=== PATIENT | male | born 1950 | race Caucasian/White ===

== ENCOUNTER → 2018-04-14 14:40 | Outpatient (CLI) | payer MEDICARE, OTHER, SELFPAY ==
--- NOTE | 2018-04-14 14:40 | DT_ITS ---
This patient was seen during an EMR downtime April 13, 2018 - April 20, 2018. This patient may have a combination of paper and electronic documentation or all paper documentation. All documentation is viewable within the e-chart portion of [employer] for each patient visit.
[2018-04-20 17:18] LABS: Albumin, Serum 3.7 g/dL (3.2-5.0); BUN 18 mg/dL (7-18); BUN/Creat Ratio 14.2 RATIO (10-20); Calcium,Total 8.8 mg/dL (8.5-10.1); Chloride 101 mmol/L (98-107); Creatinine, Serum 1.27 mg/dL (0.70-1.30); EST Glomerular Filtration Rate 60 mL/min (>60); Est Glom Filt Rate - Afr Amer 73 mL/min (>60); Glucose 81 mg/dL (74-106); Phosphorus 3.8 mg/dL (2.5-4.9); Potassium 4.3 mmol/L (3.5-5.1); Sodium Level 135 mmol/L (136-145)
[2018-04-20 17:19] LABS: Protein:Creat Ratio 70 mg/g CRE (0-200)
== END ==
PROVIDERS: Family Provider Family Medicine Geriatric Medicine; PCP Family Medicine Geriatric Medicine; Visit Provider Internal Medicine Nephrology
DX: N18.3 Chronic kidney disease, stage 3 (moderate) (principal); D47.2 Monoclonal gammopathy
CPT/HCPCS: 36415; 80069; 82570; 84156; 84166

== ENCOUNTER → 2018-10-20 13:32 | Outpatient (CLI) | payer MEDICARE, OTHER, SELFPAY ==
[2018-10-20 14:02] LABS: Absolute Lymphocyte Count 1.33 X10^3/ul (0.83-4.51); Basophil# 0.02 X10^3/uL; Basophil% 0.3 % (0-1); Eosinophil# 0.08 X10^3/uL; Eosinophils% 1.3 % (0-5); Hematocrit 44.1 % (40-54); Hemoglobin 14.6 g/dl (13.0-16.5); Lymphocyte # 1.33 X10^3/ul (4.0); Lymphocyte % 22.1 % (19-41); Mean Corp Hgb Conc 33.1 g/gl (32-36); Mean Corpuscular Hgb 31.5 pg (27.0-32.0); Mean Corpuscular Volume 95.2 fL (80-94); Mean Platelet Vol. 10.1 fl (6.2-12.0); Neutrophil # 3.99 X10^3/uL (2.7-7.7); Neutrophil % 66.1 % (47-70); Platelet Count 211 K/mm3 (150-450); RBC Distribution Width CV 12.9 % (11.6-14.6); RBC Distribution Width SD 43.5 fl (35.1-43.9); Red Blood Count 4.63 M/mm3 (4.6-6.2)
[2018-10-20 14:03] LABS: POSITIVE COUNT NO; POSITIVE DIFFERENTIAL NO; POSITIVE MORPHOLOGY NO
[2018-10-20 14:23] LABS: Vitamin D,25 Hydroxy 33.5 ng/mL (29.95-100.01)
[2018-10-20 14:32] LABS: ALB/GLOB Ratio 1.3 RATIO (0.9-2.4); AST(SGOT) 19 U/L (15-37); Alanine Aminotransfer ALT/SGPT 31 U/L (16-61); Albumin, Serum 3.7 g/dL (3.2-5.0); Alkaline Phosphatase 97 U/L (45-117); Anion Gap 10 (5-15); BUN 20 mg/dL (7-18); BUN/Creat Ratio 16.1 RATIO (10-20); Chloride 102 mmol/L (98-107); Creatinine, Serum 1.24 mg/dL (0.70-1.30); EST Glomerular Filtration Rate 61 mL/min (>60); Est Glom Filt Rate - Afr Amer 74 mL/min (>60); Globulin 2.9 g/dL (2.2-4.2); Glucose 100 mg/dL (74-106); Potassium 4.6 mmol/L (3.5-5.1); Protein, Total 6.6 g/dL (6.4-8.2); Sodium Level 140 mmol/L (136-145); Thyroid Stim Hormone (TSH) 0.44 uIU/mL (0.358-3.74)
--- OUTSIDE RECORDS SUMMARY | 2018-12-06 18:08 | XMS RPT_ITS ---
:1950 Author Organization OHIP Care Team Providers Name Role Phone Gee Almonte Chi Attending Unavailable Gage, Gee Chi Primary Care Unavailable Zakia Arreaga Attending Unavailable Zakia Arreaga Referring Unavailable Gage, Gee Chi Primary Care Unavailable PROBLEMS PROBLEMS DATE TYPE CONDITION / CODE ATTENDING STATUS SOURCE 05/06/2018 Unknown N18.3 - Chronic Zakia Arreaga Active Gina kidney disease, [facility]ly [facility] stage 3 [facility] (moderate) / Repository N18.3(ICD-10) PROCEDURES PROCEDURES No Procedure Records FoundRESULTS RESULTS CBC W/DIFF, AUTOMATED Collected: 10/20/2018 Status: F Source: [place] 1:34 PM [facility] REPOSITORY TYPE CODE TESTS RESULT OUT OF RANGE REFERENCE UNITS LAB L100.1000 4.4-11.0 K/mm3 Normal WBC 6.0 LAB L100.1200 4.6-6.2 M/mm3 Normal RBC 4.63 LAB L100.1300 13.0-16.5 g/dl Normal HGB 14.6 LAB L100.1400 40-54 % Normal HCT 44.1 LAB L100.1500 80-94 fL High MCV 95.2 LAB L100.1600 27.0-32.0 pg Normal MCH 31.5 LAB L100.1700 32-36 g/gl Normal MCHC 33.1 LAB L100.1810 11.6-14.6 % Normal RDW CV 12.9 LAB L100.1820 35.1-43.9 fl Normal RDW SD 43.5 LAB L100.1900 150-450 K/mm3 Normal PLT 211 LAB L100.2000 6.2-12.0 fl Normal MPV 10.1 LAB L100.2100 47-70 % Normal NEUT% 66.1 LAB L100.2200 19-41 % Normal LY% 22.1 LAB L100.2300 0-10 % Normal MONO% 10.0 LAB L100.2400 0-5 % Normal EO% 1.3 LAB L100.2500 0-1 % Normal BASO% 0.3 LAB L100.2550 0.0-0.9 % Normal IM GRAN % 0.200 Result Comment: IG% - Immature Granulocytes (promyelocytes, myelocytes and metamyelocytes) > 1% indicates that a LEFT SHIFT is Present. LAB L100.2620 2.0-7.7 X10 3/uL Normal Absolute Neut 4.0 LAB L100.2720 0.83-4.51 X10 3/ul Normal Absolute Lymph 1.33 Performed By: #### L100.0100 #### [facility] [address] [place], [address] VITAMIN D,25 HYDROXY Collected: 10/20/2018 Status: F Source: [place] 1:34 PM [facility] REPOSITORY TYPE CODE TESTS RESULT OUT OF RANGE REFERENCE UNITS LAB L506.1000 29.95-100.01 ng/mL Normal Vitamin D 33.5 25-OH Result Comment: Vitamin D 25(OH) Status Range Deficiency <20 ng/mL (50nmol/L) Insuffciency 20 - 30 ng/mL (50 - 75 nmol/L) Sufficiency 30 - 100 ng/mL (75 - 250 nmol/L) Toxicity >100 ng/mL (>250 nmol/L) Performed By: #### L506.1000, L509.3000 #### [facility] [address] [place], [address] TESTOSTERONE, SERUM TOTAL Collected: 10/20/2018 Status: F Source: [place] 1:34 PM [facility] REPOSITORY TYPE CODE TESTS RESULT OUT OF REFERENCE UNITS RANGE LAB L509.3000 ng/dL Testosterone Normal 330.63 Result Comment: NORMAL REFERENCE RANGES MALE AGE <50 123.06 - 813.86 ng/dL MALE AGE >50 89.98 - 780.10 ng/dL FEMALE PREMENOPAUSE AGE 21 - 60 9.01 - 47.94 ng/dL FEMALE POSTMENOPAUSE AGE 45 - 89 <7.00 - 45.62 ng/dL REFERENCE RANGE AND METHODOLOGY CHANGED 10/29/2017 Performed By: #### L506.1000, L509.3000 #### [facility] [address] [place], [address] COMPREHENSIVE METABOLIC Collected: 10/20/2018 Status: F Source: [place] [facility] 1:34 PM [facility] REPOSITORY TYPE CODE TESTS RESULT OUT OF RANGE REFERENCE UNITS LAB L501.0100 74-106 mg/dL Normal GLU 100 Result Comment: Fasting Glucose result from 100 to 125 mg/dL suggests IMPAIRED HOMEOSTASIS per A.D.A. criteria. Please note revised GLUCOSE reference range effective 2017. LAB L501.1000 7-18 mg/dL High BUN 20 LAB L501.1100 0.70-1.30 mg/dL Normal CREAT,SERUM 1.24 Result Comment: The validity of the calculated GFR AND GFRAA in patients over 70 years has not been determined. Clinical correlation is essential. LAB L501.1110 >60 mL/min Normal EST GFR 61 Result Comment: Non- GFR Calc LAB L501.1115 >60 mL/min Normal EST GFR - AA 74 Result Comment: GFR Calc LAB L501.1300 10-20 RATIO Normal BUN/CRE 16.1 LAB L501.1500 6.4-8.2 g/dL T Normal PROT 6.6 LAB L501.1800 3.2-5.0 g/dL Normal ALB 3.7 LAB L501.1950 2.2-4.2 g/dL Normal GLOB 2.9 LAB L501.2000 0.9-2.4 RATIO Normal A/G 1.3 LAB L501.2200 8.5-10.1 mg/dL CA Normal 9.0 LAB L501.4100 15-37 U/L Normal AST 19 LAB L501.4305 45-117 U/L Normal ALK P 97 LAB L501.4405 16-61 U/L Normal ALT 31 LAB L501.4600 0.20-1.00 mg/dL T Normal BILI 0.60 LAB L501.5300 136-145 mmol/L NA Normal 140 LAB L501.5600 3.5-5.1 mmol/L K Normal 4.6 LAB L501.5900 98-107 mmol/L CL Normal 102 LAB L501.6100 21.0-32.0 mmol/L Normal CO2 28.0 LAB L501.6200 5-15 Normal GAP 10 Performed By: #### L500.4050, L501.9520 #### [facility] [address] [place], [address] THYROID STIM HORMONE Collected: 10/20/2018 Status: F Source: [place] (TSH) 1:34 PM [facility] REPOSITORY TYPE CODE TESTS RESULT OUT OF RANGE REFERENCE UNITS LAB L501.9520 0.358-3.74 uIU/mL Normal TSH 0.44 Performed By: #### L500.4050, L501.9520 #### [facility] [address] [facility] [place], [address] DOWNTIME REPORT Observed: 04/30/2018 Status: F Source: [place] 12:38 PM [facility] REPOSITORY [facility] Medical Records Department [address] [place] [address] Downtime Report MR#: [id number] Acct: [id number] Name: WANG LING Rep #: [id number] : 1950 68 From: Emil Rooney PCP: Gage SPAULDING,Gee Mcgarry Status: REG CLI This patient was seen during an EMR downtime April 13, 2018 - April 20, 2018. This patient may have a combination of paper and electronic documentation or all paper documentation. All documentation is viewable within the e-chart portion of [employer] for each patient visit. RENAL PROFILE Collected: 04/14/2018 Status: F Source: [place] 12:00 AM [facility] REPOSITORY Order Comment: RESULT(S) PREVIOUSLY REPORTED ON MANUAL REQUISITION DURING DOWNTIME. TYPE CODE TESTS RESULT OUT OF RANGE REFERENCE UNITS LAB L501.0100 74-106 mg/dL Normal GLU 81 Result Comment: Please note revised GLUCOSE reference range effective 2017. LAB L501.1000 7-18 mg/dL Normal BUN 18 LAB L501.1100 0.70-1.30 mg/dL Normal CREAT,SERUM 1.27 Result Comment: The validity of the calculated GFR AND GFRAA in patients over 70 years has not been determined. Clinical correlation is essential. LAB L501.1110 >60 mL/min Normal EST GFR 60 LAB L501.1115 >60 mL/min Normal EST GFR - AA 73 LAB L501.1300 10-20 RATIO Normal BUN/CRE 14.2 LAB L501.1800 3.2-5.0 g/dL Normal ALB 3.7 LAB L501.2200 8.5-10.1 mg/dL Normal CA 8.8 LAB L501.2300 2.5-4.9 mg/dL Normal PHOS 3.8 LAB L501.5300 136-145 mmol/L Low NA 135 LAB L501.5600 3.5-5.1 mmol/L Normal K 4.3 LAB L501.5900 98-107 mmol/L Normal CL 101 LAB L501.6100 21.0-32.0 mmol/L Normal CO2 30.0 Performed By: #### L500.3600 #### [facility] [address] [place], [place], [address] PROTEIN+CREATININE Collected: Status: F Source: [place] RATIO,URINE 04/14/2018 12:00 AM [facility] REPOSITORY Order Comment: RESULT(S) PREVIOUSLY REPORTED ON MANUAL REQUISITION DURING DOWNTIME. TYPE CODE TESTS RESULT OUT OF RANGE REFERENCE UNITS LAB L501.1200 NO RANGE EST. mg/dL Normal UR CREAT 141.00 LAB L501.1930 <11.9 mg/dL Normal 10.0 PROTEIN,UR.R AN. LAB L501.1940 0-200 mg/g CRE Normal PROT:CRE 70 RATIO Performed By: #### L501.0900 #### [facility] [address] [place], [address] PROTEIN ELECTRO.UR-RANDOM Collected: Status: F Source: [place] 04/14/2018 12:00 AM [facility] REPOSITORY TYPE CODE TESTS RESULT OUT OF RANGE REFERENCE UNITS LAB L3600.4100 Normal PROTEIN,UR Result Comment: TEST RESULT LIMITS Protein Electro, Random Urine Protein,Total,Urine 11.7 mg/dL Not Estab. Albumin, U 51.2 % Fbcgn-2-Hmdvkkul, U 4.0 % Lldgm-7-Plzzduzq, U 14.6 % Beta Globulin, U 21.7 % Gamma Globulin, U 8.5 % M-Nik, % Not Observed % Not Observed Please note: Protein electrophoresis scan will follow via computer, mail, or [employer] delivery. TESTING PERFORMED AT [facility]. ORIGINAL REPORT ON FILE IN LAB CONTAINS ADDITIONAL TEST SITE INFORMATION. Performed By: #### L3600.4000 #### [facility] (refer to report for specific site) refer to report for address and phone number ALLERGIES ALLERGIES No Allergies Records FoundENCOUNTERS ENCOUNTERS ADMIT/DISCHARGE ACCOUNT ADMITTING ENCOUNTER LOCATION SOURCE NUMBER CLASS 10/20/2018 [id number] Amb[place] [facility] ing:POLAB3 Repository 04/14/2018 [id number] Ambulatory [place] 0 [facility] ing:LAB Repository PAYERS PAYERS ENCOUNTER GUARANTOR PAYER SUBSCRIBER SOURCE 10/20/2018 Wang Yanez Primary Wang Fuentes [id number] Wilan Insurance:MEDICARE MetcalfDOB: [place], [place] PART A [facility] [id number] Hospital [address]Vzq: (330) Number: Repository [phone] ) [id number] Date:2018-10-20 10/20/2018 Secondary Wang L Gina Insurance:AARPPolicy MetcalfDOB: [facility] Number: [id number] Hospital [id number] Repository Date:1935-55-27[address], [place] [address]XM: 10/20/2018 Tertiary NOT GIVENUNK Gina Insurance:SELF PAY [facility] Number: Effective Repository Date:2018-10-20 04/14/2018 Wang L Primary Wang L Gina [id number] W[address] Insurance:MEDICARE MetcalfDOB: [address] BPolicy [id number] Hospital [address]Uot: 330) Number: Repository [phone] ) [id number] Date:2018-04-14 04/14/2018 Secondary Wang L Gina Insurance:AARPPolicy MetcalfDOB: Community Number: [id number] [id number] Repository Date:[id number], [place] [address]OR: 04/14/2018 Tertiary NOT GIVENUNK Gina Insurance:SELF PAY [facility] Number: Effective Repository Date:2018-04-14
== END ==
PROVIDERS: Family Provider Family Medicine Geriatric Medicine; PCP Family Medicine Geriatric Medicine; Visit Provider Family Medicine Geriatric Medicine
DX: E29.1 Testicular hypofunction (principal); E55.9 Vitamin D deficiency, unspecified; I10 Essential (primary) hypertension
CPT/HCPCS: 36415; 80053; 82306; 84403; 84443; 85025

== ENCOUNTER → 2019-04-26 11:06 | Outpatient (CLI) | payer MEDICARE, OTHER, SELFPAY ==
[2019-02-22 09:58] VITALS: BMI 24.6
[2019-04-26 12:22] LABS: Absolute Lymphocyte Count 1.35 X10^3/ul (0.83-4.51); Absolute Neutrophil Count 3.7 X10^3/uL (2.0-7.7); Basophil# 0.02 X10^3/uL; Basophil% 0.3 % (0-1); Eosinophil# 0.07 X10^3/uL; Eosinophils% 1.2 % (0-5); Hematocrit 46.7 % (40-54); Hemoglobin 15.5 g/dl (13.0-16.5); Lymphocyte # 1.35 X10^3/ul (4.0); Lymphocyte % 23.3 % (19-41); Mean Corp Hgb Conc 33.2 g/gl (32-36); Mean Corpuscular Hgb 31.1 pg (27.0-32.0); Mean Corpuscular Volume 93.8 fL (80-94); Mean Platelet Vol. 9.7 fl (6.2-12.0); Monocyte# 0.67 X10^3/uL; Monocyte% 11.6 % (0-10); Neutrophil # 3.69 X10^3/uL (2.7-7.7); Neutrophil % 63.6 % (47-70); Platelet Count 218 K/mm3 (150-450); RBC Distribution Width CV 13.1 % (11.6-14.6); RBC Distribution Width SD 44.9 fl (35.1-43.9); Red Blood Count 4.98 M/mm3 (4.6-6.2); White Blood Count 5.8 K/mm3 (4.4-11.0)
[2019-04-26 12:38] LABS: POSITIVE COUNT NO; POSITIVE DIFFERENTIAL NO; POSITIVE MORPHOLOGY NO
[2019-04-26 12:42] LABS: Vitamin D,25 Hydroxy 30.2 ng/mL (29.95-100.01)
[2019-04-26 12:52] LABS: ALB/GLOB Ratio 1.2 RATIO (0.9-2.4); AST(SGOT) 21 U/L (15-37); Alanine Aminotransfer ALT/SGPT 26 U/L (16-61); Albumin, Serum 3.7 g/dL (3.2-5.0); Alkaline Phosphatase 91 U/L (45-117); Anion Gap 8 (5-15); BUN 26 mg/dL (7-18); BUN/Creat Ratio 21.3 RATIO (10-20); Calcium,Total 9.2 mg/dL (8.5-10.1); Chloride 102 mmol/L (98-107); Creatinine, Serum 1.22 mg/dL (0.70-1.30); EST Glomerular Filtration Rate 62 mL/min (>60); Est Glom Filt Rate - Afr Amer 76 mL/min (>60); Globulin 3.1 g/dL (2.2-4.2); Glucose 93 mg/dL (74-106); Potassium 4.8 mmol/L (3.5-5.1); Protein, Total 6.8 g/dL (6.4-8.2); Sodium Level 137 mmol/L (136-145); Thyroid Stim Hormone (TSH) 0.49 uIU/mL (0.358-3.74)
[2019-04-27 16:07] LABS: PROEL- A/G Ratio 1.8 (0.7-1.7); PROEL- Albumin 4.2 g/dL (2.9-4.4); PROEL- Alpha-1 Globulin 0.2 g/dL (0.0-0.4); PROEL- Alpha-2 Globulin 0.5 g/dL (0.4-1.0); PROEL- Beta Globulin 0.8 g/dL (0.7-1.3); PROEL- Gamma Globulin 0.9 g/dL (0.4-1.8); PROEL- Globulin, Total 2.4 g/dL (2.2-3.9); PROEL- TOTAL PROTEIN 6.6 g/dL (6.0-8.5)
[2019-04-28 16:07] LABS: PROELU- Albumin, Urine 45.5 % (.); PROELU- Alpha-1-Globulin,Ur 3.6 % (.); PROELU- Alpha-2-Globulin,Ur 14.8 % (.); PROELU- Beta Globulin, Ur 24.3 % (.); PROELU- Gamma Globulin, Ur 11.7 % (.); Total Protein, Ur 21.3 mg/dL (Not Estab.)
== END ==
PROVIDERS: Family Provider Family Medicine Geriatric Medicine; PCP Family Medicine Geriatric Medicine; Visit Provider Family Medicine Geriatric Medicine
DX: E55.9 Vitamin D deficiency, unspecified (principal); I10 Essential (primary) hypertension; Z12.5 Encounter for screening for malignant neoplasm of prostate; D47.2 Monoclonal gammopathy
CPT/HCPCS: 36415; 80053; 82306; 84153; 84165; 84166; 84443; 85025; G0103

== ENCOUNTER → 2019-10-14 10:03 | Outpatient (CLI) | payer MEDICARE, OTHER, SELFPAY ==
[2019-02-22 09:58] VITALS: BMI 24.6
--- NOTE | 2019-10-14 14:04 | NEURO ---
NCS and/or EMG Patient Report HPI: Patient is a 69-year-old male who presented with numbness, tingling and weakness of right hand and arm for several years. Symptoms has been progressing and becoming more constant now. Patient does not have any history of diabetes or history of neck injury. Patient is hyzbj-kgec-awniuqjn. Patient had x-ray of his right elbow recently which showed old fracture which has healed. Patient did not receive any treatment at the time of injury but now complaining right elbow pain. Physical Exam: There is mild tenderness at the right wrist area. Tinel's sign slightly positive at right wrist, mild atrophy of the right thenar and hypothenar muscles, weakness of the right hand finger flexors and abductor muscles. Decreased sensation to light touch noted in right hand fingers especially fifth, fourth and third fingers. Tenderness of the right elbow noted specially around medial epicondyles. Tinel's sign slightly positive at the right elbow. Findings: 1. There is prolongation of the distal latency right median sensory nerve response. 2. There is prolongation of the distal latency of the right ulnar sensory nerve response. 3. There is slight slowing of right ulnar motor nerve conduction velocity below and above elbow. 4. Normal right median motor nerve conduction study. 5. Normal needle examination of the right upper extremity. Impression: 1. Findings are consistent with mild right median mononeuropathy at wrist due to carpal tunnel syndrome. 2. 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 Recommendation: 1.Patient recommended to wear right hand and elbow splints as much as possible. 2.Patient recommended to avoid repetitive right hand movements as well as sleeping or leaning on right elbow. 3.Patient recommended to take a cortisone injection in the right carpal tunnel syndrome if symptoms continues. 4.Patient recommended to consider surgical release of right carpal tunnel syndrome if conservative treatment fails
== END ==
PROVIDERS: Family Provider Family Medicine Geriatric Medicine; PCP Family Medicine Geriatric Medicine; Referring Provider Physician Assistant Surgical; Visit Provider Physician Assistant Surgical
DX: R20.2 Paresthesia of skin (principal)
CPT/HCPCS: 95886; 95908

== ENCOUNTER → 2019-10-25 11:30 | Outpatient (CLI) | payer MEDICARE, OTHER, SELFPAY ==
[2019-02-22 09:58] VITALS: BMI 24.6
[2019-10-25 12:07] LABS: Absolute Neutrophil Count 4.6 X10^3/uL (2.0-7.7); Basophil# 0.03 X10^3/uL; Basophil% 0.4 % (0-1); Eosinophil# 0.11 X10^3/uL; Eosinophils% 1.6 % (0-5); Hematocrit 45.8 % (40-54); Hemoglobin 15.3 g/dL (13.0-16.5); Lymphocyte % 20.6 % (19-41); Mean Corp Hgb Conc 33.4 g/dL (32-36); Mean Corpuscular Hgb 31.5 pg (27.0-32.0); Mean Corpuscular Volume 94.2 fL (80-94); Mean Platelet Vol. 9.5 fl (6.2-12.0); Monocyte% 8.8 % (0-10); NRBC Flagged by Analyzer 0 % (0-5); Neutrophil # 4.64 X10^3/uL (2.7-7.7); Neutrophil % 68.2 % (47-70); Platelet Count 240 K/mm3 (150-450); RBC Distribution Width CV 12.7 % (11.6-14.6); RBC Distribution Width SD 43.6 fl (35.1-43.9); Red Blood Count 4.86 M/mm3 (4.6-6.2); White Blood Count 6.8 K/mm3 (4.4-11.0)
[2019-10-25 12:45] LABS: Vitamin D,25 Hydroxy 27.7 ng/mL (29.95-100.01)
[2019-10-25 13:01] LABS: ALB/GLOB Ratio 1.2 RATIO (0.9-2.4); AST(SGOT) 22 U/L (15-37); Alanine Aminotransfer ALT/SGPT 33 U/L (16-61); Albumin, Serum 3.8 g/dL (3.2-5.0); Alkaline Phosphatase 90 U/L (45-117); Anion Gap 4 (5-15); BUN 16 mg/dL (7-18); BUN/Creat Ratio 12.7 RATIO (10-20); Calcium,Total 8.8 mg/dL (8.5-10.1); Chloride 103 mmol/L (98-107); Creatinine, Serum 1.26 mg/dL (0.70-1.30); EST Glomerular Filtration Rate 60 mL/min (>60); Est Glom Filt Rate - Afr Amer 73 mL/min (>60); Globulin 3.2 g/dL (2.2-4.2); Glucose 105 mg/dL (74-106); Potassium 4.3 mmol/L (3.5-5.1); Sodium Level 136 mmol/L (136-145); Thyroid Stim Hormone (TSH) 0.76 uIU/mL (0.358-3.74)
== END ==
PROVIDERS: Family Provider Family Medicine Geriatric Medicine; PCP Family Medicine Geriatric Medicine; Visit Provider Family Medicine Geriatric Medicine
DX: E55.9 Vitamin D deficiency, unspecified (principal); F52.8 Other sexual dysfunction not due to a substance or known physiological condition; I10 Essential (primary) hypertension
CPT/HCPCS: 36415; 80053; 82306; 84403; 84443; 85025

== ENCOUNTER → 2019-12-01 11:21 | Outpatient (CLI) | payer MEDICARE, OTHER, SELFPAY ==
[2019-02-22 09:58] VITALS: BMI 24.6
--- NOTE | 2019-12-01 11:41 | EKG12_ITS ---
Test Reason : PREOP Blood Pressure : / mmHG Vent. Rate : 056 BPM Atrial Rate : 035 BPM P-R Int : 154 ms QRS Dur : 136 ms QT Int : 438 ms P-R-T Axes : 042 -59 -13 degrees QTc Int : 422 ms Marked sinus bradycardia with Premature supraventricular complexes in a bigeminal pattern Right bundle branch block Left anterior fascicular block Bifascicular block Abnormal ECG Confirmed by ERIS RODRIGUEZ ([id number]), business editor NANCY BRASHER ([id number]) on 12/02/2019 8:35:13 AM Referred By: Hector Suazo Confirmed By:ERIS RODRIGUEZ
[2019-12-01 12:39] LABS: Hematocrit 48.1 % (40-54); Hemoglobin 15.9 g/dL (13.0-16.5); Mean Corp Hgb Conc 33.1 g/dL (32-36); Mean Corpuscular Hgb 31.1 pg (27.0-32.0); Mean Corpuscular Volume 93.9 fL (80-94); Mean Platelet Vol. 9.3 fl (6.2-12.0); Platelet Count 263 K/mm3 (150-450); RBC Distribution Width CV 12.1 % (11.6-14.6); RBC Distribution Width SD 42.5 fl (35.1-43.9); Red Blood Count 5.12 M/mm3 (4.6-6.2); White Blood Count 8.5 K/mm3 (4.4-11.0)
[2019-12-01 13:02] LABS: Anion Gap 3 (5-15); BUN 17 mg/dL (7-18); BUN/Creat Ratio 14.4 RATIO (10-20); Calcium,Total 9.4 mg/dL (8.5-10.1); Chloride 103 mmol/L (98-107); Creatinine, Serum 1.18 mg/dL (0.70-1.30); EST Glomerular Filtration Rate 65 mL/min (>60); Est Glom Filt Rate - Afr Amer 78 mL/min (>60); Glucose 100 mg/dL (74-106); Potassium 4.6 mmol/L (3.5-5.1); Sodium Level 136 mmol/L (136-145)
== END ==
LOC: LAB 11:23
PROVIDERS: PCP Family Medicine Geriatric Medicine; Referring Provider Physician Assistant Surgical; Visit Provider Physician Assistant Surgical
DX: Z01.818 Encounter for other preprocedural examination (principal); Z01.810 Encounter for preprocedural cardiovascular examination
CPT/HCPCS: 36415; 80048; 85027; 93005

== ENCOUNTER → 2020-04-04 14:36 | Outpatient (CLI) | payer MEDICARE, OTHER, SELFPAY ==
[2019-02-22 09:58] VITALS: BMI 24.6
[2020-04-04 16:20] LABS: Absolute Lymphocyte Count 1.41 X10^3/uL (0.83-4.51); Absolute Neutrophil Count 6.8 X10^3/uL (2.0-7.7); Basophil# 0.03 X10^3/uL; Basophil% 0.3 % (0-1); Eosinophil# 0.05 X10^3/uL; Eosinophils% 0.5 % (0-5); Hemoglobin 14.9 g/dL (13.0-16.5); Lymphocyte # 1.41 X10^3/ul (4.0); Lymphocyte % 14.7 % (19-41); Mean Corp Hgb Conc 33.1 g/dL (32-36); Mean Corpuscular Hgb 30.9 pg (27.0-32.0); Mean Corpuscular Volume 93.4 fL (80-94); Mean Platelet Vol. 9.7 fl (6.2-12.0); Monocyte# 1.29 X10^3/uL; Monocyte% 13.4 % (0-10); NRBC Flagged by Analyzer 0 % (0-5); Neutrophil # 6.81 X10^3/uL (2.7-7.7); Neutrophil % 70.8 % (47-70); Platelet Count 249 K/mm3 (150-450); RBC Distribution Width SD 41.3 fl (35.1-43.9); Red Blood Count 4.82 M/mm3 (4.6-6.2); White Blood Count 9.6 K/mm3 (4.4-11.0)
[2020-04-04 16:49] LABS: Anion Gap 5 (5-15); BUN 24 mg/dL (7-18); Calcium,Total 9.7 mg/dL (8.5-10.1); Chloride 96 mmol/L (98-107); EST Glomerular Filtration Rate 78 mL/min (>60); Est Glom Filt Rate - Afr Amer 95 mL/min (>60); Glucose 106 mg/dL (74-106); Potassium 4.2 mmol/L (3.5-5.1); Sodium Level 133 mmol/L (136-145); Thyroid Stim Hormone (TSH) 0.37 uIU/mL (0.358-3.74)
== END ==
PROVIDERS: PCP Family Medicine Geriatric Medicine; Visit Provider Family Medicine Geriatric Medicine
DX: R53.83 Other fatigue (principal)
CPT/HCPCS: 36415; 80048; 84443; 85025

== ENCOUNTER → 2020-04-27 09:26 | Outpatient (CLI) | payer MEDICARE, OTHER, SELFPAY ==
[2019-02-22 09:58] VITALS: BMI 24.6
[2020-04-27 12:57] LABS: Absolute Lymphocyte Count 1.28 X10^3/uL (0.83-4.51); Basophil# 0.03 X10^3/uL; Basophil% 0.5 % (0-1); Eosinophil# 0.11 X10^3/uL; Eosinophils% 1.8 % (0-5); Lymphocyte # 1.28 X10^3/ul (4.0); Lymphocyte % 20.8 % (19-41); Mean Corp Hgb Conc 32.6 g/dL (32-36); Mean Corpuscular Hgb 31.2 pg (27.0-32.0); Mean Corpuscular Volume 95.6 fL (80-94); Mean Platelet Vol. 9.1 fl (6.2-12.0); Monocyte# 0.71 X10^3/uL; Monocyte% 11.5 % (0-10); NRBC Flagged by Analyzer 0 % (0-5); Neutrophil # 4.01 X10^3/uL (2.7-7.7); Neutrophil % 65.2 % (47-70); Platelet Count 216 K/mm3 (150-450); RBC Distribution Width SD 45.1 fl (35.1-43.9); Red Blood Count 4.81 M/mm3 (4.6-6.2); White Blood Count 6.2 K/mm3 (4.4-11.0)
[2020-04-27 13:16] LABS: Vitamin D,25 Hydroxy 43.5 ng/mL
[2020-04-27 13:28] LABS: ALB/GLOB Ratio 1.2 RATIO (0.9-2.4); AST(SGOT) 31 U/L (15-37); Alanine Aminotransfer ALT/SGPT 54 U/L (16-61); Albumin, Serum 3.5 g/dL (3.2-5.0); Alkaline Phosphatase 75 U/L (45-117); Anion Gap 7 (5-15); BUN 14 mg/dL (7-18); BUN/Creat Ratio 11.1 RATIO (10-20); Calcium,Total 8.9 mg/dL (8.5-10.1); Chloride 102 mmol/L (98-107); Creatinine, Serum 1.26 mg/dL (0.70-1.30); EST Glomerular Filtration Rate 60 mL/min (>60); Est Glom Filt Rate - Afr Amer 73 mL/min (>60); Globulin 2.9 g/dL (2.2-4.2); Glucose 139 mg/dL (74-106); Potassium 4.2 mmol/L (3.5-5.1); Protein, Total 6.4 g/dL (6.4-8.2); Sodium Level 137 mmol/L (136-145); Thyroid Stim Hormone (TSH) 0.53 uIU/mL (0.358-3.74)
== END ==
PROVIDERS: PCP Family Medicine Geriatric Medicine; Visit Provider Family Medicine Geriatric Medicine
DX: E55.9 Vitamin D deficiency, unspecified (principal); F52.8 Other sexual dysfunction not due to a substance or known physiological condition; I10 Essential (primary) hypertension
CPT/HCPCS: 36415; 80053; 82306; 84165; 84166; 84403; 84443; 85025

== ENCOUNTER → 2020-10-26 09:27 | Outpatient (CLI) | payer MEDICARE, OTHER, SELFPAY ==
[2019-02-22 09:58] VITALS: BMI 24.6
[2020-10-26 13:13] LABS: Absolute Lymphocyte Count 1.18 X10^3/uL (0.83-4.51); Absolute Neutrophil Count 3.8 X10^3/uL (2.0-7.7); Basophil# 0.02 X10^3/uL; Basophil% 0.3 % (0-1); Eosinophil# 0.06 X10^3/uL; Hematocrit 43.9 % (40-54); Hemoglobin 14.3 g/dL (13.0-16.5); Lymphocyte # 1.18 X10^3/ul (4.0); Lymphocyte % 20.5 % (19-41); Mean Corp Hgb Conc 32.6 g/dL (32-36); Mean Platelet Vol. 9.2 fl (6.2-12.0); Monocyte# 0.66 X10^3/uL; Monocyte% 11.5 % (0-10); NRBC Flagged by Analyzer 0 % (0-5); Neutrophil # 3.82 X10^3/uL (2.7-7.7); Neutrophil % 66.5 % (47-70); Platelet Count 237 K/mm3 (150-450); RBC Distribution Width CV 12.1 % (11.6-14.6); RBC Distribution Width SD 41.9 fl (35.1-43.9); Red Blood Count 4.62 M/mm3 (4.6-6.2); White Blood Count 5.8 K/mm3 (4.4-11.0)
[2020-10-26 13:31] LABS: Vitamin D,25 Hydroxy 27.1 ng/mL
[2020-10-26 13:37] LABS: ALB/GLOB Ratio 1.2 RATIO (0.9-2.4); AST(SGOT) 18 U/L (15-37); Alanine Aminotransfer ALT/SGPT 37 U/L (16-61); Albumin, Serum 3.5 g/dL (3.2-5.0); Alkaline Phosphatase 100 U/L (45-117); Anion Gap 5 (5-15); BUN 20 mg/dL (7-18); BUN/Creat Ratio 18.7 RATIO (10-20); Calcium,Total 8.5 mg/dL (8.5-10.1); Chloride 105 mmol/L (98-107); Creatinine, Serum 1.07 mg/dL (0.70-1.30); EST Glomerular Filtration Rate 72 mL/min (>60); Est Glom Filt Rate - Afr Amer 88 mL/min (>60); Globulin 2.8 g/dL (2.2-4.2); Glucose 95 mg/dL (74-106); Potassium 4.1 mmol/L (3.5-5.1); Protein, Total 6.3 g/dL (6.4-8.2); Sodium Level 138 mmol/L (136-145); Thyroid Stim Hormone (TSH) 0.43 uIU/mL (0.358-3.74)
== END ==
PROVIDERS: PCP Family Medicine Geriatric Medicine; Visit Provider Family Medicine Geriatric Medicine
DX: I10 Essential (primary) hypertension (principal); E55.9 Vitamin D deficiency, unspecified; F52.8 Other sexual dysfunction not due to a substance or known physiological condition
CPT/HCPCS: 36415; 80053; 82306; 84403; 84443; 85025

== ENCOUNTER 2021-01-16 10:38 | Outpatient (RCR) | payer MEDICARE, OTHER, SELFPAY ==
[2019-02-22 09:58] VITALS: BMI 24.6
[2021-01-16] MEDS: COVID-19 VACC, MRNA(PFIZER)/PF 30 MCG/0.3 ML SYRINGE IM (17:48)
[2021-02-06] MEDS: COVID-19 VACC, MRNA(PFIZER)/PF 30 MCG/0.3 ML SYRINGE IM (17:28)
== END 2021-04-17 23:59 ==
LOC: IMMUN 10:38
PROVIDERS: PCP Family Medicine Geriatric Medicine; Visit Provider Family Medicine
DX: Z23 Encounter for immunization (principal)
CPT/HCPCS: 0001A; 0002A; 91300

== ENCOUNTER → 2021-04-30 09:18 | Outpatient (CLI) | payer MEDICARE, OTHER, SELFPAY ==
[2019-02-22 09:58] VITALS: BMI 24.6
[2021-04-30 12:25] LABS: Absolute Lymphocyte Count 1.11 X10^3/uL (0.83-4.51); Absolute Neutrophil Count 3.5 X10^3/uL (2.0-7.7); Basophil# 0.02 X10^3/uL; Basophil% 0.4 % (0-1); Eosinophil# 0.05 X10^3/uL; Hematocrit 43.2 % (40-54); Hemoglobin 14.5 g/dL (13.0-16.5); Lymphocyte # 1.11 X10^3/ul (0.83-4.51); Lymphocyte % 21.1 % (19-41); Mean Corp Hgb Conc 33.6 g/dL (32-36); Mean Corpuscular Hgb 31.8 pg (27.0-32.0); Mean Corpuscular Volume 94.7 fL (80-94); Mean Platelet Vol. 9.3 fl (6.2-12.0); Monocyte# 0.55 X10^3/uL; Monocyte% 10.5 % (0-10); NRBC Flagged by Analyzer 0 % (0-5); Neutrophil # 3.51 X10^3/uL (2.7-7.7); Neutrophil % 66.8 % (47-70); Platelet Count 210 K/mm3 (150-450); RBC Distribution Width CV 12.5 % (11.6-14.6); RBC Distribution Width SD 43.4 fl (35.1-43.9); Red Blood Count 4.56 M/mm3 (4.6-6.2); White Blood Count 5.3 K/mm3 (4.4-11.0)
[2021-04-30 12:43] LABS: Vitamin D,25 Hydroxy 45.2 ng/mL
[2021-04-30 12:54] LABS: ALB/GLOB Ratio 1.2 RATIO (0.9-2.4); AST(SGOT) 28 U/L (15-37); Alanine Aminotransfer ALT/SGPT 43 U/L (16-61); Albumin, Serum 3.5 g/dL (3.2-5.0); Alkaline Phosphatase 100 U/L (45-117); Anion Gap 8 (5-15); BUN 14 mg/dL (7-18); BUN/Creat Ratio 11.3 RATIO (10-20); Calcium,Total 8.6 mg/dL (8.5-10.1); Chloride 102 mmol/L (98-107); Creatinine, Serum 1.24 mg/dL (0.70-1.30); EST Glomerular Filtration Rate 61 mL/min (>60); Est Glom Filt Rate - Afr Amer 74 mL/min (>60); Globulin 2.9 g/dL (2.2-4.2); Glucose 137 mg/dL (74-106); Potassium 4.1 mmol/L (3.5-5.1); Protein, Total 6.4 g/dL (6.4-8.2); Sodium Level 136 mmol/L (136-145); Thyroid Stim Hormone (TSH) 0.48 uIU/mL (0.358-3.74)
[2021-05-01 10:28] LABS: AFP, Tumor Marker 7.2 ng/mL (0.0-8.3)
== END ==
LOC: POLAB3 09:19 → LAB 10:19
PROVIDERS: PCP Family Medicine Geriatric Medicine; Referring Provider Family Medicine Geriatric Medicine; Visit Provider Family Medicine Geriatric Medicine
DX: E55.9 Vitamin D deficiency, unspecified (principal); F52.8 Other sexual dysfunction not due to a substance or known physiological condition; I10 Essential (primary) hypertension; D47.2 Monoclonal gammopathy
CPT/HCPCS: 36415; 80053; 82105; 82306; 84403; 84443; 85025

== ENCOUNTER → 2021-05-02 | Outpatient (CLI) | payer MEDICARE, OTHER, SELFPAY ==
[2019-02-22 09:58] VITALS: BMI 24.6
[2021-05-04 16:09] LABS: Albumin, Ur 48.7 % (.); Beta Globulin, Ur 14.9 % (.); Gamma Globulin, Ur 14.8 % (.); M-Spike, Ur % Not Observed % (Not Observed); Protein, 24Ur < 110 mg/24 hr (30-150)
[2021-05-05 08:14] LABS: Total Protein, Ur < 4.0 mg/dL (Not Estab.)
== END | disposition home or self-care (01) ==
LOC: LABSPEC 09:26
PROVIDERS: PCP Family Medicine Geriatric Medicine; Visit Provider Family Medicine Geriatric Medicine
DX: D47.2 Monoclonal gammopathy (principal)
CPT/HCPCS: 81050; 84166

== ENCOUNTER → 2021-10-29 09:36 | Outpatient (CLI) | payer MEDICARE, OTHER, SELFPAY ==
[2021-10-29 12:47] LABS: Absolute Lymphocyte Count 1.27 X10^3/uL (0.83-4.51); Absolute Neutrophil Count 4.4 X10^3/uL (2.0-7.7); Basophil# 0.03 X10^3/uL; Basophil% 0.5 % (0-1); Eosinophil# 0.07 X10^3/uL; Eosinophils% 1.1 % (0-5); Hematocrit 47.5 % (40-54); Hemoglobin 15.7 g/dL (13.0-16.5); Lymphocyte # 1.27 X10^3/ul (0.83-4.51); Lymphocyte % 19.8 % (19-41); Mean Corp Hgb Conc 33.1 g/dL (32-36); Mean Corpuscular Volume 93.9 fL (80-94); Mean Platelet Vol. 9.3 fl (6.2-12.0); Monocyte# 0.63 X10^3/uL; Monocyte% 9.8 % (0-10); NRBC Flagged by Analyzer 0 % (0-5); Neutrophil % 68.5 % (47-70); Platelet Count 246 K/mm3 (150-450); RBC Distribution Width CV 12.4 % (11.6-14.6); RBC Distribution Width SD 42.8 fl (35.1-43.9); Red Blood Count 5.06 M/mm3 (4.6-6.2); White Blood Count 6.4 K/mm3 (4.4-11.0)
[2021-10-29 13:02] LABS: ALB/GLOB Ratio 1.1 RATIO (0.9-2.4); AST(SGOT) 31 U/L (15-37); Alanine Aminotransfer ALT/SGPT 46 U/L (16-61); Albumin, Serum 3.7 g/dL (3.2-5.0); Alkaline Phosphatase 93 U/L (45-117); Anion Gap 6 (5-15); BUN 16 mg/dL (7-18); Calcium,Total 9.5 mg/dL (8.5-10.1); Chloride 102 mmol/L (98-107); Creatinine, Serum 1.14 mg/dL (0.70-1.30); EST Glomerular Filtration Rate 67 mL/min (>60); Est Glom Filt Rate - Afr Amer 81 mL/min (>60); Globulin 3.4 g/dL (2.2-4.2); Glucose 118 mg/dL (74-106); Potassium 4.4 mmol/L (3.5-5.1); Protein, Total 7.1 g/dL (6.4-8.2); Sodium Level 137 mmol/L (136-145); Thyroid Stim Hormone (TSH) 0.55 uIU/mL (0.358-3.74)
== END ==
PROVIDERS: PCP Family Medicine Geriatric Medicine; Visit Provider Family Medicine Geriatric Medicine
DX: I10 Essential (primary) hypertension (principal); E55.9 Vitamin D deficiency, unspecified; F52.8 Other sexual dysfunction not due to a substance or known physiological condition
CPT/HCPCS: 36415; 80053; 82306; 84403; 84443; 85025

== ENCOUNTER 2021-11-21 13:37 | Outpatient (CLI) | payer MEDICARE, OTHER, SELFPAY | END 2021-11-21 23:59 | disposition short-term general hospital (02) | PROVIDERS: PCP Family Medicine Geriatric Medicine; Referring Provider Family Medicine Geriatric Medicine; Visit Provider Family Medicine Geriatric Medicine | DX: R68.83 Chills (without fever) (principal) | CPT/HCPCS: 87635; C9803; U0003; U0005 ==

== ENCOUNTER 2021-12-19 15:57 | Outpatient (CLI) | payer MEDICARE, OTHER, SELFPAY ==
[2021-12-19 17:49] LABS: BUN 22 mg/dL (7-18); Creatinine, Serum 1.13 mg/dL (0.70-1.30); Glucose 116 mg/dL (74-106)
[2021-12-19 17:50] LABS: ALB/GLOB Ratio 1.2 RATIO (0.9-2.4); AST(SGOT) 18 U/L (15-37); Alanine Aminotransfer ALT/SGPT 46 U/L (16-61); Albumin, Serum 3.5 g/dL (3.2-5.0); Alkaline Phosphatase 88 U/L (45-117); Anion Gap 4 (5-15); BUN/Creat Ratio 19.5 RATIO (10-20); Calcium,Total 8.7 mg/dL (8.5-10.1); Chloride 104 mmol/L (98-107); EST Glomerular Filtration Rate 68 mL/min (>60); Est Glom Filt Rate - Afr Amer 82 mL/min (>60); Protein, Total 6.5 g/dL (6.4-8.2); Sodium Level 137 mmol/L (136-145)
[2021-12-19 18:08] LABS: Absolute Neutrophil Count 6.1 X10^3/uL (2.0-7.7); Basophil# 0.04 X10^3/uL; Basophil% 0.5 % (0-1); Eosinophil# 0.06 X10^3/uL; Eosinophils% 0.7 % (0-5); Hematocrit 43.6 % (40-54); Hemoglobin 14.4 g/dL (13.0-16.5); Lymphocyte % 18.4 % (19-41); Mean Corpuscular Hgb 31.2 pg (27.0-32.0); Mean Corpuscular Volume 94.4 fL (80-94); Mean Platelet Vol. 9.4 fl (6.2-12.0); Monocyte# 0.84 X10^3/uL; Monocyte% 9.7 % (0-10); NRBC Flagged by Analyzer 0 % (0-5); Neutrophil # 6.12 X10^3/uL (2.7-7.7); Neutrophil % 70.4 % (47-70); Platelet Count 252 K/mm3 (150-450); RBC Distribution Width CV 12.8 % (11.6-14.6); RBC Distribution Width SD 44.1 fl (35.1-43.9); Red Blood Count 4.62 M/mm3 (4.6-6.2); White Blood Count 8.7 K/mm3 (4.4-11.0)
== END 2021-12-19 23:59 | disposition home or self-care (01) ==
LOC: POLAB3 15:59
PROVIDERS: PCP Family Medicine Geriatric Medicine; Visit Provider Family Medicine Geriatric Medicine
DX: I10 Essential (primary) hypertension (principal)
CPT/HCPCS: 36415; 80053; 85025

== ENCOUNTER 2021-12-20 12:12 | Outpatient (CLI) | payer MEDICARE, OTHER, SELFPAY ==
[2021-12-20 12:16] LABS: Bacteria 0 SEEN /hpf (None Seen); Mucous, Urine 0 SEEN /hpf (<or=2+); Red Blood Cells-Urine 0 SEEN /hpf (0-5); Squamous Epithelial Cells - UA 0 SEEN /hpf (0-5); White Blood Cells 0 SEEN /hpf (0-5)
[2021-12-20 12:36] LABS: Color, Urine Yellow (Yellow); Glucose, Dipstick Normal (Normal); Ketone-Dipstick Negative (Negative); Leukocyte Esterase-Dipstick Negative /ul (Negative); Nitrite-Dipstick Negative (Negative); Occult Blood-Urine Negative /ul (Negative); Protein-Dipstick Negative (Negative); Urine Bilirubin Dipstick Negative (Negative); Urine Clarity Clear (Clear); Urine Urobilinogen Normal (Normal)
== END 2021-12-20 23:59 | disposition home or self-care (01) ==
LOC: POLAB3 12:14 → LABSPEC 12:16
PROVIDERS: PCP Family Medicine Geriatric Medicine; Visit Provider Internal Medicine Cardiovascular Disease
DX: I44.1 Atrioventricular block, second degree (principal)
CPT/HCPCS: 81001

== ENCOUNTER 2021-12-21 08:34 | Observation (INO) | payer MEDICARE, OTHER, SELFPAY ==
--- NOTE | 2021-12-20 12:20 | RAD_ITS ---
STUDY: X-RAY CHEST REASON FOR EXAM: Male, 71 years old. For PPM implant on 12/21/2020 TECHNIQUE: PA and lateral views of the chest. COMPARISON: Comparison is made with prior study dated 06/05/2015. FINDINGS: There is hyperinflation of the lungs consistent with chronic obstructive lung disease (COPD). There is a 5.4 mm calcified granuloma in the medial left lung apex. There is no demonstrated pleural abnormality. Normal size heart. Normal mediastinum and juan. Normal visualized pulmonary arteries. Normal visualized aortic arch and descending thoracic aorta. There is demineralization of the osseous structures. Normal visualized ribs, clavicles, and shoulders. There is no demonstrated abnormality of the visualized soft tissue structures of the upper abdomen. RAD/Chest PA and Lateral IMPRESSION: Hyperinflation. The lungs are clear. Electronically Signed: Ramirez Fair MD at 14:59 EST ,
[2021-12-20 13:13] VITALS: BMI 26.2
[2021-12-21] VITALS (13 sets, daily range): BP systolic 113–181; BP diastolic 60–97; PULSE 58–72; RESP 16–18; TEMP 36.2–36.8; O2SAT 95–99; BMI 24.5
--- NOTE | 2021-12-21 08:35 | CL.IE_ITS ---
Patient: TONG LING Study Date: 12/21/2021 Performing: Cheo Walker MD : 1950 Age: 71 Gender: male PROCEDURES PERFORMED LP04-(32038)INITIAL PACER INSERT+DUAL LEADS INDICATIONS Other second degree AV block PROCEDURE DETAILS The patient was brought to the Catheterization Lab in the postabsorptive nonsedated state. Infor med consent was obtained prior to the procedure. Local anesthetic was given subcutaneously to the le ft upper chest area with Lidocaine 2%. Access was achieved and a guidewire was advanced into the left subclavian vein. Incision was made to the left upper chest. PPM ventricular lead was inserted / posi tioned to right ventricular apex. PPM ventricular lead testing performed. PPM ventricular lead testin g performed. PPM atrial lead was inserted / positioned to the right atrial appendage. PPM atrial lead testing performed. The Atrial lead sutured in place with 2-0 Silk. The Ventricular PM lead sutured i n place with 2-0 Silk. Device pocket was irrigated with antibiotic, Ancef. PPM generator was attached to the lead(s) and inserted into the pocket. PPM generator was then interrogated by the lead programmer. Subcutaneous closure was completed with 3-0 Vicryl. Skin closure was completed with 4-0 Vicryl. Steri-strips applied to Lt chest area. The patient tolerated the procedure well. Estimated Blood Loss: < 10 mls IMPLANTED / EX-PLANTED DEVICES IMPLANTED DEVICE(S): PPM Atrial lead - Cloth Mender: [employer], Model # Ingevity [id number] 52cm , Serial # [id number] PPM Ventricular lead - Cloth Mender: [employer], Model # Ingevity 7842 59cm , Serial # [id number] PPM Generator - Cloth Mender: [employer], Model # Essentio MRI DR Pacemaker L111 , Serial # [id number] DEVICE PARAMETERS ATRIAL LEAD PARAMETERS: P wave- 3.3 (mV) Current- 1.3 (mA) threshold- 0.7 (V) impedence- 555 (OHMS) VENTRICULAR LEAD PARAMETERS: R wave- 10.9 (mV) Current- 0.5 (mA) threshold- 0.5 (V) impedence- 1024 (OHMS) DEVICE PARAMETERS: Mode- DDD Lower rate- 60 Upper rate- 130 CONCLUSIONS / RECOMMENDATIONS Device Conclusions: Successful implantation of a dual chamber pacemaker Device Recommendations: Follow up with Primary Care Physician PROCEDURE MEDICATIONS Fentanyl 50 mcg IV Versed 1 mg IV Versed 1 mg IV Oxygen: 2 L/min via nasal cannula Antibiotic given in appropriate timeframe. Ancef 2 Gm IV @ 12/21/2021 07:12:37 Signed By Cheo Walker MD On 12/21/2021 08:35:14 Cheo Walker MD
--- NOTE | 2021-12-21 08:36 | DCINST_ITS ---
Discharge Instructions Diet Discharge Diet: No restrictions (as you feel able. No excessive stretching. No lifting your arm over your head (keep elbow below shoulder level) until seen for your pacemaker check. Do not lift your elbow away from your side until you are seen for your first visit. Keep the arm sling on if it helps remind you not to lift your arm.) Activity Discharge Activity: May Not Drive May shower in (days): 3 Dressing / Incision Call your doctor if your incision/area has: Continuous Slow Oozing, Sudden Increased Bleeding, Increased Pain/ Swelling, Increased Redness, Foul Smelling D ischarge and Swelling at the incision site Call your doctor if you observe: Fever of 101 or Higher, Shortness of breath, Dizziness, Fainting spells, Swelling in the ankles, Chest pain, Prolonged hiccupping and Increased palpitations (irregular heartbeat) Additional Dressing/Incision Instructions:: When dressing is removed, wash and dry incision. Keep covered with a light bandage if it is rubbing against your clothing. Do not cover the incision with an airtight bandage. Change the bandage daily. Do not remove steri strips. The strips will fall off on their own. Follow Up Care Please Follow Up With: Cheo Walker MD When: Call [phone] for follow up. Pacer clinic appointment December 31 at 1 PM Test Results: Test results from this visit will be discussed in further detail at your follow-up appointment, if applicable. Discharge Plan Admission Attending Provider: Cheo Walker Primary Care Provider: Gee Almonte Chi Discharge Orders/Prescriptions Prescriptions: No Action carvedilol 25 mg tablet 12.5 mg PO BID 90 Days Qty: 90 RF: 0 lisinopril 5 mg tablet 5 mg PO DAILY 90 Days Qty: 90 RF: 0 meloxicam 15 mg tablet 15 mg PO DAILY 90 Days Qty: 90 RF: 0 atorvastatin 10 mg tablet 10 mg PO QHS RF: 0
[2021-12-21] MEDS: Carvedilol 12.5 MG Tablet PO ×2 (10:30→21:16)
[2021-12-21] MEDS: Meloxicam 15 MG Tablet PO (10:30)
[2021-12-21] MEDS: Atorvastatin Calcium 10 MG Tablet PO (21:16)
[2021-12-22 03:00] VITALS: BP 114/102; PULSE 60; PULSE 64; RESP 16; TEMP 36.2; O2SAT 96
--- NOTE | 2021-12-22 05:55 | RAD_ITS ---
HISTORY: Post permanant ICD/Pacemaker -- inspiration/expiration. Arms Down. Wet read to EXAMINATION/TECHNIQUE: XR Chest 3 Views: Inspiration and expiration frontal chest with lateral view. COMPARISON: 12/20/2021 FINDINGS: LINES/DEVICES: 2 lead left chest cardiac pacer with leads projecting in the right atrium and right ventricle. LUNGS: No consolidation, edema or effusion. No pneumothorax. MEDIASTINUM AND CARDIOVASCULAR STRUCTURES: Cardiac silhouette not enlarged. Central airways and mediastinal contour are unremarkable. BONES AND SOFT TISSUES: Unremarkable. RAD/Chest 3 View IMPRESSION: Left chest cardiac pacer as above without pneumothorax. at 0644 Reported and signed by: Jose Watts MD Electronically Signed: Jose Watts MD at 6:42 EST ,
[2021-12-22 06:59] VITALS: PULSE 62
[2021-12-22 08:38] VITALS: BP 152/91; PULSE 66; RESP 16; TEMP 36.6; O2SAT 96
[2021-12-22] MEDS: Carvedilol 12.5 MG Tablet PO (08:45)
[2021-12-22] MEDS: Meloxicam 15 MG Tablet PO (08:45)
[2021-12-22] MEDS: Lisinopril 5 MG Tablet PO (08:45)
--- NOTE | 2021-12-22 10:49 | DS.PCM_ITS ---
Providers Date of Admission: 12/21/21 Primary Care Physician: Dr. Gee Almonte MD Reason For Visit: IMPLANT Medications at Discharge Home Medications atorvastatin 10 mg tablet 10 mg PO QHS tab 12/20/21 carvedilol 25 mg tablet 12.5 mg PO BID 90 Days #90 tab 12/20/21 lisinopril 5 mg tablet 5 mg PO DAILY 90 Days #90 tab 12/20/21 meloxicam 15 mg tablet 15 mg PO DAILY 90 Days #90 tab 12/20/21 Hospital Course Operations None Procedures - (pacemaker insertion) Summary of Care Provided Minutes Spent on Discharge: 35 Hospital Course: Patient is a 71-year-old male with a past medical history of hypertension. He was admitted to cardiology service after he had a syncopal episode while she was reading the newspaper about a week prior. EKG done by his PCP showed a heart rate of around 35 bpm so patient was referred to cardiology. EKG done per cardiology showed sinus bradycardia with a 2-1 block. His carvedilol was held and a pacemaker was recommended. Patient had pacemaker inserted by cardiology on 12/21/2021. Post pacemaker chest x-ray done on 12/23/2021 showed no evidence of pneumothorax. Patient had pacemaker checked by pacemaker nurse on 12/22/2021 and was cleared for discharge. Patient was discharged home on 12/22/2021. He is to follow-up with cardiology and his [facility] care doctor. He is to follow-up with the pacemaker clinic on December 31 at 1 PM. Patient was seen and examined prior to discharge. He had no complaints and felt well. He was eager to be discharged home. Review of systems otherwise negative. Labs and vitals reviewed. Home medication reviewed and reconciled. Physical Exam Const alert, oriented x3 and no apparent distress General Appearance: cooperative, comfortable and well kempt Orientation / Consciousness: oriented to person, oriented to place and oriented to time Exam Limitations: no limitations HEENT normocephalic, head/scalp atraumatic, hearing grossly normal bilaterally and moist oral mucous membranes Eyes PERRL and EOMs intact bilaterally Neck no lymphadenopathy Resp normal respiratory effort, no retractions, no use of accessory muscles and clear to auscultation bilaterally Cardio regular rate, regular rhythm, S1 normal heart sound, S2 normal heart sound and no murmurs GI normal to inspection, nondistended, normoactive bowel sounds, soft to palpation, non-tender and non-distended Extremity normal to inspection Extremity Narrative: LUE in sling. Skin Skin Narrative: pacemaker site has intact dressing in place; dressing is clean and dry Neuro oriented x3 and CN's II-XII intact bilaterally Sensorium / Orientation: awake, alert and oriented to person Psych affect normal Weight / BMI Weight Weight: 156 lb 8.451 oz Body Mass Index (BMI) 24.5 Radiography Diagnostic Testing: Radiology Impression Chest X-Ray 12/20/21 12:20 IMPRESSION: Hyperinflation. The lungs are clear. Electronically Signed: Ramirez Fair MD at 14:59 EST , Chest X-Ray 12/22/21 05:55 IMPRESSION: Left chest cardiac pacer as above without pneumothorax. at 0644 Reported and signed by: Jose Watts MD Electronically Signed: Jose Watts MD at 6:42 EST , D/C Instructions Discharge Diet: No restrictions (as you feel able. No excessive stretching. No lifting your arm over your head (keep elbow below shoulder level) until seen for your pacemaker check. Do not lift your elbow away from your side until you are seen for your first visit. Keep the arm sling on if it helps remind you not to lift your arm.) May shower in (days): 3 Call your doctor if your incision/area has: Continuous Slow Oozing, Sudden Increased Bleeding, Increased Pain/ Swelling, Increased Redness, Foul Smelling Discharge and Swelling at the incision site Call your doctor if you observe: Fever of 101 or Higher, Shortness of breath, Dizziness, Fainting spells, Swelling in the ankles, Chest pain, Prolonged hiccupping and Increased palpitations (irregular heartbeat) Additional Dressing/Incision Instructions: When dressing is removed, wash and dry incision. Keep covered with a light bandage if it is rubbing against your clothing. Do not cover the incision with an airtight bandage. Change the bandage daily. Do not remove steri strips. The strips will fall off on their own. Please Follow Up With: Cheo Walker MD When: Call [phone] for follow up. Pacer clinic appointment December 31 at 1 PM Meaningful Use Info Meaningful Use Diagnoses (Choose all that apply): None applicable Discharge Plan Admission Admit Date/Time: 12/21/21 08:34 Primary Reason for Your Visit: pacemaker insertion Attending Provider: Cheo Walker Primary Care Provider: Gee Almonte Chi Instructions Patient Instructions: Pacemakers, Discharge Instructions for ... Discharge Orders/Prescriptions Prescriptions: Continued carvedilol 25 mg tablet 12.5 mg PO BID 90 Days Qty: 90 RF: 0 lisinopril 5 mg tablet 5 mg PO DAILY 90 Days Qty: 90 RF: 0 meloxicam 15 mg tablet 15 mg PO DAILY 90 Days Qty: 90 RF: 0 atorvastatin 10 mg tablet 10 mg PO QHS RF: 0 Referrals / Follow Up: Cheo Walker MD [STAFF PHYSICIAN] - Within 2 Weeks Gee Almonte Chi, MD [Primary Care Provider] - Disposition Disposition (needs filled in before D/C Order can be placed): Home, Self Care Charges/Coding Visit Charges OBSV E&M: 92529 Observation care discharge
== END 2021-12-22 12:22 | disposition home or self-care (01) ==
LOC: PCU 08:50
PROVIDERS: Admitting Provider Internal Medicine Cardiovascular Disease; PCP Family Medicine Geriatric Medicine; Referring Provider Internal Medicine Cardiovascular Disease; Visit Provider Internal Medicine Cardiovascular Disease
DX: Z45.018 Encounter for adjustment and management of other part of cardiac pacemaker (principal); I44.1 Atrioventricular block, second degree; I10 Essential (primary) hypertension; R55 Syncope and collapse; Z79.899 Other long term (current) drug therapy; M19.90 Unspecified osteoarthritis, unspecified site; E78.5 Hyperlipidemia, unspecified; I45.2 Bifascicular block; F17.200 Nicotine dependence, unspecified, uncomplicated
CPT/HCPCS: 33208; 71046; 71047; 99152; 99153; 99218; 99406; J7040; J7050; C1894; G0378

== ENCOUNTER → 2022-05-01 | Outpatient (CLI) | payer MEDICARE, OTHER, SELFPAY ==
[2022-05-01 12:37] LABS: Absolute Lymphocyte Count 1.06 X10^3/uL (0.83-4.51); Absolute Neutrophil Count 3.3 X10^3/uL (2.0-7.7); Basophil# 0.02 X10^3/uL; Basophil% 0.4 % (0-1); Eosinophil# 0.07 X10^3/uL; Eosinophils% 1.4 % (0-5); Hematocrit 41.3 % (40-54); Hemoglobin 13.9 g/dL (13.0-16.5); Lymphocyte # 1.06 X10^3/ul (0.83-4.51); Lymphocyte % 21.2 % (19-41); Mean Corp Hgb Conc 33.7 g/dL (32-36); Mean Corpuscular Volume 95.2 fL (80-94); Mean Platelet Vol. 9.7 fl (6.2-12.0); NRBC Flagged by Analyzer 0 % (0-5); Neutrophil # 3.33 X10^3/uL (2.7-7.7); Neutrophil % 66.6 % (47-70); Platelet Count 227 K/mm3 (150-450); RBC Distribution Width SD 42.1 fl (35.1-43.9); Red Blood Count 4.34 M/mm3 (4.6-6.2)
[2022-05-01 13:07] LABS: ALB/GLOB Ratio 1.3 RATIO (0.9-2.4); AST(SGOT) 38 U/L (15-37); Alanine Aminotransfer ALT/SGPT 42 U/L (16-61); Albumin, Serum 3.6 g/dL (3.2-5.0); Alkaline Phosphatase 93 U/L (45-117); Anion Gap 7 (5-15); BUN 15 mg/dL (7-18); BUN/Creat Ratio 14.9 RATIO (10-20); Calcium,Total 8.8 mg/dL (8.5-10.1); Chloride 106 mmol/L (98-107); Creatinine, Serum 1.01 mg/dL (0.70-1.30); EST Glomerular Filtration Rate 77 mL/min (>60); Est Glom Filt Rate - Afr Amer 93 mL/min (>60); Globulin 2.8 g/dL (2.2-4.2); Glucose 116 mg/dL (74-106); Protein, Total 6.4 g/dL (6.4-8.2); Sodium Level 137 mmol/L (136-145); Thyroid Stim Hormone (TSH) 0.26 uIU/mL (0.358-3.74)
[2022-05-02 09:36] LABS: T3 Uptake 30 % (33-40); T4 Free Direct 1.09 ng/dL (0.76-1.46)
[2022-05-03 17:07] LABS: Albumin 3.8 g/dL (2.9-4.4); Alpha-1-Globulins 0.2 g/dL (0.0-0.4); Alpha-2-Globulins 0.6 g/dL (0.4-1.0); Gamma Globulin 0.8 g/dL (0.4-1.8); Immunoglobulin A 136 mg/dL (61-437); Immunoglobulin G 790 mg/dL (603-1613); Immunoglobulin M 46 mg/dL (15-143); PROEL- TOTAL PROTEIN 6.2 g/dL (6.0-8.5); PROELU- Albumin, Urine 44.2 % (.); PROELU- Alpha-2-Globulin,Ur 16.2 % (.); PROELU- Beta Globulin, Ur 22.1 % (.); PROELU- Gamma Globulin, Ur 11.5 % (.); Total Protein, Ur 11.8 mg/dL (Not Estab.)
== END | disposition home or self-care (01) ==
LOC: POLAB3 09:44
PROVIDERS: PCP Family Medicine Geriatric Medicine; Visit Provider Family Medicine Geriatric Medicine
DX: I10 Essential (primary) hypertension (principal); E55.9 Vitamin D deficiency, unspecified; D47.2 Monoclonal gammopathy; F52.8 Other sexual dysfunction not due to a substance or known physiological condition; E03.9 Hypothyroidism, unspecified
CPT/HCPCS: 36415; 80053; 82306; 82784; 84165; 84166; 84403; 84439; 84443; 84479; 85025; 86334

== ENCOUNTER → 2022-05-23 | Outpatient (CLI) | payer MEDICARE, OTHER, SELFPAY ==
--- NOTE | 2022-05-23 12:36 | MRI_ITS ---
HISTORY: STENOSIS, POST LAMINECTOMY, SPONDYLOSIS TECHNIQUE: Multiplanar and multisequence MR images of the lumbar spine were obtained without intravenous contrast. 136 images. COMPARISON: None. FINDINGS: VERTEBRAE: Vertebral body heights maintained with Schmorl''s nodes noted. Degenerative bone marrow endplate changes at L4-5. Incompletely imaged bone marrow edema in the left iliac. ALIGNMENT: No significant anterior or posterior subluxation. CONUS: Normal morphology and position of the conus medullaris at L1-2. Tortuosity and redundancy of the cauda equina nerve roots secondary to spinal canal stenosis. INTERVERTEBRAL DISCS: L1-2: Mild posterior disc bulge cause for complex with facet arthropathy. Minimal narrowing of the thecal sac. Mild bilateral foraminal narrowing. L2-3: Mild posterior disc bulge osteophyte complex with facet arthropathy superimposed on a developmentally narrow spinal canal resulting in moderate-severe central canal stenosis with mild-moderate bilateral foraminal narrowing. Trace right facet effusion with facet bone marrow edema. L3-4: Moderate posterior disc bulge osteophyte complex with facet arthropathy superimposed on a developmentally narrow spinal canal resulting in severe central canal stenosis with mild-moderate bilateral foraminal narrowing. 6 mm right posterior synovial cyst. L4-5: Posterior osteophytes, mild disc bulge, and facet arthropathy resulting in minimal narrowing of the thecal sac with moderate bilateral foraminal narrowing and probable impingement of the right L4 nerve root. Probable postoperative change of the left posterior elements. L5-S1: No significant central canal stenosis. Mild disc bulge and facet arthropathy resulting in mild right foraminal narrowing and moderate left foraminal narrowing with probable left L5 nerve root impingement. SOFT TISSUES: No paraspinal fluid collection. MRI/Spine Lumbar (Routine) IMPRESSION: Multilevel degenerative disc disease superimposed on a developmentally narrow spinal canal with moderate-severe spinal canal stenosis at L2-3 and severe spinal canal stenosis at L3-4. Electronically Signed: Marlen Torres MD at 11:31 EDT ,
[2022-05-23 13:06] VITALS: BP 143/82; PULSE 78; O2SAT 97
[2022-05-23 13:21] VITALS: BP 128/77; PULSE 80; O2SAT 94
== END | disposition home or self-care (01) ==
LOC: MRI 12:27
PROVIDERS: PCP Family Medicine Geriatric Medicine; Referring Provider Orthopaedic Surgery; Visit Provider Orthopaedic Surgery
DX: M47.816 Spondylosis without myelopathy or radiculopathy, lumbar region (principal); M48.061 Spinal stenosis, lumbar region without neurogenic claudication; M51.36 Other intervertebral disc degeneration, lumbar region; M96.1 Postlaminectomy syndrome, not elsewhere classified
CPT/HCPCS: 72148

== ENCOUNTER → 2022-10-17 | Outpatient (CLI) | payer MEDICARE, OTHER, SELFPAY | END | disposition home or self-care (01) | LOC: PSN 08:55 | PROVIDERS: PCP Family Medicine Geriatric Medicine; Referring Provider Family Medicine Geriatric Medicine; Visit Provider Family Medicine Geriatric Medicine | DX: R68.83 Chills (without fever) (principal); Z20.822 Contact with and (suspected) exposure to COVID-19 | CPT/HCPCS: 87635; 87804; 87807; U0003; U0005 ==

== ENCOUNTER → 2022-10-30 | Outpatient (CLI) | payer MEDICARE, OTHER, SELFPAY ==
[2022-10-30 13:17] LABS: Absolute Lymphocyte Count 1.22 X10^3/uL (0.83-4.51); Absolute Neutrophil Count 4.8 X10^3/uL (2.0-7.7); Basophil# 0.04 X10^3/uL; Basophil% 0.6 % (0-1); Eosinophil# 0.08 X10^3/uL; Eosinophils% 1.1 % (0-5); Hematocrit 47.9 % (40-54); Hemoglobin 15.5 g/dL (13.0-16.5); Lymphocyte # 1.22 X10^3/ul (0.83-4.51); Lymphocyte % 17.4 % (19-41); Mean Corp Hgb Conc 32.4 g/dL (32-36); Mean Corpuscular Hgb 31.9 pg (27.0-32.0); Mean Corpuscular Volume 98.6 fL (80-94); Mean Platelet Vol. 9.9 fl (6.2-12.0); Monocyte# 0.85 X10^3/uL; Monocyte% 12.1 % (0-10); NRBC Flagged by Analyzer 0 % (0-5); Neutrophil # 4.81 X10^3/uL (2.7-7.7); Neutrophil % 68.5 % (47-70); Platelet Count 213 K/mm3 (150-450); RBC Distribution Width SD 43.7 fl (35.1-43.9); Red Blood Count 4.86 M/mm3 (4.6-6.2)
[2022-10-30 13:30] LABS: Vitamin D,25 Hydroxy 44.7 ng/mL
[2022-10-30 13:53] LABS: ALB/GLOB Ratio 1.1 RATIO (0.9-2.4); AST(SGOT) 24 U/L (15-37); Alanine Aminotransfer ALT/SGPT 44 U/L (16-61); Albumin, Serum 3.5 g/dL (3.2-5.0); Alkaline Phosphatase 85 U/L (45-117); Anion Gap 9 (5-15); BUN 12 mg/dL (7-18); BUN/Creat Ratio 9.8 RATIO (10-20); Calcium,Total 8.9 mg/dL (8.5-10.1); Chloride 103 mmol/L (98-107); Creatinine, Serum 1.23 mg/dL (0.70-1.30); EST Glomerular Filtration Rate 61 mL/min (>60); Est Glom Filt Rate - Afr Amer 74 mL/min (>60); Globulin 3.2 g/dL (2.2-4.2); Glucose 141 mg/dL (74-106); Potassium 4.2 mmol/L (3.5-5.1); Protein, Total 6.7 g/dL (6.4-8.2); Sodium Level 138 mmol/L (136-145)
== END | disposition home or self-care (01) ==
LOC: POLAB3 09:18
PROVIDERS: PCP Family Medicine Geriatric Medicine; Visit Provider Family Medicine Geriatric Medicine
DX: I10 Essential (primary) hypertension (principal); E55.9 Vitamin D deficiency, unspecified
CPT/HCPCS: 36415; 80053; 82306; 84443; 85025

== ENCOUNTER → 2023-05-07 | Outpatient (CLI) | payer MEDICARE, OTHER, SELFPAY ==
[2023-05-07 11:28] LABS: Absolute Lymphocyte Count 1.58 X10^3/uL (0.83-4.51); Absolute Neutrophil Count 4.5 X10^3/uL (2.0-7.7); Basophil# 0.03 X10^3/uL; Basophil% 0.4 % (0-1); Eosinophil# 0.06 X10^3/uL; Eosinophils% 0.9 % (0-5); Hematocrit 46.4 % (40-54); Hemoglobin 15.9 g/dL (13.0-16.5); Lymphocyte # 1.58 X10^3/ul (0.83-4.51); Lymphocyte % 22.4 % (19-41); Mean Corp Hgb Conc 34.3 g/dL (32-36); Mean Corpuscular Hgb 33.7 pg (27.0-32.0); Mean Corpuscular Volume 98.3 fL (80-94); Mean Platelet Vol. 9.1 fl (6.2-12.0); Monocyte# 0.81 X10^3/uL; Monocyte% 11.5 % (0-10); NRBC Flagged by Analyzer 0 % (0-5); Neutrophil # 4.53 X10^3/uL (2.7-7.7); Neutrophil % 64.4 % (47-70); Platelet Count 240 K/mm3 (150-450); RBC Distribution Width CV 12.8 % (11.6-14.6); RBC Distribution Width SD 46.4 fl (35.1-43.9); Red Blood Count 4.72 M/mm3 (4.6-6.2)
[2023-05-07 11:58] LABS: Vitamin D,25 Hydroxy 74.9 ng/mL
[2023-05-07 12:18] LABS: ALB/GLOB Ratio 1.2 RATIO (0.9-2.4); AST(SGOT) 25 U/L (15-37); Alanine Aminotransfer ALT/SGPT 37 U/L (16-61); Albumin, Serum 3.8 g/dL (3.2-5.0); Alkaline Phosphatase 101 U/L (45-117); Anion Gap 3 (5-15); BUN 9 mg/dL (7-18); BUN/Creat Ratio 9.2 RATIO (10-20); Calcium,Total 9.9 mg/dL (8.5-10.1); Chloride 103 mmol/L (98-107); Creatinine, Serum 0.98 mg/dL (0.70-1.30); EST Glomerular Filtration Rate 80 mL/min (>60); Est Glom Filt Rate - Afr Amer 97 mL/min (>60); Globulin 3.2 g/dL (2.2-4.2); Glucose 94 mg/dL (74-106); Potassium 4.1 mmol/L (3.5-5.1); Sodium Level 136 mmol/L (136-145)
[2023-05-09 11:09] LABS: Albumin 3.8 g/dL (2.9-4.4); Albumin, Ur 31.6 % (.); Alpha-1-Globulin, Ur 6.5 % (.); Alpha-1-Globulins 0.2 g/dL (0.0-0.4); Alpha-2-Globulins 0.6 g/dL (0.4-1.0); Alpha-2-Globulins, Ur 18.1 % (.); Beta Globulin, Ur 15.6 % (.); Gamma Globulin 0.7 g/dL (0.4-1.8); Gamma Globulin, Ur 28.2 % (.); Immunoglobulin A 115 mg/dL (61-437); Immunoglobulin G 691 mg/dL (603-1613); Immunoglobulin M 44 mg/dL (15-143); M-Spike, Ur % Not Observed % (Not Observed); PROEL- TOTAL PROTEIN 6.2 g/dL (6.0-8.5); Total Protein, Ur 4.7 mg/dL (Not Estab.)
== END | disposition home or self-care (01) ==
LOC: LAB 10:24
PROVIDERS: PCP Family Medicine Geriatric Medicine; Referring Provider Family Medicine Geriatric Medicine; Visit Provider Family Medicine Geriatric Medicine
DX: Z01.89 Encounter for other specified special examinations (principal); E87.1 Hypo-osmolality and hyponatremia; I10 Essential (primary) hypertension
CPT/HCPCS: 36415; 80053; 82306; 82784; 84165; 84166; 84443; 85025; 86334; 86335

== ENCOUNTER → 2023-05-21 | Outpatient (CLI) | payer MEDICARE, OTHER, SELFPAY ==
--- NOTE | 2023-05-21 10:49 | ECHOD_ITS ---
Reason For Study: CMP Procedure This was a 2D Doppler, Color Flow transthoracic echocardiogram. Exam performed in department. Left Ventricle Normal LV size. The estimated ejection fraction is 55 %. Stage 1 diastolic dysfunction. Apical wall motion abnormality may reflect pacemaker activation. Right Ventricle Normal RV size. ICD or pacer leads identified within the right ventricle. Normal systolic function. Atria Normal left atrium. Normal right atrium. Bubble contrast study negative for right to left interatrial shunt. Mitral Valve Normal mitral valve. Mild (1+) mitral valve insufficiency. Tricuspid Valve Normal tricuspid valve. Mild (1+) tricuspid valve insufficiency. Pulmonary artery systolic pressure is 40 mmHg. Aortic Valve Mild (1+) eccentric aortic valve insufficiency. Pulmonic Valve Normal pulmonic valve. Great Vessels Normal aortic root. Pericardium/Pleural No pericardial effusion. Medication 22 gauge I.V. with prn adaptor inserted into right arm. Performed a rapid injection of agitated mix of 9 cc saline and 1cc air to assess for atrial septal defect. MMode/2D Measurements & Calculations Ao root diam: 3.2 cm LAV(MOD-bp): 44.2 ml LVAd ap4: 30.7 cm2 LAV(MOD-bp) Indexed: 24.0 ml/m2 LVLd ap4: 8.5 cm LAV(MOD-sp2): 50.4 ml EDV(MOD-sp4): 91.8 ml LAV(MOD-sp4): 28.9 ml EDV(sp4-el): 94.4 ml LVAs ap4: 18.9 cm2 LVLs ap4: 7.4 cm ESV(MOD-sp4): 38.8 ml ESV(sp4-el): 40.7 ml EF(MOD-sp4): 57.8 % EF(sp4-el): 56.9 % SV(MOD-sp4): 53.1 ml SV(sp4-el): 53.8 ml LA A4 area: 12.1 cm2 LA dimension(2D): 4.2 cm TAPSE: 2.1 cm RA A4 area: 13.0 cm2 Time Measurements MV dec time: 0.21 sec Doppler Measurements & Calculations MV E max sanchez: 31.3 cm/sec Lat Peak E' Sanchez: 3.4 cm/sec Med Peak E' Sanchez: 5.4 cm/sec MV A max sanchez: 80.5 cm/sec E/E' lat: 9.3 E/E' med: 5.8 MV E/A: 0.39 MV V2 max: 74.1 cm/sec MV dec slope: 147.3 cm/sec2 Ao V2 max: 106.2 cm/sec MV max P.2 mmHg Ao max P.5 mmHg MV V2 mean: 35.7 cm/sec Ao V2 mean: 72.5 cm/sec MV mean P.63 mmHg Ao mean P.4 mmHg MV V2 VTI: 25.3 cm Ao V2 VTI: 22.9 cm AV (velocity ratio): 0.75 LV V1 max: 86.0 cm/sec MR max sanchez: 394.8 cm/sec PA V2 max: 109.8 cm/sec LV V1 max P.0 mmHg MR max P.4 mmHg PA V2 mean: 78.1 cm/sec LV V1 mean P.6 mmHg LV V1 mean: 57.2 cm/sec LV V1 VTI: 17.1 cm TR max sanchez: 297.5 cm/sec TR max P.4 mmHg ECHO/Echo Complete Interpretation Summary Normal LV size. The estimated ejection fraction is 55 %. Stage 1 diastolic dysfunction. Bubble contrast study negative for right to left interatrial shunt. Ordering Physician: Cheo Walker Referring Physician: Cheo Walker Performed By: Sirena Quach RCS
== END | disposition home or self-care (01) ==
LOC: CVS 10:48
PROVIDERS: PCP Family Medicine Geriatric Medicine; Referring Provider Internal Medicine Cardiovascular Disease; Visit Provider Internal Medicine Cardiovascular Disease
DX: Z01.818 Encounter for other preprocedural examination (principal); I42.8 Other cardiomyopathies; I49.3 Ventricular premature depolarization; I44.1 Atrioventricular block, second degree; I45.2 Bifascicular block; I10 Essential (primary) hypertension; Z95.0 Presence of cardiac pacemaker
CPT/HCPCS: 93306

== ENCOUNTER 2023-06-10 11:43 | Outpatient (CLI) | payer MEDICARE, OTHER, SELFPAY ==
[2023-06-10 13:03] LABS: Absolute Lymphocyte Count 1.34 X10^3/uL (0.83-4.51); Absolute Neutrophil Count 3.2 X10^3/uL (2.0-7.7); Basophil# 0.03 X10^3/uL; Basophil% 0.6 % (0-1); Eosinophil# 0.05 X10^3/uL; Eosinophils% 0.9 % (0-5); Hematocrit 45.1 % (40-54); Hemoglobin 14.7 g/dL (13.0-16.5); Lymphocyte # 1.34 X10^3/ul (0.83-4.51); Lymphocyte % 25.2 % (19-41); Mean Corp Hgb Conc 32.6 g/dL (32-36); Mean Corpuscular Hgb 31.7 pg (27.0-32.0); Mean Corpuscular Volume 97.2 fL (80-94); Mean Platelet Vol. 9.3 fl (6.2-12.0); Monocyte# 0.71 X10^3/uL; Monocyte% 13.4 % (0-10); NRBC Flagged by Analyzer 0 % (0-5); Neutrophil # 3.15 X10^3/uL (2.7-7.7); Neutrophil % 59.3 % (47-70); Platelet Count 221 K/mm3 (150-450); RBC Distribution Width CV 12.5 % (11.6-14.6); RBC Distribution Width SD 44.7 fl (35.1-43.9); Red Blood Count 4.64 M/mm3 (4.6-6.2); White Blood Count 5.3 K/mm3 (4.4-11.0)
[2023-06-10 13:19] LABS: ALB/GLOB Ratio 1.3 RATIO (0.9-2.4); AST(SGOT) 33 U/L (15-37); Alanine Aminotransfer ALT/SGPT 38 U/L (16-61); Albumin, Serum 3.7 g/dL (3.2-5.0); Alkaline Phosphatase 93 U/L (45-117); Anion Gap 3 (5-15); BUN 11 mg/dL (7-18); BUN/Creat Ratio 12.1 RATIO (10-20); Chloride 106 mmol/L (98-107); Creatinine, Serum 0.91 mg/dL (0.70-1.30); EST Glomerular Filtration Rate 87 mL/min (>60); Est Glom Filt Rate - Afr Amer 105 mL/min (>60); Globulin 2.9 g/dL (2.2-4.2); Glucose 102 mg/dL (74-106); Potassium 3.9 mmol/L (3.5-5.1); Protein, Total 6.6 g/dL (6.4-8.2); Sodium Level 137 mmol/L (136-145)
[2023-06-10 13:20] LABS: Prothrombin Time (Protime)PT. 13.4 SECONDS (11.7-14.9)
[2023-06-10 13:21] LABS: Partial Thromboplast Time 33.4 Seconds (24.1-36.2)
== END 2023-06-10 23:59 | disposition home or self-care (01) ==
LOC: POLAB3 11:43
PROVIDERS: PCP Family Medicine Geriatric Medicine; Visit Provider Family Medicine Geriatric Medicine
DX: Z01.812 Encounter for preprocedural laboratory examination (principal); I10 Essential (primary) hypertension
CPT/HCPCS: 36415; 80053; 85025; 85610; 85730

== ENCOUNTER → 2023-06-28 | Outpatient (CLI) | payer MEDICARE, OTHER, SELFPAY ==
--- NOTE | 2023-06-28 08:29 | CT_ITS ---
CT RIGHT LOWER EXTREMITY WITH 3-D IMAGING CLINICAL INDICATION: Unilateral primary osteoarthritis, right knee TECHNIQUE: Axial CT images of the RIGHT lower extremity was performed without IV contrast material. Coronal and sagittal reformats were provided. Sagittal and coronal reformatted images. RADIATION DOSAGE (If Supplied By Facility): CTDIvol = ( 18.60 ) mGy, DLP = ( 1132.85 ) mGycm COMPARISON: None FINDINGS: Bones: Osseous structures are normal without evidence of fracture or dislocation. No lytic or blastic osseous masses. Circumferential narrowing of the right hip joint. There is narrowing of the medial more than lateral knee joints with marginal osteophyte formation. Chondrocalcinosis of the medial and lateral compartments. There is also moderate narrowing of the patellofemoral joint with inferior along the patella. Ankle joint is normally aligned. Soft Tissues: The deep soft tissue structures are unremarkable. The superficial soft tissues are unremarkable without evidence of edema, hematoma, or foreign body. Small volume joint effusion is noted of the knee. Atherosclerosis femoral popliteal artery. Popliteal fossa cyst with calcifications noted. CT/Extremity Lower without Contra IMPRESSION: No evidence fracture, dislocation. Small joint effusion in the. Electronically Signed: Mau Peck (Brooks), at 19:40 EDT Reading Location ID and State: [facility] / [place] , Service support ,
[2023-06-28 09:08] LABS: Absolute Lymphocyte Count 1.14 X10^3/uL (0.83-4.51); Absolute Neutrophil Count 2.9 X10^3/uL (2.0-7.7); Basophil# 0.02 X10^3/uL; Basophil% 0.4 % (0-1); Eosinophil# 0.06 X10^3/uL; Eosinophils% 1.3 % (0-5); Hematocrit 42.9 % (40-54); Hemoglobin 14.1 g/dL (13.0-16.5); Lymphocyte # 1.14 X10^3/ul (0.83-4.51); Lymphocyte % 24.2 % (19-41); Mean Corp Hgb Conc 32.9 g/dL (32-36); Mean Corpuscular Hgb 31.8 pg (27.0-32.0); Mean Corpuscular Volume 96.6 fL (80-94); Mean Platelet Vol. 8.9 fl (6.2-12.0); Monocyte# 0.57 X10^3/uL; Monocyte% 12.1 % (0-10); NRBC Flagged by Analyzer 0 % (0-5); Neutrophil # 2.91 X10^3/uL (2.7-7.7); Neutrophil % 61.8 % (47-70); Platelet Count 199 K/mm3 (150-450); RBC Distribution Width CV 12.4 % (11.6-14.6); RBC Distribution Width SD 44.3 fl (35.1-43.9); Red Blood Count 4.44 M/mm3 (4.6-6.2); White Blood Count 4.7 K/mm3 (4.4-11.0)
[2023-06-28 09:53] LABS: Anion Gap 2 (5-15); BUN 7 mg/dL (7-18); BUN/Creat Ratio 6.8 RATIO (10-20); Calcium,Total 9.3 mg/dL (8.5-10.1); Chloride 104 mmol/L (98-107); Creatinine, Serum 1.03 mg/dL (0.70-1.30); EST Glomerular Filtration Rate 75 mL/min (>60); Est Glom Filt Rate - Afr Amer 91 mL/min (>60); Glucose 117 mg/dL (74-106); Potassium 4.3 mmol/L (3.5-5.1); Sodium Level 137 mmol/L (136-145)
== END | disposition home or self-care (01) ==
PROVIDERS: PCP Family Medicine Geriatric Medicine; Referring Provider Orthopaedic Surgery; Visit Provider Orthopaedic Surgery
DX: Z01.818 Encounter for other preprocedural examination (principal); M17.11 Unilateral primary osteoarthritis, right knee
CPT/HCPCS: 36415; 73700; 80048; 85025

== ENCOUNTER → 2023-07-18 | Outpatient (CLI) | payer MEDICARE, OTHER, SELFPAY ==
--- NOTE | 2023-07-18 | KNEE_PTH ---
PATIENT: TONG LING LOC: [facility] U#:[id number] AGE/SX: 73/M ROOM: RE07/18/[address]: Dr. Mars Lee DO : 1950 BED: DIS: 07/18/2023 SPEC #: [id number] RECD: 07/18/23 15:04 STATUS: JOSE MARIA REQ #: [id number] FERMIN: 07/18/23 00:[address]: Mars Lee DEPT: SURGICAL PATHOLOGY RECD BY: Atul Antunez ENTERED: 07/21/23 10:12 SP TYPE: TOTAL KNEE OTHR DR: Dr. Gee Almonte MD [facility] Tissues: Knee, NOS Procedures: Decalcification bone/plaque Surgery Specimen Level IV Comments: @ Specimen number changed from [id number] to [id number] @ on 07/21/23 at 1017 by SUSANNA. HEADER OPERATION: Robotic assisted total right knee arthroplasty PRE-OP DIAGNOSIS: Osteoarthritis right knee TISSUE SUBMITTED: Bone and soft tissue right knee MICROSCOPIC DIAGNOSIS Bone and tissue of right knee, total knee resection: Severe degenerative joint disease. Crystalline debris of pseudogout. AM:seth 07/24/2023 MICROSCOPIC DESCRIPTION Slides are reviewed. GROSS DESCRIPTION Received is one container designated bone and soft tissue right knee. The specimen consists of multiple fragments of eason-yellow bone measuring in aggregate 12.0 x 9.0 x 3.5 cm. Also in the specimen container are multiple fragments of yellow-white soft tissue measuring in aggregate 5.0 x 4.0 x 2.0 cm. The soft tissue also shows chalky white deposit. A number of bony fragments contain articular surfaces consistent with tibial plateau and femoral condyle and displaying prominent osteophyte formation, eburnation and bone erosion. Applied [employer] Professor sections are submitted in two cassettes as follows: 1 - soft tissue, 2 - bone after decalcification. / SJ:seth 07/21/2023 TC:5 CPT: 70101, 39463
== END | disposition home or self-care (01) ==
LOC: LABSPEC 15:06
PROVIDERS: PCP Family Medicine Geriatric Medicine; Referring Provider Orthopaedic Surgery; Visit Provider Orthopaedic Surgery
DX: M17.11 Unilateral primary osteoarthritis, right knee (principal)
CPT/HCPCS: 88305; 88311

== ENCOUNTER → 2023-08-14 | Outpatient (CLI) | payer MEDICARE, OTHER, SELFPAY | END | disposition home or self-care (01) | LOC: PSN 11:37 | PROVIDERS: PCP Family Medicine Geriatric Medicine; Referring Provider Physician Assistant Medical; Visit Provider Physician Assistant Medical | DX: I45.2 Bifascicular block (principal); I42.8 Other cardiomyopathies; I44.1 Atrioventricular block, second degree; I49.3 Ventricular premature depolarization; Z95.0 Presence of cardiac pacemaker | CPT/HCPCS: 93225; 93226 ==

== ENCOUNTER 2023-09-21 07:14 | Inpatient (IN) | payer MEDICARE, OTHER, SELFPAY ==
[2023-09-21] VITALS (16 sets, daily range): BP systolic 104–172; BP diastolic 64–123; PULSE 64–123; RESP 12–28; TEMP 36.4–37.1; O2SAT 90–99; BMI 23.9
--- NOTE | 2023-09-21 07:21 | EKG12_ITS ---
Test Reason : REPEAT Blood Pressure : / mmHG Vent. Rate : 090 BPM Atrial Rate : 090 BPM P-R Int : 152 ms QRS Dur : 164 ms QT Int : 430 ms P-R-T Axes : 069 -83 095 degrees QTc Int : 526 ms Atrial-sensed ventricular-paced rhythm with frequent Premature ventricular complexes Abnormal ECG Confirmed by GUILLERMO SPAULDING, ALEX ([id number]), script editor SATHISH BOOTHE ([id number]) on 09/30/2023 2:06:13 PM Referred By: Confirmed By:ALEX LI MD
--- NOTE | 2023-09-21 07:21 | RAD_ITS ---
STUDY: X-RAY CHEST REASON FOR EXAM: Male, 73 years old. chest pain TECHNIQUE: Single AP portable view of the chest. COMPARISON: 12/22/2021 FINDINGS: Left subclavian pacemaker which is unchanged. Alveolar opacity in the lower right lung consistent with right lower lobe pneumonia. There is no demonstrated pleural abnormality. Normal size heart. Normal mediastinum and juan. Normal visualized pulmonary arteries. Normal visualized aortic arch and descending thoracic aorta. Normal visualized thoracic spine. Normal visualized ribs, clavicles, and shoulders. There is no demonstrated abnormality of the visualized soft tissue structures of the upper abdomen. RAD/Chest 1 View (Portable) IMPRESSION: Right lower lobe pneumonia. CT may be useful. Electronically Signed: Emery Fisher MD at 8:11 EST ,
[2023-09-21] MEDS: Aspirin 81 MG TAB.CHEW 324 MG PO (07:24)
[2023-09-21 07:31] LABS: Absolute Neutrophil Count 9.4 X10^3/uL (2.0-7.7); Basophil# 0.07 X10^3/uL; Basophil% 0.5 % (0-1); Eosinophils% 1.4 % (0-5); Hematocrit 49.7 % (40-54); Hemoglobin 15.7 g/dL (13.0-16.5); Lymphocyte % 23.4 % (19-41); Mean Corp Hgb Conc 31.6 g/dL (32-36); Mean Corpuscular Hgb 30.7 pg (27.0-32.0); Mean Corpuscular Volume 97.3 fL (80-94); Mean Platelet Vol. 9.8 fl (6.2-12.0); Monocyte# 1.38 X10^3/uL; Monocyte% 9.5 % (0-10); NRBC Flagged by Analyzer 0 % (0-5); Neutrophil # 9.42 X10^3/uL (2.7-7.7); Neutrophil % 64.7 % (47-70); Platelet Count 359 K/mm3 (150-450); RBC Distribution Width CV 13.6 % (11.6-14.6); RBC Distribution Width SD 48.9 fl (35.1-43.9); Red Blood Count 5.11 M/mm3 (4.6-6.2); White Blood Count 14.5 K/mm3 (4.4-11.0)
[2023-09-21 07:47] LABS: Anion Gap 5 (5-15); BUN 16 mg/dL (7-18); BUN/Creat Ratio 13.7 RATIO (10-20); Calcium,Total 9.4 mg/dL (8.5-10.1); Chloride 102 mmol/L (98-107); Creatinine, Serum 1.17 mg/dL (0.70-1.30); EST Glomerular Filtration Rate 65 mL/min (>60); Est Glom Filt Rate - Afr Amer 78 mL/min (>60); Estimated Creatinine Clearance 51.79 ml/min; Glucose 197 mg/dL (74-106); Potassium 4.2 mmol/L (3.5-5.1); Sodium Level 135 mmol/L (136-145); Troponin-I HS (w/2H Reflex) 46 pg/mL (3.0-78.0)
[2023-09-21] MEDS: Ipratropium/Albuterol Sulfate 3 ML AMPUL.NEB INHALATION ×4 (07:47→19:12)
--- NOTE | 2023-09-21 08:05 | CT_ITS ---
STUDY: CTA CHEST REASON FOR EXAM: Male, 73 years old. pulmonary embolism RADIATION DOSAGE (If Supplied By Facility): CTDIvol = ( 9.41 ) mGy, DLP = ( 343.94 ) mGycm TECHNIQUE: The examination was performed with the intravenous administration of IV 100mL Isovue-370. Post-processing of the angiographic images was performed, with multiplanar reformation and 3D reconstruction. Individualized dose optimization techniques were used for this CT. COMPARISON: Chest x-ray earlier today FINDINGS: Left subclavian pacemaker. Normal enhancement of the main pulmonary artery and right and left pulmonary arteries. Normal enhancement of the bilateral peripheral pulmonary arteries. There is no demonstrated pulmonary embolism. Normal thoracic aorta and visualized great vessels. There is no demonstrated aortic dissection. Normal heart and pericardium. Normal mediastinum. Normal hilar regions. Normal visualized trachea and bronchi. The lungs are well expanded. Mild emphysema. No noncalcified nodule or mass. Small bilateral pleural effusions with some bibasilar atelectasis. Normal chest wall structures. Normal osseous structures. Normal visualized upper abdomen. CT/CTA Chest W/WO Contrast IMPRESSION: 1. No CT evidence of pulmonary embolism. 2. Small bilateral pleural effusions with bibasilar atelectasis. Electronically Signed: Emery Fisher MD at 9:02 [facility] ,
[2023-09-21 08:37] LABS: Prothrombin Time (Protime)PT. 13.6 SECONDS (11.7-14.9)
[2023-09-21 08:38] LABS: Partial Thromboplast Time 32.8 Seconds (24.1-36.2)
[2023-09-21 08:41] LABS: AST(SGOT) 21 U/L (15-37); Alanine Aminotransfer ALT/SGPT 22 U/L (16-61); Albumin, Serum 3.9 g/dL (3.2-5.0); Alkaline Phosphatase 123 U/L (45-117); Bilirubin, Direct 0.21 mg/dL (0.00-0.30); Globulin 3.3 g/dL (2.2-4.2); Protein, Total 7.2 g/dL (6.4-8.2)
[2023-09-21] MEDS: Ceftriaxone 1 GM/50 ML BAG IV (08:45)
[2023-09-21] MEDS: Azithromycin 500 MG in Dextrose 5%-Water (250mL Bag) 250 ML 250 MG IV (08:45)
[2023-09-21 08:55] LABS: Lactic Acid 3.5 mmol/L (0.4-1.9)
[2023-09-21 09:26] LABS: Reflex Troponin-HS? (from REC) Y
[2023-09-21] MEDS: 0.9% Normal Saline (1000mL) 1,000 ML 999 ML IV ×2 (09:51→11:06)
[2023-09-21 10:13] LABS: Troponin-I HS 106 pg/mL (3.0-78.0)
--- NOTE | 2023-09-21 10:21 | EX.ED.DYSGE1 ---
HPI History of Present Illness Chief Complaint: Chest Pain Informant: patient Narrative Narrative: 73-year-old male presenting to the emergency room chief complaint of dyspnea. Symptoms began abruptly about 3 hours prior to arrival. States he does not feel that he can take a deep breath. He does not wear oxygen at home. He states he carries a diagnosis of COPD but does not take any treatment for it. He has a cardiac pacemaker due to second-degree AV block Mobitz type II. He follows locally with cardiology. He reports that about a month and a half ago he had a knee replacement surgery with [facility]. He is not on any current blood thinners. He notes a slight cough no significant sputum production. He denies chest pain. [facility] Medical History Arthritis Essential hypertension Hyperlipidemia Multiple premature ventricular complexes Non-ischemic cardiomyopathy Right bundle branch block (RBBB) with left anterior fascicular block Second degree AV block, Mobitz type II (12/20/21) Home Medications atorvastatin 10 mg tablet 10 mg PO QHS cholesterol 12/20/21 [History Last Taken 09/20/23] carvedilol 25 mg tablet 25 mg PO DAILY blood pressure 90 days #90 tabs 12/20/21 [History Last Taken 09/20/23] lisinopril 5 mg tablet 5 mg PO DAILY blood pressure 90 days #90 tabs 12/20/21 [History Last Taken 09/20/23] aspirin 81 mg tablet,delayed release (Adult Low Dose Aspirin) 81 mg PO DAILY 09/21/23 [History Last Taken 09/20/23] calcium carbonate 600 mg calcium (1,500 mg) tablet (Calcium) 600 mg PO DAILY 09/21/23 [History Last Taken 09/20/23] meloxicam 15 mg tablet 15 mg PO DAILY 09/21/23 [History Last Taken 09/20/23] multivit,Ca,min-iron 8 mg-folic acid 200 mcg-lycopene 600 mcg tablet (Centrum Men) 1 tab PO DAILY 09/21/23 [History Last Taken 09/20/23] sumatriptan succinate 100 mg tablet 100 mg PO DAILY PRN CLUSTER HEADACHES 09/21/23 [History Last Taken 09/21/23] Allergy/AdvReac Type Severity Reaction Status Date / Time No Known Allergies Allergy Verified 09/21/23 07:14 Family History Other Essential hypertension Multiple premature ventricular complexes Non-ischemic cardiomyopathy Right bundle branch block (RBBB) with left anterior fascicular block Second degree AV block, Mobitz type II Surgical History History of back surgery History of left heart catheterization (08/12/03) History of permanent cardiac pacemaker placement (12/21/21) Social History Smoking Status: Current every day smoker tobacco type: pipe Tobacco: How many years used: 50 ROS ROS ED Constitutional Constitutional ED: Denies chills, fever(s) or weight loss Eyes Eyes: Denies change in vision or diplopia ENT ENT ED: Denies ear pain, rhinorrhea or sore throat Cardiovascular Cardiovascular: Denies chest pain, orthopnea, palpitations or racing heartbeat Respiratory/Chest Respiratory/Chest: Reports cough, dyspnea and dyspnea on exertion; Denies orthopnea Gastrointestinal Gastrointestinal: Denies abdominal pain, diarrhea, nausea or vomiting Genitourinary Genitourinary ED: Denies dysuria, hematuria or urinary frequency Musculoskeletal Musculoskeletal: Denies arthralgias or myalgias Integumentary Denies abscess or rash Neurologic Neurologic: Denies headache(s) or weakness Psychiatric Psychiatric: Denies anxiety, depression, suicidal ideation or suicidal thoughts Endocrine Endocrinology: Denies polydipsia, polyphagia or polyuria Allergic/Immunologic Allergic/Immunologic ED: Denies mouth swelling, tongue swelling or urticaria EXAM Physical Exam Narrative Exam Narrative: Patient appears in moderate distress (respiratory) Const Vital Signs: 09/21/23 07:14 09/21/23 07:18 09/21/23 07:18 Temperature 97.6 F L Temperature Source Temporal Pulse Rate 123 H Respiratory Rate 28 H Respiratory Effort Short of Breath Respiratory Pattern Tachypnea Blood Pressure 172/123 H Blood Pressure Mean 139 Pulse Ox 92 Oxygen Delivery Method Room Air Oxygen Flow Rate (L/min) Fraction of Inspired Oxygen (FIO2) 09/21/23 07:27 09/21/23 07:28 09/21/23 07:48 Temperature Temperature Source Pulse Rate 104 H Respiratory Rate 18 Respiratory Effort Respiratory Pattern Normal Blood Pressure Blood Pressure Mean Pulse Ox 90 Oxygen Delivery Method Nasal Cannula Nasal Cannula Oxygen Flow Rate (L/min) 4 4 Fraction of Inspired Oxygen (FIO2) 09/21/23 07:48 09/21/23 07:52 09/21/23 08:14 Temperature Temperature Source Pulse Rate 101 H 64 Respiratory Rate 18 14 Respiratory Effort Respiratory Pattern Normal Blood Pressure 104/72 Blood Pressure Mean 82 Pulse Ox 99 98 Oxygen Delivery Method Room Air Oxygen Flow Rate (L/min) Fraction of Inspired Oxygen (FIO2) 30 30 09/21/23 09:06 09/21/23 09:53 09/21/23 09:07 Temperature 97.6 F L 97.6 F L Temperature Source Temporal Pulse Rate 92 94 Respiratory Rate 18 18 Respiratory Effort Respiratory Pattern Blood Pressure 130/64 H 108/78 Blood Pressure Mean 86 88 Pulse Ox 98 97 98 Oxygen Delivery Method Nasal Cannula Bi-pap Oxygen Flow Rate (L/min) 2 Fraction of Inspired Oxygen (FIO2) 09/21/23 10:00 09/21/23 11:00 Temperature Temperature Source Pulse Rate 90 89 Respiratory Rate 18 16 Respiratory Effort Respiratory Pattern Blood Pressure 108/79 115/78 Blood Pressure Mean 88 90 Pulse Ox 97 97 Oxygen Delivery Method Room Air Nasal Cannula Oxygen Flow Rate (L/min) 2 2 Fraction of Inspired Oxygen (FIO2) Positive well nourished and well developed General Appearance ED: well developed HEENT Reports normocephalic, head/scalp atraumatic and moist mucous membranes Eyes PERRL and EOMs intact bilaterally Neck no lymphadenopathy, supple and no JVD Resp Resp Narrative: Patient has rhonchorous breath sounds bilaterally slight wheezing. Increased work of breathing moderate distress Cardio regular rate, regular rhythm and no murmurs Rate: tachycardic GI normal to inspection, nondistended, normoactive bowel sounds and non-tender Palpation: soft Back/Spine no CVA tenderness and normal ROM Extremity normal to inspection General Extremety ED: Negative for edema General Extremity: Negative for edema Neuro oriented x3 and CN's II-XII intact bilaterally Sensorium / Orientation: alert Motor Exam: strength 5/5 throughout Psych mental status grossly normal Mood & Affect: Negative for depressed or tearful Skin no rashes or lesions noted and no wounds MDM MDM MDM Narrative Medical decision making narrative: White count is elevated at 4.5 lactic acid of 3.5 glucose of 197 troponin 46 delta 106 normal coagulation and liver panel. My independent interpretation of the chest x-ray is right lower lobe infiltrate. Because of the respiratory complaint and recent surgery a CTA of the chest was obtained. This demonstrates small pleural effusions with bibasilar atelectasis. Initially the patient was placed on supplemental oxygen and then BiPAP and given breathing treatments. Rocephin and azithromycin obtained after blood cultures. He received a dose of aspirin. Patient improved was taken off of BiPAP and is doing well on 2 L. States his air hunger is improved. He now notes that just prior to coming into the emergency room he coughed a large amount of phlegm up. I wonder if he was having mucous plugging. And give him a dose of Solu-Medrol. His delta troponin is up slightly which I suspect is type II due to the demand. He does not have currently or did then chest pain. The patient's heart rate steadily declined with the addition of the BiPAP from 130 gradually into the 190s. This makes a dysrhythmia very unlikely. History & Record Review Discussion w/independent historian: Patient and Family Additional record(s) reviewed:: Prior outpatient record, Prior ED visit and Prior labs Lab Data Attestation: I reviewed the patient's lab results. Labs: Laboratory Results - last 24 hr 09/21/23 09/21/23 09/21/23 07:20 08:16 09:46 WBC 14.5 H RBC 5.11 Hgb 15.7 Hct 49.7 MCV 97.3 H MCH 30.7 MCHC 31.6 L RDW Std Deviation 48.9 H RDW Coeff of Vahid 13.6 Plt Count 359 MPV 9.8 Immature Gran % (Auto) 0.500 Neut % (Auto) 64.7 Lymph % (Auto) 23.4 [place] % (Auto) 9.5 Eos % (Auto) 1.4 Baso % (Auto) 0.5 Absolute Neuts (auto) 9.4 H Absolute Lymphs (auto) 3.40 Nucleated RBC % 0 PT 13.6 INR 1.0 APTT 32.8 Sodium 135 L Potassium 4.2 Chloride 102 Carbon Dioxide 28.0 Anion Gap 5 BUN 16 Creatinine 1.17 Estim Creat Clear Calc 51.79 Est GFR (MDRD) Af Amer 78 Est GFR (MDRD) Non-Af 65 BUN/Creatinine Ratio 13.7 Glucose 197 H Lactic Acid 3.5 H* Calcium 9.4 Total Bilirubin 0.70 Direct Bilirubin 0.21 AST 21 ALT 22 Alkaline Phosphatase 123 H Troponin I High Sens 46 106 H Total Protein 7.2 Albumin 3.9 Globulin 3.3 Radiography Diagnostic Testing: Clinical Impression(s) from Imaging Studies Chest X-Ray 09/21/23 07:21 IMPRESSION: Right lower lobe pneumonia. CT may be useful. Electronically Signed: Emery Fisher MD at 8:11 EST Reading Location ID and State: [employer] / [employer] , Service support , Chest CTA 09/21/23 08:[address]: [address] evidence of pulmonary embolism. 2. Small bilateral pleural effusions with bibasilar atelectasis. Electronically Signed: Emery Fisher MD at 9:02 EST Reading Location ID and State: [id number] [facility] [employer] , Service support , EKG Initial EKG: Attestation: I personally reviewed and interpreted this EKG as follows: Comments: Ventricularly paced rhythm at a rate of 127 bpm. Follow-up EKG: Attestation: I personally reviewed and interpreted this EKG as follows: Comments: Atrial sensed ventricular paced rhythm at a rate of 90 bpm. PVCs noted. Management Discussion w/another healthcare provider: Hospitalist Discharge Plan Triage Chief Complaint: Chest Pain ED Provider: Orville Chan Dx/Rx/DC Orders Clinical Impression: Mucus plugging of bronchi, Elevated troponin, COPD (chronic obstructive pulmonary disease), Acute respiratory distress Prescriptions: No Action carvedilol 25 mg tablet 25 mg PO DAILY 90 Days Qty: 90 lisinopril 5 mg tablet 5 mg PO DAILY 90 Days Qty: 90 atorvastatin 10 mg tablet 10 mg PO QHS meloxicam 15 mg tablet 15 mg PO DAILY sumatriptan succinate 100 mg tablet 100 mg PO DAILY PRN (Reason: CLUSTER HEADACHES) aspirin [Adult Low Dose Aspirin] 81 mg tablet,delayed release (DR/EC) 81 mg PO DAILY calcium carbonate [Calcium 600] 600 mg calcium (1,500 mg) tablet 600 mg PO DAILY Centrum Men 8 mg iron- 200 mcg-600 mcg tablet 1 tab PO DAILY Primary Care Provider: Gee Almonte Chi Referrals: Gee Almonte Chi, MD [Primary Care Provider] -
--- NOTE | 2023-09-21 10:24 | EKG12_ITS ---
Test Reason : AM EKG Blood Pressure : / mmHG Vent. Rate : 065 BPM Atrial Rate : 065 BPM P-R Int : 168 ms QRS Dur : 168 ms QT Int : 464 ms P-R-T Axes : 010 -82 107 degrees QTc Int : 482 ms Atrial-sensed ventricular-paced rhythm with occasional Premature ventricular complexes Abnormal ECG When compared with ECG of 23-SEP-2023 05:42, MANUAL COMPARISON REQUIRED, DATA IS UNCONFIRMED Confirmed by GUILLERMO SPAULDING, ALEX ([id number]), clinical editor SATHISH BOOTHE ([id number]) on 10/01/2023 1:03:43 PM Referred By: Confirmed By:ALEX LI MD
[2023-09-21] MEDS: MethylPREDNISolone 125 MG/2 ML Vial 60 MG IV (11:06)
--- NOTE | 2023-09-21 11:57 | HP.PCM.HOS_ITS ---
HPI - General General Date of Admission: 09/21/23 Date of Service: 09/21/23 Chief Complaint: Shortness of breath HPI Narrative TONG LING, is a 73 M with a past medical history of permanent pacemaker due to Mobitz type II, tobacco use, ?COPD, recent knee replacement 1 month ago, hypertension, and cluster headaches who presented to [facility] 09/21/2023 with shortness of breath for several hours. Patient reports he has been under a lot of stress recently with his sister having a massive stroke, he just had knee replacement surgery a month ago, and had had multiple teeth pulled and a plate placed and has been having cluster headaches 3-4 times a day for which he takes sumatriptan. Last exacerbation of his cluster headaches was 4 years ago and he follows with his PCP for this. Earlier today he felt like he had something stuck in his throat he kept trying to cough to get it out but it was stuck and he became acutely distressed from a respiratory status and his brought him to the hospital, shortly before he got to the hospital he did cough up a chunk of mucus however was still distressed enough when he presented that he required BiPAP and was given nebs. Initially chest x-ray looked as though it had infiltrate however a CTA was obtained which showed no clots in showed small bilateral pleural effusions with bibasilar atelectasis and no suggestion of pneumonia. In the ED white blood cell count was 14.5, lactic acid was 3.5 and initial troponin was 46 and up trended to 106. Patient's shortness of breath resolved after BiPAP and breathing treatments however given his significant distress necessitating BiPAP and increased troponin and lactic hospitalist contacted for admission for observation. Patient evaluated at bedside and he denies any recent fevers or chills, denied coughing more than usual recently however reported that he was coughing most of the morning but was unable to get anything up. He did not feel more short of breath until he had the sticking sensation like something was in his throat and he feels much better. When he could not breathe at home and was in respiratory distress he had stabbing pain in the center of his chest that went away as soon as his breathing improved. He has been doing physical therapy for his knee and denies being on any antibiotics for his recent tooth extraction aside from a prophylactic dose taken 1 hour before they were pulled. Denies any other acute complaints. [facility] Medical History Arthritis Essential hypertension Hyperlipidemia Multiple premature ventricular complexes Non-ischemic cardiomyopathy Right bundle branch block (RBBB) with left anterior fascicular block Second degree AV block, Mobitz type II (12/20/21) Home Medications atorvastatin 10 mg tablet 10 mg PO QHS cholesterol 12/20/21 [History Last Taken 09/20/23] carvedilol 25 mg tablet 25 mg PO DAILY blood pressure 90 days #90 tabs 12/20/21 [History Last Taken 09/20/23] lisinopril 5 mg tablet 5 mg PO DAILY blood pressure 90 days #90 tabs 12/20/21 [History Last Taken 09/20/23] aspirin 81 mg tablet,delayed release (Adult Low Dose Aspirin) 81 mg PO DAILY 09/21/23 [History Last Taken 09/20/23] calcium carbonate 600 mg calcium (1,500 mg) tablet (Calcium) 600 mg PO DAILY 09/21/23 [History Last Taken 09/20/23] meloxicam 15 mg tablet 15 mg PO DAILY 09/21/23 [History Last Taken 09/20/23] multivit,Ca,min-iron 8 mg-folic acid 200 mcg-lycopene 600 mcg tablet (Centrum Men) 1 tab PO DAILY 09/21/23 [History Last Taken 09/20/23] sumatriptan succinate 100 mg tablet 100 mg PO DAILY PRN CLUSTER HEADACHES 11/01 [History Last Taken 09/21/23] Allergy/AdvReac Type Severity Reaction Status Date / Time No Known Allergies Allergy Verified 09/21/23 07:14 Family History Other Essential hypertension Multiple premature ventricular complexes Non-ischemic cardiomyopathy Right bundle branch block (RBBB) with left anterior fascicular block Second degree AV block, Mobitz type II Surgical History History of back surgery History of left heart catheterization (08/12/03) History of permanent cardiac pacemaker placement (12/21/21) Social History Smoking Status: Current every day smoker tobacco type: pipe Tobacco: How many years used: 50 ROS ROS Narrative General: Denies fever/chills HENT: Has been having cluster headaches, denies stuffy nose, denies sore throat EYES: Denies changes in vision Resp: Was coughing earlier and felt every time he was breathing through his mouth there was rattling earlier and had been feeling short of breath but this is since resolved Cardiac: Denies chest pain at present, had brief stabbing pain in center of chest when he could not breathe GI: Denies abdominal pain, denies changes in bowel, denies nausea/vomiting : Does urinate frequently but denies problems with emptying or burning Extremity: Denies swelling MSK: Denies weakness Neuro: Denies any numbness/tingling Heme: Denies any bleeding or bruising Skin: Denies rashes Psychiatric: No complaints voiced Vital Signs Vital Signs Vital Signs: 09/21/23 07:14 09/21/23 07:18 09/21/23 07:18 Temperature 97.6 F L Temperature Source Temporal Pulse Rate 123 H Respiratory Rate 28 H Respiratory Effort Short of Breath Respiratory Pattern Tachypnea Blood Pressure 172/123 H Blood Pressure Mean 139 Pulse Ox 92 Oxygen Delivery Method Room Air Oxygen Flow Rate (L/min) Fraction of Inspired Oxygen (FIO2) 09/21/23 07:27 09/21/23 07:28 09/21/23 07:48 Temperature Temperature Source Pulse Rate 104 H Respiratory Rate 18 Respiratory Effort Respiratory Pattern Normal Blood Pressure Blood Pressure Mean Pulse Ox 90 Oxygen Delivery Method Nasal Cannula Nasal Cannula Oxygen Flow Rate (L/min) 4 4 Fraction of Inspired Oxygen (FIO2) 09/21/23 07:48 09/21/23 07:52 09/21/23 08:14 Temperature Temperature Source Pulse Rate 101 H 64 Respiratory Rate 18 14 Respiratory Effort Respiratory Pattern Normal Blood Pressure 104/72 Blood Pressure Mean 82 Pulse Ox 99 98 Oxygen Delivery Method Room Air Oxygen Flow Rate (L/min) Fraction of Inspired Oxygen (FIO2) 30 30 09/21/23 09:06 09/21/23 09:53 09/21/23 09:07 Temperature 97.6 F L 97.6 F L Temperature Source Temporal Pulse Rate 92 94 Respiratory Rate 18 18 Respiratory Effort Respiratory Pattern Blood Pressure 130/64 H 108/78 Blood Pressure Mean 86 88 Pulse Ox 98 97 98 Oxygen Delivery Method Nasal Cannula Bi-pap Oxygen Flow Rate (L/min) 2 Fraction of Inspired Oxygen (FIO2) 09/21/23 10:00 09/21/23 11:00 Temperature Temperature Source Pulse Rate 90 89 Respiratory Rate 18 16 Respiratory Effort Respiratory Pattern Blood Pressure 108/79 115/78 Blood Pressure Mean 88 90 Pulse Ox 97 97 Oxygen Delivery Method Room Air Nasal Cannula Oxygen Flow Rate (L/min) 2 2 Fraction of Inspired Oxygen (FIO2) Weight Weight: 69.3 kg Body Mass Index (BMI) 23.9 Physical Exam Narrative General: Alert, oriented, no apparent distress HEENT: Atraumatic, normocephalic Eyes: Anicteric, normal conjunctiva, extraocular movements grossly intact Neck: Supple Respiratory: Slight crackles at the bases and slightly dull at the very bases, normal respiratory effort Cardiovascular: Intermittently paced GI: Soft, nontender, nondistended Extremities: No edema Musculoskeletal: Moving all extremities Neuro: No overt focal neurological deficits Skin: No rashes appreciated Psych: Cooperative Results Lab / Micro Data 09/21/23 07:20 09/21/23 07:20 Labs: Laboratory Results - last 24 hr 09/21/23 07:20: WBC 14.5 H, RBC 5.11, Hgb 15.7, Hct 49.7, MCV 97.3 H, MCH 30.7, MCHC 31.6 L, RDW Std Deviation 48.9 H, RDW Coeff of Vahid 13.6, Plt Count 359, MPV 9.8, Immature Gran % (Auto) 0.500, Neut % (Auto) 64.7, Lymph % (Auto) 23.4, Ceiba % (Auto) 9.5, Eos % (Auto) 1.4, Baso % (Auto) 0.5, Absolute Neuts (auto) 9.4 H, Absolute Lymphs (auto) 3.40, Nucleated RBC % 0, PT 13.6, INR 1.0, APTT 32.8, Sodium 135 L, Potassium 4.2, Chloride 102, Carbon Dioxide 28.0, Anion Gap 5, BUN 16, Creatinine 1.17, Estim Creat Clear Calc 51.79, Est GFR (MDRD) Af Amer 78, Est GFR (MDRD) Non-Af 65, BUN/Creatinine Ratio 13.7, Glucose 197 H, Calcium 9.4, Total Bilirubin 0.70, Direct Bilirubin 0.21, AST 21, ALT 22, Alkaline Phosphatase 123 H, Troponin I High Sens 46, Total Protein 7.2, Albumin 3.9, Globulin 3.3 09/21/23 08:16: Lactic Acid 3.5 H* 09/21/23 09:46: Troponin I High Sens 106 H Micro: Microbiology 09/21/23 11:09 Nasal Secretion SARS-CoV-2 Antigen (Rapid) - Final Radiology Impression Chest X-Ray 09/21/23 07:21 IMPRESSION: Right lower lobe pneumonia. CT may be useful. Electronically Signed: Emery Fisher MD at 8:11 EST Reading Location ID and State: [employer] / [employer] Tel , Service support , Chest CTA 09/21/23 08:[address]: 1[address] evidence of pulmonary embolism. 2. Small bilateral pleural effusions with bibasilar atelectasis. Electronically Signed: Emery Fisher MD at 9:02 EST Reading Location ID and State: [id number] / [employer] Tel , Service support , Assessment & Plan Assessment/Plan (1) Acute respiratory distress: (2) COPD (chronic obstructive pulmonary disease): (3) Second degree AV block, Mobitz type II: (4) History of permanent cardiac pacemaker placement: (5) Elevated troponin: (6) Essential hypertension: PLAN: Plan #Acute respiratory distress/?hx COPD -When patient presented he was in acute respiratory distress and was tachycardic, hypertensive, and tachypneic -He had coughed up a chunk of mucus shortly before arriving in the ER and felt that he improved primarily with BiPAP but he also received nebs and antibiotics -Reviewed the CT do not think he has pneumonia so we will hold antibiotics how ever will continue nebs -He is not wheezing and do not think he has COPD exacerbation (additionally unclear where COPD diagnosis came from as I do not see any pulm notes or PFTs in our system and he is not presently on any treatment, it is possible he does not have this formal diagnosis. Can always have outpatient PFTs) -Sounds as though he had mucous plugging that has resolved however given extent of his distress do feel observation is reasonable -We will give Mucinex -Had small effusions on CT scan, will check BNP -Most recent echo 05/21/2023 with EF of 55% and stage I diastolic dysfunction -Incentive spirometry, daily weights, I's and O's #Elevated troponin -Initial troponin 46 and repeat was 106 -Had a brief stabbing pain in center of his chest when he had his severe respiratory distress and could not breathe -Suspect this is all demand and it completely resolved when his breathing improved -Do not think he needs acute ACS work-up at this time -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 #History of Mobitz type II status post permanent pacemaker -This sounded purely pulmonary in nature given feeling of thick sputum and throat with rattling when he inhaled through his mouth and difficulty expelling sputum with improvement in all aspects once that improved so do not think that this was pacemaker related #Cluster headaches -Has been having them multiple times a day almost every day for the past month, follows with PCP for this -Takes sumatriptan as needed -If these continue he will need to follow-up with PCP to discuss alternative treatment options and possibly consider glucocorticoid taper #Elevated lactic acid -Suspect this was due to his respiratory distress and he was likely hypoxic, this morning did require 4 L of O2 to maintain sats at 90% and then was placed on BiPAP with improvement #Hypertension -Continue home meds #Tobacco use -Advise cessation -Patient declines nicotine replacement #DVT ppx: Lovenox subcu Krystyna Cortes MD Time spent in the patient's overall evaluation,decision-making process, review of diagnostic data, adjustment of management, discussion with other providers, nursing nursing and ancillary staff involved in patient's care documentation, 60 minutes Charges/Coding Visit Charges Inpatient E&M: 70461 Init Hosp L2
[2023-09-21 12:19] LABS: Reflex Lactate? Y
[2023-09-21] MEDS: Rizatriptan Benzoate 10 MG Tablet PO ×2 (13:00→20:00)
[2023-09-21 13:15] LABS: Lactic Acid 2.8 mmol/L (0.4-1.9)
[2023-09-21 13:21] LABS: BNP,B-Type NATRIURETIC PEPTIDE 1665.4 pg/mL (0-100)
--- NOTE | 2023-09-21 13:30 | ECHOLC_ITS ---
Reason For Study: Dyspnea/SOB Procedure This was a limited 2D transthoracic echocardiogram. The study was technically difficult. Contrast injection was performed. Exam performed portable in patient room. Left Ventricle Moderately dilated left ventricle. Moderately severe global left ventricular systolic dysfunction. The estimated ejection fraction is 20-25 %. Right Ventricle Normal right ventricle. Mildly decreased right ventricular systolic function. Atria Normal left atrium. Normal right atrium. Mitral Valve The mitral valve is structurally normal. No prolapse or stenosis seen. Mild-Moderate (1-2+) mitral valve insufficiency. Tricuspid Valve Normal tricuspid valve. Mild (1+) tricuspid valve insufficiency. Aortic Valve Normal aortic valve. Pulmonic Valve The pulmonic valve is not well visualized. Great Vessels Normal aortic root. Pericardium/Pleural No pericardial effusion. Medication Diluted definity 2ml given slow IV push to enhance endocardial definition. MMode/2D Measurements & Calculations LVIDd: 5.8 cm IVSd: 1.2 cm LA dimension: 4.7 cm LVIDs: 4.5 cm LVPWd: 0.82 cm FS: 21.8 % LAV(MOD-sp4): 62.7 ml LVAd ap4: 41.1 cm2 SV(MOD-sp4): 33.6 ml LVLd ap4: 9.0 cm EDV(MOD-sp4): 157.1 ml EDV(sp4-el): 159.3 ml LVAs ap4: 35.5 cm2 LVLs ap4: 8.5 cm ESV(MOD-sp4): 123.5 ml ESV(sp4-el): 125.2 ml EF(MOD-sp4): 21.4 % EF(sp4-el): 21.4 % SV(sp4-el): 34.1 ml LA A4 area: 20.1 cm2 Time Measurements MV dec time: 0.13 sec Doppler Measurements & Calculations MV E max deya: 88.2 cm/sec MV V2 max: 117.8 cm/sec MV P1/2t max deya: 118.7 cm/sec MV A max deya: 93.9 cm/sec MV max P.6 mmHg MV P1/2t: 47.7 msec MV E/A: 0.94 MV V2 mean: 64.6 cm/sec MV dec slope: 728.6 cm/sec2 MV mean P.0 mmHg MVA(P1/2t): 4.6 cm2 MV V2 VTI: 19.1 cm MR max deya: 471.6 cm/sec TR max deya: 297.0 cm/sec MR max P.0 mmHg TR max P.3 mmHg MR mean deya: 345.9 cm/sec MR mean P.6 mmHg MR VTI: 162.2 cm ECHO/Echo Limited w/Contrast Interpretation Summary The estimated ejection fraction is 20-25 %. Severely reduced LV systolic function With global LV hypokinesia Pacemaker lead noted on the right side Remarkable difference in comparison to previous echo/EF was normal in May 2023 . Recommendations; consider to evaluate with left heart cath to assess for ischem ic cardiomyopathy versus NICM Contrast echo used using Definity To delineate the endocardial borders and better assessment of the ejection frac tion Ordering Physician: Krystyna Cortes Referring Physician: Gee Almonte Chi Performed By: Viraj Swenson RCS
[2023-09-21] MEDS: Contrast Allergy Safety Check IV (13:37)
[2023-09-21] MEDS: Furosemide 20 MG/2 ML VIAL IV (15:08)
[2023-09-21] MEDS: 0.9% Saline Lock 10 ML Syringe IV (15:08)
--- NOTE | 2023-09-21 20:03 | CPS ---
Patient refused PAP therapy for the night.
[2023-09-21] MEDS: guaiFENesin 1,200 MG Tablet 1200 MG PO (20:52)
[2023-09-21] MEDS: Atorvastatin Calcium 10 MG Tablet PO (20:52)
[2023-09-21] MEDS: Carvedilol 12.5 MG Tablet PO (20:52)
[2023-09-22] VITALS (9 sets, daily range): BP systolic 124–150; BP diastolic 77–90; PULSE 75–97; RESP 12–18; TEMP 36.1–36.8; O2SAT 95–99; BMI 23.6
[2023-09-22] MEDS: Albuterol 2.5 MG/3 ML VIAL.NEB. INHALATION (03:06)
[2023-09-22 06:21] LABS: Absolute Lymphocyte Count 0.99 X10^3/uL (0.83-4.51); Absolute Neutrophil Count 8.5 X10^3/uL (2.0-7.7); Basophil# 0.02 X10^3/uL; Basophil% 0.2 % (0-1); Hematocrit 41.8 % (40-54); Hemoglobin 13.5 g/dL (13.0-16.5); Lymphocyte # 0.99 X10^3/ul (0.83-4.51); Lymphocyte % 9.3 % (19-41); Mean Corp Hgb Conc 32.3 g/dL (32-36); Mean Corpuscular Hgb 30.5 pg (27.0-32.0); Mean Corpuscular Volume 94.4 fL (80-94); Mean Platelet Vol. 9.9 fl (6.2-12.0); Monocyte# 1.06 X10^3/uL; NRBC Flagged by Analyzer 0 % (0-5); Neutrophil # 8.53 X10^3/uL (2.7-7.7); Platelet Count 285 K/mm3 (150-450); RBC Distribution Width CV 13.6 % (11.6-14.6); RBC Distribution Width SD 47.2 fl (35.1-43.9); Red Blood Count 4.43 M/mm3 (4.6-6.2); White Blood Count 10.7 K/mm3 (4.4-11.0)
[2023-09-22 06:46] LABS: Anion Gap 7 (5-15); BUN 21 mg/dL (7-18); BUN/Creat Ratio 23.8 RATIO (10-20); Calcium,Total 8.9 mg/dL (8.5-10.1); Chloride 105 mmol/L (98-107); Creatinine, Serum 0.88 mg/dL (0.70-1.30); EST Glomerular Filtration Rate 90 mL/min (>60); Est Glom Filt Rate - Afr Amer 108 mL/min (>60); Estimated Creatinine Clearance 68.85 ml/min; Glucose 137 mg/dL (74-106); Sodium Level 136 mmol/L (136-145)
[2023-09-22] MEDS: Ipratropium/Albuterol Sulfate 3 ML AMPUL.NEB INHALATION ×3 (06:55→19:04)
[2023-09-22] MEDS: Carvedilol 12.5 MG Tablet PO ×2 (09:19→22:17)
[2023-09-22] MEDS: Enoxaparin 40 MG/0.4 ML Syringe SC (09:19)
[2023-09-22] MEDS: Aspirin E.C. 81 MG Tablet PO (09:19)
[2023-09-22] MEDS: guaiFENesin 1,200 MG Tablet 1200 MG PO ×2 (09:19→22:17)
[2023-09-22] MEDS: Lisinopril 5 MG Tablet PO (09:20)
[2023-09-22] MEDS: Rizatriptan Benzoate 10 MG Tablet PO (12:04)
--- NOTE | 2023-09-22 16:27 | CASEMGMT ---
IBAN VALLES in to complete MALDONADO Form with patient. IBAN VALLES explained MALDONADO Form to patient and . Patient voiced understanding and preferred to sign form. signed MALDONADO form and filed in charge. Patient provided copy of signed MALDONADO Form. Patient will need nebulizer at discharge. IBAN VALLES reviewed DME agencies with patient and prefers [employer]. Patient had no further questions or concerns. IBAN VALLES sent referral to [employer] via [employer] and arranged for delivery to patient's room.
--- NOTE | 2023-09-22 17:01 | PN.HOSP_ITS ---
Reason for Visit Reason for Visit: Diagnoses Essential (primary) hypertension (09/21/23) Atrioventricular block, second degree (09/21/23) Chronic obstructive pulmonary disease, unspecified (09/21/23) Acute respiratory distress (09/21/23) Other specified abnormal findings of blood chemistry (09/21/23) Presence of cardiac pacemaker (09/21/23) Subjective Subjective Pt feeling better today than he was yesterday, hasn't had recurrence of severe SOB Objective Data Objective Data Vital Signs: Vital Signs Temp Pulse Resp BP Pulse Ox O2 Del Method O2 Flow Rate 97.8 F 83 16 126/81 H 97 Room Air 2 09/22/23 14:44 09/22/23 14:44 09/22/23 14:44 09/22/23 14:44 09/22/23 14:44 09/22/23 14:44 09/22/23 09:11 FiO2 30 09/21/23 07:52 Oxygen Flow Rate (L/min) 2 Oxygen Delivery Method Room Air Weight: 68.4 kg Body Mass Index (BMI) 23.6 Intake & Output: Intake and Output for Last 24 Hours 09/20/23 09/21/23 09/22/23 23:59 23:59 23:59 Intake Total 2545 / 2745 200 / 200 Balance 2545 / 2745 200 / 200 Lab / Micro Data 09/22/23 06:05 09/22/23 06:05 Labs: Laboratory Results - last 24 hr 09/22/23 06:05: WBC 10.7, RBC 4.43 L, Hgb 13.5, Hct 41.8, MCV 94.4 H, MCH 30.5, MCHC 32.3, RDW Std Deviation 47.2 H, RDW Coeff of Vahid 13.6, Plt Count 285, MPV 9.9, Immature Gran % (Auto) 0.500, Neut % (Auto) 80.0 H, Lymph % (Auto) 9.3 L, Mower % (Auto) 10.0, Eos % (Auto) 0.0, Baso % (Auto) 0.2, Absolute Neuts (auto) 8.5 H, Absolute Lymphs (auto) 0.99, Nucleated RBC % 0, Sodium 136, Potassium 4.0, Chloride 105, Carbon Dioxide 24.0, Anion Gap 7, BUN 21 H, Creatinine 0.88, Estim Creat Clear Calc 68.85, Est GFR (MDRD) Af Amer 108, Est GFR (MDRD) Non-Af 90, BUN/Creatinine Ratio 23.8 H, Glucose 137 H, Calcium 8.9 Micro: Microbiology 09/21/23 13:40 Mucosa - Nasopharyngeal Respiratory Panel (PCR) - Final 09/21/23 11:09 Nasal Secretion SARS-CoV-2 Antigen (Rapid) - Final Physical Exam Narrative General: Alert, oriented, no apparent distress HEENT: Atraumatic, normocephalic Eyes: Anicteric, normal conjunctiva, extraocular movements grossly intact Neck: Supple Respiratory: Aeration improved from yesterday, normal respiratory effort Cardiovascular: Intermittently paced GI: Soft, nontender, nondistended Extremities: No edema Musculoskeletal: Moving all extremities Neuro: No overt focal neurological deficits Skin: No rashes appreciated Psych: Cooperative Assessment & Plan Assessment/Plan (1) Acute respiratory distress: (2) COPD (chronic obstructive pulmonary disease): (3) Second degree AV block, Mobitz type II: (4) History of permanent cardiac pacemaker placement: (5) Elevated troponin: (6) Essential hypertension: PLAN: Plan #Acute respiratory distress/?hx COPD -When patient presented he was in acute respiratory distress and was tachycardic, hypertensive, and tachypneic -He had coughed up a chunk of mucus shortly before arriving in the ER and felt that he improved primarily with BiPAP but he also received nebs and antibiotics -Reviewed the CT do not think he has pneumonia so we will hold antibiotics however will continue nebs -He is not wheezing and do not think he has COPD exacerbation (additionally unclear where COPD diagnosis came from as I do not see any pulm notes or PFTs in our system and he is not presently on any treatment, it is possible he does not have this formal diagnosis. Can always have outpatient PFTs) -Sounds as though he had mucous plugging that has resolved however given extent of his distress do feel observation is reasonable -We will give Mucinex -Had small effusions on CT scan, will check BNP -Most recent echo 05/21/2023 with EF of 55% and stage I diastolic dysfunction -Incentive spirometry, daily weights, I's and O's -09/22: Discussed with pulmonology who recommended outpatient pulm follow-up and patient to be discharged home with DuoNebs as needed, presently receiving DuoNebs here #Newly diagnosed heart failure with reduced ejection fraction -Echocardiogram in May with normal EF and repeat echo with EF of 20 to 25% -Unclear ischemic versus nonischemic -We will have pacemaker interrogated and cardiology is consulted -Patient n.p.o. at midnight for possible heart cath tomorrow -Not hypoxic and does not appear floridly fluid overloaded, did receive Lasix x1 yesterday as he was given 2 L of IV fluid in the ED and he responded well to this. 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 -09/22: As above, patient likely for left heart cath tomorrow given newly reduced EF #History of Mobitz type II status post permanent pacemaker -This sounded purely pulmonary in nature given feeling of thick sputum and throat with rattling when he inhaled through his mouth and difficulty expelling sputum with improvement in all aspects once that improved so do not think that this was pacemaker related -09/22: Given echo findings will interrogate pacemaker #Cluster headaches -Has been having them multiple times a day almost every day for the past month, follows with PCP for this -Takes sumatriptan as needed -If these continue he will need to follow-up with PCP to discuss alternative treatment options and possibly consider glucocorticoid taper -09/22: Given echo finding and awaiting cath will avoid rizatriptan if at all possible and try alternative agents. Discussed with patient's RN and patient will be informed of this as well #Elevated lactic acid -Suspect this was due to his respiratory distress and he was likely hypoxic, this morning did require 4 L of O2 to maintain sats at 90% and then was placed on BiPAP with improvement -09/22: Improved with improvement of underlying etiology. #Hypertension -Continue home meds #Tobacco use -Advise cessation -Patient declines nicotine replacement #DVT ppx: Lovenox subcu Krystyna Cortes MD Time spent in the patient's overall evaluation,decision-making process, review of diagnostic data, adjustment of management, discussion with other providers, nursing nursing and ancillary staff involved in patient's care documentation, 51 minutes Charges/Coding Visit Charges Inpatient E&M: 18679 Subs Hosp L3
--- NOTE | 2023-09-22 21:07 | PCM.HOSP.N ---
Hospitalist Note Called by floor with gram-positive rods in 1 of 2 blood cultures. Suspect this is contaminant. Patient clinically appears to be improving. We will continue to follow and trend however hold with antibiotics for now.
[2023-09-22] MEDS: Atorvastatin Calcium 10 MG Tablet PO (22:17)
[2023-09-23] VITALS (9 sets, daily range): BP systolic 134–152; BP diastolic 78–99; PULSE 70–116; RESP 16–20; TEMP 36.4–36.6; O2SAT 92–100; BMI 23.1
--- NOTE | 2023-09-23 05:23 | EKG12_ITS ---
Test Reason : AM EKG Blood Pressure : / mmHG Vent. Rate : 089 BPM Atrial Rate : 086 BPM P-R Int : 152 ms QRS Dur : 166 ms QT Int : 424 ms P-R-T Axes : 066 -80 100 degrees QTc Int : 515 ms Atrial-sensed ventricular-paced rhythm with frequent Premature ventricular complexes Abnormal ECG When compared with ECG of 21-SEP-2023 10:33, MANUAL COMPARISON REQUIRED, DATA IS UNCONFIRMED Confirmed by GUILLERMO SPAULDING, ALEX ([id number]), managing editor SATHISH BOOTHE ([id number]) on 10/01/2023 1:05:43 PM Referred By: Confirmed By:ALEX LI MD
[2023-09-23] MEDS: Lisinopril 5 MG Tablet PO (05:37)
[2023-09-23] MEDS: Aspirin E.C. 81 MG Tablet PO (05:38)
[2023-09-23] MEDS: Carvedilol 12.5 MG Tablet PO ×2 (05:38→22:12)
[2023-09-23 06:28] LABS: Absolute Lymphocyte Count 1.63 X10^3/uL (0.83-4.51); Absolute Neutrophil Count 7.7 X10^3/uL (2.0-7.7); Basophil# 0.04 X10^3/uL; Basophil% 0.4 % (0-1); Eosinophil# 0.02 X10^3/uL; Eosinophils% 0.2 % (0-5); Hematocrit 43.5 % (40-54); Lymphocyte # 1.63 X10^3/ul (0.83-4.51); Lymphocyte % 15.4 % (19-41); Mean Corp Hgb Conc 32.2 g/dL (32-36); Mean Corpuscular Hgb 30.8 pg (27.0-32.0); Mean Corpuscular Volume 95.6 fL (80-94); Monocyte# 1.13 X10^3/uL; Monocyte% 10.7 % (0-10); NRBC Flagged by Analyzer 0 % (0-5); Neutrophil % 72.7 % (47-70); Platelet Count 303 K/mm3 (150-450); RBC Distribution Width CV 13.9 % (11.6-14.6); RBC Distribution Width SD 48.6 fl (35.1-43.9); Red Blood Count 4.55 M/mm3 (4.6-6.2); White Blood Count 10.6 K/mm3 (4.4-11.0)
[2023-09-23] MEDS: Ipratropium/Albuterol Sulfate 3 ML AMPUL.NEB INHALATION ×3 (06:58→19:13)
[2023-09-23 07:08] LABS: Anion Gap 7 (5-15); BUN 22 mg/dL (7-18); BUN/Creat Ratio 24.7 RATIO (10-20); Calcium,Total 8.8 mg/dL (8.5-10.1); Chloride 104 mmol/L (98-107); Creatinine, Serum 0.89 mg/dL (0.70-1.30); EST Glomerular Filtration Rate 89 mL/min (>60); Est Glom Filt Rate - Afr Amer 107 mL/min (>60); Estimated Creatinine Clearance 68.08 ml/min; Glucose 120 mg/dL (74-106); Potassium 3.9 mmol/L (3.5-5.1); Sodium Level 135 mmol/L (136-145)
[2023-09-23] MEDS: Acetaminophen 325 MG Tablet 650 MG PO (08:14)
[2023-09-23] MEDS: traMADol 50 MG Tablet PO ×3 (10:50→23:24)
--- NOTE | 2023-09-23 11:11 | CON.PCM.CA_ITS ---
<Statement entered by Lurdes Higginbotham MD - 09/23/23 17:18> Pt seen & evaluated w/MICHAEL. I personally interviewed & exam the pt. I was involved in all aspects of pt's orders, interpretation of results & treatment Assessment & Plan Assessment/Plan (1) Elevated troponin: (2) Cardiomyopathy: (3) Essential hypertension: (4) Hyperlipidemia: (5) History of permanent cardiac pacemaker placement: PLAN: Plan * With pts decrease in EF, will maximize medications by stopping lisinopril and switching to entresto. He will continue with is Coreg. In the future may consider adding an SGLT2 and spirolactone. This may possibly be added after heart cath * Will plan on a heart cath tomorrow. Will continue with ASA and atorvastatin * With his newly noted decreased EF, will consider a life vest on d/c. Will plan on repeating echo in a few months after hospital stay. If his EF does not improve may need to consider an ICD. * Will plan on f/u with pt after d/c in the office. HPI Consult Data Date of Consult: 09/23/23 HPI Narrative HPI Narrative: TONG LING, is a 73 M who presented to [facility] on 09/21/23 with being SOB. This was a sudden onset. He does note that over the last month he has been stressed and has been dealing with cluster LU. He has been taking his sumatripan 3-4 times a day for the last month. His Troponin trended 46/106. He did require Bipap in the ER. He was admitted to PCU for observation. He did undergo an echocardiogram, this demonstrated a decrease in his EF to 20-25%. Previous echo from 05/2023 demonstrated an EF of 55%. He does have a history of 2-1 heart block in December 2020 and underwent placement of a permanent pacemaker. [facility] Medical History Arthritis Essential hypertension Hyperlipidemia Multiple premature ventricular complexes Non-ischemic cardiomyopathy Right bundle branch block (RBBB) with left anterior fascicular block Second degree AV block, Mobitz type II (12/20/21) Home Medications atorvastatin 10 mg tablet 10 mg PO QHS cholesterol 12/20/21 [History Last Taken 09/20/23] carvedilol 25 mg tablet 25 mg PO DAILY blood pressure 90 days #90 tabs 12/20/21 [History Last Taken 09/20/23] lisinopril 5 mg tablet 5 mg PO DAILY blood pressure 90 days #90 tabs 12/20/21 [History Last Taken 09/20/23] aspirin 81 mg tablet,delayed release (Adult Low Dose Aspirin) 81 mg PO DAILY 09/21/23 [History Last Taken 09/20/23] calcium carbonate 600 mg calcium (1,500 mg) tablet (Calcium) 600 mg PO DAILY 09/21/23 [History Last Taken 09/20/23] meloxicam 15 mg tablet 15 mg PO DAILY 09/21/23 [History Last Taken 09/20/23] multivit,Ca,min-iron 8 mg-folic acid 200 mcg-lycopene 600 mcg tablet (Centrum Men) 1 tab PO DAILY 09/21/23 [History Last Taken 09/20/23] sumatriptan succinate 100 mg tablet 100 mg PO DAILY PRN CLUSTER HEADACHES 09/21/23 [History Last Taken 09/21/23] ipratropium 0.5 mg-albuterol 3 mg (2.5 mg base)/3 mL nebulization soln 3 ml inhalation Q4H PRN PRN shortness of breath or wheezing #180 mL 09/22/23 [Rx Last Taken Unknown] Allergy/AdvReac Type Severity Reaction Status Date / Time No Known Allergies Allergy Verified 09/21/23 07:14 Family History Other Essential hypertension Multiple premature ventricular complexes Non-ischemic cardiomyopathy Right bundle branch block (RBBB) with left anterior fascicular block Second degree AV block, Mobitz type II Surgical History History of back surgery History of left heart catheterization (08/12/03) History of permanent cardiac pacemaker placement (12/21/21) Social History Smoking Status: Current every day smoker tobacco type: pipe Tobacco: How many years used: 50 ROS ROS Narrative General: Denies fever/chills HENT: Has been having cluster headaches, denies stuffy nose, denies sore throat EYES: Denies changes in vision Resp: See HPI. Cardiac: Denies chest pain at present, had brief stabbing pain in center of chest when he could not breathe GI: Denies abdominal pain, denies changes in bowel, denies nausea/vomiting : Does urinate frequently but denies problems with emptying or burning Extremity: Denies swelling MSK: Denies weakness Neuro: Denies any numbness/tingling Heme: Denies any bleeding or bruising Skin: Denies rashes Psychiatric: No complaints voiced Physical Exam Const alert, oriented x3, no apparent distress and healthy appearing HEENT normocephalic, head/scalp atraumatic, hearing grossly normal bilaterally, external ears normal, external nose normal and moist oral mucous membranes Eyes PERRL, EOMs intact bilaterally, conjunctivae normal and no scleral icterus Neck no lymphadenopathy, supple and no JVD Resp clear to auscultation bilaterally Cardio regular rate, regular rhythm, S1 normal heart sound, S2 normal heart sound, no murmurs, no rub, no gallops, no clicks, no JVD and peripheral pulses 2+ throughout GI normal to inspection, nondistended, normoactive bowel sounds, soft to palpation, non-tender and non-distended Extremity normal to inspection, normal capillary refill, no clubbing, cyanosis or edema and no pedal edema Neuro oriented x3, CN's II-XII intact bilaterally, moves all extremities and no focal motor deficits Psych cooperative and affect normal Risk Stratification Risk Stratification Applicable: Yes Age >/= 65: Yes >/= 3 CAD Risk Factors (HTN, HLD, DM, family hx of CAD, or current smoker): Yes Aspirin Use in the Past 7 Days: Yes Severe Angina (>/= episodes in 24 hours): No EKG ST Changes >/= 0.5mm: No Positive Cardiac Marker: Yes WOODROW Risk Stratification Score: 4 WO[place]ROW % Risk: 20% Risk Charges/Coding Visit Charges Office Visits / Consults: 12041 IP Consult L4 Objective Data Vital Signs: Vital Signs Temp Pulse Resp BP Pulse Ox O2 Del Method O2 Flow Rate 97.7 F L 70 17 151/91 H 99 Room Air 2 09/23/23 08:07 09/23/23 08:07 09/23/23 08:07 09/23/23 08:07 09/23/23 08:21 09/23/23 08:21 09/22/23 09:11 FiO2 30 09/21/23 07:52 Oxygen Flow Rate (L/min) 2 Oxygen Delivery Method Room Air Weight: 147 lb 14.883 oz Body Mass Index (BMI) 23.1 Intake & Output: Intake and Output for Last 24 Hours 09/21/23 09/22/23 09/23/23 23:59 23:59 23:59 Intake Total 2545 / 2745 200 / 200 Balance 2545 / 2745 200 / 200 Lab / Micro Data 09/23/23 05:53 09/23/23 05:53 Labs: Laboratory Results - last 24 hr 09/23/23 05:53: WBC 10.6, RBC 4.55 L, Hgb 14.0, Hct 43.5, MCV 95.6 H, MCH 30.8, MCHC 32.2, RDW Std Deviation 48.6 H, RDW Coeff of Vahid 13.9, Plt Count 303, MPV 10.0, Immature Gran % (Auto) 0.600, Neut % (Auto) 72.7 H, Lymph % (Auto) 15.4 L, [place] % (Auto) 10.7 H, Eos % (Auto) 0.2, Baso % (Auto) 0.4, Absolute Neuts (auto) 7.7, Absolute Lymphs (auto) 1.63, Nucleated RBC % 0, Sodium 135 L, Potassium 3.9, Chloride 104, Carbon Dioxide 24.0, Anion Gap 7, BUN 22 H, Creatinine 0.89, Estim Creat Clear Calc 68.08, Est GFR (MDRD) Af Amer 107, Est GFR (MDRD) Non-Af 89, BUN/Creatinine Ratio 24.7 H, Glucose 120 H, Calcium 8.8 Micro: Microbiology 09/21/23 07:20 Blood Culture (Wb) - Anticubital Right Blood Culture - Preliminary Cardiology Labs/Tests 09/23/23 05:53: WBC 10.6, RBC 4.55 L, Hgb 14.0, Hct 43.5, MCV 95.6 H, MCH 30.8, MCHC 32.2, Plt Count 303, MPV 10.0, Immature Gran % (Auto) 0.600, Neut % (Auto) 72.7 H, Lymph % (Auto) 15.4 L, [place] % (Auto) 10.7 H, Eos % (Auto) 0.2, Baso % (Auto) 0.4, Absolute Neuts (auto) 7.7, Nucleated RBC % 0, Sodium 135 L, Potassium 3.9, Chloride 104, Carbon Dioxide 24.0, Anion Gap 7, BUN 22 H, Creatinine 0.89, Est GFR (MDRD) Af Amer 107, Est GFR (MDRD) Non-Af 89, BUN/Creatinine Ratio 24.7 H, Glucose 120 H, Calcium 8.8 Rhythm: A sensed Vpaced Radiography Diagnostic Testing: Radiology Impression Echocardiogram 09/21/23 13:30 Interpretation Summary The estimated ejection fraction is 20-25 %. Severely reduced LV systolic function With global LV hypokinesia Pacemaker lead noted on the right side Remarkable difference in comparison to previous echo/EF was normal in May 2023. Recommendations; consider to evaluate with left heart cath to assess for ischemic cardiomyopathy versus NICM Contrast echo used using Definity To delineate the endocardial borders and better assessment of the ejection fr action Ordering Physician: Krystyna Cortes Referring Physician: Gee Almonte Chi Performed By: Viraj Swenson RCS
[2023-09-23] MEDS: 0.9% Saline Lock 10 ML Syringe IV (14:09)
[2023-09-23] MEDS: guaiFENesin 1,200 MG Tablet 1200 MG PO ×2 (14:09→22:12)
[2023-09-23] MEDS: Enoxaparin 40 MG/0.4 ML Syringe SC (14:10)
--- NOTE | 2023-09-23 14:48 | PN.HOSP_ITS ---
Reason for Visit Reason for Visit: Diagnoses Essential (primary) hypertension (09/21/23) Atrioventricular block, second degree (09/21/23) Chronic obstructive pulmonary disease, unspecified (09/21/23) Acute respiratory distress (09/21/23) Other specified abnormal findings of blood chemistry (09/21/23) Presence of cardiac pacemaker (09/21/23) Subjective Subjective Not presently having chest pain, does have headache and is frustrated that none triptan medications are not working Objective Data Objective Data Vital Signs: Vital Signs Temp Pulse Resp BP Pulse Ox O2 Del Method O2 Flow Rate 97.8 F 75 17 140/78 H 100 Room Air 2 09/23/23 14:05 09/23/23 14:05 09/23/23 14:05 09/23/23 14:05 09/23/23 14:05 09/23/23 14:05 09/22/23 09:11 FiO2 30 09/21/23 07:52 Oxygen Flow Rate (L/min) 2 Oxygen Delivery Method Room Air Weight: 67.1 kg Body Mass Index (BMI) 23.1 Intake & Output: Intake and Output for Last 24 Hours 09/21/23 09/22/23 09/23/23 23:59 23:59 23:59 Intake Total 2545 / 2745 200 / 200 Balance 2545 / 2745 200 / 200 Lab / Micro Data 09/23/23 05:53 09/23/23 05:53 Labs: Laboratory Results - last 24 hr 09/23/23 05:53: WBC 10.6, RBC 4.55 L, Hgb 14.0, Hct 43.5, MCV 95.6 H, MCH 30.8, MCHC 32.2, RDW Std Deviation 48.6 H, RDW Coeff of Vahid 13.9, Plt Count 303, MPV 10.0, Immature Gran % (Auto) 0.600, Neut % (Auto) 72.7 H, Lymph % (Auto) 15.4 L, [place] % (Auto) 10.7 H, Eos % (Auto) 0.2, Baso % (Auto) 0.4, Absolute Neuts (auto) 7.7, Absolute Lymphs (auto) 1.63, Nucleated RBC % 0, Sodium 135 L, Potassium 3.9, Chloride 104, Carbon Dioxide 24.0, Anion Gap 7, BUN 22 H, Creatinine 0.89, Estim Creat Clear Calc 68.08, Est GFR (MDRD) Af Amer 107, Est GFR (MDRD) Non-Af 89, BUN/Creatinine Ratio 24.7 H, Glucose 120 H, Calcium 8.8 Micro: Microbiology 09/21/23 08:16 Blood Culture (Wb) - Anticubital Left Blood Culture - Preliminary No growth in 48 hours. 09/21/23 07:20 Blood Culture (Wb) - Anticubital Right Blood Culture - Preliminary 09/21/23 13:40 Mucosa - Nasopharyngeal Respiratory Panel (PCR) - Final 09/21/23 11:09 Nasal Secretion SARS-CoV-2 Antigen (Rapid) - Final Radiography Diagnostic Testing: Radiology Impression Echocardiogram 09/21/23 13:30 Interpretation Summary The estimated ejection fraction is 20-25 %. Severely reduced LV systolic function With global LV hypokinesia Pacemaker lead noted on the right side Remarkable difference in comparison to previous echo/EF was normal in May 2023. Recommendations; consider to evaluate with left heart cath to assess for ischemic cardiomyopathy versus NICM Contrast echo used using Definity To delineate the endocardial borders and better assessment of the ejection fraction Ordering Physician: Krystyna Cortes Referring Physician: Gee Almonte Chi Performed By: Viraj Swensno RCS Physical Exam Narrative General: Alert, oriented, no apparent distress HEENT: Atraumatic, normocephalic Eyes: Anicteric, normal conjunctiva, extraocular movements grossly intact Neck: Supple Respiratory: No significant rhonchi or wheezes, normal respiratory effort Cardiovascular: Intermittently paced GI: Soft, nontender, nondistended Extremities: No edema Musculoskeletal: Moving all extremities Neuro: No overt focal neurological deficits Skin: No rashes appreciated Psych: Cooperative Assessment & Plan Assessment/Plan (1) Acute respiratory distress: (2) COPD (chronic obstructive pulmonary disease): (3) Second degree AV block, Mobitz type II: (4) History of permanent cardiac pacemaker placement: (5) Elevated troponin: (6) Essential hypertension: PLAN: Plan #Acute respiratory distress/?hx COPD -When patient presented he was in acute respiratory distress and was tachycardic, hypertensive, and tachypneic -He had coughed up a chunk of mucus shortly before arriving in the ER and felt that he improved primarily with BiPAP but he also received nebs and antibiotics -Reviewed the CT do not think he has pneumonia so we will hold antibiotics however will continue nebs -He is not wheezing and do not think he has COPD exacerbation (additionally unclear where COPD diagnosis came from as I do not see any pulm notes or PFTs in our system and he is not presently on any treatment, it is possible he does not have this formal diagnosis. Can always have outpatient PFTs) -Sounds as though he had mucous plugging that has resolved however given extent of his distress do feel observation is reasonable -We will give Mucinex -Had small effusions on CT scan, will check BNP -Most recent echo 05/21/2023 with EF of 55% and stage I diastolic dysfunction -Incentive spirometry, daily weights, I's and O's -09/22: Discussed with pulmonology who recommended outpatient pulm follow-up and patient to be discharged home with DuoNebs as needed, presently receiving DuoNebs here -09/23: Continue nebs #Newly diagnosed heart failure with reduced ejection fraction -Echocardiogram in May with normal EF and repeat echo with EF of 20 to 25% -Unclear ischemic versus nonischemic -We will have pacemaker interrogated and cardiology is consulted -Patient n.p.o. at midnight for possible heart cath tomorrow -Not hypoxic and does not appear floridly fluid overloaded, did receive Lasix x1 yesterday as he was given 2 L of IV fluid in the ED and he responded well to this. -09/23: Patient for heart cath tomorrow, lisinopril stopped and patient to start Entresto. Continue Coreg. #Elevated troponin -Initial troponin 46 and repeat was 106 -Had a brief stabbing pain in center of his chest when he had his severe respiratory distress and could not breathe -Suspect this is all demand and it completely resolved when his breathing improved -Do not think he needs acute ACS work-up at this time -He can follow with his schedule hanger on discharge -09/22: As above, patient likely for left heart cath tomorrow given newly reduced EF -09/23: Left heart cath tomorrow #History of Mobitz type II status post permanent pacemaker -This sounded purely pulmonary in nature given feeling of thick sputum and throat with rattling when he inhaled through his mouth and difficulty expelling sputum with improvement in all aspects once that improved so do not think that this was pacemaker related -09/22: Given echo findings will interrogate pacemaker #Cluster headaches -Has been having them multiple times a day almost every day for the past month, follows with PCP for this -Takes sumatriptan as needed -If these continue he will need to follow-up with PCP to discuss alternative treatment options and possibly consider glucocorticoid taper -09/22: Given echo finding and awaiting cath will avoid rizatriptan if at all possible and try alternative agents. Discussed with patient's RN and patient will be informed of this as well -09/23: Tramadol and Tylenol as needed, rizatriptan on hold. If these do not control headaches may need 100 and prednisone for 3 days followed by taper #Elevated lactic acid -Suspect this was due to his respiratory distress and he was likely hypoxic, this morning did require 4 L of O2 to maintain sats at 90% and then was placed on BiPAP with improvement -09/22: Improved with improvement of underlying etiology. #Hypertension -Continue home meds #Tobacco use -Advise cessation -Patient declines nicotine replacement #DVT ppx: Lovenox subcu Krystyna Cortes MD Time spent in the patient's overall evaluation,decision-making process, review of diagnostic data, adjustment of management, discussion with other providers, nursing nursing and ancillary staff involved in patient's care documentation, 35 minutes Charges/Coding Visit Charges Inpatient E&M: 11722 Subs Hosp L2
--- NOTE | 2023-09-23 21:00 | NURSING ---
pt told the aide that he cant pee, dr dickens notified, bladder scan ordered and to st cath over 250ml, pt was bladder scanned for 1327, straight cathed for 1650. pt feels much better after being cathed, pt stated that he noticed around noon that he was having difficulty voiding and never said anything, stated he was dribbling only at times, but now he is very uncomfortable.
[2023-09-23] MEDS: Atorvastatin Calcium 10 MG Tablet PO (22:12)
[2023-09-24] VITALS (13 sets, daily range): BP systolic 92–121; BP diastolic 61–76; PULSE 60–112; RESP 16–20; TEMP 36.3–36.8; O2SAT 92–97; BMI 22.9
[2023-09-24] MEDS: Tamsulosin HCl 0.4 MG Capsule PO ×2 (03:13→17:38)
--- NOTE | 2023-09-24 05:55 | EKG12_ITS ---
Test Reason : ARRYTHMIA Blood Pressure : / mmHG Vent. Rate : 097 BPM Atrial Rate : 097 BPM P-R Int : 138 ms QRS Dur : 164 ms QT Int : 424 ms P-R-T Axes : 024 -83 087 degrees QTc Int : 538 ms Atrial-sensed ventricular-paced rhythm Abnormal ECG When compared with ECG of 24-SEP-2023 05:40, Premature ventricular complexes are no longer Present Vent. rate has increased BY 32 BPM Confirmed by GUILLERMO SPAULDING, ALEX ([id number]), newspaper managing editor DION BARBER ([id number]) on 11/21/2023 9:47:30 AM Referred By: ROSIBEL Confirmed By:ALEX LI MD
[2023-09-24] MEDS: Carvedilol 12.5 MG Tablet PO ×2 (06:10→21:18)
[2023-09-24] MEDS: Aspirin E.C. 81 MG Tablet PO (06:10)
[2023-09-24] MEDS: traMADol 50 MG Tablet PO ×3 (06:12→18:32)
[2023-09-24 06:16] LABS: Absolute Lymphocyte Count 1.24 X10^3/uL (0.83-4.51); Absolute Neutrophil Count 3.8 X10^3/uL (2.0-7.7); Basophil# 0.04 X10^3/uL; Basophil% 0.7 % (0-1); Eosinophil# 0.04 X10^3/uL; Eosinophils% 0.7 % (0-5); Hematocrit 38.8 % (40-54); Hemoglobin 12.8 g/dL (13.0-16.5); Lymphocyte # 1.24 X10^3/ul (0.83-4.51); Mean Corpuscular Hgb 30.8 pg (27.0-32.0); Mean Corpuscular Volume 93.5 fL (80-94); Mean Platelet Vol. 9.8 fl (6.2-12.0); Monocyte# 0.75 X10^3/uL; Monocyte% 12.7 % (0-10); NRBC Flagged by Analyzer 0 % (0-5); Neutrophil # 3.81 X10^3/uL (2.7-7.7); Neutrophil % 64.6 % (47-70); Platelet Count 218 K/mm3 (150-450); RBC Distribution Width CV 13.6 % (11.6-14.6); RBC Distribution Width SD 46.5 fl (35.1-43.9); Red Blood Count 4.15 M/mm3 (4.6-6.2); White Blood Count 5.9 K/mm3 (4.4-11.0)
[2023-09-24 06:41] LABS: Anion Gap 6 (5-15); BUN 19 mg/dL (7-18); Calcium,Total 8.5 mg/dL (8.5-10.1); Chloride 103 mmol/L (98-107); Creatinine, Serum 0.79 mg/dL (0.70-1.30); EST Glomerular Filtration Rate 101 mL/min (>60); Est Glom Filt Rate - Afr Amer 123 mL/min (>60); Estimated Creatinine Clearance 60.59 ml/min; Glucose 110 mg/dL (74-106); Potassium 3.7 mmol/L (3.5-5.1); Sodium Level 134 mmol/L (136-145)
[2023-09-24] MEDS: Ipratropium/Albuterol Sulfate 3 ML AMPUL.NEB INHALATION ×3 (06:52→19:11)
--- NOTE | 2023-09-24 11:06 | PN.CARD_ITS ---
<Statement entered by Lurdes Higginbotham MD - 09/24/23 17:19> Pt seen & evaluated w/MICHAEL. I personally interviewed & exam the pt. I was involved in all aspects of pt's orders, interpretation of results & treatment Subjective Subjective Pt seen and examined today. He will be undergoing heart cath today. Objective Data Vital Signs: Vital Signs Temp Pulse Resp BP Pulse Ox O2 Del Method O2 Flow Rate 97.8 F 102 H 16 92/67 94 Room Air 2 09/24/23 08:00 09/24/23 08:00 09/24/23 08:00 09/24/23 08:00 09/24/23 08:00 09/24/23 08:00 09/22/23 09:11 FiO2 30 09/21/23 07:52 Oxygen Flow Rate (L/min) 2 Oxygen Delivery Method Room Air Weight: 146 lb 9.718 oz Body Mass Index (BMI) 22.9 Intake & Output: Intake and Output for Last 24 Hours 09/22/23 09/23/23 09/24/23 23:59 23:59 23:59 Intake Total 200 / 200 Output Total 1650 / 1650 Balance 200 / 200 -1650 / -1650 Lab / Micro Data 09/24/23 05:55 09/24/23 05:55 Labs: Laboratory Results - last 24 hr 09/24/23 05:55: WBC 5.9, RBC 4.15 L, Hgb 12.8 L, Hct 38.8 L, MCV 93.5, MCH 30.8, MCHC 33.0, RDW Std Deviation 46.5 H, RDW Coeff of Vahdi 13.6, Plt Count 218, MPV 9.8, Immature Gran % (Auto) 0.300, Neut % (Auto) 64.6, Lymph % (Auto) 21.0, [place] % (Auto) 12.7 H, Eos % (Auto) 0.7, Baso % (Auto) 0.7, Absolute Neuts (auto) 3.8, Absolute Lymphs (auto) 1.24, Nucleated RBC % 0, Sodium 134 L, Potassium 3.7, Chloride 103, Carbon Dioxide 25.0, Anion Gap 6, BUN 19 H, Creatinine 0.79, Estim Creat Clear Calc 60.59, Est GFR (MDRD) Af Amer 123, Est GFR (MDRD) Non-Af 101, BUN/Creatinine Ratio 24.0 H, Glucose 110 H, Calcium 8.5 Micro: Microbiology 09/21/23 08:16 Blood Culture (Wb) - Anticubital Left Blood Culture - Preliminary No growth in 48 hours. 09/21/23 07:20 Blood Culture (Wb) - Anticubital Right Blood Culture - Preliminary Cardiology Labs/Tests 09/24/23 05:55: WBC 5.9, RBC 4.15 L, Hgb 12.8 L, Hct 38.8 L, MCV 93.5, MCH 30.8, MCHC 33.0, Plt Count 218, MPV 9.8, Immature Gran % (Auto) 0.300, Neut % (Auto) 64.6, Lymph % (Auto) 21.0, [place] % (Auto) 12.7 H, Eos % (Auto) 0.7, Baso % (Auto) 0.7, Absolute Neuts (auto) 3.8, Nucleated RBC % 0, Sodium 134 L, Potassium 3.7, Chloride 103, Carbon Dioxide 25.0, Anion Gap 6, BUN 19 H, Creatinine 0.79, Est GFR (MDRD) Af Amer 123, Est GFR (MDRD) Non-Af 101, BUN/Creatinine Ratio 24.0 H, Glucose 110 H, Calcium 8.5 Rhythm: A/V paced Physical Exam Const alert, oriented x3, no apparent distress and healthy appearing HEENT normocephalic, head/scalp atraumatic, hearing grossly normal bilaterally, external ears normal, external nose normal and moist oral mucous membranes Eyes PERRL, EOMs intact bilaterally, conjunctivae normal and no scleral icterus Neck no lymphadenopathy, supple and no JVD Resp clear to auscultation bilaterally Cardio regular rate, regular rhythm, S1 normal heart sound, S2 normal heart sound, no murmurs, no rub, no gallops, no clicks, no JVD and peripheral pulses 2+ throughout GI normal to inspection, nondistended, normoactive bowel sounds, soft to palpation, non-tender and non-distended Extremity normal to inspection, normal capillary refill, no clubbing, cyanosis or edema and no pedal edema Neuro oriented x3, CN's II-XII intact bilaterally, moves all extremities and no focal motor deficits Psych cooperative and affect normal Assessment & Plan Assessment/Plan (1) Elevated troponin: (2) Cardiomyopathy: (3) Essential hypertension: (4) Hyperlipidemia: (5) History of permanent cardiac pacemaker placement: PLAN: Plan * With pts decrease in EF, will maximize medications by stopping lisinopril and switching to entresto. He will start this tomorrow. He will continue with is Coreg. In the future may consider adding an SGLT2 and spirolactone. with his low BP may need to start this on an OP basis. * With elevated troponins and decrease in EF, he will undergo a heart cath today. Will continue with ASA and atorvastatin * With his newly noted decreased EF, will consider a life vest on d/c. Will plan on repeating echo in a few months after hospital stay. If his EF does not improve may need to consider an ICD. * Will plan on f/u with pt after d/c in the office. Charges/Coding Visit Charges Inpatient E&M: 20536 [facility] Hosp L3
--- NOTE | 2023-09-24 12:09 | PN.HOSP_ITS ---
Reason for Visit Reason for Visit: Diagnoses Hyperlipidemia, unspecified (09/23/23) Essential (primary) hypertension (09/23/23) Cardiomyopathy, unspecified (09/23/23) Atrioventricular block, second degree (09/23/23) Chronic obstructive pulmonary disease, unspecified (09/23/23) Acute respiratory distress (09/23/23) Other specified abnormal findings of blood chemistry (09/23/23) Presence of cardiac pacemaker (09/23/23) Subjective Subjective Patient is a 73-year-old gentleman admitted with progressive shortness of breath diagnosed with COPD acute exacerbation. Hospital stay complicated by elevated troponin as well as significant reduction in his EF consult placed to cardiology subsequently Objective Data Objective Data Vital Signs: Vital Signs Temp Pulse Resp BP Pulse Ox O2 Del Method O2 Flow Rate 97.8 F 102 H 16 92/67 94 Room Air 2 09/24/23 08:00 09/24/23 08:00 09/24/23 08:00 09/24/23 08:00 09/24/23 08:00 09/24/23 08:00 09/22/23 09:11 FiO2 30 09/21/23 07:52 Oxygen Flow Rate (L/min) 2 Oxygen Delivery Method Room Air Weight: 66.5 kg Body Mass Index (BMI) 22.9 Intake & Output: Intake and Output for Last 24 Hours 09/22/23 09/23/23 09/24/23 23:59 23:59 23:59 Intake Total 200 / 200 0 / 0 Output Total 1650 / 1650 Balance 200 / 200 -1650 / -1650 Lab / Micro Data 09/24/23 05:55 09/24/23 05:55 Labs: Laboratory Results - last 24 hr 09/24/23 05:55: WBC 5.9, RBC 4.15 L, Hgb 12.8 L, Hct 38.8 L, MCV 93.5, MCH 30.8, MCHC 33.0, RDW Std Deviation 46.5 H, RDW Coeff of Vahid 13.6, Plt Count 218, MPV 9.8, Immature Gran % (Auto) 0.300, Neut % (Auto) 64.6, Lymph % (Auto) 21.0, [place] % (Auto) 12.7 H, Eos % (Auto) 0.7, Baso % (Auto) 0.7, Absolute Neuts (auto) 3.8, Absolute Lymphs (auto) 1.24, Nucleated RBC % 0, Sodium 134 L, Potassium 3.7, Chloride 103, Carbon Dioxide 25.0, Anion Gap 6, BUN 19 H, Creatinine 0.79, Estim Creat Clear Calc 60.59, Est GFR (MDRD) Af Amer 123, Est GFR (MDRD) Non-Af 101, BUN/Creatinine Ratio 24.0 H, Glucose 110 H, Calcium 8.5 Micro: Microbiology 09/21/23 07:20 Blood Culture (Wb) - Anticubital Right Blood Culture - Preliminary Gram positive mustapha 09/21/23 08:16 Blood Culture (Wb) - Anticubital Left Blood Culture - Preliminary No growth in 48 hours. 09/21/23 13:40 Mucosa - Nasopharyngeal Respiratory Panel (PCR) - Final 09/21/23 11:09 Nasal Secretion SARS-CoV-2 Antigen (Rapid) - Final Physical Exam Narrative GENERAL: cooperative HEENT: Atraumatic; normocephalic EYES; Anicteric, Normal Conjunctiva NECK; supple, normal thyroid, RESPIRATORY: Diminished to auscultation CARDIOVASCULAR: Regular S1 S2, GI: soft, normoactive bowel sounds, : No Renal angle tenderness; EXTREMITIES: No edema, no clubbing, MUSCULOSKELETAL: no muscle wasting NEURO: Awake; no lateralizing signs. SKIN: No Rash PSYCH; Flat affect Assessment & Plan Assessment/Plan (1) Acute respiratory distress: (2) COPD (chronic obstructive pulmonary disease): (3) Elevated troponin: PLAN: Plan Patient is a 73-year-old gentleman admitted with progressive shortness of breath diagnosed with COPD acute exacerbation. Hospital stay complicated by elevated troponin as well as significant reduction in his EF consult placed to cardiology subsequently #Acute respiratory distress/?hx COPD -When patient presented he was in acute respiratory distress and was tachycardic, hypertensive, and tachypneic -He had coughed up a chunk of mucus shortly before arriving in the ER and felt that he improved primarily with BiPAP but he also received nebs and antibiotics -Reviewed the CT do not think he has pneumonia so we will hold antibiotics however will continue nebs -He is not wheezing and do not think he has COPD exacerbation (additionally unclear where COPD diagnosis came from as I do not see any pulm notes or PFTs in our system and he is not presently on any treatment, it is possible he does not have this formal diagnosis. Can always have outpatient PFTs) -Sounds as though he had mucous plugging that has resolved however given extent of his distress do feel observation is reasonable -We will give Mucinex -Had small effusions on CT scan, will check BNP -Most recent echo 05/21/2023 with EF of 55% and stage I diastolic dysfunction -Incentive spirometry, daily weights, I's and O's -09/22: Discussed with pulmonology who recommended outpatient pulm follow-up and patient to be discharged home with DuoNebs as needed, presently receiving DuoNebs here -09/23: Continue nebs #Newly diagnosed heart failure with reduced ejection fraction -Echocardiogram in May with normal EF and repeat echo with EF of 20 to 25% -Unclear ischemic versus nonischemic -We will have pacemaker interrogated and cardiology is consulted -Patient n.p.o. at midnight for possible heart cath tomorrow -Not hypoxic and does not appear floridly fluid overloaded, did receive Lasix x1 yesterday as he was given 2 L of IV fluid in the ED and he responded well to this. -09/23: Patient for heart cath tomorrow, lisinopril stopped and patient to start Entresto. Continue Coreg. 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 -09/22: As above, patient likely for left heart cath tomorrow given newly reduced EF -09/23: Left heart cath tomorrow #History of Mobitz type II status post permanent pacemaker -This sounded purely pulmonary in nature given feeling of thick sputum and throat with rattling when he inhaled through his mouth and difficulty expelling sputum with improvement in all aspects once that improved so do not think that this was pacemaker related -09/22: Given echo findings will interrogate pacemaker #Cluster headaches -Has been having them multiple times a day almost every day for the past month, follows with PCP for this -Takes sumatriptan as needed -If these continue he will need to follow-up with PCP to discuss alternative treatment options and possibly consider glucocorticoid taper -09/22: Given echo finding and awaiting cath will avoid rizatriptan if at all possible and try alternative agents. Discussed with patient's RN and patient will be informed of this as well -09/23: Tramadol and Tylenol as needed, rizatriptan on hold. If these do not control headaches may need 100 and prednisone for 3 days followed by taper #Elevated lactic acid -Suspect this was due to his respiratory distress and he was likely hypoxic, this morning did require 4 L of O2 to maintain sats at 90% and then was placed on BiPAP with improvement -09/22: Improved with improvement of underlying etiology. #Hypertension -Continue home meds #Tobacco use -Advise cessation -Patient declines nicotine replacement #DVT ppx: Lovenox subcu Krystyna Cortes MD Time spent in the patient's overall evaluation,decision-making process, review of diagnostic data, adjustment of management, discussion with other providers, nursing nursing and ancillary staff involved in patient's care documentation, 35 minutes
--- NOTE | 2023-09-24 12:09 | PCM.PN.HOSP ---
Reason for Visit Reason for Visit: Diagnoses Hyperlipidemia, unspecified (09/23/23) Essential (primary) hypertension (09/23/23) Cardiomyopathy, unspecified (09/23/23) Atrioventricular block, second degree (09/23/23) Chronic obstructive pulmonary disease, unspecified (09/23/23) Acute respiratory distress (09/23/23) Other specified abnormal findings of blood chemistry (09/23/23) Presence of cardiac pacemaker (09/23/23) Subjective Subjective Patient is a 73-year-old gentleman admitted with progressive shortness of breath diagnosed with COPD acute exacerbation. Hospital stay complicated by elevated troponin as well as significant reduction in his EF consult placed to cardiology subsequently Objective Data Objective Data Vital Signs: Vital Signs Temp Pulse Resp BP Pulse Ox O2 Del Method O2 Flow Rate 97.8 F 102 H 16 92/67 94 Room Air 2 09/24/23 08:00 09/24/23 08:00 09/24/23 08:00 09/24/23 08:00 09/24/23 08:00 09/24/23 08:00 09/22/23 09:11 FiO2 30 09/21/23 07:52 Oxygen Flow Rate (L/min) 2 Oxygen Delivery Method Room Air Weight: 66.5 kg Body Mass Index (BMI) 22.9 Intake & Output: Intake and Output for Last 24 Hours 09/22/23 09/23/23 09/24/23 23:59 23:59 23:59 Intake Total 200 / 200 0 / 0 Output Total 1650 / 1650 Balance 200 / 200 -1650 / -1650 Lab / Micro Data 09/24/23 05:55 09/24/23 05:55 Labs: Laboratory Results - last 24 hr 09/24/23 05:55: WBC 5.9, RBC 4.15 L, Hgb 12.8 L, Hct 38.8 L, MCV 93.5, MCH 30.8, MCHC 33.0, RDW Std Deviation 46.5 H, RDW Coeff of Vahid 13.6, Plt Count 218, MPV 9.8, Immature Gran % (Auto) 0.300, Neut % (Auto) 64.6, Lymph % (Auto) 21.0, [place] % (Auto) 12.7 H, Eos % (Auto) 0.7, Baso % (Auto) 0.7, Absolute Neuts (auto) 3.8, Absolute Lymphs (auto) 1.24, Nucleated RBC % 0, Sodium 134 L, Potassium 3.7, Chloride 103, Carbon Dioxide 25.0, Anion Gap 6, BUN 19 H, Creatinine 0.79, Estim Creat Clear Calc 60.59, Est GFR (MDRD) Af Amer 123, Est GFR (MDRD) Non-Af 101, BUN/Creatinine Ratio 24.0 H, Glucose 110 H, Calcium 8.5 Micro: Microbiology 09/21/23 07:20 Blood Culture (Wb) - Anticubital Right Blood Culture - Preliminary Gram positive mustapha 09/21/23 08:16 Blood Culture (Wb) - Anticubital Left Blood Culture - Preliminary No growth in 48 hours. 09/21/23 13:40 Mucosa - Nasopharyngeal Respiratory Panel (PCR) - Final 09/21/23 11:09 Nasal Secretion SARS-CoV-2 Antigen (Rapid) - Final Physical Exam Narrative GENERAL: cooperative HEENT: Atraumatic; normocephalic EYES; Anicteric, Normal Conjunctiva NECK; supple, normal thyroid, RESPIRATORY: Diminished to auscultation CARDIOVASCULAR: Regular S1 S2, GI: soft, normoactive bowel sounds, : No Renal angle tenderness; EXTREMITIES: No edema, no clubbing, MUSCULOSKELETAL: no muscle wasting NEURO: Awake; no lateralizing signs. SKIN: No Rash PSYCH; Flat affect Assessment & Plan Assessment/Plan (1) Acute respiratory distress: (2) COPD (chronic obstructive pulmonary disease): (3) Elevated troponin: PLAN: Plan Patient is a 73-year-old gentleman admitted with progressive shortness of breath diagnosed with COPD acute exacerbation. Hospital stay complicated by elevated troponin as well as significant reduction in his EF consult placed to cardiology subsequently Acute hypoxic respiratory distress ? Secondary to COPD exacerbation with mucous plugging. Patient was managed with systemic steroid and antibiotic therapy as well as chest vest therapy. Patient is improving clinically. Plan is for patient to follow-up with pulmonary medicine as outpatient 2. Elevated troponin ? Suspected secondary to myocardial injury 2D echo obtained during his current hospitalization demonstrated a significant reduction in his EF from 55% on 05/21/2023 to 20 to 25% this current admission. Consult placed to cardiology plans for patient to undergo left heart catheterization with intervention if warranted 3. Acute congestive heart failure with reduced ejection fraction ? EF 20 to 25% managed with diuretics. Plan is for patient to undergo left heart catheterization 4. 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 Patient to undergo pacemaker interrogation 5. Cluster headaches ? Patient was on triptans discontinued plan is for patient to be managed with prednisone 6. Hypertension ? Blood pressure controlled, home medications continued with dose adjustment as needed 7. Tobacco dependence ? Counseled on cessation, offered nicotine patch for tobacco cravings, patient declined nicotine patch 8. DVT prophylaxis ? On enoxaparin Time spent in the patient's overall evaluation,decision-making process, review of diagnostic data, adjustment of management, discussion with other providers, nursing nursing and ancillary staff involved in patient's care documentation,40 minutes Charges/Coding Visit Charges Inpatient E&M: 43603 Subs Hosp L2
--- NOTE | 2023-09-24 12:25 | CASEMGMT ---
RN?CM?ANALYTICAL LEAD?CM?to room to meet with patient for initial transition planning/care coordination?assessment.?RN?CM?introduced self and role at [facility].? Pt voices understanding and consents to?assessment?at this time.? Pt resting in bed in no distress at this time. Two daughters @ bedside and pt agreeable to them being present during assessment. ? Pt is A/O at this time and answers all questions appropriately.?? Care providers, pharmacy, and demographics verified/updated at this time. PCP: Dr Almonte Specialists: BETSY/Cardiology [facility]erred [facility]acy: [facility] Insurance: [facility], AARP Prescription Benefit:?yes Living Will/HPOA:?Pt has both LW and HCPOA, who is his , Griselda ALFRED: , Griselda Living Arrangements: Lives w/ in ranch-style home w/no steps to enter. Denies difficulty w/stairs to the basement. Independent w/ADL's and manages his own medications. Pt and share home mgnt tasks. Transportation:?Pt states drives self and states no transportation concerns at this time.? also drives. DME: ?Pt has a pulse ox and a nebulizer was just delivered to patient during this admission. ? Pt states no need for further DME at this time.? HHC/SNF: No hx of either, denies needs, and no needs identified. Pt wishes to return home and states has no concerns with going home at time of discharge.? CM?to follow for any further discharge planning/needs.? Pt voices no further concerns/needs at this time.? Advised pt to ask for?CM?if any further questions/concerns/needs arise.? Voices understanding. PLAN:??Home Al BSN?RN?CM
[2023-09-24] MEDS: 0.9% Saline Lock 10 ML Syringe IV (13:04)
--- NOTE | 2023-09-24 13:05 | NURSING ---
Called report to Garett FERRERA in catheterization laboratory technician
--- NOTE | 2023-09-24 14:15 | PCM.OP.PRO ---
Procedure Report Procedure performed 1 moderate sedation 2. Selective left coronary angiography 3. Selective right coronary angiography 4. Left ventriculogram 5. Measurement of LVEDP 6. Pullback pressure from the mid ventricle/LV to the aorta 7. Placement of TR band to close the right radial artery arteriotomy site. Consent; Risk and benefit of the procedure explained in detail informed consent obtained Preprocedure diagnosis; This is a 73-year-old patient admitted with sudden onset symptoms of shortness of breath patient had a history of cluster headache and has been under a lot of stress. And was taking sumatriptan . For the last 3 to 4 days prior to arrival Troponin level was elevated Further evaluation by echocardiogram showed evidence of reduced LV systolic function with global LV hypokinesia more prominent severe apical hypokinesia Ejection fraction calculated 20-25%. Based on clinical presentation and the patient having a history of prior pacemaker now presenting with shortness of breath and significantly abnormal echocardiogram findings in comparison to previous echo where the EF was normal before We will proceed with cardiac catheterization. Access; 6 Vietnamese sheath/Terumo was placed in the right radial artery. Diagnostic catheter used 1. 5 Vietnamese JL 3.5 2. 5 Vietnamese JR4 3. 5 Vietnamese pigtail catheter. Procedure in detail under fluoroscopic guidance we will proceed with 5 Vietnamese JL 3 5 advancing over the cannulated the left main without difficulty multiple views of the left Cholestin were obtained Following this the catheter was exchanged for 5 Vietnamese JR4 and selective angiograms were right Cholestin were obtained Following this catheter exchanged for a pigtail catheter and ventriculogram obtained 30 degree SNIDER projection and pullback pressure recorded as well as measurement of LVEDP Hemodynamics; 1. LVEDP is 14 mmHg 2. No systolic gradient across aortic valve. 3. Severe LV systolic dysfunction Ejection fraction in the range of 20-25% No mitral regurgitation noted Coronary angiography; 1. Left main is normal angiographically bifurcating into LAD and left circumflex artery 2. Left anterior descending artery proximally had eccentric lesion of around 20-30% Mid and distal LAD had no significant atherosclerosis a large diagonal branch is noted as well 3. Left circumflex is normal to graphically 4. RCA large dominant. This patient has pacemaker which is a dual chamber pacemaker RV and RA. Cardiac recommendation and conclusion; 1. Patient has severe LV dysfunction which is now ischemic cardiomyopathy findings Would recommend aggressive medical treatment. To reevaluate by echocardiogram in 3 months Patient will require LifeVest prior to discharge Also discussed GDMT/in the form of beta-lisandra carvedilol, Entresto, Aldactone, Farxiga As an outpatient also may require upgrading of his dual-chamber pacemaker to BiV ICD. No complication in the Esthetic Dermatologist. Lurdes Higginbotham MD,FACC,[facility]
[2023-09-24] MEDS: guaiFENesin 1,200 MG Tablet 1200 MG PO ×2 (14:24→21:18)
[2023-09-24] MEDS: Acetaminophen 325 MG Tablet 650 MG PO (14:35)
[2023-09-24] MEDS: Atorvastatin Calcium 10 MG Tablet PO (21:18)
[2023-09-25] MEDS: traMADol 50 MG Tablet PO ×3 (00:08→12:59)
[2023-09-25 02:15] VITALS: BMI 22.7
[2023-09-25 04:20] VITALS: BP 117/70; PULSE 73; RESP 18; TEMP 36.5; O2SAT 97
[2023-09-25 05:32] LABS: Absolute Lymphocyte Count 0.98 X10^3/uL (0.83-4.51); Absolute Neutrophil Count 4.4 X10^3/uL (2.0-7.7); Basophil# 0.02 X10^3/uL; Basophil% 0.3 % (0-1); Eosinophil# 0.07 X10^3/uL; Eosinophils% 1.1 % (0-5); Hematocrit 37.7 % (40-54); Hemoglobin 12.4 g/dL (13.0-16.5); Lymphocyte # 0.98 X10^3/ul (0.83-4.51); Lymphocyte % 15.8 % (19-41); Mean Corp Hgb Conc 32.9 g/dL (32-36); Mean Corpuscular Hgb 30.6 pg (27.0-32.0); Mean Corpuscular Volume 93.1 fL (80-94); Mean Platelet Vol. 9.9 fl (6.2-12.0); Monocyte# 0.69 X10^3/uL; Monocyte% 11.1 % (0-10); NRBC Flagged by Analyzer 0 % (0-5); Neutrophil # 4.42 X10^3/uL (2.7-7.7); Neutrophil % 71.4 % (47-70); Platelet Count 210 K/mm3 (150-450); RBC Distribution Width CV 13.2 % (11.6-14.6); RBC Distribution Width SD 45.3 fl (35.1-43.9); Red Blood Count 4.05 M/mm3 (4.6-6.2); White Blood Count 6.2 K/mm3 (4.4-11.0)
[2023-09-25 05:51] LABS: Anion Gap 8 (5-15); BUN 16 mg/dL (7-18); Calcium,Total 8.2 mg/dL (8.5-10.1); Chloride 102 mmol/L (98-107); EST Glomerular Filtration Rate 100 mL/min (>60); Est Glom Filt Rate - Afr Amer 121 mL/min (>60); Estimated Creatinine Clearance 75.51 ml/min; Glucose 90 mg/dL (74-106); Potassium 3.8 mmol/L (3.5-5.1); Sodium Level 134 mmol/L (136-145)
[2023-09-25] MEDS: Ipratropium/Albuterol Sulfate 3 ML AMPUL.NEB INHALATION ×2 (07:07→13:17)
[2023-09-25 07:08] VITALS: PULSE 75; RESP 18; O2SAT 96
[2023-09-25 07:56] VITALS: BP 105/73; PULSE 109; RESP 16; TEMP 36.5; O2SAT 95
--- NOTE | 2023-09-25 08:00 | PCM.PN.HOSP ---
Reason for Visit Reason for Visit: Diagnoses Hyperlipidemia, unspecified (09/23/23) Essential (primary) hypertension (09/23/23) Cardiomyopathy, unspecified (09/23/23) Atrioventricular block, second degree (09/23/23) Chronic obstructive pulmonary disease, unspecified (09/23/23) Acute respiratory distress (09/23/23) Other specified abnormal findings of blood chemistry (09/23/23) Presence of cardiac pacemaker (09/23/23) Subjective Subjective Patient underwent left heart catheterization the day prior which did not demonstrate any hemodynamically significant coronary artery disease. Plans for patient to be assessed for possible discharge Objective Data Objective Data Vital Signs: Vital Signs Temp Pulse Resp BP Pulse Ox O2 Del Method O2 Flow Rate 97.7 F L 109 H 16 105/73 95 Room Air 2 09/25/23 07:56 09/25/23 07:56 09/25/23 07:56 09/25/23 07:56 09/25/23 07:56 09/25/23 07:56 09/22/23 09:11 FiO2 30 09/21/23 07:52 Oxygen Flow Rate (L/min) 2 Oxygen Delivery Method Room Air Weight: 65.9 kg Body Mass Index (BMI) 22.7 Intake & Output: Intake and Output for Last 24 Hours 09/23/23 09/24/23 09/25/23 23:59 23:59 23:59 Intake Total 950 / 950 Output Total 3150 / 3150 650 / 650 Balance -2200 / -2200 -650 / -650 Lab / Micro Data 09/25/23 04:39 09/25/23 04:39 Labs: Laboratory Results - last 24 hr 09/25/23 04:39: WBC 6.2, RBC 4.05 L, Hgb 12.4 L, Hct 37.7 L, MCV 93.1, MCH 30.6, MCHC 32.9, RDW Std Deviation 45.3 H, RDW Coeff of Vahid 13.2, Plt Count 210, MPV 9.9, Immature Gran % (Auto) 0.300, Neut % (Auto) 71.4 H, Lymph % (Auto) 15.8 L, [place] % (Auto) 11.1 H, Eos % (Auto) 1.1, Baso % (Auto) 0.3, Absolute Neuts (auto) 4.4, Absolute Lymphs (auto) 0.98, Nucleated RBC % 0, Sodium 134 L, Potassium 3.8, Chloride 102, Carbon Dioxide 24.0, Anion Gap 8, BUN 16, Creatinine 0.80, Estim Creat Clear Calc 75.51, Est GFR (MDRD) Af Amer 121, Est GFR (MDRD) Non-Af 100, BUN/Creatinine Ratio 20.0, Glucose 90, Calcium 8.2 L Micro: Microbiology 09/21/23 07:20 Blood Culture (Wb) - Anticubital Right Blood Culture - Preliminary Gram positive mustapha 09/21/23 08:16 Blood Culture (Wb) - Anticubital Left Blood Culture - Preliminary No growth in 48 hours. 09/21/23 13:40 Mucosa - Nasopharyngeal Respiratory Panel (PCR) - Final 09/21/23 11:09 Nasal Secretion SARS-CoV-2 Antigen (Rapid) - Final Physical Exam Narrative GENERAL: cooperative HEENT: Atraumatic; normocephalic EYES; Anicteric, Normal Conjunctiva NECK; supple, normal thyroid, RESPIRATORY: Diminished to auscultation CARDIOVASCULAR: Regular S1 S2, GI: soft, normoactive bowel sounds, : No Renal angle tenderness; EXTREMITIES: No edema, no clubbing, MUSCULOSKELETAL: no muscle wasting NEURO: Awake; no lateralizing signs. SKIN: No Rash PSYCH; Flat affect Assessment & Plan Assessment/Plan (1) Acute respiratory distress: (2) COPD (chronic obstructive pulmonary disease): (3) Elevated troponin: PLAN: Plan Patient is a 73-year-old gentleman admitted with progressive shortness of breath diagnosed with COPD acute exacerbation. Hospital stay complicated by elevated troponin as well as significant reduction in his EF consult placed to cardiology subsequently 1. Acute hypoxic respiratory distress ? Secondary to COPD exacerbation with mucous plugging. Patient was managed with systemic steroid and antibiotic therapy as well as chest vest therapy. Patient is improving clinically. Plan is for patient to follow-up with pulmonary medicine as outpatient 2. Elevated troponin ? Suspected secondary to myocardial injury 2D echo obtained during his current hospitalization demonstrated a significant reduction in his EF from 55% on 05/21/2023 to 20 to 25% this current admission. Consult placed to cardiology plans for patient to undergo left heart catheterization with intervention if warranted ? 09/25/2023atient underwent left heart catheterization the day prior which did not demonstrate any hemodynamically significant coronary artery disease. Plans for patient to be assessed for possible discharg 3. Acute congestive heart failure with reduced ejection fraction ? EF 20 to 25% managed with diuretics. Plan is for patient to undergo left heart catheterization ? 09/25/2023 patient was discharged home on recommended medications 4. 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 Patient to undergo pacemaker interrogation 5. Cluster headaches ? Patient was on triptans discontinued plan is for patient to be managed with prednisone 6. Hypertension ? Blood pressure controlled, home medications continued with dose adjustment as needed 7. Tobacco dependence ? Counseled on cessation, offered nicotine patch for tobacco cravings, patient declined nicotine patch 8. DVT prophylaxis ? On enoxaparin Time spent in the patient's overall evaluation,decision-making process, review of diagnostic data, adjustment of management, discussion with other providers, nursing nursing and ancillary staff involved in patient's care documentation,40 minutes Charges/Coding Visit Charges Inpatient E&M: 95158 Subs Hosp L2
[2023-09-25] MEDS: guaiFENesin 1,200 MG Tablet 1200 MG PO (08:15)
[2023-09-25] MEDS: Aspirin E.C. 81 MG Tablet PO (08:15)
[2023-09-25] MEDS: Carvedilol 12.5 MG Tablet PO (08:15)
[2023-09-25] MEDS: Enoxaparin 40 MG/0.4 ML Syringe SC (08:15)
[2023-09-25] MEDS: SACUBITRIL/VALSARTAN 24/26 MG TABLET 1 EACH PO (08:15)
[2023-09-25] MEDS: 0.9% Saline Lock 10 ML Syringe IV (08:16)
--- NOTE | 2023-09-25 11:39 | DS.PCM_ITS ---
Providers Date of Admission: 09/23/23 Date of Discharge: 09/25/23 Primary Care Physician: Dr. Gee Almonte MD Consultations 09/22/23 17:02 Consult: Cardiology Routine Consulting Provider: Lurdes Higginbotham Reason for Consult: newly reduced EF, ?cardiac cath EMERGENT Consult: No MD Notified: Yes Date Notified: 09/22/23 Time Notified: 17:02 Method of Notification: Verbal Reason For Visit: RESPIRATORY DISTRESS Diagnosis Discharge Diagnosis (1) Acute respiratory distress: Status: Acute Code(s): R06.03 - Acute respiratory distress (2) COPD (chronic obstructive pulmonary disease): Status: Chronic Code(s): J44.9 - Chronic obstructive pulmonary disease, unspecified (3) Elevated troponin: Status: Acute Code(s): R79.89 - Other specified abnormal findings of blood chemistry Plan Patient is a 73-year-old gentleman admitted with progressive shortness of breath diagnosed with COPD acute exacerbation. Hospital stay complicated by elevated troponin as well as significant reduction in his EF consult placed to cardiology subsequently 1. Acute hypoxic respiratory distress ? Secondary to COPD exacerbation with mucous plugging. Patient was managed with systemic steroid and antibiotic therapy as well as chest vest therapy. Patient is improving clinically. Plan is for patient to follow-up with pulmonary medicine as outpatient 2. Elevated troponin ? Suspected secondary to myocardial injury 2D echo obtained during his current hospitalization demonstrated a significant reduction in his EF from 55% on 05/21/2023 to 20 to 25% this current admission. Consult placed to cardiology belkis ns for patient to undergo left heart catheterization with intervention if warranted ? 09/25/2023atient underwent left heart catheterization the day prior which did not demonstrate any hemodynamically significant coronary artery disease. Plans for patient to be assessed for possible discharg 3. Acute congestive heart failure with reduced ejection fraction ? EF 20 to 25% managed with diuretics. Plan is for patient to undergo left heart catheterization ? 09/25/2023 patient was discharged home on recommended medications 4. 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 Patient to undergo pacemaker interrogation 5. Cluster headaches ? Patient was on triptans discontinued plan is for patient to be managed with prednisone 6. Hypertension ? Blood pressure controlled, home medications continued with dose adjustment as needed 7. Tobacco dependence ? Counseled on cessation, offered nicotine patch for tobacco cravings, patient declined nicotine patch 8. DVT prophylaxis ? On enoxaparin Time spent in the patient's overall evaluation,decision-making process, review of diagnostic data, adjustment of management, discussion with other providers, nursing nursing and ancillary staff involved in patient's care documentation,40 minutes Medications at Discharge Home Medications atorvastatin 10 mg tablet 10 mg PO QHS cholesterol 12/20/21 aspirin 81 mg tablet,delayed release (Adult Low Dose Aspirin) 81 mg PO DAILY 09/21/23 calcium carbonate 600 mg calcium (1,500 mg) tablet (Calcium) 600 mg PO DAILY 09/21/23 multivit,Ca,min-iron 8 mg-folic acid 200 mcg-lycopene 600 mcg tablet (Centrum Men) 1 tab PO DAILY 09/21/23 ipratropium 0.5 mg-albuterol 3 mg (2.5 mg base)/3 mL nebulization soln 3 ml inhalation Q4H PRN PRN shortness of breath or wheezing #180 mL 09/22/23 acetaminophen 325 mg tablet 650 mg (2 x 325 mg) PO Q6H PRN PRN Pain 1-10 Or Fever >100.7 #0 tabs 09/25/23 carvedilol 12.5 mg tablet 12.5 mg PO BID 60 days #120 tabs 09/25/23 dapagliflozin propanediol 10 mg tablet (Farxiga) 10 mg PO DAILY #60 tabs 09/25/23 furosemide 20 mg tablet (Lasix) 20 mg PO DAILY #60 tabs 09/25/23 sacubitril 24 mg-valsartan 26 mg tablet (Entresto) 1 tab PO BID 60 days #120 tabs 09/25/23 tamsulosin 0.4 mg capsule 0.4 mg PO DAILY@1730 60 days #60 caps 09/25/23 tramadol 50 mg tablet 50 mg PO Q6H PRN PRN Pain Score 4-10 #20 tabs 09/25/23 Hospital Course Summary of Care Provided Minutes Spent on Discharge: 40 Weight / BMI Weight Weight: 65.9 kg Body Mass Index (BMI) 22.7 ABG / Lab / Microbiology Data 09/25/23 04:39 09/25/23 04:39 Laboratory: Laboratory Results - last 24 hr 09/25/23 04:39: WBC 6.2, RBC 4.05 L, Hgb 12.4 L, Hct 37.7 L, MCV 93.1, MCH 30.6, MCHC 32.9, RDW Std Deviation 45.3 H, RDW Coeff of Vahid 13.2, Plt Count 210, MPV 9.9, Immature Gran % (Auto) 0.300, Neut % (Auto) 71.4 H, Lymph % (Auto) 15.8 L, [place] % (Auto) 11.1 H, Eos % (Auto) 1.1, Baso % (Auto) 0.3, Absolute Neuts (auto) 4.4, Absolute Lymphs (auto) 0.98, Nucleated RBC % 0, Sodium 134 L, Potassium 3.8, Chloride 102, Carbon Dioxide 24.0, Anion Gap 8, BUN 16, Creatinine 0.80, Estim Creat Clear Calc 75.51, Est GFR (MDRD) Af Amer 121, Est GFR (MDRD) Non-Af 100, BUN/Creatinine Ratio 20.0, Glucose 90, Calcium 8.2 L Microbiology: Microbiology 09/21/23 07:20 Blood Culture (Wb) - Anticubital Right Blood Culture - Preliminary Gram positive mustapha 09/21/23 08:16 Blood Culture (Wb) - Anticubital Left Blood Culture - Preliminary No growth in 48 hours. 09/21/23 13:40 Mucosa - Nasopharyngeal Respiratory Panel (PCR) - Final 09/21/23 11:09 Nasal Secretion SARS-CoV-2 Antigen (Rapid) - Final Meaningful Use Info Meaningful Use Diagnoses (Choose all that apply): CHF CHF LEONIDES/ARB ordered at discharge?: Yes Documented LVEF (%): 30 Discharge Plan Admission Admit Date/Time: 09/23/23 17:12 Primary Reason for Your Visit: Respiratory distress Attending Provider: Peterson Daily Primary Care Provider: Gee Almonte Chi Consulting Providers: Lurdes Higginbotham; Krystyna Cortes Instructions Patient Instructions: Asthma and COPD, Asthma COPD Trigger Control Additional Instructions / Restrictions: DISCHARGE INSTRUCTIONS PLEASE READ *Please take this with you to your next doctors appointment* -Please follow with your primary care physician for further management of your cluster headaches -Please follow-up with pulmonology upon discharge, please call the office to schedule a follow-up as you will need further work-up with pulmonary function testing -You will be sent home with a rescue inhaler while awaiting pulmonary follow-up and work-up -Continue Mucinex for 3 days and then you can use as needed thereafter -Please call your primary care provider's office upon discharge to schedule a hospital follow up within 1 week. -For any concerning signs or symptoms please call 911 or proceed to the nearest emergency department Discharge Orders/Prescriptions Prescriptions: New ipratropium-albuterol 0.5 mg-3 mg(2.5 mg base)/3 mL Solution For Nebulization 3 ml inhalation Q4H PRN PRN (Reason: shortness of breath or wheezing) Qty: 180 0RF carvedilol 12.5 mg Tablet 12.5 mg PO BID 60 Days Qty: 120 0RF Entresto 24-26 mg Tablet 1 tab PO BID 60 Days Qty: 120 0RF acetaminophen 325 mg Tablet 650 mg PO Q6H PRN PRN (Reason: Pain 1-10 Or Fever >100.7) Qty: 0 0RF tramadol 50 mg Tablet 50 mg PO Q6H PRN PRN (Reason: Pain Score 4-10) Qty: 20 0RF tamsulosin 0.4 mg Capsule 0.4 mg PO DAILY@1730 60 Days Qty: 60 0RF Farxiga 10 mg tablet 10 mg PO DAILY Qty: 60 0RF furosemide [Lasix] 20 mg tablet 20 mg PO DAILY Qty: 60 0RF Continued atorvastatin 10 mg tablet 10 mg PO QHS aspirin [Adult Low Dose Aspirin] 81 mg tablet,delayed release (DR/EC) 81 mg PO DAILY calcium carbonate [Calcium 600] 600 mg calcium (1,500 mg) tablet 600 mg PO DAILY Centrum Men 8 mg iron- 200 mcg-600 mcg tablet 1 tab PO DAILY Discontinued carvedilol 25 mg tablet 25 mg PO DAILY 90 Days Qty: 90 lisinopril 5 mg tablet 5 mg PO DAILY 90 Days Qty: 90 meloxicam 15 mg tablet 15 mg PO DAILY sumatriptan succinate 100 mg tablet 100 mg PO DAILY PRN (Reason: CLUSTER HEADACHES) Referrals / Follow Up: [facility] [Provider Group] (Please call upon discharge to schedule an establish care appointment) Junior Hayes MD [Med Staff - Active Staff] - 10/07/23 3:30 pm Gee Almonte Chi, MD [Primary Care Provider] - Within 1 Week Jeet Benavidez NP, INSTRUCTIONAL SERVICES SPECIALIST-C [Med Staff - Adv Practice Prof] - 10/23/23 1:30 pm Disposition Disposition (needs filled in before D/C Order can be placed): Home, Self Care Charges/Coding Visit Charges Inpatient E&M: 37550 Disch Hosp >30min
--- NOTE | 2023-09-25 12:48 | PHA.DC_ITS ---
Pharmacy [facility] has performed discharge medication reconciliation and counseling for this patient. The patient was counseled on the following discharge medications and changes in medications for homegoing were reviewed. 1. ENTRESTO --> LISINOPRIL STOPPED 2. FARXIGA 3. COREG --> DOSE CHANGE 4. DUONEB 5. FLOMAX 6. TRAMADOL 7. FUROSEMIDE The Reason for Use, instructions for use, and potential side effects were reviewed for all new medications. The patient's questions regarding all of their medications were answered. The patient was able to verbally demonstrate an understanding of their discharge medications. The patient's discharge medication list was reviewed for discrepancies and discrepancies were resolved. Patient Was counselled by Victorino Lakhani PharmD Candidate Medications at Discharge Home Medications atorvastatin 10 mg tablet 10 mg PO QHS cholesterol 12/20/21 aspirin 81 mg tablet,delayed release (Adult Low Dose Aspirin) 81 mg PO DAILY 09/21/23 calcium carbonate 600 mg calcium (1,500 mg) tablet (Calcium) 600 mg PO DAILY 09/21/23 multivit,Ca,min-iron 8 mg-folic acid 200 mcg-lycopene 600 mcg tablet (Centrum Men) 1 tab PO DAILY 09/21/23 ipratropium 0.5 mg-albuterol 3 mg (2.5 mg base)/3 mL nebulization soln 3 ml inhalation Q4H PRN PRN shortness of breath or wheezing #180 mL 09/22/23 acetaminophen 325 mg tablet 650 mg (2 x 325 mg) PO Q6H PRN PRN Pain 1-10 Or Fever >100.7 #0 tabs 09/25/23 carvedilol 12.5 mg tablet 12.5 mg PO BID 60 days #120 tabs 09/25/23 dapagliflozin propanediol 10 mg tablet (Farxiga) 10 mg PO DAILY #60 tabs 09/25/23 furosemide 20 mg tablet (Lasix) 20 mg PO DAILY #60 tabs 09/25/23 sacubitril 24 mg-valsartan 26 mg tablet (Entresto) 1 tab PO BID 60 days #120 tabs 09/25/23 tamsulosin 0.4 mg capsule 0.4 mg PO DAILY@1730 60 days #60 caps 09/25/23 tramadol 50 mg tablet 50 mg PO Q6H PRN PRN Pain Score 4-10 #20 tabs 09/25/23
[2023-09-25 13:18] VITALS: PULSE 72; RESP 16
--- NOTE | 2023-09-25 13:23 | PN.CARD_ITS ---
Subjective Subjective Pt seen and examined today. He denies CP/SOB. No events last night. Objective Data Vital Signs: Vital Signs Temp Pulse Resp BP Pulse Ox O2 Del Method O2 Flow Rate 97.7 F L 72 16 105/73 95 Room Air 2 09/25/23 07:56 09/25/23 13:18 09/25/23 13:18 09/25/23 07:56 09/25/23 07:56 09/25/23 07:56 09/22/23 09:11 FiO2 30 09/21/23 07:52 Oxygen Flow Rate (L/min) 2 Oxygen Delivery Method Room Air Weight: 145 lb 4.554 oz Body Mass Index (BMI) 22.7 Intake & Output: Intake and Output for Last 24 Hours 09/23/23 09/24/23 09/25/23 23:59 23:59 23:59 Intake Total 950 / 950 Output Total 3150 / 3150 650 / 650 Balance -2200 / -2200 -650 / -650 Lab / Micro Data 09/25/23 04:39 09/25/23 04:39 Labs: Laboratory Results - last 24 hr 09/25/23 04:39: WBC 6.2, RBC 4.05 L, Hgb 12.4 L, Hct 37.7 L, MCV 93.1, MCH 30.6, MCHC 32.9, RDW Std Deviation 45.3 H, RDW Coeff of Vahid 13.2, Plt Count 210, MPV 9.9, Immature Gran % (Auto) 0.300, Neut % (Auto) 71.4 H, Lymph % (Auto) 15.8 L, [place] % (Auto) 11.1 H, Eos % (Auto) 1.1, Baso % (Auto) 0.3, Absolute Neuts (auto) 4.4, Absolute Lymphs (auto) 0.98, Nucleated RBC % 0, Sodium 134 L, Potassium 3.8, Chloride 102, Carbon Dioxide 24.0, Anion Gap 8, BUN 16, Creatinine 0.80, Estim Creat Clear Calc 75.51, Est GFR (MDRD) Af Amer 121, Est GFR (MDRD) Non-Af 100, BUN/Creatinine Ratio 20.0, Glucose 90, Calcium 8.2 L Micro: Microbiology 09/21/23 07:20 Blood Culture (Wb) - Anticubital Right Blood Culture - Preliminary Gram positive mustapha Cardiology Labs/Tests 09/25/23 04:39: WBC 6.2, RBC 4.05 L, Hgb 12.4 L, Hct 37.7 L, MCV 93.1, MCH 30.6, MCHC 32.9, Plt Count 210, MPV 9.9, Immature Gran % (Auto) 0.300, Neut % (Auto) 71.4 H, Lymph % (Auto) 15.8 L, [place] % (Auto) 11.1 H, Eos % (Auto) 1.1, Baso % (Auto) 0.3, Absolute Neuts (auto) 4.4, Nucleated RBC % 0, Sodium 134 L, Potassium 3.8, Chloride 102, Carbon Dioxide 24.0, Anion Gap 8, BUN 16, Creatinine 0.80, Est GFR (MDRD) Af Amer 121, Est GFR (MDRD) Non-Af 100, BUN/Creatinine Ratio 20.0, Glucose 90, Calcium 8.2 L Physical Exam Const alert, oriented x3, no apparent distress and healthy appearing HEENT normocephalic, head/scalp atraumatic, hearing grossly normal bilaterally, external ears normal, external nose normal and moist oral mucous membranes Eyes PERRL, EOMs intact bilaterally, conjunctivae normal and no scleral icterus Neck no lymphadenopathy, supple and no JVD Resp clear to auscultation bilaterally Cardio regular rate, regular rhythm, S1 normal heart sound, S2 normal heart sound, no murmurs, no rub, no gallops, no clicks, no JVD and peripheral pulses 2+ throughout GI normal to inspection, nondistended, normoactive bowel sounds, soft to palpation, non-tender and non-distended Extremity normal to inspection, normal capillary refill, no clubbing, cyanosis or edema and no pedal edema Neuro oriented x3, CN's II-XII intact bilaterally, moves all extremities and no focal motor deficits Psych cooperative and affect normal Assessment & Plan Assessment/Plan (1) Elevated troponin: (2) Non-ischemic cardiomyopathy: (3) Essential hypertension: (4) History of permanent cardiac pacemaker placement: PLAN: Plan * His troponins trended 46/106. He was noted to have a decrease in his EF. In May EF was 55%. Currently 30%. He did undergo a heart cath which demonstrated normal coronary arteries. Will maximize medications by stopping lisinopril and switching to entresto. He will continue with is Coreg. In the future may consider adding an SGLT2 and spirolactone. with his low BP may need to start this on an OP basis. * Will start him on a Life vest * Will plan on repeating echo in 3 months, if not improved may need PPM upgraded to ASSEMBLING [employer] ICD. Did discuss with pt. At his next OV he will let us know where he would like referred to. * His decrease in EF could be related to him pacing 99%. * Will plan on f/u with pt after d/c in the office. Charges/Coding Visit Charges Inpatient E&M: 21122 Subs Hosp L3
[2023-09-25 13:50] VITALS: BP 101/79; PULSE 70; RESP 16; TEMP 36.2; O2SAT 96
--- NOTE | 2023-09-25 15:59 | CASEMGMT ---
BIAN VALLES NOTE: Meds were e-scribed to [facility]. Per Tre, they are not in-network w/pt's insurance. Pt made aware and states to have them sent to [facility]. Call to [facility] and requested they have rx's from [facility] pharm transferred to them per pt request. Tramadol script unable to be transferred. Dr Daily notified and sent new script in to [facility] for same. Call placed back to [facility] once meds had been processed for howard check. Per Yohana, Farxiga is ~ $40 and Entresto is $548 and she states the others are minimal cost. IBAN VALLES spoke w/pt and about this. IBAN VALLES enrolled pt for an Entresto 30-day free savings card and info provided to [facility] [place] [facility]. Cost of Entresto is now $0 for 30-day supply. made aware. was also provided w/info for Ivaldi to inquire about further financial assistance/support. She voices appreciation. Pt and deny having further discharge planning needs. Al DE OLIVEIRA RN CM
[2023-09-25] MEDS: Tamsulosin HCl 0.4 MG Capsule PO (17:08)
== END 2023-09-25 18:45 | disposition home or self-care (01) | DRG 286 ==
LOC: ED 08:18 → PCU 11:41
PROVIDERS: Admitting Provider Internal Medicine; Emergency Provider Emergency Medicine; PCP Family Medicine Geriatric Medicine; Visit Provider Internal Medicine
DX: I11.0 Hypertensive heart disease with heart failure (principal); I50.21 Acute systolic (congestive) heart failure; J44.1 Chronic obstructive pulmonary disease with (acute) exacerbation; I42.8 Other cardiomyopathies; I44.1 Atrioventricular block, second degree; J98.09 Other diseases of bronchus, not elsewhere classified; E78.5 Hyperlipidemia, unspecified; F17.290 Nicotine dependence, other tobacco product, uncomplicated; G44.029 Chronic cluster headache, not intractable; I5A Non-ischemic myocardial injury (non-traumatic); R09.02 Hypoxemia; Z95.0 Presence of cardiac pacemaker; Z79.82 Long term (current) use of aspirin; Z79.899 Other long term (current) drug therapy
CPT/HCPCS: 36415; 71045; 71275; 80048; 80076; 83605; 83880; 84484; 85025; 85610; 85730; 87040; 87633; 87811; 93005; 93308; 93458; 94002; 94640; 94668; 94762; 99152; 99153; 99285; J7030; J7040; Q9957; Q9967; A4216; C1769; C1894; C8924; J1940

== ENCOUNTER 2023-10-08 12:34 | Emergency (ER) | payer MEDICARE, OTHER, SELFPAY ==
[2023-10-08 12:35] VITALS: BP 141/128; PULSE 61; RESP 18; TEMP 36.6; O2SAT 97; BMI 24.1
--- NOTE | 2023-10-08 13:04 | EDS_ITS ---
HPI <SHOBHA Gallegos - Last Filed: 10/08/23 13:30> History of Present Illness Chief Complaint: Complaint Narrative Narrative: Patient is a 73-year-old male with history of CAD, cardiomegaly, CHF, poor ejection fraction, BPH presenting to the emergency department with urinary retention. He is a patient of Dr. Jack, patient had a Sheriff catheter placed secondary to BPH. Patient was at the office yesterday, he did remove the Sheriff catheter, since the patient was home, he was unable to urinate and empty. He had worsening lower abdominal pain today, he called the office and told to go the emergency department. Patient states he is having lower pain secondary to being unable to urinate. Denies any fever chills nausea vomiting PFSH <SHOBHA Gallegos - Last Filed: 10/08/23 13:30> [facility]LY [facility] Medical History Arthritis Essential hypertension Hyperlipidemia Multiple premature ventricular complexes Non-ischemic cardiomyopathy Right bundle branch block (RBBB) with left anterior fascicular block Second degree AV block, Mobitz type II (12/20/21) Home Medications atorvastatin 10 mg tablet 10 mg PO QHS cholesterol 12/20/21 [History Last Taken 09/20/23] aspirin 81 mg tablet,delayed release (Adult Low Dose Aspirin) 81 mg PO DAILY 09/21/23 [History Last Taken 09/20/23] calcium carbonate 600 mg calcium (1,500 mg) tablet (Calcium) 600 mg PO DAILY 09/21/23 [History Last Taken 09/20/23] multivit,Ca,min-iron 8 mg-folic acid 200 mcg-lycopene 600 mcg tablet (Centrum Men) 1 tab PO DAILY 09/21/23 [History Last Taken 09/20/23] ipratropium 0.5 mg-albuterol 3 mg (2.5 mg base)/3 mL nebulization soln 3 ml inhalation Q4H PRN PRN shortness of breath or wheezing #180 mL 09/22/23 [Rx Last Taken Unknown] acetaminophen 325 mg tablet 650 mg (2 x 325 mg) PO Q6H PRN PRN Pain 1-10 Or Fever >100.7 #0 tabs 09/25/23 [Rx Last Taken Unknown] carvedilol 12.5 mg tablet 12.5 mg PO BID 60 days #120 tabs 09/25/23 [Rx Last Taken Unknown] dapagliflozin propanediol 10 mg tablet (Farxiga) 10 mg PO DAILY #60 tabs 09/25/23 [Rx Last Taken Unknown] furosemide 20 mg tablet (Lasix) 20 mg PO DAILY #60 tabs 09/25/23 [Rx Last Taken Unknown] sacubitril 24 mg-valsartan 26 mg tablet (Entresto) 1 tab PO BID #60 tabs 09/25/23 [Rx Last Taken Unknown] tamsulosin 0.4 mg capsule 0.4 mg PO DAILY@1730 60 days #60 caps 09/25/23 [Rx Last Taken Unknown] tramadol 50 mg tablet 50 mg PO Q6H PRN pain #20 tabs 09/25/23 [Rx Last Taken Unknown] Allergy/AdvReac Type Severity Reaction Status Date / Time No Known Allergies Allergy Verified 10/08/23 12:36 Family History Other Essential hypertension Multiple premature ventricular complexes Non-ischemic cardiomyopathy Right bundle branch block (RBBB) with left anterior fascicular block Second degree AV block, Mobitz type II Surgical History History of back surgery History of left heart catheterization (08/12/03) History of permanent cardiac pacemaker placement (12/21/21) Social History Smoking Status: Current every day smoker tobacco type: pipe Tobacco: How many years used: 50 ROS <SHOBHA Gallegos - Last Filed: 10/08/23 13:30> ROS ED ROS Narrative Constitutional: Negative for fever, chills, weight loss, weakness Eyes: Negative for vision loss, vision change, double vision ENT: Negative for any sore throat, ear pain, congestion Cardiovascular: Negative for any chest pain, tightness, palpitations Respiratory: Negative for any cough, sputum production, hemoptysis, dyspnea, dyspnea on exertion, orthopnea Gastrointestinal: Negative for any nausea, vomiting, diarrhea, constipation, blood in stool, blood in vomit. Positive lower abdominal pain : Negative for any urinary frequency, blood in urine. Positive for urinary retention, dysuria Muscle skeletal: Negative for any myalgias, arthralgias, neck pain, back pain Neurological: Negative for any headache, syncope, numbness or tingling, dizziness Skin: Negative for any rashes, lumps, itching, abrasions, lacerations Psychiatric: Negative for any depression, anxiety, stress, suicidal ideation, homicidal ideation Hematologic: Negative for any easy bruising, excessive bruising, easy bleeding Allergies: Negative for any eczema, hives, rash EXAM <SHOBHA Gallegos - Last Filed: 10/08/23 13:30> Physical Exam Narrative Exam Narrative: Vital signs reviewed. HEET: Head normocephalic atraumatic, TMs clear bilaterally. Posterior pharynx is clear, moist mucous membranes. Nares clear bilaterally. Neck: Supple with no lymphadenopathy or tenderness. No signs of meningismus. Cardiac: Regular rate and rhythm no murmurs gallops or rubs, equal peripheral pulses bilaterally. Respiratory: Lungs clear to auscultation bilaterally. No chest tenderness. Abdomen: Soft, nontender, nondistended. No abdominal bruit or pulsatile masses. No hepatosplenomegaly. By the time that I evaluated the patient, the patient already had a Sheriff placed by the nursing staff. Patient had 600 cc of yellow urine out. There is no blood in the urine. Patient was in a position of comfort. Patient was in no pain. Extremities: No peripheral edema, no signs of gross trauma or deformity. Active full range of motion of all extremities. Neuro: Cranial nerves II through XII intact, no focal neurological deficits. Skin: Clean dry and intact with no rash, purpura, petechiae, vesicles or pustules. Backs/flank: No CVA tenderness, no midline spinal tenderness, no deformity. Psych: Normal mood and affect. No SI, HI or acute psychosis. Const Vital Signs: 10/08/23 12:35 Temperature 98 F Temperature Source Temporal Pulse Rate 61 Respiratory Rate 18 Blood Pressure 141/128 H Blood Pressure Mean 132 Pulse Ox 97 Oxygen Delivery Method Room Air <Dr. Bhupendra Dial DO - Last Filed: 10/08/23 15:05> Physical Exam Const Vital Signs: 10/08/23 12:35 Temperature 98 F Temperature Source Temporal Pulse Rate 61 Respiratory Rate 18 Blood Pressure 141/128 H Blood Pressure Mean 132 Pulse Ox 97 Oxygen Delivery Method Room Air [facility] <SHOBHA Gallegos - Last Filed: 10/08/23 13:30> [facility] Lab Data Labs: Laboratory Results - last 24 hr 10/08/23 12:50 Urine Color Yellow Urine Clarity Clear Urine pH 6.5 Ur Specific [place] 1.010 Urine Protein Negative Urine Glucose (UA) 1000 H Urine Ketones Negative Urine Occult Blood 25 H Urine Nitrite Negative Urine Bilirubin Negative Urine Urobilinogen Normal Ur Leukocyte Esterase Negative Urine RBC 0-5 SEEN Urine WBC 0 SEEN Ur Squamous Epith Cells 0 SEEN Urine Bacteria 0 SEEN Urine Mucus 0 SEEN Treatment and Re-Evaluation :: Patient appears generally well, patient appears nontoxic, vital signs are stable. Presenting to the emergency department with complaints of dysuria, u rinary retention. Patient does have a history of this, he did see Dr. Costello yesterday and they did DC the Sheriff catheter. Differential diagnose includes BPH, obstructing uropathy, renal insufficiency, UTI. Nursing staff put a Sheriff catheter, patient immediate 600 out and felt much better. This to be sent for urine test to ensure there is no infection. I will reach out to Dr. Hayes to let him know that the patient was unable to urinate and needed to have the Sheriff catheter placed. On reevaluation the patient was doing well. At this time, patient be switched to a leg bag, he will leave the Sheriff in, he will follow-up with outpatient, his urinalysis showed no evidence of any infection. Patient did have some blood however this could be secondary to the traumatic Sheriff inse rtion. At this time, patient is happy with the plan of care, given return precautions. Patient stable for discharge. <Dr. Bhupendra Dial DO - Last Filed: 10/08/23 15:05> [facility] Lab Data Labs: Laboratory Results - last 24 hr 10/08/23 12:50 Urine Color Yellow Urine Clarity Clear Urine pH 6.5 Ur Specific [place] 1.010 Urine Protein Negative Urine Glucose (UA) 1000 H Urine Ketones Negative Urine Occult Blood 25 H Urine Nitrite Negative Urine Bilirubin Negative Urine Urobilinogen Normal Ur Leukocyte Esterase Negative Urine RBC 0-5 SEEN Urine WBC 0 SEEN Ur Squamous Epith Cells 0 SEEN Urine Bacteria 0 SEEN Urine Mucus 0 SEEN Treatment and Re-Evaluation :: Patient appears generally well, patient appears nontoxic, vital signs are stable. Presenting to the emergency department with complaints of dysuria, urinary retention. Patient does have a history of this, he did see Urology yesterday and they did DC the Sheriff catheter. Differential diagnose includes BPH, obstructing uropathy, renal insufficiency, UTI. Nursing staff put a Sheriff catheter, patient immediate 600 out and felt much better. This to be sent for urine test to ensure there is no infection. I will reach out to Dr. Hayes to let him know that the patient was unable to urinate and needed to have the Sheriff catheter placed. On reevaluation the patient was doing well. At this time, patient be switched to a leg bag, he will leave the Sheriff in, he will follow-up with outpatient, his urinalysis showed no evidence of any infection. Patient did have some blood however this could be secondary to the traumatic Sheriff insertion. At this time, patient is happy with the plan of care, given return precautions. Patient stable for discharge. Attending note: Patient seen and evaluated with information receptionist. I perform my own [id number] evaluation. I agree with the plan of work-up. History of BPH followed by urology. Sheriff catheter removed yesterday, minimal output yesterday however none today increasing suprapubic discomfort therefore came here. Sheriff catheter was placed 1 L output. He is on Flomax. Urine with no infection. Discussed with his urologist for outpatient follow-up. Discharge Plan Triage Chief Complaint: Complaint ED Midlevel Provider: Chicho Farnsworth ED Provider: Bhupendra Dial Dx/Rx/DC Orders Clinical Impression: Acute on chronic urinary retention Instructions: ED Sheriff Catheter, Care Prescriptions: No Action atorvastatin 10 mg tablet 10 mg PO QHS aspirin [Adult Low Dose Aspirin] 81 mg tablet,delayed release (DR/EC) 81 mg PO DAILY calcium carbonate [Calcium 600] 600 mg calcium (1,500 mg) tablet 600 mg PO DAILY Centrum Men 8 mg iron- 200 mcg-600 mcg tablet 1 tab PO DAILY ipratropium-albuterol 0.5 mg-3 mg(2.5 mg base)/3 mL Solution For Nebulization 3 ml inhalation Q4H PRN PRN (Reason: shortness of breath or wheezing) Qty: 180 0RF carvedilol 12.5 mg Tablet 12.5 mg PO BID 60 Days Qty: 120 0RF acetaminophen 325 mg Tablet 650 mg PO Q6H PRN PRN (Reason: Pain 1-10 Or Fever >100.7) Qty: 0 0RF tamsulosin 0.4 mg Capsule 0.4 mg PO DAILY@1730 60 Days Qty: 60 0RF Farxiga 10 mg tablet 10 mg PO DAILY Qty: 60 0RF furosemide [Lasix] 20 mg tablet 20 mg PO DAILY Qty: 60 0RF tramadol 50 mg tablet 50 mg PO Q6H PRN (Reason: pain) Qty: 20 0RF Entresto 24-26 mg tablet 1 tab PO BID Qty: 60 11RF Primary Care Provider: Gee Almonte Chi Referrals: Gee Almonte Chi, MD [Primary Care Provider] - Activity Restrictions/Additional Instructions: Continue taking your tamsulosin, follow-up with the urologist. Return for any worsening symptoms Disposition Disposition: Home, Self Care Discharge Date/Time: 10/08/23 13:43
[2023-10-08 13:16] LABS: Bacteria 0 SEEN /hpf (None Seen); Mucous, Urine 0 SEEN /hpf (<or=2+); Squamous Epithelial Cells - UA 0 SEEN /hpf (0-5); White Blood Cells 0 SEEN /hpf (0-5)
[2023-10-08 13:19] LABS: Color, Urine Yellow (Yellow); Glucose, Dipstick 1000 mg/dl (Normal); Ketone-Dipstick Negative (Negative); Leukocyte Esterase-Dipstick Negative /ul (Negative); Nitrite-Dipstick Negative (Negative); Occult Blood-Urine 25 /ul (Negative); Protein-Dipstick Negative (Negative); Urine Bilirubin Dipstick Negative (Negative); Urine Clarity Clear (Clear); Urine Urobilinogen Normal (Normal); Urine pH 6.5 (5.0 - 8.0)
[2023-10-08 13:26] LABS: Red Blood Cells-Urine 0-5 SEEN /hpf (0-5)
== END 2023-10-08 13:43 | disposition home or self-care (01) ==
PROVIDERS: Nurse Practitioner; Emergency Provider Emergency Medicine; PCP Family Medicine Geriatric Medicine; Visit Provider Emergency Medicine
DX: R33.9 Retention of urine, unspecified (principal); I11.0 Hypertensive heart disease with heart failure; I50.9 Heart failure, unspecified; E78.5 Hyperlipidemia, unspecified; I25.10 Atherosclerotic heart disease of native coronary artery without angina pectoris; F17.290 Nicotine dependence, other tobacco product, uncomplicated; Z79.899 Other long term (current) drug therapy; Z95.0 Presence of cardiac pacemaker
CPT/HCPCS: 51702; 81001; 99283

== ENCOUNTER → 2023-10-23 | Outpatient (CLI) | payer MEDICARE, OTHER, SELFPAY ==
[2023-10-23 17:45] LABS: Absolute Lymphocyte Count 1.46 X10^3/uL (0.83-4.51); Absolute Neutrophil Count 6.1 X10^3/uL (2.0-7.7); Basophil# 0.04 X10^3/uL; Basophil% 0.5 % (0-1); Eosinophil# 0.09 X10^3/uL; Hematocrit 45.1 % (40-54); Hemoglobin 14.3 g/dL (13.0-16.5); Lymphocyte # 1.46 X10^3/ul (0.83-4.51); Lymphocyte % 16.9 % (19-41); Mean Corp Hgb Conc 31.7 g/dL (32-36); Mean Corpuscular Hgb 30.4 pg (27.0-32.0); Mean Corpuscular Volume 95.8 fL (80-94); Monocyte% 10.4 % (0-10); NRBC Flagged by Analyzer 0 % (0-5); Neutrophil # 6.11 X10^3/uL (2.7-7.7); Platelet Count 316 K/mm3 (150-450); RBC Distribution Width CV 13.3 % (11.6-14.6); RBC Distribution Width SD 47.1 fl (35.1-43.9); Red Blood Count 4.71 M/mm3 (4.6-6.2); White Blood Count 8.6 K/mm3 (4.4-11.0)
[2023-10-23 17:56] LABS: Vitamin D,25 Hydroxy 58.5 ng/mL
[2023-10-23 18:07] LABS: ALB/GLOB Ratio 1.1 RATIO (0.9-2.4); AST(SGOT) 20 U/L (15-37); Alanine Aminotransfer ALT/SGPT 29 U/L (16-61); Albumin, Serum 3.7 g/dL (3.2-5.0); Alkaline Phosphatase 102 U/L (45-117); Anion Gap 6 (5-15); BUN 23 mg/dL (7-18); BUN/Creat Ratio 23.2 RATIO (10-20); Calcium,Total 9.4 mg/dL (8.5-10.1); Chloride 102 mmol/L (98-107); Creatinine, Serum 0.99 mg/dL (0.70-1.30); EST Glomerular Filtration Rate 78 mL/min (>60); Est Glom Filt Rate - Afr Amer 95 mL/min (>60); Globulin 3.3 g/dL (2.2-4.2); Glucose 94 mg/dL (74-106); Potassium 4.3 mmol/L (3.5-5.1); Sodium Level 138 mmol/L (136-145); Thyroid Stim Hormone (TSH) 0.68 uIU/mL (0.358-3.74)
== END | disposition home or self-care (01) ==
LOC: POLAB3 14:35
PROVIDERS: PCP Family Medicine Geriatric Medicine; Visit Provider Family Medicine Geriatric Medicine
DX: I10 Essential (primary) hypertension (principal); E55.9 Vitamin D deficiency, unspecified
CPT/HCPCS: 36415; 80053; 82306; 84443; 85025

== ENCOUNTER → 2023-11-06 | Outpatient (CLI) | payer MEDICARE, OTHER, SELFPAY ==
[2023-11-06 12:33] LABS: Anion Gap 7 (5-15); BUN 18 mg/dL (7-18); BUN/Creat Ratio 18.3 RATIO (10-20); Chloride 102 mmol/L (98-107); Creatinine, Serum 0.98 mg/dL (0.70-1.30); EST Glomerular Filtration Rate 79 mL/min (>60); Est Glom Filt Rate - Afr Amer 95 mL/min (>60); Glucose 125 mg/dL (74-106); Potassium 3.7 mmol/L (3.5-5.1); Sodium Level 137 mmol/L (136-145)
== END | disposition home or self-care (01) ==
LOC: LAB 10:46
PROVIDERS: PCP Family Medicine Geriatric Medicine; Referring Provider Nurse Practitioner Family; Visit Provider Nurse Practitioner Family
DX: E78.5 Hyperlipidemia, unspecified (principal); I42.8 Other cardiomyopathies; I10 Essential (primary) hypertension
CPT/HCPCS: 36415; 80048

== ENCOUNTER → 2023-11-14 | Outpatient (CLI) | payer MEDICARE, OTHER, SELFPAY ==
--- NOTE | 2023-11-17 11:06 | PFT ---
INTRODUCTION: The patient is a 73-year-old male who presents for pulmonary function studies secondary to a diagnosis of nicotine dependency. Respiratory therapy reported good patient effort. Bronchodilators were used during testing. INTERPRETATION: Forced expiration spirometry demonstrates the presence of a mild large airways obstructive ventilatory defect. There was no significant response to aerosolized bronchodilators. Spirograms are of good quality and plateau gradually indicating slow emptying of the lungs. Body plethysmography was performed and revealed lung volumes to be within normal limits. Diffusing capacity by single breath CO was mildly reduced at 73% of predicted. IMPRESSION: Irreversible mild large airways obstructive ventilatory defect with symmetric reduction in diffusion capacity.
== END | disposition home or self-care (01) ==
LOC: PSN 06:43
PROVIDERS: PCP Family Medicine Geriatric Medicine; Referring Provider Internal Medicine Critical Care Medicine; Visit Provider Internal Medicine Critical Care Medicine
DX: F17.210 Nicotine dependence, cigarettes, uncomplicated (principal)
CPT/HCPCS: 94060; 94726; 94729

== ENCOUNTER → 2023-11-17 | Outpatient (CLI) | payer MEDICARE, OTHER, SELFPAY ==
[2023-11-17 12:45] VITALS: PULSE 104; PULSE 105; PULSE 106; PULSE 107; PULSE 109; PULSE 94; PULSE 96; O2SAT 100; O2SAT 96; O2SAT 97; O2SAT 98
--- NOTE | 2023-11-18 10:10 | PCM.PSN.6M ---
PSN 6 Minute Walk Test 6 Minute Walk Test 6 Minute Walk Test: 6 Minute Walk Test PSN:6-Minute Walk Test Start: 11/17/23 12:42 Freq: Status: Active Protocol: [id number].6MINW Document 11/17/23 12:45 [place] (Rec: 11/17/23 12:47 SF[place]ON Desktop) 6 Minute Walk Test Date Performed 11/17/23 Time Performed 12:30 Height 5 ft 6 in Weight: 146 lb Weight in Pounds 146.[address]: Oj Santiago Assistive device used: None Pre-test Oxygen Delivery Method Room Air Pulse Ox 100 Pulse Rate (60-100) 96 Dyspnea James Scale (0-10) 0 Exertion James Scale (6-20) 6 1st minute Oxygen Delivery Method Room Air Pulse Ox 100 Pulse Rate (60-100) 106 H 2nd minute Oxygen Delivery Method Room Air Pulse Ox 98 Pulse Rate (60-100) 107 H 3rd minute Oxygen Delivery Method Room Air Pulse Ox 97 Pulse Rate (60-100) 109 H 4th minute Oxygen Delivery Method Room Air Pulse Ox 97 Pulse Rate (60-100) 106 H 5th minute Oxygen Delivery Method Room Air Pulse Ox 96 Pulse Rate (60-100) 104 H 6th minute Oxygen Delivery Method Room Air Pulse Ox 98 Pulse Rate (60-100) 105 H Dyspnea James Scale (0-10) 2 Exertion James Scale (6-20) 13 Post-test Oxygen Delivery Method Room Air Pulse Ox 98 Pulse Rate (60-100) 94 Full Laps Walked 16 Partial Lap, Number of Tiles Walked 11 Total Distance Walked (ft) 955 Interpretation Interpretation: The patient ambulated 955 feet over the course of 6 minutes beginning on room air without assistive devices. Pretesting oxygen saturation was noted to be 100% on room air. With ambulation, the melodie oxygen saturation was 96%. There was no significant exertional oxygen desaturation. Recommendations Recommendations: There is no indication for the use of supplemental oxygen at this time.
== END | disposition home or self-care (01) ==
LOC: PSN 12:04
PROVIDERS: PCP Family Medicine Geriatric Medicine; Referring Provider Internal Medicine Critical Care Medicine; Visit Provider Internal Medicine Critical Care Medicine
DX: F17.210 Nicotine dependence, cigarettes, uncomplicated (principal)
CPT/HCPCS: 94618

== ENCOUNTER 2023-11-19 09:00 | Outpatient (CLI) | payer MEDICARE, OTHER, SELFPAY ==
[2023-11-19 08:57] VITALS: BP 78/60; PULSE 81; RESP 18; TEMP 36.3; BMI 23.4
[2023-11-19] MEDS: Lactated Ringers 1,000 ML 15 ML IV (09:19)
--- NOTE | 2023-11-19 09:26 | NURSING ---
PER DR. GLEASON CASE IS GOING TO BE CANCELLED UNTIL THE BP IS MORE OPTIMIZED. PT BEING D/C TO HOME AND INFORMED BY DR. MCCALL AND ROSIBEL PT NEEDS TO FOLLOW UP WITH CARDIOLOGY BEFORE RESCHEDULING.
--- OUTSIDE RECORDS SUMMARY | 2024-01-07 22:00 | XMS RPT_ITS ---
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 Name Role Phone KAYLA SPAULDING, DR MELARA Primary Care Unavailable LINDY SPAULDING, LUCIANA Sevilla Attending Unavailable PROBLEMS No Problem Records Found PROCEDURES No Procedure Records Found RESULTS No Result Records Found ALLERGIES No Allergies Records Found ENCOUNTERS ADMIT/DISCHARGE ACCOUNT NUMBER ADMITTING ENCOUNTER CLASS LOC ATION SOURCE 01/07/2024 [id number] Ambulatory ABuilding:S DC C [facility] ([place]) PAYERS ENCOUNTER GUARANTOR PAYER SUBSCRIBER SOURCE 01/07/2024 TONG Yanez CALFDOB: [id number] [place] [address]Jpk: (HP) Primary Insurance:MEDICARE PART B INSCOPolicy Number: [id number] Date:[id number] Name:[facility] [place] [address], [place] [address]QS: TONG GARCIACALFDOB: [id number] [place] [address]Hub: (HP) [facility] ([place]) 01/07/2024 Secondary Insurance:[facility] INSCOPolicy Number: [id number] Date:[id number] Name:[facility] [place] [id number], [place] [address]IU: TONGJIGNA GARCIACALFDOB: [id number] [place] [address]Yno: (HP) [facility] ([place])
== END 2023-11-19 10:00 | disposition home or self-care (01) ==
LOC: AC 09:29 → PAT 01-07 12:35
PROVIDERS: PCP Family Medicine Geriatric Medicine; Referring Provider Urology; Visit Provider Urology
DX: Z01.810 Encounter for preprocedural cardiovascular examination (principal)
CPT/HCPCS: 93005; J7120

== ENCOUNTER 2023-12-17 11:35 | Day surgery (SDC) | payer MEDICARE, OTHER, SELFPAY ==
[2023-12-17] VITALS (10 sets, daily range): BP systolic 91–157; BP diastolic 53–94; PULSE 78–110; RESP 12–18; TEMP 36.1–36.8; O2SAT 94–99; BMI 24.2
[2023-12-17] MEDS: Lactated Ringers 1,000 ML 15 ML IV (12:10)
--- NOTE | 2023-12-17 14:00 | PROS_PTH ---
PATHOLOGY RESULTS PATIENT: TONG [place]ING [place] [facility] [id number] AGE/SX: 73/M ROOM: RE12/17/[address]: Dr. Junior Hayes MD : 1950 BED: DIS: 12/18/2023 SPEC #: [id number] RECD: 12/18/23 07:33 STATUS: JOSE MARIA REJaspal #: [id number] FERMIN: 12/17/23 14:[address]: Junior Hayes DEPT: SURGICAL PATHOLOGY RECD BY: Sera Pardo ENTERED: 12/18/23 07:34 SP TYPE: TURP OTHR DR: Dr. Gee Almonte MD Tissues: Prostate, NOS Procedures: Surgery Specimen Level IV HEADER OPERATION: Transurethral resection of prostate with Olympus PRE-OP DIAGNOSIS: Benign prostate hypertrophy with urinary retention TISSUE SUBMITTED: Prostate chips MICROSCOPIC DIAGNOSIS Prostate chips, transurethral resection: Benign prostatic hyperplasia, glandular and stromal type. Focal chronic inflammation. SJ:seth 12/19/2023 MICROSCOPIC DESCRIPTION Slides are reviewed. GROSS DESCRIPTION Received is one container labeled with the patient's name and designated prostate chips. The specimen consists of multiple irregular fragments of pink-eason, rubbery, soft tissue that in aggregate weigh 21.2 gm and measure in aggregate 5.0 x 5.0 x 3.0 cm. Food And Beverage Assistant portions are submitted in ten cassettes. / AM:seth 12/18/2023 TC:5 CPT: 70523
--- NOTE | 2023-12-17 14:15 | PCM.HP.STD ---
HPI - General General Date of Service: 12/17/23 Chief Complaint: BPH with retention of urine HPI Narrative TONG LING, is a 73 M who presents for a transurethral section of the prostate for retention of urine patient understands it is possible that we do the surgery and he still would not be able to urinate on his own he may need to learn self intermittent catheterization. [facility] Medical History (Updated 12/11/23 @ 10:10 by Vangie Lopez) Alcohol use Arthritis Back pain Broken heart syndrome Cardiology follow-up encounter Chest pain Cluster headache COPD (chronic obstructive pulmonary disease) Easy bruising Essential hypertension High cholesterol History of echocardiogram History of stress test Hyperlipidemia Multiple premature ventricular complexes Non-ischemic cardiomyopathy Prostate disease Right bundle branch block (RBBB) with left anterior fascicular block Second degree AV block, Mobitz type II (12/20/21) Smoker Syncope Uses LifeVest defibrillator Wears dentures Home Medications atorvastatin 10 mg tablet 10 mg PO QHS cholesterol 12/20/21 [History Last Taken 12/16/23] aspirin 81 mg tablet,delayed release (Adult Low Dose Aspirin) 81 mg PO DAILY 09/21/23 [History Last Taken 12/01/23] calcium carbonate 600 mg calcium (1,500 mg) tablet (Calcium) 600 mg PO DAILY 09/21/23 [History Last Taken 12/16/23] multivit,Ca,min-iron 8 mg-folic acid 200 mcg-lycopene 600 mcg tablet (Centrum Men) 1 tab PO DAILY 09/21/23 [History Last Taken 12/16/23] ipratropium 0.5 mg-albuterol 3 mg (2.5 mg base)/3 mL nebulization soln 3 ml inhalation Q4H PRN PRN shortness of breath or wheezing #180 mL 09/22/23 [Rx Last Taken Unknown] acetaminophen 325 mg tablet 650 mg (2 x 325 mg) PO Q6H PRN PRN Pain 1-10 Or Fever >100.7 #0 tabs 09/25/23 [Rx Last Taken Unknown] tamsulosin 0.4 mg capsule 0.4 mg PO DAILY@1730 60 days #60 caps 09/25/23 [Rx Last Taken 12/16/23] tramadol 50 mg tablet 50 mg PO Q6H PRN pain #20 tabs 09/25/23 [Rx Last Taken Unknown] dapagliflozin propanediol 10 mg tablet (Farxiga) 10 mg PO DAILY #90 tabs 10/23/23 [Rx Last Taken 12/16/23] furosemide 20 mg tablet (Lasix) 20 mg PO DAILY #90 tabs 10/23/23 [Rx Last Taken 12/16/23] sacubitril 24 mg-valsartan 26 mg tablet (Entresto) 1 tab PO BID 11/14/23 [History Last Taken 12/16/23] carvedilol 12.5 mg tablet 6.25 mg (1/2 x 12.5 mg) PO BID #60 tabs 11/20/23 [Rx Last Taken 12/16/23] Allergy/AdvReac Type Severity Reaction Status Date / Time No Known Allergies Allergy Verified 12/17/23 12:05 Family History Other Essential hypertension Multiple premature ventricular complexes Non-ischemic cardiomyopathy Right bundle branch block (RBBB) with left anterior fascicular block Second degree AV block, Mobitz type II Surgical History (Updated 12/11/23 @ 10:10 by Vangie Lopez) History of back surgery History of left heart catheterization (08/12/03) History of permanent cardiac pacemaker placement (12/21/21) Hx of colonoscopy Hx of elbow surgery Hx of left cataract extraction Hx of right cataract extraction Hx of total knee arthroplasty Social History (Updated 11/11/23 @ 06:42 by Lyndsay Ling) Smoking Status: Current some day smoker tobacco type: cigarettes and pipe Tobacco: How many years used: 50 Vital Signs Vital Signs Vital Signs: 12/17/23 12:07 12/17/23 12:07 Temperature 97.9 F Temperature Source Temporal Pulse Rate 82 Respiratory Rate 16 Respiratory Pattern Normal Blood Pressure 129/94 H Blood Pressure Mean 105 Blood Pressure Source Monitor Blood Pressure Position Semi-Fowlers Blood Pressure Location Right Arm Pulse Ox 99 Oxygen Delivery Method Room Air Weight Weight: 68 kg Body Mass Index (BMI) 24.2
[2023-12-17] MEDS: Cefazolin 2 GM in 0.9% Normal Saline (100mL Bag) 100 ML IV (14:32)
--- NOTE | 2023-12-17 14:48 | DCINST_ITS ---
Discharge Instructions Diet Discharge Diet: No restrictions Activity Discharge Activity: Return to Normal Activity and May Not Drive (while taking narcotic pain medications.) Dressing / Incision Call your doctor if you observe: Fever of 101 or Higher Follow Up Care Please Follow Up With: Junior Hayes MD When: Call [phone] for an appointment Test Results: Test results from this visit will be discussed in further detail at your follow- up appointment, if applicable. Discharge Plan Admission Primary Reason for Your Visit: turp Attending Provider: Junior Hayes Primary Care Provider: Gee Almonte Chi Discharge Orders/Prescriptions Prescriptions: New ciprofloxacin HCl [Cipro] 500 mg tablet 500 mg PO BID Qty: 10 0RF Continued atorvastatin 10 mg tablet 10 mg PO QHS Farxiga 10 mg tablet 10 mg PO DAILY Qty: 90 3RF furosemide [Lasix] 20 mg tablet 20 mg PO DAILY Qty: 90 3RF Entresto 24-26 mg tablet 1 tab PO BID Patient Comments: take 1 tablet by mouth twice a day calcium carbonate [Calcium 600] 600 mg calcium (1,500 mg) tablet 600 mg PO DAILY Centrum Men 8 mg iron- 200 mcg-600 mcg tablet 1 tab PO DAILY ipratropium-albuterol 0.5 mg-3 mg(2.5 mg base)/3 mL Solution For Nebulization 3 ml inhalation Q4H PRN PRN (Reason: shortness of breath or wheezing) Qty: 180 0RF acetaminophen 325 mg Tablet 650 mg PO Q6H PRN PRN (Reason: Pain 1-10 Or Fever >100.7) Qty: 0 0RF tamsulosin 0.4 mg Capsule 0.4 mg PO DAILY@1730 60 Days Qty: 60 0RF tramadol 50 mg tablet 50 mg PO Q6H PRN (Reason: pain) Qty: 20 0RF carvedilol 12.5 mg tablet 6.25 mg PO BID Qty: 60 0RF Held aspirin [Adult Low Dose Aspirin] 81 mg tablet,delayed release (DR/EC) 81 mg PO DAILY Hold Instructions: Resume on 12/31/23. Referrals / Follow Up: Junior Hayes MD [Med Staff - Active Staff] - Gee Almonte Chi, MD [Primary Care Provider] - Disposition Disposition (needs filled in before D/C Order can be placed): Home, Self Care
--- NOTE | 2023-12-17 16:22 | PCM.OPRPT ---
Report of Operation Date of Procedure: 12/17/23 Pre-Operative Diagnosis: BPH with obstruction and retention of urine Post-Operative Diagnosis: The same Surgery/Procedure Performed:: Transurethral section of prostate Description of Surgical Findings:: This is a 73-year-old male who has had a very large prostate is developed retention of urine and is not even able to urinate he finally received cardiac clearance and working to proceed with a TURP. Patient was taken back to the operating room at a smooth induction of anesthesia he was placed in dorsolithotomy position the penis testicles were prepped and draped in usual sterile fashion within the bladder with a 21 [place] rigid cystourethroscope found that he had a very large prostate obstructing tissue bilaterally a small median lobe I then switched over to the 26 [place] continuous-flow Olympus bipolar resectoscope I started at the apical tissue marked out the sphincter there was a lot of BPH obstructing tissue is actually pushing down beyond the sphincter I then started resection at the 12 o'clock position on the right side worked my way laterally all the way down and then worked my way to the floor the prostate then went to the left side at the 12:[address] laterally and all the way down to the base of the prostate and then worked my way back and then resected all the tissue there was a lot of obstructive tissue it took quite a long resection time this about an hour and a half to resect of the tissue at the end I pulled back to the sphincter the sphincter was intact he did have a little bit of obstructive tissue but I do wonder resect more since he had quite a long resection and did not want to compromise the sphincter I did a flow test had a wide open flow I then cauterized extensively to obtain hemostasis resected some of the flat lateral flapping tissue but at the end they had no flapping tissue no obstructive tissue wide open channel from the verumontanum to the bladder neck wide open channel sphincter looked intact obtain hemostasis all the chips were taken out of the bladder he had quite extensive amount of prostate chips and then was taken back to the PACU in good condition with continuous bladder irrigation and the urine was fairly clear. Surgeon: Junior Hayes Type of Anesthesia: General Drains: 22fr 3 way Admit VTE Documentation VTE Present on Admission: No VTE Mechan Device Prophylaxis: SCD's VTE Pharm Prophylaxis ordered?: No
[2023-12-17] MEDS: traMADol 50 MG Tablet PO (19:54)
[2023-12-17] MEDS: Ciprofloxacin 400 MG/200 ML BAG 200 MG IV (21:57)
[2023-12-17] MEDS: 0.9% Normal Saline (1000mL) 1,000 ML 75 ML IV (21:57)
[2023-12-17] MEDS: Tamsulosin HCl 0.4 MG Capsule 0.400000000000000022 MG PO (21:59)
[2023-12-17] MEDS: Docusate Sodium 100 MG Capsule 200 MG PO (21:59)
[2023-12-17] MEDS: Atorvastatin Calcium 10 MG Tablet PO (22:01)
[2023-12-17] MEDS: SACUBITRIL/VALSARTAN 24/26 MG TABLET 1 EACH PO (22:22)
[2023-12-18 01:27] VITALS: BP 104/75; PULSE 77; RESP 18; TEMP 36.6; O2SAT 97
[2023-12-18 01:48] VITALS: PULSE 77
[2023-12-18] MEDS: traMADol 50 MG Tablet PO (02:19)
[2023-12-18 05:55] VITALS: BP 117/68; PULSE 76; RESP 16; TEMP 36.6; O2SAT 96
[2023-12-18 07:31] LABS: Hematocrit 42.6 % (40-54); Hemoglobin 13.7 g/dL (13.0-16.5); Mean Corp Hgb Conc 32.2 g/dL (32-36); Mean Corpuscular Hgb 30.6 pg (27.0-32.0); Mean Corpuscular Volume 95.1 fL (80-94); Mean Platelet Vol. 9.5 fl (6.2-12.0); Platelet Count 214 K/mm3 (150-450); RBC Distribution Width CV 13.9 % (11.6-14.6); RBC Distribution Width SD 49.1 fl (35.1-43.9); Red Blood Count 4.48 M/mm3 (4.6-6.2)
--- NOTE | 2023-12-18 07:36 | PN.URO_ITS ---
Subjective Subjective s/p turp d/c [facility] Objective Data Objective Data Vital Signs: Vital Signs Temp Pulse Resp BP Pulse Ox O2 Del Method 97.8 F 76 16 117/68 96 Room Air 12/18/23 05:55 12/18/23 05:55 12/18/23 05:55 12/18/23 05:55 12/18/23 05:55 12/18/23 05:55 Oxygen Delivery Method Room Air Weight: 68 kg Body Mass Index (BMI) 24.2 Intake & Output: Intake and Output for Last 24 Hours 12/16/23 12/17/23 12/18/23 23:59 23:59 23:59 Intake Total 1271.75 / 1271.75 200 / 200 Output Total 4950 / 4950 Balance 1271.75 / 1271.75 -4750 / -4750 Lab / Micro Data 12/18/23 06:38 12/18/23 06:38 Labs: Laboratory Results - last 24 hr 12/18/23 06:38: WBC 8.0, RBC 4.48 L, Hgb 13.7, Hct 42.6, MCV 95.1 H, MCH 30.6, MCHC 32.2, RDW Std Deviation 49.1 H, RDW Coeff of Vahid 13.9, Plt Count 214, MPV 9.5
[2023-12-18 07:59] LABS: Anion Gap 4 (5-15); BUN 14 mg/dL (7-18); BUN/Creat Ratio 15.1 RATIO (10-20); Calcium,Total 8.7 mg/dL (8.5-10.1); Chloride 105 mmol/L (98-107); Creatinine, Serum 0.92 mg/dL (0.70-1.30); EST Glomerular Filtration Rate 85 mL/min (>60); Est Glom Filt Rate - Afr Amer 103 mL/min (>60); Estimated Creatinine Clearance 63.57 ml/min; Glucose 169 mg/dL (74-106); Potassium 4.2 mmol/L (3.5-5.1); Sodium Level 137 mmol/L (136-145)
[2023-12-18] MEDS: Multivitamins,Ther W-Minerals Tablet 1 TABLET PO (08:10)
[2023-12-18] MEDS: Calcium (Elemental) 500 MG Tablet PO (08:17)
[2023-12-18] MEDS: Carvedilol 6.25 MG Tablet PO (08:21)
[2023-12-18] MEDS: Furosemide 20 MG Tablet PO (08:21)
[2023-12-18] MEDS: SACUBITRIL/VALSARTAN 24/26 MG TABLET 1 EACH PO (08:22)
[2023-12-18] MEDS: Docusate Sodium 100 MG Capsule 200 MG PO (08:23)
[2023-12-18] MEDS: Ciprofloxacin 400 MG/200 ML BAG 200 MG IV (08:25)
[2023-12-18 09:40] VITALS: BP 116/67; PULSE 72; RESP 16; TEMP 36.5; O2SAT 96
--- NOTE | 2023-12-18 10:06 | CASEMGMT ---
Patient has order for discharge today. RN CM in to discuss needs at discharge. Patient denies needs or help at discharge. Patient had no further questions or concerns.
== END 2023-12-18 10:37 | disposition home or self-care (01) ==
LOC: SDC 11:36 → AC 11:37 → MS3 16:36
PROVIDERS: PCP Family Medicine Geriatric Medicine; Referring Provider Urology; Visit Provider Urology
PROC: 0VT08ZZ Resection of Prostate, Via Natural or Artificial Opening Endoscopic (ICD-10-PCS; CPT 52601; principal; 2023-12-17 13:50)
DX: N40.1 Benign prostatic hyperplasia with lower urinary tract symptoms (principal); J44.9 Chronic obstructive pulmonary disease, unspecified; I42.8 Other cardiomyopathies; I10 Essential (primary) hypertension; N13.8 Other obstructive and reflux uropathy; R33.8 Other retention of urine; I45.2 Bifascicular block; E78.00 Pure hypercholesterolemia, unspecified; F17.210 Nicotine dependence, cigarettes, uncomplicated; F17.290 Nicotine dependence, other tobacco product, uncomplicated; Z95.0 Presence of cardiac pacemaker; Z79.82 Long term (current) use of aspirin; Z79.899 Other long term (current) drug therapy
CPT/HCPCS: 52601; 36415; 80048; 85027; 88305; J7030; J7120; J0744; J2405

== ENCOUNTER → 2023-12-30 | Outpatient (CLI) | payer MEDICARE, OTHER, SELFPAY ==
--- NOTE | 2023-12-30 09:15 | ECHOL_ITS ---
Reason For Study: CHF, Assess LV function Procedure This was a limited 2D transthoracic echocardiogram. Exam performed in department. Left Ventricle Normal LV size. The estimated ejection fraction is 30 %. There is moderate global hypokinesis of the left ventricle. Right Ventricle Normal right ventricle. ICD or pacer leads identified within the right ventricle. Normal systolic function. Atria Normal left atrium. Mitral Valve Normal mitral valve. Tricuspid Valve Normal tricuspid valve. Aortic Valve Normal aortic valve. Pulmonic Valve Normal pulmonic valve. Great Vessels Normal aortic root. The pulmonary artery is normal size. Normal inferior vena cava. Pericardium/Pleural No pericardial effusion. MMode/2D Measurements & Calculations LVIDd: 4.8 cm IVSd: 1.4 cm Ao root diam: 3.3 cm LVIDs: 3.8 cm LVPWd: 1.1 cm RVDd: 3.0 cm FS: 21.3 % LAV(MOD-bp): 26.7 ml LVAd ap4: 28.9 cm2 LVAd ap2: 29.8 cm2 LAV(MOD-bp) Indexed: 15.0 ml/m2 LVLd ap4: 7.9 cm LVLd ap2: 7.6 cm LAV(MOD-sp2): 27.1 ml EDV(MOD-sp4): 86.9 ml EDV(MOD-sp2): 99.6 ml LAV(MOD-sp4): 25.2 ml EDV(sp4-el): 90.0 ml EDV(sp2-el): 99.4 ml LVAs ap4: 22.1 cm2 LVAs ap2: 24.0 cm2 LVLs ap4: 7.9 cm LVLs ap2: 7.6 cm ESV(MOD-sp4): 51.6 ml ESV(MOD-sp2): 63.6 ml ESV(sp4-el): 52.3 ml ESV(sp2-el): 64.8 ml EF(MOD-sp4): 40.6 % EF(MOD-sp2): 36.2 % EF(sp4-el): 41.8 % SV(MOD-sp4): 35.3 ml SV(MOD-sp2): 36.1 ml SV(sp4-el): 37.7 ml LA A4 area: 11.2 cm2 RA A4 area: 9.6 cm2 ECHO/Echo, Limited Study Interpretation Summary Normal LV size. The estimated ejection fraction is 30 %. There is moderate global hypokinesis of the left ventricle. Ordering Physician: Jeet Benavidez Referring Physician: Jeet Benavidez Performed By: Nimo Huffman RDCS
== END | disposition home or self-care (01) ==
LOC: CVS 09:13
PROVIDERS: PCP Family Medicine Geriatric Medicine; Referring Provider Nurse Practitioner Family; Visit Provider Nurse Practitioner Family
DX: I42.0 Dilated cardiomyopathy (principal); I10 Essential (primary) hypertension; E78.5 Hyperlipidemia, unspecified; Z95.0 Presence of cardiac pacemaker
CPT/HCPCS: 93308

== ENCOUNTER → 2024-04-29 | Outpatient (CLI) | payer MEDICARE, OTHER, SELFPAY ==
[2024-04-29 11:40] LABS: PSA,Total- Diagnostic 3.19 ng/mL (0.0-4.0)
== END | disposition home or self-care (01) ==
LOC: LAB 10:07
PROVIDERS: PCP Family Medicine Geriatric Medicine; Referring Provider Nurse Practitioner; Visit Provider Nurse Practitioner
DX: C61 Malignant neoplasm of prostate (principal)
CPT/HCPCS: 36415; 84153

== ENCOUNTER → 2024-05-17 | Outpatient (CLI) | payer MEDICARE, OTHER, SELFPAY ==
[2024-05-17 15:58] LABS: Absolute Lymphocyte Count 1.66 X10^3/uL (0.83-4.51); Absolute Neutrophil Count 3.3 X10^3/uL (2.0-7.7); Basophil# 0.02 X10^3/uL; Basophil% 0.3 % (0-1); Eosinophil# 0.06 X10^3/uL; Hematocrit 45.9 % (40-54); Hemoglobin 15.3 g/dL (13.0-16.5); Lymphocyte # 1.66 X10^3/ul (0.83-4.51); Lymphocyte % 28.4 % (19-41); Mean Corp Hgb Conc 33.3 g/dL (32-36); Mean Corpuscular Hgb 31.8 pg (27.0-32.0); Mean Corpuscular Volume 95.4 fL (80-94); Mean Platelet Vol. 9.1 fl (6.2-12.0); Monocyte# 0.75 X10^3/uL; Monocyte% 12.8 % (0-10); NRBC Flagged by Analyzer 0 % (0-5); Neutrophil # 3.34 X10^3/uL (2.7-7.7); Neutrophil % 57.3 % (47-70); Platelet Count 233 K/mm3 (150-450); RBC Distribution Width CV 13.7 % (11.6-14.6); RBC Distribution Width SD 48.5 fl (35.1-43.9); Red Blood Count 4.81 M/mm3 (4.6-6.2); White Blood Count 5.8 K/mm3 (4.4-11.0)
[2024-05-17 16:25] LABS: Vitamin D,25 Hydroxy 65.2 ng/mL
[2024-05-17 16:32] LABS: ALB/GLOB Ratio 1.2 RATIO (0.9-2.4); AST(SGOT) 26 U/L (15-37); Alanine Aminotransfer ALT/SGPT 33 U/L (16-61); Albumin, Serum 3.7 g/dL (3.2-5.0); Alkaline Phosphatase 139 U/L (45-117); Anion Gap 3 (5-15); BUN 12 mg/dL (7-18); BUN/Creat Ratio 11.7 RATIO (10-20); Calcium,Total 8.8 mg/dL (8.5-10.1); Chloride 103 mmol/L (98-107); Creatinine, Serum 1.03 mg/dL (0.70-1.30); EST Glomerular Filtration Rate 75 mL/min (>60); Est Glom Filt Rate - Afr Amer 91 mL/min (>60); Glucose 120 mg/dL (74-106); Potassium 3.9 mmol/L (3.5-5.1); Protein, Total 6.7 g/dL (6.4-8.2); Sodium Level 136 mmol/L (136-145); Thyroid Stim Hormone (TSH) 0.38 uIU/mL (0.358-3.74)
[2024-05-20 10:09] LABS: PROEL- A/G Ratio 1.8 (0.7-1.7); PROEL- Albumin 3.9 g/dL (2.9-4.4); PROEL- Alpha-1 Globulin 0.2 g/dL (0.0-0.4); PROEL- Alpha-2 Globulin 0.5 g/dL (0.4-1.0); PROEL- Beta Globulin 0.8 g/dL (0.7-1.3); PROEL- Gamma Globulin 0.8 g/dL (0.4-1.8); PROEL- Globulin, Total 2.2 g/dL (2.2-3.9); PROEL- TOTAL PROTEIN 6.1 g/dL (6.0-8.5); PROEL-M-Spike Not Observed g/dL (Not Observed); Total Protein, Ur 23.5 mg/dL (Not Estab.)
== END | disposition home or self-care (01) ==
LOC: POLAB3 14:47
PROVIDERS: PCP Family Medicine Geriatric Medicine; Visit Provider Family Medicine Geriatric Medicine
DX: Z01.89 Encounter for other specified special examinations (principal); E87.1 Hypo-osmolality and hyponatremia; I10 Essential (primary) hypertension; E55.9 Vitamin D deficiency, unspecified
CPT/HCPCS: 36415; 80053; 82306; 84165; 84166; 84443; 85025

== ENCOUNTER → 2024-05-26 | Outpatient (CLI) | payer MEDICARE, OTHER, SELFPAY ==
--- NOTE | 2024-05-26 08:49 | ECHOL_ITS ---
Reason For Study: CARDIOMYOPATHY Procedure This was a limited 2D transthoracic echocardiogram. Exam performed in department. Left Ventricle Normal LV size. Mild concentric left ventricular hypertrophy. The left ventricular ejection fraction is 45 %. Septal motion consistent with bundle branch block. Stage 1 diastolic dysfunction. No regional wall motion abnormalities noted. Right Ventricle Normal RV size. ICD or pacer leads identified within the right ventricle. Normal systolic function. Atria Normal left atrium. Normal right atrium. Mitral Valve Normal mitral valve. Tricuspid Valve Normal tricuspid valve. Mild (1+) tricuspid valve insufficiency. Pulmonary artery systolic pressure is 28 mmHg. Aortic Valve Normal aortic valve. Pulmonic Valve Normal pulmonic valve. Great Vessels Normal aortic root. The pulmonary artery is normal size. Inferior vena cava collapse with respiration. Pericardium/Pleural No pericardial effusion. MMode/2D Measurements & Calculations LVIDd: 4.4 cm IVSd: 1.4 cm LVOT diam: 2.0 cm LVIDs: 3.0 cm LVPWd: 1.2 cm LVOT area: 3.2 cm2 RVDd: 3.5 cm FS: 32.4 % Ao root diam: 3.2 cm LAV(MOD-bp): 25.8 ml LVAd ap4: 15.6 cm2 LAV(MOD-bp) Indexed: 14.1 ml/m2 LVLd ap4: 6.2 cm LAV(MOD-sp2): 31.3 ml EDV(MOD-sp4): 33.4 ml LAV(MOD-sp4): 16.2 ml EDV(sp4-el): 33.6 ml LVAs ap4: 11.1 cm2 LVLs ap4: 5.3 cm ESV(MOD-sp4): 19.6 ml ESV(sp4-el): 19.8 ml EF(MOD-sp4): 41.4 % EF(sp4-el): 41.2 % LVAd ap2: 13.4 cm2 SV(MOD-sp4): 13.8 ml SV(MOD-sp2): 11.6 ml LVLd ap2: 5.6 cm EDV(MOD-sp2): 26.6 ml EDV(sp2-el): 27.2 ml LVAs ap2: 9.2 cm2 LVLs ap2: 4.9 cm ESV(MOD-sp2): 15.0 ml ESV(sp2-el): 14.8 ml EF(MOD-sp2): 43.6 % SV(sp4-el): 13.8 ml LA dimension(2D): 3.3 cm LA A4 area: 8.8 cm2 RA A4 area: 9.0 cm2 Time Measurements MV dec time: 0.29 sec Doppler Measurements & Calculations MV E max sanchez: 39.7 cm/sec Lat Peak E' Sanchez: 7.8 cm/sec Med Peak E' Sanchez: 8.0 cm/sec MV A max sanchez: 55.9 cm/sec E/E' lat: 5.1 E/E' med: 5.0 MV E/A: 0.71 TR max sanchez: 252.5 cm/sec MV dec slope: 136.3 cm/sec2 TR max P.5 mmHg ECHO/Echo, Limited Study Interpretation Summary Normal LV size. The left ventricular ejection fraction is 45 %. Septal motion consistent with bundle branch block. Stage 1 diastolic dysfunction. Compared to previous study, the left ventricular systolic function has improved .. Ordering Physician: Jeet Benavidez Referring Physician: Gee Almonte Chi Performed By: Magalie Paz RDCS
== END | disposition home or self-care (01) ==
LOC: CVS 08:49
PROVIDERS: PCP Family Medicine Geriatric Medicine; Referring Provider Nurse Practitioner Family; Visit Provider Nurse Practitioner Family
DX: I49.3 Ventricular premature depolarization (principal); I42.8 Other cardiomyopathies; Z95.0 Presence of cardiac pacemaker
CPT/HCPCS: 93308

== ENCOUNTER → 2024-09-13 | Outpatient (CLI) | payer MEDICARE, OTHER, SELFPAY ==
--- NOTE | 2024-09-13 12:56 | CT_ITS ---
STUDY: LOW DOSE CT LUNG CANCER SCREENING REASON FOR EXAM: Male, 74 years old. Smoker. Patient smoked 1 pack per day for 55 years. RADIATION DOSAGE (If Supplied By Facility): CTDIvol = ( 1.59 ) mGy, DLP = ( 56.39 ) mGycm TECHNIQUE: No contrast was administered. Low dose technique was utilized (average mAS-38 and kVp 120). 1.25 mm axial source images with a slice interval of 1.25-mm were reconstructed in lung windows. 2.5 mm axial source images with a slice interval of 2.5-mm were reconstructed in lung windows. 5.0 mm axial source images with a slice interval of 5.0-mm were reconstructed in soft tissue windows. COMPARISON: Comparison is made with prior study dated September 21, 2023. NODULES: There is an 8.4 mm calcified granuloma in the left lung apex. Emphysema: Emphysematous changes. No suspicious nodules are seen. Endobronchial lesion: None Aorta: Atherosclerotic plaque formation. CORONARY ARTERIES: Coronary artery calcification is seen. Heart: Dual-chamber pacemaker is seen. Pulmonary artery: Unremarkable Mediastinal nodes: Unremarkable Other chest and abdominal findings: CT/Low Dose CT Lung Screening IMPRESSION: Lung-RADS category 3 - Continue screening with LDCT in 6 months. IMPORTANT NOTES FOR USE: ACR Lung-RADS Version 1.1 Assessment Categories Release Date: 2018 Category: Coded 0-4 bases on nodule(s) with highest degree of suspicion. Negative screen is defined as categories 1 and 2; a positive screen is defined as categories 3 and 4. Category 3 and 4A nodules that are unchanged on interval CT should be coded as category 2, and individuals returned to screening in 12 months. Category 4X: Category 3 or 4 nodules with additional imaging findings that increase the suspicion of lung cancer, such as spiculation, GGN that doubles in size in 1 year, enlarged lymph notes, etc. Category Modifiers: S (significant finding unrelated to lung cancer) Electronically Signed: Ramirez Fair MD at 15:31 EST ,
== END | disposition home or self-care (01) ==
LOC: CT 12:56
PROVIDERS: PCP Family Medicine Geriatric Medicine; Referring Provider Nurse Practitioner Acute Care; Visit Provider Nurse Practitioner Acute Care
DX: F17.210 Nicotine dependence, cigarettes, uncomplicated (principal)
CPT/HCPCS: 71271

== ENCOUNTER → 2024-09-30 | Outpatient (CLI) | payer MEDICARE, OTHER, SELFPAY | END | disposition home or self-care (01) | LOC: POLAB3 14:46 | PROVIDERS: PCP Family Medicine Geriatric Medicine; Visit Provider Family Medicine Geriatric Medicine | DX: R68.83 Chills (without fever) (principal) ==

== ENCOUNTER → 2024-10-25 | Outpatient (CLI) | payer MEDICARE, OTHER, SELFPAY | END | disposition home or self-care (01) | LOC: POLAB3 14:14 | PROVIDERS: PCP Family Medicine Geriatric Medicine; Visit Provider Family Medicine Geriatric Medicine | DX: R68.83 Chills (without fever) (principal) | CPT/HCPCS: 87631 ==

== ENCOUNTER → 2024-11-16 | Outpatient (CLI) | payer MEDICARE, OTHER, SELFPAY ==
[2024-11-16 10:31] LABS: Absolute Lymphocyte Count 1.62 X10^3/uL (0.83-4.51); Absolute Neutrophil Count 6.8 X10^3/uL (2.0-7.7); Basophil# 0.07 X10^3/uL; Basophil% 0.7 % (0-1); Eosinophil# 0.06 X10^3/uL; Eosinophils% 0.6 % (0-5); Hematocrit 51.3 % (40-54); Hemoglobin 17.1 g/dL (13.0-16.5); Lymphocyte # 1.62 X10^3/ul (0.83-4.51); Mean Corp Hgb Conc 33.3 g/dL (32-36); Mean Corpuscular Hgb 32.5 pg (27.0-32.0); Mean Corpuscular Volume 97.5 fL (80-94); Mean Platelet Vol. 9.5 fl (6.2-12.0); Monocyte# 0.88 X10^3/uL; Monocyte% 9.3 % (0-10); NRBC Flagged by Analyzer 0 % (0-5); Neutrophil # 6.83 X10^3/uL (2.7-7.7); Neutrophil % 71.9 % (47-70); Platelet Count 194 K/mm3 (150-450); RBC Distribution Width CV 13.4 % (11.6-14.6); RBC Distribution Width SD 48.3 fl (35.1-43.9); Red Blood Count 5.26 M/mm3 (4.6-6.2); White Blood Count 9.5 K/mm3 (4.4-11.0)
[2024-11-16 10:43] LABS: Vitamin D,25 Hydroxy 59.3 ng/mL
[2024-11-16 10:55] LABS: ALB/GLOB Ratio 1.1 RATIO (0.9-2.4); AST(SGOT) 20 U/L (15-37); Alanine Aminotransfer ALT/SGPT 62 U/L (16-61); Albumin, Serum 3.5 g/dL (3.2-5.0); Alkaline Phosphatase 94 U/L (45-117); Anion Gap 5 (5-15); BUN 18 mg/dL (7-18); BUN/Creat Ratio 15.3 RATIO (10-20); Calcium,Total 9.3 mg/dL (8.5-10.1); Chloride 101 mmol/L (98-107); Creatinine, Serum 1.18 mg/dL (0.70-1.30); EST Glomerular Filtration Rate 64 mL/min (>60); Est Glom Filt Rate - Afr Amer 77 mL/min (>60); Globulin 3.1 g/dL (2.2-4.2); Glucose 247 mg/dL (74-106); Potassium 3.7 mmol/L (3.5-5.1); Protein, Total 6.6 g/dL (6.4-8.2); Sodium Level 138 mmol/L (136-145); Thyroid Stim Hormone (TSH) 0.636 uIU/mL (0.358-3.740)
== END | disposition home or self-care (01) ==
LOC: POLAB3 09:21
PROVIDERS: PCP Family Medicine Geriatric Medicine; Visit Provider Family Medicine Geriatric Medicine
DX: I10 Essential (primary) hypertension (principal); E55.9 Vitamin D deficiency, unspecified
CPT/HCPCS: 36415; 80053; 82306; 84443; 85025

== ENCOUNTER → 2025-01-31 | Outpatient (CLI) | payer MEDICARE, OTHER, SELFPAY | END | disposition home or self-care (01) | LOC: POLAB3 16:31 | PROVIDERS: PCP Family Medicine Geriatric Medicine; Visit Provider Family Medicine Geriatric Medicine | DX: R68.83 Chills (without fever) (principal) | CPT/HCPCS: 87631 ==

== ENCOUNTER → 2025-03-30 | Outpatient (CLI) | payer MEDICARE, OTHER, SELFPAY ==
--- NOTE | 2025-03-30 13:56 | ECHOCS_ITS ---
Reason For Study Reason For Study: Dilated Cardiomyopathy Procedure This was a 2D Doppler, Color Flow transthoracic echocardiogram. The study was technically difficult. Contrast injection was performed. Exam performed in department. Left Ventricle Normal LV size. The left ventricular ejection fraction is 45 %. Stage 1 diastolic dysfunction. There is mild global hypokinesis of the left ventricle. Right Ventricle Normal RV size. Normal systolic function. Atria Normal left atrium. Normal right atrium. Tricuspid Valve Normal tricuspid valve. Mild (1+) tricuspid valve insufficiency. Pulmonary artery systolic pressure is 34 mmHg. Aortic Valve The aortic valve is not well visualized. Great Vessels Normal aortic root. Pericardium/Pleural No pericardial effusion. Medication 22 gauge I.V. with prn adaptor inserted into right arm. Diluted definity 4ml given slow IV push to enhance endocardial definition. MMode/2D Measurements & Calculations LVIDd: 4.6 cm IVSd: 1.1 cm Ao root diam: 3.4 cm LVIDs: 4.0 cm LVPWd: 0.94 cm FS: 14.5 % LAV(MOD-bp): 24.6 ml LVAd ap4: 22.9 cm2 SV(MOD-sp4): 24.4 ml LAV(MOD-bp) Indexed: 13.9 ml/m2 LVLd ap4: 6.8 cm SI(MOD-sp4): 13.8 ml/m2 LAV(MOD-sp2): 21.4 ml EDV(MOD-sp4): 63.6 ml LAV(MOD-sp4): 24.3 ml EDV(sp4-el): 65.1 ml LVAs ap4: 17.3 cm2 LVLs ap4: 6.4 cm ESV(MOD-sp4): 39.3 ml ESV(sp4-el): 40.0 ml EF(MOD-sp4): 38.3 % EF(sp4-el): 38.7 % SV(sp4-el): 25.2 ml LA dimension(2D): 3.1 cm LA A4 area: 10.7 cm2 RA A4 area: 11.4 cm2 TAPSE: 1.6 cm Time Measurements MV dec time: 0.31 sec Doppler Measurements & Calculations MV E max sanchez: 35.7 cm/sec Lat Peak E' Sanchez: 6.1 cm/sec Med Peak E' Sanchez: 4.8 cm/sec MV A max sanchez: 61.8 cm/sec E/E' lat: 5.8 E/E' med: 7.4 MV E/A: 0.58 MV V2 max: 73.0 cm/sec MV P1/2t max sanchez: 33.4 cm/sec Ao V2 max: 98.7 cm/sec MV max P.1 mmHg MV P1/2t: 90.7 msec Ao max P.9 mmHg MV V2 mean: 29.3 cm/sec Ao V2 mean: 68.2 cm/sec MV mean P.44 mmHg MV dec slope: 107.9 cm/sec2 Ao mean P.1 mmHg MV V2 VTI: 19.2 cm MVA(P1/2t): 2.4 cm2 Ao V2 VTI: 16.2 cm AV (velocity ratio): 0.86 AI max sanchez: 361.1 cm/sec LV V1 max: 78.8 cm/sec PA V2 max: 102.7 cm/sec AI max P.1 mmHg LV V1 max P.5 mmHg LV V1 mean P.3 mmHg AI dec slope: 104.4 cm/sec2 LV V1 mean: 53.7 cm/sec AI P1/2t: 1013 msec LV V1 VTI: 14.0 cm TR max sanchez: 278.3 cm/sec TR max P.0 mmHg ECHO/Echo Complete W/ Contrast Interpretation Summary Normal LV size. The left ventricular ejection fraction is 45 %. Stage 1 diastolic dysfunction. Contrast injection was performed. Ordering Physician: Aaron^Cheo^^^ Referring Physician: Cheo Walker Performed By: Viraj Swenson RCS
== END | disposition home or self-care (01) ==
LOC: CVS 13:55
PROVIDERS: PCP Family Medicine Geriatric Medicine; Referring Provider Internal Medicine Cardiovascular Disease; Visit Provider Internal Medicine Cardiovascular Disease
DX: I42.8 Other cardiomyopathies (principal)
CPT/HCPCS: 93306; Q9957; A4216; C8929

== ENCOUNTER → 2025-04-20 | Outpatient (CLI) | payer MEDICARE, OTHER, SELFPAY ==
[2025-04-20 12:06] LABS: Anion Gap 11 (5-15); BUN 18 mg/dL (4-19); BUN/Creat Ratio 17.4 RATIO (10-20); Calcium,Total 9.2 mg/dL (7.6-11.0); Chloride 95 mmol/L (98-108); Creatinine, Serum 1.06 mg/dL (0.70-1.20); EST Glomerular Filtration Rate 73 (>60); Glucose 213 mg/dL (70-99); Potassium 3.7 mmol/L (3.3-5.1); Sodium Level 134 mmol/L (133-145)
== END | disposition home or self-care (01) ==
LOC: LAB 10:49
PROVIDERS: PCP Family Medicine Geriatric Medicine; Referring Provider Student in an Organized Health Care Education/Training Program; Visit Provider Student in an Organized Health Care Education/Training Program
DX: I42.8 Other cardiomyopathies (principal)
CPT/HCPCS: 36415; 80048

== ENCOUNTER → 2025-05-05 | Outpatient (CLI) | payer MEDICARE, OTHER, SELFPAY ==
[2025-05-05 13:22] LABS: PSA,Total - Annual Screen 1.72 ng/mL (0.02-4.00)
== END | disposition home or self-care (01) ==
LOC: LAB 10:22
PROVIDERS: PCP Family Medicine Geriatric Medicine; Referring Provider Nurse Practitioner; Visit Provider Nurse Practitioner
DX: Z12.5 Encounter for screening for malignant neoplasm of prostate (principal)
CPT/HCPCS: 36415; 84153; G0103

== ENCOUNTER → 2025-05-18 | Outpatient (CLI) | payer MEDICARE, OTHER, SELFPAY ==
[2025-05-18 10:18] LABS: Hematocrit 41.3 % (40-54); Hemoglobin 14.0 g/dL (13.0-16.5); Immature Granulocytes Count 0.030 X10^3/uL (0.0-0.0); Mean Corp Hgb Conc 33.9 g/dL (32-36); Mean Corpuscular Volume 99.0 fL (80-94); Mean Platelet Vol. 8.8 fl (6.2-12.0); NRBC Flagged by Analyzer 0 % (0-5); Platelet Count 234 K/mm3 (150-450); RBC Distribution Width CV 13.8 % (11.6-14.6); RBC Distribution Width SD 50.3 fl (35.1-43.9); Red Blood Count 4.17 M/mm3 (4.6-6.2); White Blood Count 6.6 K/mm3 (4.4-11.0)
[2025-05-18 12:27] LABS: AST(SGOT) 40 U/L (<=37); Alanine Aminotransfer ALT/SGPT 44 U/L (<=46); Albumin, Serum 4.1 g/dL (3.4-4.8); Alkaline Phosphatase 96 U/L (40-129); Anion Gap 13 (5-15); BUN 11 mg/dL (4-19); BUN/Creat Ratio 10.0 RATIO (10-20); Calcium,Total 9.0 mg/dL (7.6-11.0); Carbon Dioxide 24.3 mmol/L (21.0-32.0); Chloride 96 mmol/L (98-108); Globulin 2.3 g/dL (2.2-4.2); Glucose 203 mg/dL (70-99); Potassium 3.5 mmol/L (3.3-5.1); Vitamin D,25 Hydroxy 84.7 ng/mL (30-100)
[2025-05-20 16:09] LABS: PROEL- A/G Ratio 1.5 (0.7-1.7); PROEL- Albumin 3.7 g/dL (2.9-4.4); PROEL- Alpha-1 Globulin 0.2 g/dL (0.0-0.4); PROEL- Alpha-2 Globulin 0.6 g/dL (0.4-1.0); PROEL- Beta Globulin 0.8 g/dL (0.7-1.3); PROEL- Gamma Globulin 0.7 g/dL (0.4-1.8); PROEL- Globulin, Total 2.4 g/dL (2.2-3.9); PROEL- TOTAL PROTEIN 6.1 g/dL (6.0-8.5); PROEL-M-Spike Not Observed g/dL (Not Observed); PROELU- Albumin, Urine 40.9 % (.); PROELU- Alpha-1-Globulin,Ur 3.4 % (.); PROELU- Alpha-2-Globulin,Ur 22.7 % (.); PROELU- Beta Globulin, Ur 24.4 % (.); PROELU- Gamma Globulin, Ur 8.6 % (.); Total Protein, Ur 4.5 mg/dL (Not Estab.)
== END | disposition home or self-care (01) ==
LOC: POLAB3 10:02
PROVIDERS: PCP Family Medicine Geriatric Medicine; Visit Provider Family Medicine Geriatric Medicine
DX: D47.2 Monoclonal gammopathy (principal); I10 Essential (primary) hypertension; E55.9 Vitamin D deficiency, unspecified
CPT/HCPCS: 36415; 80053; 82306; 84165; 84166; 84443; 85025

== ENCOUNTER → 2025-09-23 | Outpatient (CLI) | payer MEDICARE, OTHER, SELFPAY ==
--- NOTE | 2025-09-23 16:02 | CT_ITS ---
PROCEDURE: LOW DOSE CT LUNG SCREENING 09/23/2025 REASON FOR EXAM: SMOKER TECHNIQUE: Procedure Code: [id number] Modality: CT Procedure: LOW DOSE CT LUNG SCREENING Coronal and Sagittal reconstruction series were provided. One or more dose reduction techniques were used (e.g., Automated exposure control, adjustment of the mA and/or kV according to patient size, use of iterative reconstruction technique). REFERENCE LINK: [facility] Lung-RADS COMPARISON: CT chest 09/13/2024 FINDINGS: PULMONARY NODULES: (Only nodules >3mm are reported) Nodules described below are on series to unless otherwise specified. Pulmonary Nodules: Stable 8.5 mm calcified granuloma in the left lung apex (image 38 of [id number]). Hardware:Left-sided pacemaker again noted. Lymph Nodes:No enlarged mediastinal, hilar, or axillary lymph nodes. Heart and Vasculature:Nonenlarged. No pericardial effusion.Atherosclerotic calcifications of the thoracic aorta. Thoracic aorta and pulmonary arteries have normal contours; noncontrast technique limits evaluation. Coronary Artery Calcifications: Lungs and Airways: Mild emphysematous changes are present. Airways are patent Pleura:No pleural effusion or pneumothorax. Upper Abdomen:Unremarkable. Bones:Degenerative changes of the thoracic spine. No acute fractures. CT/Low Dose CT Lung Screening IMPRESSION: Stable 8.5 mm calcified granuloma in the left lung apex. Lung-RADS Category: 2 BENIGN (BASED ON IMAGING FEATURES OR INDOLENT BEHAVIOR). RECOMMEND 12-MONTH SCREENING LDCT. Reading [facility]
--- OUTSIDE RECORDS SUMMARY | 2025-09-23 17:51 | XMS RPT_ITS | CCD ---
Author Organization [facility] CliniSyal Care Team Providers Care Winder Helper Name Role Phone Dr. Gee Garza Chi Primary Care Provider Dr. Cheo Walker Attending Provider Dr. Cheo Walker Referring Provider Dr. Gee Garza Chi Referring Provider Bull BLACKING MACHINE OPERATOR, BLACKING MACHINE OPERATOR-C Ora Attending Provider Karol Miranda Attending Provider Unavailable Gage, Dr. Gee Mcgarry Primary Care Provider Gage, Dr. Gee Mcgarry Referring Provider Dr. Ceho Walker Attending Provider Bull BLACKING MACHINE OPERATOR, BLACKING MACHINE OPERATOR-C Ora Attending Provider Gage, Dr. Gee Mcgarry Primary Care Provider Gage, Dr. Gee Mcgarry Referring Provider Dr. Cheo Walker Attending Provider Karol Miranda Attending Provider Unavailable Dr. Gee Garza Chi Primary Care Provider Gage, Dr. Gee Mcgarry Referring Provider Dr. Cheo Walker Attending Provider Dr. Gee Garza Chi Primary Care Provider Dr. Orville Chan Emergency Provider Dr. Krystyna Cortes Admit Provider Dr. Krystyna Cortes Attending Provider Dr. Krystyna Cortes Other Provider Dr. Lurdes Higginbotham Attending Provider Dr. Lurdes Higginbotham Other Provider Dr. Peterson Daily Attending Provider Unavailable Dr. Peterson Daily Other Provider Unavailable Dr. Cheo Walker Attending Provider [phone] Cheo Walker Referring Provider [phone] Gee Garza Chi Primary Care Provider Aaron, Dr. Grider Attending Provider [phone] Gage, Dr. Gee Mcgarry Referring Provider Roof BLACKING MACHINE OPERATOR, BLACKING MACHINE OPERATOR-C Jeet Garrison Attending Provider Dr. Oj Santiago Attending Provider Dr. Oj Santiago Referring Provider Dr. Oj Santiago Other Provider Browne BLACKING MACHINE OPERATOR, BLACKING MACHINE OPERATOR-C Nicki Attending Provider [phone] GAGE SPAULDING, DR MELARA Primary Care Physician LINDY SPAULDING, LUCIANA Sevilla Attending Unavailable GAGE SPAULDING, DR MELARA Primary Care Unavailable SYBIL SPAULDING, MARIJA Coronel Consulting Unavailable LINDY SPAULDING, LUCIANA Sevilla Admitting Unavailable Gage SPAULDING, Dr. Gee Mcgarry Primary Care Provider Gage SPAULDING, Dr. Gee Mcgarry Attending Provider [phone] Cheo Walker MD Attending Provider [phone] Gage SPAULDING, Dr. Gee Mcgarry Primary Care Provider [phone] [phone] Aaron SPAULDING, Dr. Grider Attending Provider Gage SPAULDING, Dr. Gee Mcgarry Attending Provider Gage SPAULDING, Dr. Gee Mcgarry Referring Provider Dr. Cheo Walker MD Referring Provider Gage SPAULDING, Dr. Gee Mcgarry Primary Care Provider [phone] Aaron SPAULDING, Dr. Grider Attending Provider Jad Collazo Attending Provider Jad Collazo Referring Provider [phone] Gage SPAULDING, Dr. Gee Mcgarry Primary Care Provider [phone] Aaron SPAULDING, Dr. Grider Attending Provider Costa, Nikia Attending Provider Costa, Nikia Referring Provider Gage SPAULDING, Dr. Gee Mcgarry Primary Care Physician Aaron SPAULDING, Dr. Grider Attending Physician Jad Collazo Attending Physician [phone] Costa, Nikia Attending Physician [phone] Gage SPAULDING, Dr. Gee Mcgarry Attending Physician Gage SPAULDING, Dr. Gee Mcgarry Primary Care Physician Aaron SPAULDING, Dr. Grider Attending Physician Gage, Gee Chi Primary Care Unavailable Aaron, Cheo Attending Unavailable Gage, Gee Chi Primary Care Unavailable Aaron, Cheo Attending Unavailable Gage, Gee Chi Primary Care Unavailable Aaron, Cheo Attending Unavailable Gage, Gee Chi Primary Care Unavailable Aaron, [facility] Attending Unavailable Gage, Gee Chi Primary Care Unavailable Gage, Gee Chi Attending Unavailable Gage, Gee Chi Primary Care Unavailable Aaron, [facility] Attending Unavailable Gage, Gee Chi Primary Care Unavailable Aaron, [facility] Attending Unavailable Gage, Gee Chi Primary Care Unavailable Aaron, [facility] Attending Unavailable Gage, Gee Chi Primary Care Unavailable Aaron, [facility] Attending Unavailable Gage, Gee Chi Primary Care Unavailable Aaron, Cheo Attending Unavailable Gage, Gee Chi Primary Care Unavailable Aaron, Cheo Attending Unavailable Aaron, [facility] Referring Unavailable Gage, Gee Chi Attending Unavailable Gage, Gee Chi Primary Care Unavailable Gage, Gee Chi Primary Care Unavailable Gage, Gee Chi Attending Unavailable Gage, Gee Chi Primary Care Unavailable Gage, Gee Chi Attending Unavailable Gage, Gee Chi Primary Care Unavailable Aaron, Cheo Attending Unavailable Gage, Gee Chi Primary Care Unavailable Aaron, [facility] Attending Unavailable Gage, Gee Chi Attending Unavailable Gage, Gee Chi Primary Care Unavailable Costa, Nikia Referring Unavailable Costa, Nikia Attending Unavailable Gage, Gee Chi Primary Care Unavailable Browne BLACKING MACHINE OPERATOR, Nicki Referring Unavailable Pavan BLACKING MACHINE OPERATOR, Nicki Attending Unavailable Gage, Gee Chi Primary Care Unavailable Demiter, Jad Referring Unavailable Demiter, Jad Attending Unavailable Gage, Gee Chi Primary Care Unavailable Gage, Gee Chi Primary Care Unavailable Gage, Gee Chi Referring Unavailable Aaron, [facility] Attending Unavailable Gage, Gee Chi Primary Care Unavailable Aaron, [facility] Attending Unavailable Gage, Gee Chi Referring Unavailable Gage, Gee Chi Primary Care Unavailable Aaron, Cheo Attending Unavailable Gage, Gee Chi Primary Care Unavailable Aaron, [facility] Attending Unavailable Gage, Gee Chi Primary Care Unavailable Aaron, Cheo Attending Unavailable Gage, Gee Chi Primary Care Unavailable Aaron, Cheo Attending Unavailable Aaron, Cheo Attending Unavailable Gage, Gee Chi Primary Care Unavailable Allergies Allergy Classification Reported Allergen(s) Allergy Type Date of Onset Reaction(s) Facility (10 sources) oxyCODONE; Translations: [oxycodone] Drug Allergy 4 disoriented, Unknown [facility] (1 source) oxyCODONE Drug Allergy 5 [facility] Repository Medications Current Medications Medication Drug Class(es) Dates Sig (Normalized) Sig (Original) acetaminophen 325 mg oral tablet (18 sources) Start: 09-25-2023 Start: 09-25-2023 take 650 mg by mouth every six hours as needed Acetaminophen Active 650 MG PO EVERY 6 HOURS NEEDED 0 September 25, 2023 12:00am aspirin 81 mg delayed release oral tablet (19 sources) Platelet Aggregation Inhibitor, Nonsteroidal Anti-inflammatory Drug Start: 09-21-2023 atorvastatin 10 mg oral tablet (20 sources) HMG-CoA Reductase Inhibitor Start: 12-20-2021 take 1 tablet by mouth at bedtime calcium carbonate 1500 mg oral tablet (18 sources) Start: 09-21-2023 take 1 tablet by mouth once daily calcium carbonate 1500 mg / cholecalciferol 800 unt oral tablet (1 source) Vitamin D Start: 01-07-2024 take 1 tablet by mouth once daily Caltrate 600 + D oral tablet Dose = 1 tab(s), Oral, Daily, # 60 tab(s), 0 Refill(s) Start Date: 01/07/24 Status: Ordered carvedilol 25 mg oral tablet (20 sources) alpha-Adrenergic Sandra, beta-Adrenergic Sandra Start: 01-07-2024 carvedilol 25 mg oral tablet Dose : 12.5 mg = 0.5 tab(s), BID, 0 Refill(s) Start Date: 01/07/24 Status: Ordered Start: 12-18-2023 take 1 tablet by eliel th twice daily Start: 11-20-2023 End: 12-18-2023 take 6.25 mg by mouth twice daily Carvedilol 12.5 mg tablet Discontinued 6.25 mg PO TWICE A DAY 60 0 November 20, 2023 6:12pm December 18, 2023 3:50pm Start: 11-20-2023 End: 12-18-2023 take 6.25 mg by mouth twice daily Carvedilol Discontinued 6.25 MG PO TWICE A DAY 60 November 20, 2023 5:12pm December 18, 2023 2:50pm Start: 09-25-2023 End: 11-20-2023 take 1 tablet by mouth twice daily Carvedilol 12.5 mg Tablet Discontinued 12.5 mg PO TWICE A DAY 120 60 0 September 25, 2023 1:00am November 20, 2023 6:13pm Start: 02-22-2019 End: 09-25-2023 take 1 tablet by mouth once daily Carvedilol 25 mg tablet Discontinued 25 mg PO DAILY 90 90 0 December 20, 2021 11:43am September 25, 2023 12:40pm blood pressure Start: 02-22-2019 End: 12-20-2021 Carvedilol 25 mg tablet Disc ontinued PO 90 90 0 February 22, 2019 12:00am December 20, 2021 11:44am Start: 02-22-2019 End: 12-20-2021 Carvedilol Discontinued PO 9 0 90 February 21, 2019 11:00pm December 20, 2021 10:44am Centrum Silver oral tablet (1 source) Start: 01-07-2024 take 1 tablet by mouth once daily Centrum Silver oral tablet Dose = 1 tab(s), Oral, qDay, # 30 tab(s), 0 Refill(s) Start Date: 01/07/24 Status: Ordered dapagliflozin 10 mg oral tablet (20 sources) Sodium-Glucose Cotransporter 2 Inhibitor Start: 09-25-2023 End: 10-23-2023 take 1 tablet by mouth once daily furosemide 40 mg oral tablet (20 sources) Loop Diuretic Start: 07-25-2025 take 1 tablet by mouth once daily Start: 12-01-2024 End: 07-25-2025 take 1 tablet by mouth twice daily Furosemide 40 mg tablet Discontinued 40 mg PO TWICE A DAY 180 December 24, 2024 1:00pm July 25, 2025 12:44pm this is dose increase Start: 04-16-2024 End: 12-01-2024 Furosemide 40 mg tablet Disc ontinued 20 mg PO TWICE A DAY 90 November 11, 2024 12:06pm December 01, 2024 5:08pm Start: 01-07-2024 furosemide 20 mg oral tablet Dose : 20 mg = 1 tab(s), Oral, BID, 0 Refill(s) Start Date: 01/07/24 Status: Ordered Start: 01-01-2024 End: 04-16-2024 take 1 tablet by mouth once daily Furosemide 40 mg tablet Discontinued 40 mg PO DAILY 90 January 19, 2024 4:46pm April 16, 2024 1:59pm Start: 09-25-2023 End: 01-01-2024 take 1 tablet by mouth once daily Furosemide (Lasix) 20 mg tablet Discontinued 20 mg PO DAILY 90 October 23, 2023 3:16pm January 01, 2024 9:39am Mv,Ca,Esp-Xtyj-Kx-Lycopene ( Centrum Men) 8 mg iron- 200 mcg-600 mcg tablet (18 sources) Start: 09-21-2023 take 8 tablets by mouth once daily Start: 09-21-2023 take 8 tablets by [facility] once daily Mv,Ca,Jav-Jptk-Sc-Lycopene (Centrum Men) 8 mg iron- 200 mcg-600 mcg tablet Active 1 {tbl} PO DAILY September 21, 2023 1:00am Start: 09-21-2023 Mv,Ca,Min-Iron -Fa-Lycopene (Centrum Men) 8 mg iron- 200 mcg-600 mcg tablet Active 1 TABLET PO DAILY September 21, 2023 12:00am sacubitril / valsartan (20 sources) Angiotensin 2 Receptor Sandra Start: 03-03-2025 Start: 03-03-2025 Sacubitril-Bernadine sartan (Entresto) 24-26 mg tablet Active 1 {tbl} PO TWICE A DAY March 03, 2025 12:00am Start: 05-27-2024 End: 03-03-2025 Sacubitril-Valsartan (Entres to) 49-51 mg tablet Discontinued 1 {tbl} PO TWICE A DAY 60 May 27, 2024 12:00am March 03, 2025 2:37pm Start: 11-14-2023 End: 05-27-2024 Sacubitril-Valsartan (Entres to) 24-26 mg tablet Discontinued 1 {tbl} PO TWICE A DAY November 14, 2023 1:00am May 27, 2024 4:20pm Start: 10-23-2023 take 1 tablet by eliel twice daily Sacubitril-Valsartan (Entresto) 49-51 mg tablet Active 1 TABLET PO TWICE A DAY 60 October 23, 2023 12:00am Start: 09-25-2023 End: 10-23-2023 Sacubitril-Valsartan (Entres to) 24-26 mg tablet Discontinued 1 {tbl} PO TWICE A DAY 60 September 25, 2023 5:28pm October 23, 2023 3:16pm spironolactone 25 mg oral tablet (7 sources) Aldosterone Antagonist Start: 2025 take 1 tablet by mouth once daily traMADol hydrochloride 50 mg oral tablet (19 sources) Opioid Agonist Start: 09-25-2023 take 1 tablet by mouth every six hours as needed for pain Vitamin D3 50 mcg (2000 intl units) oral capsule (1 source) Start: 02-09-2024 Vitamin D3 50 mcg (2000 intl units) oral capsule Dose : 50 mcg = 1 cap(s), Oral, Daily, 0 Refill(s) Start Date: 02/09/24 Status: Ordered Completed/Discontinued Medications Medication Drug Class(es) Dates Sig (Normalized) Sig (Original) albuterol 0.833 mg/ml / ipratropium bromide 0.167 mg/ml inhalation solution (20 sources) Anticholinergic, beta2-Adrenergic Agonist Start: 12-23-2023 End: 03-21-2025 take 1 mL by inhalation every six hours as needed for wheezing Ipratropium-Albutero l 0.5 mg-3 mg(2.5 mg base)/3 mL solution for nebulization Discontinued 3 mL INHALATION EVERY 6 HOURS as needed for shortness of breath or wheezing 180 12 March 17, 2025 11:52am March 21, 2025 10:01am Chronic obstructive pulmonary disease Centrilobular emphysema Start: 12-23-2023 take 1 mL by inhalat ion every six hours Ipratropium-Albuterol Active 3 ML INHALATION EVERY 6 HOURS 180 December 23, 2023 1:49pm Start: 09-22-2023 End: 12-23-2023 take 1 mL by inhalation every four hours as needed for wheezing Ipratropium-Albuterol 0.5 mg-3 mg(2.5 mg base)/3 mL Solution For Nebulization Discontinued 3 mL INHALATION EVERY 4 HOURS NEEDED as needed for shortness of breath or wheezing 180 0 September 22, 2023 2:20pm December 23, 2023 2:49pm Start: 09-22-2023 End: 12-23-2023 take 1 mL by inhalation every four hours as needed Ipratropium-Albuterol Discontinued 3 ML INHALATION EVERY 4 HOURS NEEDED 180 September 22, 2023 1:20pm December 23, 2023 1:49pm apixaban 5 mg oral tablet (19 sources) Factor Xa Inhibitor Start: 07-15-2023 End: 09-21-2023 take 1 tablet by mouth twice daily Apixaban (Eliquis) 5 mg tablet Discontinued 5 mg PO TWICE A DAY 60 July 15, 2023 12:00am September 21, 2023 9:34am Start AFTER Surgery on Friday07/18/23 azithromycin 250 mg oral tablet (20 sources) Macrolide Antimicrobial Start: 02-22-2019 End: 12-20-2021 Azithromycin 250 mg tablet Discontinued 250 mg PO daily 6 February 22, 2019 12:00am December 20, 2021 11:43am 2 tablets today, then 1 tablet daily on days 2 through 5 ciprofloxacin 500 mg oral tablet (12 sources) Quinolone Antimicrobial Start: 12-17-2023 End: 12-23-2023 take 1 tablet by mouth twice daily Ciprofloxacin Hcl (Cipro) 500 mg tablet Discontinued 500 mg PO TWICE A DAY 10 December 17, 2023 1:00am December 23, 2023 10:09am lisinopril 5 mg oral tablet (20 sources) Angiotensin Converting Enzyme Inhibitor Start: 02-22-2019 End: 09-25-2023 take 1 tablet by mouth once daily Lisinopril 5 mg tablet Discontinued 5 mg PO DAILY September 25, 2023 1:00am September 25, 2023 5:28pm Start: 02-22-2019 End: 12-20-2021 Lisinopril 5 mg tablet Disco ntinued PO 90 90 0 February 22, 2019 12:00am December 20, 2021 11:44am meloxicam 15 mg oral tablet (20 sources) Nonsteroidal Anti-inflammatory Drug Start: 09-21-2023 End: 09-25-2023 take 1 tablet by mouth once daily Meloxicam 15 mg tablet Discontinued 15 mg PO DAILY September 21, 2023 1:00am September 25, 2023 12:40pm Start: 02-22-2019 End: 04-22-2023 take 1 tablet by mouth once daily Meloxicam 15 mg tablet Discontinued 15 mg PO DAILY 90 90 0 December 20, 2021 11:44am April 22, 2023 9:33am arthritis Start: 02-22-2019 End: 12-20-2021 Meloxicam 15 mg tablet Disco ntinued PO 90 90 0 February 22, 2019 12:00am December 20, 2021 11:44am predniSONE 20 mg oral tablet (20 sources) Start: 02-22-2019 End: 12-20-2021 take 1 tablet by mouth once daily Prednisone 20 mg tablet Discontinued 20 mg PO DAILY 5 0 February 22, 2019 12:00am December 20, 2021 11:44am SUMAtriptan 100 mg oral tablet (18 sources) Serotonin-1b and Serotonin-1d Receptor Agonist Start: 09-21-2023 End: 09-25-2023 take 1 tablet by mouth once daily as needed for headache Sumatriptan Succinate 100 mg tablet Discontinued 100 mg PO DAILY as needed for CLUSTER HEADACHES September 21, 2023 1:00am September 25, 2023 12:41pm tamsulosin hydrochloride 0.4 mg oral capsule (19 sources) alpha-Adrenergi c Sandra Start: 09-25-2023 End: 04-16-2024 take 1 capsule by mouth once daily Tamsulosin 0.4 mg Capsule Discontinued 0.4 mg PO DAILY@1730 60 60 0 September 25, 2023 1:00am April 16, 2024 1:59pm Problems Active Problems Problem Classification Problem Date Documented Date Episodic/Chronic Cardiac dysrhythmias (20 sources) Multiple premature ventricular complexes; Translations: [Ventricular premature depolarization] 05-14-2023 Chronic Cardiac dysrhythmias (18 sources) Tachycardia; Translations: [Tachycardia, unspecified] 08-08-2023 Episodic Chronic obstructive pulmonary disease and bronchiectasis (20 sources) Chronic obstructive lung disease; Translations: [Chronic obstructive pulmonary disease, unspecified] 09-21-2023 Chronic Chronic obstructive pulmonary disease and bronchiectasis (20 sources) Bronchitis; Translations: [Bronchitis, not specified as acute or chronic] 12-20-2021 Episodic Conduction disorders (20 sources) Mobitz type II atrioventricular block; Translations: [Atrioventricular block, second degree] Onset: 12-20-2021 Chronic Comment on above: IMPLANTED DEVICE(S): 12/21/2021PM Atrial lead - Shop Assistant: [employer], Model # Ingevity 7841 52cm , Serial # [id number] Ventricular lead - Shop Assistant: [employer], Model # Ingevity 7842 59cm , Serial # [id number] Generator - Shop Assistant: [employer], Model # [employer] MRI DR Pacemaker L111 , Serial # [id number] explanted 02/09/24 [facility]09[facility] Car[facility] Congestive heart failure; nonhypertensive (2 sources) Unspecified systolic (congestive) heart failure; Translations: [Unspecified systolic (congestive) heart failure] Onset: 02-09-2024 Chronic Disorders of lipid metabolism (20 sources) Hyperlipidemia; Translations: [Hyperlipidemia, unspecified] 03-25-2022 Chronic Essential hypertension (20 sources) Essential hypertension; Translations: [Essential (primary) hypertension] Onset: 12-06-2024 03-25-2022 Chronic Comment on above: CONTROLLED WITH MED Genitourinary symptoms and ill-defined conditions (17 sources) [id number] retention of urine; Translations: [Retention of urine, unspecified] 10-08-2023 Episodic Headache; including migraine (18 sources) Cluster headache; Translations: [Cluster headache syndrome, unspecified, not intractable] 09-25-2023 Chronic Neoplasms of unspecified nature or uncertain behavior (1 source) Monoclonal gammopathy; Translations: [Monoclonal gammopathy] Onset: 05-24-2025 Chronic Other injuries and conditions due to external causes (18 sources) Mucoid impaction of bronchi; Translations: [Unspecified foreign body in bronchus causing asphyxiation, initial encounter] 09-21-2023 Episodic Other injuries and conditions due to external causes (9 sources) Unspecified foreign body in bronchus causing asphyxiation, initial encounter; Translations: [Other diseases of trachea and bronchus] 09-25-2023 Episodic Other lower respiratory disease (18 sources) Acute respiratory distress; Translations: [Acute respiratory distress] 09-21-2023 Episodic Other lower respiratory disease (9 sources) Acute respiratory distress; Translations: [Other pulmonary insufficiency, not elsewhere classified] 09-25-2023 Episodic Other upper respiratory infections (20 sources) Upper respiratory infection; Translations: [Acute upper respiratory infection, unspecified] 12-20-2021 Episodic Deirdre-; endo-; and myocarditis; cardiomyopathy (except that caused by tuberculosis or sexually transmitted disease) (20 sources) Cardiomyopathy; Translations: [Other cardiomyopathies] Onset: 04-26-2025 05-14-2023 Chronic Substance-related disorders (20 sources) Nicotine dependence; Translations: [Nicotine dependence, cigarettes, uncomplicated] Onset: 09-13-2025 11-11-2023 Chronic Syncope (20 sources) Syncope; Translations: [Syncope and collapse] Episodic Past or Other Problems Problem Classification Problem Date Documented Da te Episodic/Chronic Other screening for suspected conditions (not mental disorders or infectious disease) (20 sources) Raised cardiac enzyme or marker; Translations: [Other specified abnormal findings of blood chemistry] Onset: 05-10-2025 09-21-2023 Episodic Residual codes; unclassified (1 source) Chills (without fever); Translations: [Chills (without fever)] Onset: 02-07-2025 Episodic Results Test Name Value Interpretation Reference Range Facility Protein Electro.Ur-Randomon 05-21-2025 M-SPIKE,U Normal [facility] Comment on above: Result Comment: NOT OBSERVED Performed By: #### L 3100.3450, L3600.4000, L100.0100, L501.9520, L500.4050, L506.1001 ####[facility] [address] [place], [address] Protein Electroph, Son 05-20 Albumin [Mass/Vol] 3.7 g/dL Normal 2.9-4.4 [facility] Comment on above: Performed By: #### L 3100.3450, L3600.4000, L100.0100, L501.9520, L500.4050, L506.1001 ####[facility] [address] [place], [address] Albumin/Globulin [Mass ratio] 1.5 {ratio} Normal 0.7-1.7 [facility] Comment on above: Performed By: #### L 3100.3450, L3600.4000, L100.0100, L501.9520, L500.4050, L506.1001 ####[facility] [address] [place], [address] ALPHA-1 GLOBUL 0.2 g/dL Normal 0.0-0.4 [facility] Comment on above: Performed By: #### L 3100.3450, L3600.4000, L100.0100, L501.9520, L500.4050, L506.1001 ####[facility] [address] [place], [address] ALPHA-2 GLOBUL 0.6 g/dL Normal 0.4-1.0 [facility] Comment on above: Performed By: #### L 3100.3450, L3600.4000, L100.0100, L501.9520, L500.4050, L506.1001 ####[facility] [address] [place], [address] BETA GLOBULIN 0.8 g/dL Normal 0.7-1.3 [facility] Comment on above: Performed By: #### L 3100.3450, L3600.4000, L100.0100, L501.9520, L500.4050, L506.1001 ####[facility] [address] [place], [address] GAMMA GLOBULIN 0.7 g/dL Normal 0.4-1.8 [facility] Comment on above: Performed By: #### L 3100.3450, L3600.4000, L100.0100, L501.9520, L500.4050, L506.1001 ####[facility] [address] [place], [address] Globulin (S) [Mass/Vol] 2.4 g/dL Normal 2.2-3.9 [facility] Comment on above: Performed By: #### L 3100.3450, L3600.4000, L100.0100, L501.9520, L500.4050, L506.1001 ####[facility] [address] [place], [place], [id number] INTERPRETATION Comment Normal . [facility] Comment on above: Result Comment: Prot ein electrophoresis scan will follow via computer, mail, or powder worker tnt delivery. Performed By: #### L 3100.3450, L3600.4000, L100.0100, L501.9520, L500.4050, L506.1001 ####[facility] [address] [place], [address] M-SPIKE Not Observed Normal Not Observed [facility] Comment on above: Performed By: #### L 3100.3450, L3600.4000, L100.0100, L501.9520, L500.4050, L506.1001 ####[facility] [address] [place], [place], [id number]) NOTE: Comment Normal . [facility] Comment on above: Result Comment: The SPE pattern appears unremarkable. Evidence of monoclonal protein is not apparent. Performed By: #### L 3100.3450, L3600.4000, L100.0100, L501.9520, L500.4050, L506.1001 ####[facility] [address] [place], [address] Protein [Mass/Vol] 6.1 g/dL Normal 6.0-8.5 [facility] Comment on above: Performed By: #### L 3100.3450, L3600.4000, L100.0100, L501.9520, L500.4050, L506.1001 ####[facility] [address] [place], [address] 24 hour urine alpha 2 globul in/total protein ratio by electrophoresis (mass fraction)Ordered By: Gee Garza on 05-18-2025 Alpha 2 globulin Elph (24H U) [Mass fraction] 22.7 % . [facility] 24 hour urine beta globulin/ total protein ratio by electrophoresis (mass fraction)Ordered By: Gee Garza on 05-18-2025 Beta globulin Elph (24H U) [Mass fraction] 24.4 % . [facility] 24 hour urine gamma globulin /total protein ratio by electrophoresis (mass fraction)Ordered By: Gee Garza on 05-18-2025 Gamma globulin Elph (24H U) [Mass fraction] 8.6 % . [facility] Absolute lymphocyte countOrd ered By: Gee Garza on 05-18-2025 Lymphocytes Auto (Unsp spec) [#/Vol] 1.10 10*3/uL 0.83-4.51 [facility] Absolute neutrophil countOrd ered By: Gee Garza on 05-18-2025 Neutrophils (Bld) [#/Vol] 4.7 10*3/uL 2.0-7.7 [facility] Albumin Elph [Mass/Vol]Order ed By: Gee Garza on 05-18-2025 Albumin [Mass/Vol] 3.7 g/dL 2.9-4.4 [facility] Anion gap in Serum or Plasma Ordered By: Gee Garza on 05-18-2025 Anion gap [Moles/Vol] 13 mmol/L 5-15 [facility] [facility] Autom[facility] lymphocyte count a s percentage of total leukocytesOrdered By: Gee Garza on 05-18-2025 Lymphocytes/100 WBC Auto (Unsp spec) 16.7 % Low 19-41 [facility] BUN/creatinine ratioOrdered By: Gee Garza on 05-18-2025 Urea nitrogen/Creatinine [Mass ratio] 10.0 mg/mg 10-20 [facility] Basophil percentageOrdered B y: Gee Garza on 05-18-2025 Basophils/100 WBC (Bld) 0.6 % 0-1 [facility] Bilirubin, totalOrdered By: Gee Garza on 05-18-2025 Bilirubin [Mass/Vol] 0.86 mg/dL 0.00-1.30 [facility] CBC W/Diff, Automatedon 070 Absolute Lymph 1.10 X10 3/uL Normal 0.83-4.51 [facility] Comment on above: Performed By: #### L 3100.3450, L3600.4000, L100.0100, L501.9520, L500.4050, L506.1001 #### [facility] [address] [place], [address] Absolute Neut 4.7 X10 3/uL Normal 2.0-7.7 [facility] Comment on above: Performed By: #### L 3100.3450, L3600.4000, L100.0100, L501.9520, L500.4050, L506.1001 #### [facility] [address] [place], [address] Basophils/100 WBC (Bld) 0.6 % Normal 0-1 [facility] Comment on above: Performed By: #### L 3100.3450, L3600.4000, L100.0100, L501.9520, L500.4050, L506.1001 #### [facility] [address] [place], [address] Eosinophils/100 WBC (Bld) 1.1 % Normal 0-5 [facility] Comment on above: Performed By: #### L 3100.3450, L3600.4000, L100.0100, L501.9520, L500.4050, L506.1001 #### [facility] [address] [place], [address] Erythrocyte distribution width (RBC) [Ratio] 13.8 % Normal 11.6-14.6 [facility] Comment on above: Performed By: #### L 3100.3450, L3600.4000, L100.0100, L501.9520, L500.4050, L506.1001 #### [facility] [address] [place], [address] Hematocrit (Bld) [Volume fraction] 41.3 % Normal 40-54 [facility] Comment on above: Performed By: #### L 3100.3450, L3600.4000, L100.0100, L501.9520, L500.4050, L506.1001 #### [facility] [address] [place], [address] Hemoglobin (Bld) [Mass/Vol] 14.0 g/dL Normal 13.0-16.5 [facility] Comment on above: Performed By: #### L 3100.3450, L3600.4000, L100.0100, L501.9520, L500.4050, L506.1001 #### [facility] [address] [place], [address] IG% 0.500 Normal 0.0-0.9 [facility] Comment on above: Result Comment: IG% - Immature Granulocytes (promyelocytes, myelocytes and metamyelocytes) > 1% indicates that a LEFT SHIFT is Present. Performed By: #### L 3100.3450, L3600.4000, L100.0100, L501.9520, L500.4050, L506.1001 #### [facility] [address] [place], [address] Lymphocytes/100 WBC (Bld) 16.7 % Low 19-41 [facility] Comment on above: Performed By: #### L 3100.3450, L3600.4000, L100.0100, L501.9520, L500.4050, L506.1001 #### [facility] [address] [place], [address] MCH (RBC) [Entitic mass] 33.6 pg High 27.0-32.0 [facility] Comment on above: Performed By: #### L 3100.3450, L3600.4000, L100.0100, L501.9520, L500.4050, L506.1001 #### [facility] [address] [place], [address] MCHC (RBC) [Mass/Vol] 33.9 g/dL Normal 32-36 [facility] Comment on above: Performed By: #### L 3100.3450, L3600.4000, L100.0100, L501.9520, L500.4050, L506.1001 #### [facility] [address] [place], [address] MCV (RBC) [Entitic vol] 99.0 fL High 80-94 [facility] Comment on above: Performed By: #### L 3100.3450, L3600.4000, L100.0100, L501.9520, L500.4050, L506.1001 #### [facility] [address] [place], [address] Monocytes/100 WBC (Bld) 10.5 % High 0-10 [facility] Comment on above: Performed By: #### L 3100.3450, L3600.4000, L100.0100, L501.9520, L500.4050, L506.1001 #### [facility] [address] [place], [address] Neutrophils/100 WBC (Bld) 70.6 % High 47-70 [facility] Comment on above: Performed By: #### L 3100.3450, L3600.4000, L100.0100, L501.9520, L500.4050, L506.1001 #### [facility] [address] [place], [address] Nucleated RBC (Bld) [#/Vol] 0 10*3/uL Normal 0-5 [facility] Comment on above: Performed By: #### L 3100.3450, L3600.4000, L100.0100, L501.9520, L500.4050, L506.1001 #### [facility] [address] [place], [address] Platelet mean volume (Bld) [Entitic vol] 8.8 fL Normal 6.2-12.0 [facility] Comment on above: Performed By: #### L 3100.3450, L3600.4000, L100.0100, L501.9520, L500.4050, L506.1001 #### [facility] [address] [place], [address] Platelets (Bld) [#/Vol] 234 10*3/uL Normal 150-450 [facility] Comment on above: Performed By: #### L 3100.3450, L3600.4000, L100.0100, L501.9520, L500.4050, L506.1001 #### [facility] [address] [place], [address] RBC (Bld) [#/Vol] 4.17 10*6/uL Low 4.6-6.2 [facility] Comment on above: Performed By: #### L 3100.3450, L3600.4000, L100.0100, L501.9520, L500.4050, L506.1001 #### [facility] [address] [place], [address] RDW SD 50.3 fl High 35.1-43.9 [facility] Comment on above: Performed By: #### L 3100.3450, L3600.4000, L100.0100, L501.9520, L500.4050, L506.1001 #### [facility] [address] [place], [address] WBC (Bld) [#/Vol] 6.6 10*3/uL Normal 4.4-11.0 [facility] Comment on above: Performed By: #### L 3100.3450, L3600.4000, L100.0100, L501.9520, L500.4050, L506.1001 #### [facility] [address] [place], [address] Carbon dioxide, total [Moles /volume] in Central venous bloodOrdered By: Gee Garza on 05-18-2025 CO2 [Moles/Vol] 24.3 mmol/L 21.0-32.0 [facility] Chloride assayOrdered By: Jens Garza on 05-18-2025 Chloride [Moles/Vol] 96 mmol/L Low 98-108 [facility] Comprehensive Metabolic Prof ilon 05-18-2025 Albumin [Mass/Vol] 4.1 g/dL Normal 3.4-4.8 [facility] Comment on above: Performed By: #### L 3100.3450, L3600.4000, L100.0100, L501.9520, L500.4050, L506.1001 #### [facility] [address] [place], [address] Albumin/Globulin [Mass ratio] 1.8 {ratio} Normal 0.9-2.4 [facility] Comment on above: Performed By: #### L 3100.3450, L3600.4000, L100.0100, L501.9520, L500.4050, L506.1001 #### [facility] [address] [place], [address] ALK PHOS 96 U/L Normal 40-129 [facility] Comment on above: Performed By: #### L 3100.3450, L3600.4000, L100.0100, L501.9520, L500.4050, L506.1001 #### [facility] [address] [place], [address] ALT [Catalytic activity/Vol] 44 U/L Normal <=46 [facility] Comment on above: Performed By: #### L 3100.3450, L3600.4000, L100.0100, L501.9520, L500.4050, L506.1001 #### [facility] [address] [place], [address] AST [Catalytic activity/Vol] 40 U/L High <=37 [facility] Comment on above: Performed By: #### L 3100.3450, L3600.4000, L100.0100, L501.9520, L500.4050, L506.1001 #### [facility] [address] [place], [address] Bilirubin [Mass/Vol] 0.86 mg/dL Normal 0.00-1.30 [facility] Comment on above: Performed By: #### L 3100.3450, L3600.4000, L100.0100, L501.9520, L500.4050, L506.1001 #### [facility] [address] [place], [address] BUN/CRE 10.0 RATIO Normal 10-20 [facility] Comment on above: Performed By: #### L 3100.3450, L3600.4000, L100.0100, L501.9520, L500.4050, L506.1001 #### [facility] [address] [place], [address] Calcium [Mass/Vol] 9.0 mg/dL Normal 7.6-11.0 [facility] Comment on above: Performed By: #### L 3100.3450, L3600.4000, L100.0100, L501.9520, L500.4050, L506.1001 #### [facility] [address] [place], [address] Chloride [Moles/Vol] 96 mmol/L Low 98-108 [facility] Comment on above: Performed By: #### L 3100.3450, L3600.4000, L100.0100, L501.9520, L500.4050, L506.1001 #### [facility] [address] [place], [address] CO2 [Moles/Vol] 24.3 mmol/L Normal 21.0-32.0 [facility] Comment on above: Performed By: #### L 3100.3450, L3600.4000, L100.0100, L501.9520, L500.4050, L506.1001 #### [facility] [address] [place], [address] Creatinine [Mass/Vol] 1.12 mg/dL Normal 0.70-1.20 [facility] Comment on above: Performed By: #### L 3100.3450, L3600.4000, L100.0100, L501.9520, L500.4050, L506.1001 #### [facility] [address] [place], [address] GAP 13 Normal 5-15 [facility] Comment on above: Performed By: #### L 3100.3450, L3600.4000, L100.0100, L501.9520, L500.4050, L506.1001 #### [facility] [address] [place], [address] GFR/1.73 sq M.predicted among non-blacks MDRD (S/P/Bld) [Vol rate/Area] 68 mL/min/{1.73_m2} Normal >60 [facility] Comment on above: Result Comment: mL/m in/1.73m2 CKD-EPI Creatinine Equation (2020) Performed By: #### L 3100.3450, L3600.4000, L100.0100, L501.9520, L500.4050, L506.1001 #### [facility] [address] [place], [address] Globulin (S) [Mass/Vol] 2.3 g/dL Normal 2.2-4.2 [facility] Comment on above: Performed By: #### L 3100.3450, L3600.4000, L100.0100, L501.9520, L500.4050, L506.1001 #### [facility] [address] [place], [address] Glucose [Mass/Vol] 203 mg/dL High 70-99 [facility] Comment on above: Performed By: #### L 3100.3450, L3600.4000, L100.0100, L501.9520, L500.4050, L506.1001 #### [facility] [address] [place], [address] Potassium [Moles/Vol] 3.5 mmol/L Normal 3.3-5.1 [facility] Comment on above: Performed By: #### L 3100.3450, L3600.4000, L100.0100, L501.9520, L500.4050, L506.1001 #### [facility] [address] [place], [address] Sodium [Moles/Vol] 133 mmol/L Normal 133-145 [facility] Comment on above: Performed By: #### L 3100.3450, L3600.4000, L100.0100, L501.9520, L500.4050, L506.1001 #### [facility] [address] [place], [address] T PROT 6.4 g/dL Normal 5.9-8.4 [facility] Comment on above: Performed By: #### L 3100.3450, L3600.4000, L100.0100, L501.9520, L500.4050, L506.1001 #### [facility] [address] [place], [place], [address] Urea nitrogen [Mass/Vol] 11 mg/dL Normal 4-19 [facility] Comment on above: Performed By: #### L 3100.3450, L3600.4000, L100.0100, L501.9520, L500.4050, L506.1001 #### [facility] [address] [place], [place], [address] Eosinophil percentageOrdered By: Gee Garza on 05-18-2025 Eosinophils/100 WBC (Bld) 1.1 % 0-5 [facility] Erythrocyte distribution wid th ratioOrdered By: Gee Garza on 05-18-2025 Erythrocyte distribution width (RBC) [Ratio] 13.8 % 11.6-14.6 [facility] Erythrocyte distribution wid th standard deviationOrdered By: Gee Garza on 05-18-2025 Erythrocyte distribution width (RBC) [Ratio] 50.3 fl High 35.1-43.9 [facility] Glomerular filtration rate ( GFR) estimation/1.73 sq m using serum, plasma, or whole bOrdered By: Gee Garza on 05-18-2025 GFR/1.73 sq M.predicted among non-blacks MDRD (S/P/Bld) [Vol rate/Area] 68 mL/min/{1.73_m2} >60 [facility] Comment on above: mL/min/1.73m2 CKD-EP I Creatinine Equation (2020) Hematocrit Auto (Bld) [Volum e fraction]Ordered By: Gee Garza on 05-18-2025 Hematocrit (Bld) [Volume fraction] 41.3 % 40-54 [facility] Hemoglobin measurementOrdere d By: Gee Garza on 05-18-2025 Hemoglobin (Bld) [Mass/Vol] 14.0 g/dL 13.0-16.5 [facility] Immature granulocytes/100 WB C Auto (Bld)Ordered By: Gee Garza on 05-18-2025 Immature granulocytes/100 WBC (Bld) 0.500 % 0.0-0.9 [facility] Comment on above: IG% - Immature Granu locytes (promyelocytes, myelocytes and metamyelocytes) > 1% indicates that a LEFT SHIFT is Present. Laboratory - Chemistry and C hemistry - challengeOrdered By: Gee Garza on 05-18-2025 AST [Catalytic activity/Vol] 40 U/L High <38 [facility] MCV (mean corpuscular volume ) determinationOrdered By: Gee Garza on 05-18-2025 MCV (RBC) [Entitic vol] 99.0 fL High 80-94 [facility] Mean corpuscular hemoglobin (MCH) determinationOrdered By: Gee Garza on 05-18-2025 MCH (RBC) [Entitic mass] 33.6 pg High 27.0-32.0 [facility] Mean corpuscular hemoglobin concentration (MCHC) determinationOrdered By: Gee Garza on 05-18-2025 MCHC (RBC) [Mass/Vol] 33.9 g/dL 32-36 [facility] Mean platelet volume determi nationOrdered By: Gee Garza on 05-18-2025 Platelet mean volume (Bld) [Entitic vol] 8.8 fL 6.2-12.0 [facility] Monocyte percentageOrdered B y: Gee Garza on 05-18-2025 Monocytes/100 WBC (Bld) 10.5 % High 0-10 [facility] Neutrophil percentageOrdered By: Gee Garza on 05-18-2025 Neutrophils/100 WBC (Bld) 70.6 % High 47-70 [facility] No Panel InformationOrdered By: Gee Garza on 05-18-2025 Addendum Document Comment . [facility] Comment on above: The SPE pattern appe ars unremarkable. Evidence ofmonoclonal protein is not apparent. Nucleated red blood cell per centageOrdered By: Gee Garza on 05-18-2025 Nucleated RBC/100 WBC (Bld) [Ratio] 0 % 0-5 [facility] Platelet countOrdered By: Jens Garza on 05-18-2025 Platelets (Bld) [#/Vol] 234 10*3/uL 150-450 [facility] Potassium measurement (mass/ volume)Ordered By: Gee Garza on 05-18-2025 Potassium (Unsp spec) [Mass/Vol] 3.5 mmol/L 3.3-5.1 [facility] Protein Fractions Elph [Inte rp]Ordered By: Gee Garza on 05-18-2025 Protein Fractions [Interp] Comment . [facility] Comment on above: Protein electrophore sis scan will follow via computer,mail, or powder worker tnt delivery. RBC Auto (Bld) [#/Vol]Ordere d By: Gee Garza on 05-18-2025 RBC (Bld) [#/Vol] 4.17 10*6/uL Low 4.6-6.2 [facility] Serum albumin to globulin ra delon by protein electrophoresisOrdered By: Gee Garza on 05-18-2025 Albumin/Globulin Elph [Mass ratio] 1.5 0.7-1.7 [facility] Serum creatinine measurement (mass/volume)Ordered By: Gee Garza on 05-18-2025 Creatinine [Mass/Vol] 1.12 mg/dL 0.70-1.20 [facility] Serum globulin measurementOr dered By: Gee Garza on 05-18-2025 Globulin (S) [Mass/Vol] 2.3 g/dL 2.2-4.2 [facility] Serum globulin measurement ( mass/volume)Ordered By: Gee Garza 05-18-2025 Globulin (S) [Mass/Vol] 2.4 g/dL 2.2-3.9 [facility] Serum glucose measurement (m ass/volume)Ordered By: Gee Garza on 05-18-2025 Glucose [Mass/Vol] 203 mg/dL High 70-99 [facility] Serum or plasma alanine hall otransferase (ALT) measurementOrdered By: Gee Garza on 05-18-2025 ALT [Catalytic activity/Vol] 44 U/L <47 [facility] Serum or plasma albumin pavan urement (mass/volume)Ordered By: Gee Garza on 05-18-2025 Albumin [Mass/Vol] 4.1 g/dL 3.4-4.8 [facility] Serum or plasma albumin/glob ulin mass ratioOrdered By: Gee Garza on 05-18-2025 Albumin/Globulin [Mass ratio] 1.8 {ratio} 0.9-2.4 [facility] Serum or plasma alkaline candice sphatase measurementOrdered By: Gee Garza on 05-18-2025 ALP [Catalytic activity/Vol] 96 U/L 40-129 [facility] Serum or plasma beta globuli n measurement by electrophoresis (mass/volume)Ordered By: Gee Garza on 05-18-2025 Beta globulin Elph [Mass/Vol] 0.8 g/dL 0.7-1.3 [facility] Serum or plasma calcium pavan urement (mass/volume)Ordered By: Gee Garza 05-18-2025 Calcium [Mass/Vol] 9.0 mg/dL 7.6-11.0 [facility] Serum or plasma protein pavan urement (mass/volume)Ordered By: Gee Garza on 05-18-2025 Protein [Mass/Vol] 6.1 g/dL 6.0-8.5 [facility] Serum or plasma protein mono clonal measurement by electrophoresis (mass/volume)Ordered By: Gee Garza 05-18-2025 Protein.monoclonal Elph [Mass/Vol] Not Observed g/dL Not Observed [facility] Serum or plasma urea nitroge n measurement (mass/volume)Ordered By: Gee Garza on 05-18-2025 Urea nitrogen [Mass/Vol] 11 mg/dL 4-19 [facility] Sodium levelOrdered By: Gee Garza on 05-18-2025 Sodium [Moles/Vol] 133 mmol/L 133-145 [facility] TSH DL <= 0.005 mIU/L QnOrde red By: Gee Garza on 05-18-2025 TSH Qn 0.474 uIU/mL 0.300-4.200 [facility] Thyroid Stim Hormone (TSH)on 05-18-2025 TSH 0.474 uIU/mL Normal 0.300-4.200 [facility] Comment on above: Performed By: #### L 3100.3450, L3600.4000, L100.0100, L501.9520, L500.4050, L506.1001 #### [facility] [address] [place], [address] Total proteinOrdered By: Gee Garza on 05-18-2025 Protein [Mass/Vol] 6.4 g/dL 5.9-8.4 [facility] Urine albumin/total protein mass ratio by electrophoresisOrdered By: Gee Garza on 05-18-2025 Albumin Elph (U) [Mass fraction] 40.9 % . [facility] Urine alpha 1 globulin/total protein ratio by electrophoresis (mass fraction)Ordered By: Gee Garza on 05-18-2025 Alpha 1 globulin Elph (U) [Mass fraction] 3.4 % . [facility] Urine monoclonal protein/tot al protein mass ratio by electrophoresisOrdered By: Gee Garza on 05-18-2025 Protein.monoclonal Elph (U) [Mass fraction] See comment [facility] Comment on above: NOT OBSERVED Urine protein measurement (m ass/volume)Ordered By: Gee Gage on 05-18-2025 Protein (U) [Mass/Vol] 4.5 mg/dL Not Estab. [facility] Vitamin D,25 Hydroxyon 05-18 Vitamin D 25-OH 84.7 ng/mL Normal 30-100 [facility] Comment on above: Result Comment: Miriam min D Status Deficiency: <20 ng/mL (50nmol/L) Insufficiency: 20-30 ng/mL (50-75 nmol/L) Sufficiency: 30-100 ng/mL (75-250 nmol/L) Toxicity: >100 ng/mL (>250 nmol/L) Performed By: #### L 3100.3450, L3600.4000, L100.0100, L501.9520, L500.4050, L506.1001 ####[facility] [address] [place], [address] White blood cell (WBC) count Ordered By: Gee Gage on 05-18-2025 WBC (Bld) [#/Vol] 6.6 10*3/uL 4.4-11.0 [facility] PSA,Total - Annual Screenon 05-05-2025 PSA,TOT SCREEN 1.72 ng/mL Normal 0.02-4.00 [facility] Comment on above: Result Comment: This test was performed using the [employer] tPSA method. Measured values of a patient??sample can vary depending on the testing procedure used. PSA values determined on patient samples by different testing procedures cannot be used interchangeably. If there is a change in PSA assays while monitoring therapy, sequential testing should be performed to confirm baseline values. Performed By: #### L 501.9910 #### [facility] [address] [place], [address] Anion gap in Serum or Plasma Ordered By: Jad Macias on 04-20-2025 Anion gap [Moles/Vol] 11 mmol/L 03-24 [facility] BUN/creatinine ratioOrdered By: Jad Macias on 04-20-2025 Urea nitrogen/Creatinine [Mass ratio] 17.4 mg/mg 08-29 [facility] Basic Metabolic Profile (BMP )on 04-20-2025 BUN/CRE 17.4 RATIO Normal 08-29 [facility] Comment on above: Performed By: #### L 500.2500 #### [facility] [address] [place], [address] Calcium [Mass/Vol] 9.2 mg/dL Normal 7.6-11.0 [facility] Comment on above: Performed By: #### L 500.2500 #### [facility] [address] [place], [address] Chloride [Moles/Vol] 95 mmol/L Low 98-108 [facility] Comment on above: Performed By: #### L 500.2500 #### [facility] [address] [place], [address] CO2 [Moles/Vol] 28.0 mmol/L Normal 21.0-32.0 [facility] Comment on above: Performed By: #### L 500.2500 #### [facility] [address] [place], [address] Creatinine [Mass/Vol] 1.06 mg/dL Normal 0.70-1.20 [facility] Comment on above: Performed By: #### L 500.2500 #### [facility] [address] [place], [address] GAP 11 Normal 5-15 [facility] Comment on above: Performed By: #### L 500.2500 #### [facility] [address] [place], [address] GFR/1.73 sq M.predicted among non-blacks MDRD (S/P/Bld) [Vol rate/Area] 73 mL/min/{1.73_m2} Normal >60 [facility] Comment on above: Result Comment: mL/m in/1.73m2 CKD-EPI Creatinine Equation (2020) Performed By: #### L 500.2500 #### [facility] [address] [place], [address] Glucose [Mass/Vol] 213 mg/dL High 70-99 [facility] Comment on above: Performed By: #### L 500.2500 #### [facility] [address] [place], [address] Potassium [Moles/Vol] 3.7 mmol/L Normal 3.3-5.1 [facility] Comment on above: Performed By: #### L 500.2500 #### [facility] [address] [place], [address] Sodium [Moles/Vol] 134 mmol/L Normal 133-145 [facility] Comment on above: Performed By: #### L 500.2500 #### [facility] [address] [place], [address] Urea nitrogen [Mass/Vol] 18 mg/dL Normal 4-19 [facility] Comment on above: Performed By: #### L 500.2500 #### [facility] [address] [place], [address] Carbon dioxide, total [Moles /volume] in Central venous bloodOrdered By: Jad Macias on 04-20-2025 CO2 [Moles/Vol] 28.0 mmol/L 21.0-32.0 [facility] Chloride assayOrdered By: Prabha Macias on 04-20-2025 Chloride [Moles/Vol] 95 mmol/L Low 98-108 [facility] Glomerular filtration rate ( GFR) estimation/1.73 sq m using serum, plasma, or whole bOrdered By: Jad Macias on 04-20-2025 GFR/1.73 sq M.predicted among non-blacks MDRD (S/P/Bld) [Vol rate/Area] 73 mL/min/{1.73_m2} >60 [facility] [facility] Comment on above: mL/min/1.73m2 CKD-EP I Creatinine Equation (2020) Potassium measurement (mass/ volume)Ordered By: Jad Macias on 04-20-2025 Potassium (Unsp spec) [Mass/Vol] 3.7 mmol/L 3.3-5.1 [facility] Serum creatinine measurement (mass/volume)Ordered By: Jad Macias on 04-20-2025 Creatinine [Mass/Vol] 1.06 mg/dL 0.70-1.20 [facility] Serum glucose measurement (m ass/volume)Ordered By: Jad Macias on 04-20-2025 Glucose [Mass/Vol] 213 mg/dL High 70-99 [facility] Serum or plasma calcium pavan urement (mass/volume)Ordered By: Jad Macias on 04-20-2025 Calcium [Mass/Vol] 9.2 mg/dL 7.6-11.0 [facility] Serum or plasma urea nitroge n measurement (mass/volume)Ordered By: Jad Macias on 04-20-2025 Urea nitrogen [Mass/Vol] 18 mg/dL 4-19 [facility] Sodium levelOrdered By: Matthias Macias on 04-20-2025 Sodium [Moles/Vol] 134 mmol/L 133-145 [facility] Echo Complete W/ Contraston 05-21-2025 Echo Complete W/ Contrast [facility] [address] [place] [address] Echo Complete W/ Contrast 03/30/25 1404 MR#: [id number] Acct: [id number] Name: TONG MORATAYA Rep #: [id number] : 1950 74 From: Cheo Walker MD Attending Dr: Dr. Cheo Walker MD Status: REG C Ordering Dr: Cheo Walker MD Date: 03/30/25 Location: [facility] Sex: M C Admitted: Reason For Study Reason For Study: Dilated Cardiomyopathy Procedure This was a 2D Doppler, Color Flow transthoracic echocardiogram. The study was technically difficult. Contrast injection was performed. Exam performed in department. Left Ventricle Normal LV size. The left ventricular ejection fraction is 45 %. Stage 1 diastolic dysfunction. There is mild global hypokinesis of the left ventricle. Right Ventricle Normal RV size. Normal systolic function. Atria Normal left atrium. Normal right atrium. Tricuspid Valve Normal tricuspid valve. Mild (1+) tricuspid valve insufficiency. Pulmonary artery systolic pressure is 34 mmHg. Aortic Valve The aortic valve is not well visualized. Great Vessels Normal aortic root. Pericardium/Pleura l No pericardial effusion. Medication 22 gauge I.V. with prn adaptor inserted into right arm. Diluted definity 4ml given slow IV push to enhance endocardial definition. MMode/2D Measurements Calculations LVIDd: 4.6 cm IVSd: 1.1 cm Ao root diam: 3.4 cm LVIDs: 4.0 cm LVPWd: 0.94 cm FS: 14.5 % LAV(MOD-bp): 24.6 ml LVAd ap4: 22.9 cm2 SV(MOD-sp4): 24.4 ml LAV(MOD-bp) Indexed: 13.9 ml/m2 LVLd ap4: 6.8 cm SI(MOD-sp4): 13.8 ml/m2 LAV(MOD-sp2): 21.4 ml EDV(MOD-sp4): 63.6 ml LAV(MOD-sp4): 24.3 ml EDV(sp4-el): 65.1 ml LVAs ap4: 17.3 cm2 LVLs ap4: 6.4 cm ESV(MOD-sp4): 39.3 ml ESV(sp4-el): 40.0 ml EF(MOD-sp4): 38.3 % EF(sp4-el): 38.7 % SV(sp4-el): 25.2 ml LA dimension(2D): 3.1 cm LA A4 area: 10.7 cm2 RA A4 area: 11.4 cm2 TAPSE: 1.6 cm Time Measurements MV dec time: 0.31 sec Doppler Measurements Calculations MV E max deya: 35.7 cm/sec Lat Peak E' Deya: 6.1 cm/sec Med Peak E' Deya: 4.8 cm/sec MV A max deya: 61.8 cm/sec E/E' lat: 5.8 E/E' med: 7.4 MV E/A: 0.58 MV V2 max: 73.0 cm/sec MV P1/2t max deya: 33.4 cm/sec Ao V2 max: 98.7 cm/sec MV max P.1 mmHg MV P1/2t: 90.7 msec Ao max P.9 mmHg MV V2 mean: 29.3 cm/sec Ao V2 mean: 68.2 cm/sec MV mean P.44 mmHg MV dec slope: 107.9 cm/sec2 Ao mean P.1 mmHg MV V2 VTI: 19.2 cm MVA(P1/2t): 2.4 cm2 Ao V2 VTI: 16.2 cm AV (velocity ratio): 0.86 AI max deya: 361.1 cm/sec LV V1 max: 78.8 cm/sec PA V2 max: 102.7 cm/sec AI max P.1 mmHg LV V1 max P.5 mmHg LV V1 mean P.3 mmHg AI dec slope: 104.4 cm/sec2 LV V1 mean: 53.7 cm/sec AI P1/2t: 1013 msec LV V1 VTI: 14.0 cm TR max deya: 278.3 cm/sec TR max P.0 mmHg ECHO/Echo Complete W/ Contrast Interpretation Summary Normal LV size. The left ventricular ejection fraction is 45 %. Stage 1 diastolic dysfunction. Contrast injection was performed. Ordering Physician: Aaron Grider Dr., MD Referring Physician: Cheo Walker Performed By: Viraj Swenson RCS 03/30/25 1636 Date Cheo Walker MD CC: Dr. Cheo Walker MD; Dr. Gee Garza MD Date Dictated: 03/30/251403 Date Transcribed: 03/30/251635 Professor Of Journalism: Signed Normal [facility] Echocardiogram study reportO rdered By: Cheo Walker on 03-30-2025 Study report [facility] Cardi[facility] Services [address] [place] [address] Echo Complete W/ Contrast 03/30/25 1404 MR#: [id number] Acct: [id number] Name: TONG MORATAYA Rep #:[id number] : 1950 74 From: Cheo Kingsley Attending Dr: Dr. Cheo Walker MD S tatus: REG CLI Ordering Dr: Cheo Walker MD Date: Location: [facility] Sex: M C Admitted: Reason For Study Reason For Study: Dilated Cardiomyopathy Procedure This was a 2D Doppler, Color Flow transthoracic echocardiogram. The study was technically difficult. Contrast injection was performed. Exam performed in department. Left Ventricle Normal LV size. The left ventricular ejection fraction is 45 %. Stage 1 diastolic dysfunction. There is mild global hypokinesis of the left ventricle. Right Ventricle Normal RV size. Normal systolic function. Atria Normal left atrium. Normal right atrium. Tricuspid Valve Normal tricuspid valve. Mild (1+) tricuspid valve insufficiency. Pulmonary artery systolic pressure is 34 mmHg. Aortic Valve The aortic valve is not well visualized. Great Vessels Normal aortic root. Pericardium/Pleura l No pericardial effusion. Medication 22 gauge I.V. with prn adaptor inserted into right arm. Diluted definity 4ml given slow IV push to enhance endocardial definition. MMode/2D Measurements & Calculations LVIDd: 4.6 cm IVSd: 1.1 cm Ao root diam: 3.4 cm LVIDs: 4.0 cm LVPWd: 0.94 cm FS: 14.5 % LAV(MOD-bp): 24.6 ml LVAd ap4: 22.9 cm2 SV(MOD-sp4): 24.4 ml LAV(MOD-bp) Indexed: 13.9 ml/m2 LVLd ap4: 6.8 cm SI(MOD-sp4): 13.8 ml/m2 LAV(MOD-sp2): 21.4 ml EDV(MOD-sp4): 63.6 ml LAV(MOD-sp4): 24.3 ml EDV(sp4-el): 65.1 ml LVAs ap4: 17.3 cm2 LVLs ap4: 6.4 cm ESV(MOD-sp4): 39.3 ml ESV(sp4-el): 40.0 ml EF(MOD-sp4): 38.3 % EF(sp4-el): 38.7 % SV(sp4-el): 25.2 ml LA dimension(2D): 3.1 cm LA A4 area: 10.7 cm2 RA A4 area: 11.4 cm2 TAPSE: 1.6 cm Time Measurements MV dec time: 0.31 sec Doppler Measurements & Calculations MV E max deya: 35.7 cm/sec Lat Peak E' Deya: 6.1 cm/sec Med Peak E' Deya: 4.8 cm/sec MV A max deya: 61.8 cm/sec E/E' lat: 5.8 E/E' med: 7.4 MV E/A: 0.58 MV V2 max: 73.0 cm/sec MV P1/2t max deya: 33.4 cm/sec Ao V2 max: 98.7 cm/sec MV max P.1 mmHg MV P1/2t: 90.7 msec Ao max P.9 mmHg MV V2 mean: 29.3 cm/sec Ao V2 mean: 68.2 cm/sec MV mean P.44 mmHg MV dec slope: 107.9 cm/sec2 Ao mean P.1 mmHg MV V2 VTI: 19.2 cm MVA(P1/2t): 2.4 cm2 Ao V2 VTI: 16.2 cm AV (velocity ratio): 0.86 AI max deya: 361.1 cm/sec LV V1 max: 78.8 cm/sec PA V2 max: 102.7 cm/sec AI max P.1 mmHg LV V1 max P.5 mmHg LV V1 mean P.3 mmHg AI dec slope: 104.4 cm/sec2 LV V1 mean: 53.7 cm/sec AI P1/2t: 1013 msec LV V1 VTI: 14.0 cm TR max deya: 278.3 cm/sec TR max P.0 mmHg ECHO/Echo Complete W/ Contrast Interpretation Summary Normal LV size. The left ventricular ejection fraction is 45 %. Stage 1 diastolic dysfunction. Contrast injection was performed. Ordering Physician: Aaron^Cheo^^^Keny Kingsley Referring Physician: Cheo Walker Performed By: Viraj Swenson RCS 03/30/25 1636 Date _ Cheo Walker MD CC: Dr. Cheo Walker MD; Dr. Gee Garza MD ~ Date Dictated: 03/30/25 1404 Date Transcribed: 03/30/251635 Professor Of Journalism: Signed [facility] Work Phone: Cardiology Visit Reporton Cardiology Visit Report [facility] [address] [place] [address] OFFICE VISIT Date of Service: 03/03/25 MR#: [id number] Acct: [id number] Name: TONG MORATAYA Rep #: [id number] : 1950 Provider: Dr. Cheo Walker MD Age/Sex: 74/M [place] [facility] Status: Signed HPI HPI History of Present Illness Details: This is a 74-year-old male who presents to the office today for a follow-up cardiovascular visit. He had presented with 2-1 heart block in December 2020 and underwent placement of a permanent pacemaker. He did undergo a cardiac catheterization in 2002 with no obstructive coronary disease. He underwent a cardiac pacemaker in December 2020. He presented to [facility] Emergency Department on 09/21/2023 for chest pain. Initial troponin was 46 with second troponin elevated at 106. He was admitted. He underwent echocardiogram on 09/21/2023 that showed an ejection fraction of 20-25%, moderately decreased right ventricular systolic function, and no significant valvular abnormality. He underwent a heart catheterization that showed normal coronary arteries. Medication changes were made. He was discharged on LifeVest. He was seen at [facility] in December 2023 for evaluation regarding JEWEL HOLE GAUGER???D upgrade. During such evaluation it was not felt that his PVC burden was contributing to reduced EF. He proceeded with JEWEL HOLE GAUGER device upgrade on 02/09/2024. He returns today for follow-up visit. He does have some shortness of breath with exertion. He denies chest, arm, jaw, or neck discomfort. He denies palpitations. He denies bilateral lower extremity edema. He denies claudication. He denies shortness of breath with activity, shortness of breath at rest, orthopnea, or PND. He denies chronic cough. He denies significant, sudden weight gain. He denies lightheadedness, dizziness, near-syncope, or syncope. He denies blood in urine, blood in stool, or epistaxis. He denies fever with chills. He denies myalgia. He denies fatigue. His exercise level has remained stable. Intake Vital Signs 10/23/23 13:24 08/12/24 07:41 03/03/25 14:09 Height 5 ft 7 in 5 ft 6 in 5 ft 6 in Weight: 150 lb BMI 24.2 BP 121/77 H Blood Pressure Location Lt brachial Position Sitting Respiration 16 Pulse 91 Pulse Source Monitor Intake Visit Reasons: 1 Y FU/DELILAH @ 2 [employer] Developer Required: No Accompanied by: Self Allergies oxycodone Adverse Reaction (Unknown, Verified 03/03/25 14:36) Unknown Medications ???Medication ???Instructions ???Recorded ???Confirmed ???Type atorvastatin 10 mg tablet 10 mg PO QHS cholesterol 12/20/21 03/03/25 History aspirin 81 mg tablet,delayed 81 mg PO DAILY 09/21/23 03/03/25 H istory release (Adult Low Dose Aspirin) calcium carbonate (Calcium 600) 600 mg PO DAILY 09/21/23 03/03/25 History multivit,Ca,min-ir on 8 mg-folic 1 tab PO DAILY 09/21/23 03/03/25 H istory acid 200 mcg-lycopene 600 mcg tablet (Centrum Men) acetaminophen 325 mg tablet 650 mg (2 x 325 mg) PO Q6H PRN PRN 09/25/23 03/03/25 Rx Pain 1-10 Or Fever >100.7 #0 tabs tramadol 50 mg tablet 50 mg PO Q6H PRN pain #20 tabs 03/03/25 Rx dapagliflozin propanediol 10 mg 10 mg PO DAILY #90 tabs 10/23/23 0 03/03/25 Rx tablet (Farxiga) carvedilol 12.5 mg tablet 12.5 mg PO BID #60 tabs 12/18/23 0 03/03/25 Rx ipratropium 0.5 mg-albuterol 3 mg 3 ml inhalation Q6H PRN 04/16/24 03/03/25 History (2.5 mg base)/3 mL nebulization soln furosemide 40 mg tablet 40 mg PO BID this is dose increase 12/24/24 03/03/25 Rx #180 tabs sacubitril 24 mg-valsartan 26 mg 1 tab PO BID 03/03/25 03/03/25 His tory tablet (Entresto) Have you fallen in the past year?: [facility] History Left bundle branch block (LBBB) Uses LifeVest defibrillator History of stress test Wears dentures Alcohol use Arthritis Prostate disease High cholesterol Easy bruising Back pain Cluster headache Syncope COPD (chronic obstructive pulmonary disease) Smoker History of echocardiogram Broken heart syndrome Cardiology follow-up encounter Chest pain Right bundle branch block (RBBB) with left anterior fascicular block Multiple premature ventricular complexes Hyperlipidemia Essential hypertension Non-ischemic cardiomyopathy Second degree AV block, Mobitz type II (12/20/21) Surgical History Biventricular automatic implantable cardioverter defibrillator in situ (02/09/24) History of prostate surgery Hx of colonoscopy Hx of right cataract extraction Hx of left cataract extraction Hx of elbow surgery Hx of total knee arthroplasty History of permanent cardiac pacemaker placement (12/21/21) History of (more content not included)... Normal [facility] Pacemaker Checkon 03-03-2025 Pacemaker Check [facility] [address] [place] [address] Pacemaker Check Date of Service: 03/03/25 1545 MR#: [id number] Acct: [id number] Name: TONG MORATAYA Rep #: [id number] : 1950 From: Karol Miranda Age/Sex: 74/M Location: [facility] Status: Signed Billing Codes ICD Device Billin ICD Dev Prog Eval, Multi Assessment and Plan Assessment and Plan (1) Left bundle branch block (LBBB): Status: Acute (2) Biventricular automatic implantable cardioverter defibrillator in situ: Status: Acute Comment: Implanted 02/09/24 @ [facility] by Dr. Carrizales (3) Non-ischemic cardiomyopathy: Status: Acute 03/03/25 1546 Date Karol Cutlerignnathan Signature: Date (if applicable) CC: Normal [facility] Influenza virus A and B and SARS-CoV-2 (COVID-19) and Respiratory syncytial virus RNAOrdered By: Gee Garza on 01-31-2025 SARS-CoV-2 (COVID-19) RNA MARVIN+probe Ql (Unsp spec) [facility] M100.678on 01-31-2025 M100.678 Pending SARS-CoV-2 (COVID 19) Negative INFLUENZA A Negative INFLUENZA B Negative RSV PCR Negative Normal [facility] Comment on above: Performed By: #### M 100.678 #### [facility] [address] [place], [address] 35-HL-Ooaluiy DOrdered By: Virginia Garza on 11-16-2024 Vitamin D 25-Hydroxy 59.3 ng/mL [facility] Comment on above: Vitamin D 25(OH) Sta tus Range Deficiency <20 ng/mL (50nmol/L) Insufficiency 20 - 30 ng/mL (50 - 75 nmol/L) Sufficiency 30 - 100 ng/mL (75 - 250 nmol/L) Toxicity >100 ng/mL (>250 nmol/L) Absolute neutrophil countOrd ered By: Gee Garza on 11-16-2024 Neutrophils (Bld) [#/Vol] 6.8 10*3/uL 2.0-7.7 [facility] Albumin to globulin ratioOrd ered By: Gee Garza on 11-16-2024 Albumin/Globulin [Mass ratio] 1.1 {ratio} 0.9-2.4 [facility] Basophil percentageOrdered B y: Gee Gage on 11-16-2024 Basophils/100 WBC (Bld) 0.7 % 0-1 [facility] Bilirubin, totalOrdered By: Gee Garza on 11-16-2024 Bilirubin [Mass/Vol] 0.80 mg/dL 0.20-1.00 [facility] Comment on above: For patients on eltr ombopag therapy, use of Dimension [place] TBIL is not recommended. Blood urea nitrogen (BUN)/cr eatinine ratioOrdered By: Gee Garza on 11-16-2024 Urea nitrogen/Creatinine [Mass ratio] 15.3 mg/mg 10-20 [facility] CBC W/Diff, Automatedon Absolute Lymph 1.62 X10 3/uL Normal 0.83-4.51 [facility] Comment on above: Performed By: #### L 500.4050, L501.9520, L506.1000, L100.0100 ####[facility] [address] [place], [address] Absolute Neut 6.8 X10 3/uL Normal 2.0-7.7 [facility] Comment on above: Performed By: #### L 500.4050, L501.9520, L506.1000, L100.0100 ####[facility] [address] [place], [address] Basophils/100 WBC (Bld) 0.7 % Normal 0-1 [facility] Comment on above: Performed By: #### L 500.4050, L501.9520, L506.1000, L100.0100 ####[facility] [address] [place], [address] Eosinophils/100 WBC (Bld) 0.6 % Normal 0-5 [facility] Comment on above: Performed By: #### L 500.4050, L501.9520, L506.1000, L100.0100 ####[facility] [address] [place], [address] Erythrocyte distribution width (RBC) [Ratio] 13.4 % Normal 11.6-14.6 [facility] Comment on above: Performed By: #### L 500.4050, L501.9520, L506.1000, L100.0100 ####[facility] [address] [place], [address] Hematocrit (Bld) [Volume fraction] 51.3 % Normal 40-54 [facility] Comment on above: Performed By: #### L 500.4050, L501.9520, L506.1000, L100.0100 ####[facility] [address] [place], [address] Hemoglobin (Bld) [Mass/Vol] 17.1 g/dL High 13.0-16.5 [facility] Comment on above: Performed By: #### L 500.4050, L501.9520, L506.1000, L100.0100 ####[facility] [address] [place], [address] IG% 0.500 Normal 0.0-0.9 [facility] Comment on above: Result Comment: IG% - Immature Granulocytes (promyelocytes, myelocytes and metamyelocytes) > 1% indicates that a LEFT SHIFT is Present. Performed By: #### L 500.4050, L501.9520, L506.1000, L100.0100 ####[facility] [address] [place], [address] Lymphocytes/100 WBC (Bld) 17.0 % Low 19-41 [facility] Comment on above: Performed By: #### L 500.4050, L501.9520, L506.1000, L100.0100 ####[facility] [address] [place], [address] MCH (RBC) [Entitic mass] 32.5 pg High 27.0-32.0 [facility] Comment on above: Performed By: #### L 500.4050, L501.9520, L506.1000, L100.0100 ####[facility] [address] [place], [address] MCHC (RBC) [Mass/Vol] 33.3 g/dL Normal 32-36 [facility] Comment on above: Performed By: #### L 500.4050, L501.9520, L506.1000, L100.0100 ####[facility] [address] [place], [address] MCV (RBC) [Entitic vol] 97.5 fL High 80-94 [facility] Comment on above: Performed By: #### L 500.4050, L501.9520, L506.1000, L100.0100 ####[facility] [address] [place], [address] Monocytes/100 WBC (Bld) 9.3 % Normal 0-10 [facility] Comment on above: Performed By: #### L 500.4050, L501.9520, L506.1000, L100.0100 ####[facility] [address] [place], [address] Neutrophils/100 WBC (Bld) 71.9 % High 47-70 [facility] Comment on above: Performed By: #### L 500.4050, L501.9520, L506.1000, L100.0100 ####[facility] [address] [place], [address] Nucleated RBC (Bld) [#/Vol] 0 10*3/uL Normal 0-5 [facility] Comment on above: Performed By: #### L 500.4050, L501.9520, L506.1000, L100.0100 ####[facility] [address] [place], [address] Platelet mean volume (Bld) [Entitic vol] 9.5 fL Normal 6.2-12.0 [facility] Comment on above: Performed By: #### L 500.4050, L501.9520, L506.1000, L100.0100 ####[facility] [address] [place], [address] Platelets (Bld) [#/Vol] 194 10*3/uL Normal 150-450 [facility] Comment on above: Performed By: #### L 500.4050, L501.9520, L506.1000, L100.0100 ####[facility] [address] [place], [address] RBC (Bld) [#/Vol] 5.26 10*6/uL Normal 4.6-6.2 [facility] Comment on above: Performed By: #### L 500.4050, L501.9520, L506.1000, L100.0100 ####[facility] [address] [place], [address] RDW SD 48.3 fl High 35.1-43.9 [facility] Comment on above: Performed By: #### L 500.4050, L501.9520, L506.1000, L100.0100 ####[facility] [address] [place], [address] WBC (Bld) [#/Vol] 9.5 10*3/uL Normal 4.4-11.0 [facility] Comment on above: Performed By: #### L 500.4050, L501.9520, L506.1000, L100.0100 ####[facility] [address] [place], [address] Carbon dioxide measurementOr dered By: Gee Garza on 11-16-2024 CO2 [Moles/Vol] 32.0 mmol/L 21.0-32.0 [facility] Chloride measurementOrdered By: Gee Garza on 11-16-2024 Chloride [Moles/Vol] 101 mmol/L 98-107 [facility] Comprehensive Metabolic Prof ilon 11-16-2024 Albumin [Mass/Vol] 3.5 g/dL Normal 3.2-5.0 [facility] Comment on above: Performed By: #### L 500.4050, L501.9520, L506.1000, L100.0100 ####[facility] [address] [place], [address] Albumin/Globulin [Mass ratio] 1.1 {ratio} Normal 0.9-2.4 [facility] Comment on above: Performed By: #### L 500.4050, L501.9520, L506.1000, L100.0100 ####[facility] [address] [place], [address] ALK P 94 U/L Normal 45-117 [facility] Comment on above: Performed By: #### L 500.4050, L501.9520, L506.1000, L100.0100 ####[facility] [address] [place], [address] ALT [Catalytic activity/Vol] 62 U/L High 16-61 [facility] Comment on above: Performed By: #### L 500.4050, L501.9520, L506.1000, L100.0100 ####[facility] [address] [place], [address] AST [Catalytic activity/Vol] 20 U/L Normal 15-37 [facility] Comment on above: Performed By: #### L 500.4050, L501.9520, L506.1000, L100.0100 ####[facility] [address] [place], [address] Bilirubin [Mass/Vol] 0.80 mg/dL Normal 0.20-1.00 [facility] Comment on above: Result Comment: For patients on eltrombopag therapy, use of Dimension [place] TBIL is not recommended. Performed By: #### L 500.4050, L501.9520, L506.1000, L100.0100 ####[facility] [address] [place], [address] BUN/CRE 15.3 RATIO Normal 10-20 [facility] Comment on above: Performed By: #### L 500.4050, L501.9520, L506.1000, L100.0100 ####[facility] [address] [place], [address] CA,Total 9.3 mg/dL Normal 8.5-10.1 [facility] Comment on above: Performed By: #### L 500.4050, L501.9520, L506.1000, L100.0100 ####[facility] [address] [place], [address] Chloride [Moles/Vol] 101 mmol/L Normal 98-107 [facility] Comment on above: Performed By: #### L 500.4050, L501.9520, L506.1000, L100.0100 ####[facility] [address] [place], [address] CO2 [Moles/Vol] 32.0 mmol/L Normal 21.0-32.0 [facility] Comment on above: Performed By: #### L 500.4050, L501.9520, L506.1000, L100.0100 ####[facility] [address] [place], [address] Creatinine [Mass/Vol] 1.18 mg/dL Normal 0.70-1.30 [facility] Comment on above: Result Comment: The validity of the calculated GFR GFRAA in patients over 70 years has not been determined. Clinical correlation is essential. Performed By: #### L 500.4050, L501.9520, L506.1000, L100.0100 ####[facility] [address] [place], [address] EST GFR - AA 77 mL/min Normal >60 [facility] Comment on above: Result Comment: Afri can Swiss GFR Calc Performed By: #### L 500.4050, L501.9520, L506.1000, L100.0100 ####[facility] [address] [place], [address] GAP 5 Normal 5-15 [facility] Comment on above: Performed By: #### L 500.4050, L501.9520, L506.1000, L100.0100 ####[facility] [address] [place], [address] GFR/1.73 sq M.predicted among non-blacks MDRD (S/P/Bld) [Vol rate/Area] 64 mL/min/{1.73_m2} Normal >60 [facility] Comment on above: Result Comment: Non- GFR Calc Performed By: #### L 500.4050, L501.9520, L506.1000, L100.0100 ####[facility] [facility] [id number] [place], [address] Globulin (S) [Mass/Vol] 3.1 g/dL Normal 2.2-4.2 [facility] Comment on above: Performed By: #### L 500.4050, L501.9520, L506.1000, L100.0100 ####[facility] [id number] [place], [address] Glucose [Mass/Vol] 247 mg/dL High 74-106 [facility] Comment on above: Result Comment: Gluc ose result greater than or equal to 200 mg/dL suggests DIABETES MELLITUS per A.D.A. criteria. Performed By: #### L 500.4050, L501.9520, L506.1000, L100.0100 ####[facility] [id number] [place], [address] Potassium [Moles/Vol] 3.7 mmol/L Normal 3.5-5.1 [facility] Comment on above: Performed By: #### L 500.4050, L501.9520, L506.1000, L100.0100 ####[facility] [address] [place], [address] Sodium [Moles/Vol] 138 mmol/L Normal 136-145 [facility] Comment on above: Performed By: #### L 500.4050, L501.9520, L506.1000, L100.0100 ####[facility] [id number] [place], [address] T PROT 6.6 g/dL Normal 6.4-8.2 [facility] Comment on above: Performed By: #### L 500.4050, L501.9520, L506.1000, L100.0100 ####[facility] [id number] [place], [address] Urea nitrogen [Mass/Vol] 18 mg/dL Normal 7-18 [facility] Comment on above: Performed By: #### L 500.4050, L501.9520, L506.1000, L100.0100 ####[facility] [address] [place], [address] Eosinophil percentageOrdered By: Gee Garza on 11-16-2024 Eosinophils/100 WBC (Bld) 0.6 % 0-5 [facility] Erythrocyte distribution wid th ratioOrdered By: Gee Garza on 11-16-2024 Erythrocyte distribution width (RBC) [Ratio] 13.4 % 11.6-14.6 [facility] Erythrocyte distribution wid th standard deviationOrdered By: Gee Garza on 11-16-2024 Erythrocyte distribution width (RBC) [Entitic vol] 48.3 fL High 35.1-43.9 [facility] Estimated glomerular filtrat ion rate (GFR) AmericanOrdered By: Gee Garza on 11-16-2024 Estimated GFR (MDRD) Amer 77 mL/min >60 [facility] Comment on above: GFR Calc Glomerular filtration rate ( GFR) estimationOrdered By: Gee Garza on 11-16-2024 Estimated GFR (MDRD) Non-Af Amer 64 mL/min >60 [facility] Comment on above: Non- GFR Calc Glucose measurementOrdered B y: Gee Garza on 11-16-2024 Glucose [Mass/Vol] 247 mg/dL High 74-106 [facility] Comment on above: Glucose result great er than or equal to 200 mg/dLsuggests DIABETES MELLITUS per A.D.A. criteria. Hematocrit Auto (Bld) [Volum e fraction]Ordered By: Gee Garza on 11-16-2024 Hematocrit (Bld) [Volume fraction] 51.3 % 40-54 [facility] Hemoglobin measurementOrdere d By: Gee Garza on 11-16-2024 Hemoglobin (Bld) [Mass/Vol] 17.1 g/dL High 13.0-16.5 [facility] Immature granulocytes/100 WB C Auto (Bld)Ordered By: Gee Garza on 11-16-2024 Immature granulocytes/100 WBC (Bld) 0.500 % 0.0-0.9 [facility] Comment on above: IG% - Immature Granu locytes (promyelocytes, myelocytes and metamyelocytes) > 1% indicates that a LEFT SHIFT is Present. Laboratory - Chemistry and C hemistry - challengeOrdered By: Gee Garza on 11-16-2024 AST [Catalytic activity/Vol] 20 U/L 15-37 [facility] Lymphocytes Auto (Unsp spec) [#/Vol]Ordered By: Gee Garza on 11-16-2024 Lymphocytes (Bld) [#/Vol] 1.62 10*3/uL 0.83-4.5 1 [facility] Lymphocytes/100 WBC Auto (Un sp spec)Ordered By: Gee Garza on 11-16-2024 Lymphocytes/100 WBC (Bld) 17.0 % Low 19-41 [facility] MCV (mean corpuscular volume ) determinationOrdered By: Gee Garza on 11-16-2024 MCV (RBC) [Entitic vol] 97.5 fL High 80-94 [facility] Mean corpuscular hemoglobin (MCH) determinationOrdered By: Gee Garza on 11-16-2024 MCH (RBC) [Entitic mass] 32.5 pg High 27.0-32.0 [facility] Mean corpuscular hemoglobin concentration (MCHC) determinationOrdered By: Gee Garza on 11-16-2024 MCHC (RBC) [Mass/Vol] 33.3 g/dL 32-36 [facility] Mean platelet volume determi nationOrdered By: Gee Garza on 11-16-2024 Platelet mean volume (Bld) [Entitic vol] 9.5 fL 6.2-12.0 [facility] Monocyte percentageOrdered B y: Gee Garza on 11-16-2024 Monocytes/100 WBC (Bld) 9.3 % 0-10 [facility] Neutrophil percentageOrdered By: Gee Garza on 11-16-2024 Neutrophils/100 WBC (Bld) 71.9 % High 47-70 [facility] Nucleated red blood cell per centageOrdered By: Gee Garza on 11-16-2024 Nucleated RBC/100 WBC (Bld) [Ratio] 0 % 0-5 [facility] Platelet countOrdered By: Jens Garza on 11-16-2024 Platelets (Bld) [#/Vol] 194 10*3/uL 150-450 [facility] Potassium measurementOrdered By: Gee Garza on 11-16-2024 Potassium [Moles/Vol] 3.7 mmol/L 3.5-5.1 [facility] RBC Auto (Bld) [#/Vol]Ordere d By: Gee Garza on 11-16-2024 RBC (Bld) [#/Vol] 5.26 10*6/uL 4.6-6.2 [facility] Serum anion gap measurementO rdered By: Gee Garza on 11-16-2024 Anion gap [Moles/Vol] 5 mmol/L 5-15 [facility] Serum globulin measurementOr dered By: Gee Garza on 11-16-2024 Globulin (S) [Mass/Vol] 3.1 g/dL 2.2-4.2 [facility] Serum or plasma alanine hall otransferase (ALT) measurementOrdered By: Gee Garza on 11-16-2024 ALT [Catalytic activity/Vol] 62 U/L High 16-61 [facility] Serum or plasma albumin pavan urement (mass/volume)Ordered By: Gee Garza on 11-16-2024 Albumin [Mass/Vol] 3.5 g/dL 3.2-5.0 [facility] Serum or plasma alkaline candice sphatase measurementOrdered By: Gee Garza on 11-16-2024 ALP [Catalytic activity/Vol] 94 U/L 45-117 [facility] Serum or plasma calcium pavan urement (mass/volume)Ordered By: Gee Garza 11-16-2024 Calcium [Mass/Vol] 9.3 mg/dL 8.5-10.1 [facility] Serum or plasma creatinine m easurement (mass/volume)Ordered By: Gee Garza 11-16-2024 Creatinine [Mass/Vol] 1.18 mg/dL 0.70-1.30 [facility] Comment on above: The validity of the calculated GFR & GFRAA in patients over 70 years has not been determined. Clinical correlation is essential. Serum or plasma urea nitroge n measurement (mass/volume)Ordered By: Gee Garza 11-16-2024 Urea nitrogen [Mass/Vol] 18 mg/dL 7-18 [facility] Sodium levelOrdered By: Gee Garza 11-16-2024 Sodium [Moles/Vol] 138 mmol/L 136-145 [facility] TSH QnOrdered By: Gee Garza o n 11-16-2024 Thyroid Stimulating Hormone (TSH) 0.636 uIU/mL 0.358-3.740 [facility] Thyroid Stim Hormone (TSH)on 11-16-2024 TSH 0.636 uIU/mL Normal 0.358-3.740 [facility] Comment on above: Performed By: #### L 500.4050, L501.9520, L506.1000, L100.0100 ####[facility] [id number] [place], [address] Total proteinOrdered By: Gee Garza on 11-16-2024 Protein [Mass/Vol] 6.6 g/dL 6.4-8.2 [facility] Vitamin D,25 Hydroxyon 11-16 Vitamin D 25-OH 59.3 ng/mL Normal [facility] Comment on above: Result Comment: Miriam min D 25(OH) Status Range Deficiency <20 ng/mL (50nmol/L) Insufficiency 20 - 30 ng/mL (50 - 75 nmol/L) Sufficiency 30 - 100 ng/mL (75 - 250 nmol/L) Toxicity >100 ng/mL (>250 nmol/L) Performed By: #### L 500.4050, L501.9520, L506.1000, L100.0100 ####[facility] [id number] [place], [address] White blood cell (WBC) count Ordered By: Gee Garza on 11-16-2024 WBC (Bld) [#/Vol] 9.5 10*3/uL 4.4-11.0 [facility] Influenza virus A and B and SARS-CoV-2 (COVID-19) and Respiratory syncytial virus RNAOrdered By: Gee Garza on 10-25-2024 SARS-CoV-2 (COVID-19) RNA MARVIN+probe Ql (Unsp spec) [facility] M100.678on 10-25-2024 M100.678 Pending SARS-CoV-2 (COVID 19) Negative INFLUENZA A Negative INFLUENZA B Negative RSV PCR Negative Normal [facility] Comment on above: Performed By: #### M 100.678 #### [facility] [address] [place], [place], [address] XR CHEST 2 VIEWSon 4 XR CHEST 2 VIEWS ORIGINAL EXAMINATION: TWO XRAY VIEWS OF THE CHEST 02/10/2024 3:27 am COMPARISON: Chest x-ray on 02/09/2024 HISTORY: ORDERING SYSTEM PROVIDED HISTORY: Reason for Exam: Evaluate for pneumothorax/lead position post pacer/ICD insertion FINDINGS: Left subclavian cardiac conduction device is in place with tip of 1 lead in the right atrium, 2 lead tips in the right ventricle, and also a lead in the coronary sinus. The heart size is normal. The lungs are hyperexpanded. There is no lung infiltrate or edema. No pneumothorax or pleural fluid is present. The skeletal structures are unremarkable. IMPRESSION: Left subclavian cardiac conduction device is in place. No acute abnormality. Interpreted by: Sergio Butler MD Preliminary Report By: Sergio Butler MD Electronically signed By Sergio Butler MD Dictated Date: 02/10/2024 3:30:21 AM Prelim Date: 02/10/2024 3:33:58 AM Sign Date: 02/10/2024 3:33:58 AM Ordering Provider: LUCIANA Dave [facility] ([place]) .Auto Diffon 02-09-2024 Basophil, Absolute 0.0 10 3/mcL Normal 0.0-0.3 [facility] ([place]) Comment on above: Performed By: #### P RO, GFR, ADIFF, ANEU, CBC, BMP #### [address] [address] Basophils/100 WBC (Bld) 0.5 % Normal 0.0-2.5 A [facility] ([place]) Comment on above: Performed By: #### P RO, GFR, ADIFF, ANEU, CBC, BMP #### [address] [address] Eosinophil, Absolute 0.1 10 3/mcL Normal 0.0-0.7 [facility] ([place]) Comment on above: Performed By: #### P RO, GFR, ADIFF, ANEU, CBC, BMP #### [address] [address] Eosinophils/100 WBC (Bld) 2.3 % Normal 0.0-6.0 [facility] ([place]) Comment on above: Performed By: #### P RO, GFR, ADIFF, ANEU, CBC, BMP #### [address] [address] Lymphocyte, Absolute 1.2 10 3/mcL Normal 0.9-4.3 [facility] ([place]) Comment on above: Performed By: #### P RO, GFR, ADIFF, ANEU, CBC, BMP #### [address] [address] Lymphocytes/100 WBC (Bld) 23.0 % Normal 20.0-40.0 [facility] ([place]) Comment on above: Performed By: #### P RO, GFR, ADIFF, ANEU, CBC, BMP #### [place] [id number] [place] [address] Monocyte, Absolute 0.6 10 3/mcL Normal 0.1-1.4 [facility] ([place]) Comment on above: Performed By: #### P RO, GFR, ADIFF, ANEU, CBC, BMP #### [address] [address] Monocytes/100 WBC (Bld) 12.4 % Normal 2.0-13.0 A [facility] ([place]) Comment on above: Performed By: #### P RO, GFR, ADIFF, ANEU, CBC, BMP #### [address] [address] Neutrophils/100 WBC (Bld) 61.8 % Normal 50.0-75.0 [facility] ([place]) Comment on above: Performed By: #### P RO, GFR, ADIFF, ANEU, CBC, BMP #### [address] [address] .GFRon 02-09-2024 GFR Non- >60 Normal [facility] ([place]) Comment on above: Result Comment: GFR Population mean for , Non- Americans Ages 20-29 = 116 mL/min/1.73 sq.m. Ages 30-39 = 107 mL/min/1.73 sq.m. Ages 40-49 = 99 mL/min/1.73 sq.m. Ages 50-59 = 93 mL/min/1.73 sq.m. Ages 60-69 = 85 mL/min/1.73 sq.m. Ages 70+ = 75 mL/min/1.73 sq.m. Chronic Kidney Disease: Less than 60 mL/min/1.73 square meters End Stage Renal Disease: Less than 15 mL/min/1.73 square meters Performed By: #### P RO, GFR, ADIFF, ANEU, CBC, BMP #### [address] [address] GFR >60 Normal [facility] ([place]) Comment on above: Result Comment: GFR Population mean for , Non- Americans Ages 20-29 = 116 mL/min/1.73 sq.m. Ages 30-39 = 107 mL/min/1.73 sq.m. Ages 40-49 = 99 mL/min/1.73 sq.m. Ages 50-59 = 93 mL/min/1.73 sq.m. Ages 60-69 = 85 mL/min/1.73 sq.m. Ages 70+ = 75 mL/min/1.73 sq.m. Chronic Kidney Disease: Less than 60 mL/min/1.73 square meters End Stage Renal Disease: Less than 15 mL/min/1.73 square meters Performed By: #### P RO, GFR, ADIFF, ANEU, CBC, BMP #### [address] [address] .NEUABSon 02-09-2024 Neutrophil, Absolute 3.2 10 3/mcL Normal 2.3-8.1 [facility] ([place]) Comment on above: Performed By: #### P RO, GFR, ADIFF, ANEU, CBC, BMP #### [place] [id number] BMPon 02-09-2024 BUN/Creatinine Ratio 13.3 ratio Normal 10.0-22.0 [facility] ([place]) Comment on above: Performed By: #### P RO, GFR, ADIFF, ANEU, CBC, BMP #### [address] [address] Calcium [Mass/Vol] 9.3 mg/dL Normal 8.7-10.4 [facility] ([place]) Comment on above: Performed By: #### P RO, GFR, ADIFF, ANEU, CBC, BMP #### [address] [address] Chloride [Moles/Vol] 108 mmol/L Normal 98-110 [facility] ([place]) Comment on above: Performed By: #### P RO, GFR, ADIFF, ANEU, CBC, BMP #### [address] [address] CO2 [Moles/Vol] 26 mmol/L Normal 22-32 [facility] ([place]) Comment on above: Performed By: #### P RO, GFR, ADIFF, ANEU, CBC, BMP #### [place] [address] Creatinine [Mass/Vol] 0.98 mg/dL Normal 0.60-1.40 [facility] ([place]) Comment on above: Performed By: #### P RO, GFR, ADIFF, ANEU, CBC, BMP #### [place] [address] Electrolyte Balance 3.0 mEq/L Low 4.0-15.0 [facility] ([place]) Comment on above: Performed By: #### P RO, GFR, ADIFF, ANEU, CBC, BMP #### [place] [address] Glucose [Mass/Vol] 120 mg/dL High 82-115 [facility] ([place]) Comment on above: Performed By: #### P RO, GFR, ADIFF, ANEU, CBC, BMP #### [place] [id number] Potassium [Moles/Vol] 3.8 mmol/L Normal 3.5-5.0 [facility] ([place]) Comment on above: Performed By: #### P RO, GFR, ADIFF, ANEU, CBC, BMP #### [place] [id number] Sodium [Moles/Vol] 137 mmol/L Normal 136-145 [facility] ([place]) Comment on above: Performed By: #### P RO, GFR, ADIFF, ANEU, CBC, BMP #### [place] [id number] Urea nitrogen [Mass/Vol] 13.0 mg/dL Normal 8.0-22.0 [facility] ([place]) Comment on above: Performed By: #### P RO, GFR, ADIFF, ANEU, CBC, BMP #### [place] [id number] CBCon 02-09-2024 Erythrocyte distribution width (RBC) [Ratio] 13.7 % Normal 11.5-15.5 [facility] ([place]) Comment on above: Performed By: #### P RO, GFR, ADIFF, ANEU, CBC, BMP #### [place] [address] Hematocrit (Bld) [Volume fraction] 44.1 % Normal 40.0-52.0 [facility] ([place]) Comment on above: Performed By: #### P RO, GFR, ADIFF, ANEU, CBC, BMP #### [place] [id number] Hgb 15.2 G/dL Normal 13.0-17.5 [facility] ([place]) Comment on above: Performed By: #### P RO, GFR, ADIFF, ANEU, CBC, BMP #### [place] [address] MCH (RBC) [Entitic mass] 31.8 pg Normal 27.0-33.0 [facility] ([place]) Comment on above: Performed By: #### P RO, GFR, ADIFF, ANEU, CBC, BMP #### [place] [address] MCHC 34.5 G/dL Normal 32.0-36.0 [facility] ([place]) Comment on above: Performed By: #### P RO, GFR, ADIFF, ANEU, CBC, BMP #### [place] [id number] MCV (RBC) [Entitic vol] 92.2 fL Normal 81.0-100.0 [facility] ([place]) Comment on above: Performed By: #### P RO, GFR, ADIFF, ANEU, CBC, BMP #### [place] [id number] Platelet 191 10 3/mcL Normal 150-450 [facility] ([place]) Comment on above: Performed By: #### P RO, GFR, ADIFF, ANEU, CBC, BMP #### [place] [id number] Platelet mean volume (Bld) [Entitic vol] 7.4 fL Normal 6.4-10.5 [facility] ([place]) Comment on above: Performed By: #### P RO, GFR, ADIFF, ANEU, CBC, BMP #### [place] [address] RBC 4.78 10 6/mcL Normal 4.50-6.00 [facility] ([place]) Comment on above: Performed By: #### P RO, GFR, ADIFF, ANEU, CBC, BMP #### [place] [address] WBC 5.2 10 3/mcL Normal 4.5-10.8 [facility] ([place]) Comment on above: Performed By: #### P RO, GFR, ADIFF, ANEU, CBC, BMP #### [place] [address] LABORATORYOrdered By: SYSTEM SYSTEM on 02-09-2024 Basophils (Bld) [#/Vol] 0.0 103/mcL Normal 0.0 - 0.3 10^3/mcL Workflow SS Basophils/100 WBC (Bld) 0.5 % Normal 0.0 - 2.5 % AH Workflow SS Calcium [Mass/Vol] 9.3 mg/dL Normal 8.7 - 10. 4 mg/dL ADM SS Chloride [Moles/Vol] 108 mmol/L Normal 98 - 11 0 mEq/L ADM SS CO2 [Moles/Vol] 26 mmol/L Normal 22 - 32 mEq/L ADM SS Creatinine [Mass/Vol] 0.98 mg/dL Normal 0.60 - 1.40 mg/dL ADM SS Electrolyte Balance 3.0 mEq/L Low 4.0 - 15 .0 mEq/L AH ADM SS Eosinophils (Bld) [#/Vol] 0.1 103/mcL Normal 0. 0 - 0.7 10^3/mcL AH Workflow SS Eosinophils/100 WBC (Bld) 2.3 % Normal 0.0 - 6.0 % AH Workflow SS Erythrocyte distribution width (RBC) [Ratio] 13.7 % Normal 11.5 - 15.5 % AH Workflow SS GFR/1.73 sq M.predicted among blacks MDRD (S/P/Bld) [Vol rate/Area] ml/min/1.73sqm Invalid Interpretation Code [employer] S Comment on above: Interpretive Data: GFR Population mean for , Non- Americans Ages 20-29 = 116 mL/min/1.73 sq.m. Ages 30-39 = 107 mL/min/1.73 sq.m. Ages 40-49 = 99 mL/min/1.73 sq.m. Ages 50-59 = 93 mL/min/1.73 sq.m. Ages 60-69 = 85 mL/min/1.73 sq.m. Ages 70+ = 75 mL/min/1.73 sq.m. Chronic Kidney Disease: Less than 60 mL/min/1.73 square meters End Stage Renal Disease: Less than 15 mL/min/1.73 square meters GFR/1.73 sq M.predicted among non-blacks MDRD (S/P/Bld) [Vol rate/Area] ml/min/1.73sqm Invalid Interpretation Code [employer] S Comment on above: Interpretive Data: GFR Population mean for , Non- Americans Ages 20-29 = 116 mL/min/1.73 sq.m. Ages 30-39 = 107 mL/min/1.73 sq.m. Ages 40-49 = 99 mL/min/1.73 sq.m. Ages 50-59 = 93 mL/min/1.73 sq.m. Ages 60-69 = 85 mL/min/1.73 sq.m. Ages 70+ = 75 mL/min/1.73 sq.m. Chronic Kidney Disease: Less than 60 mL/min/1.73 square meters End Stage Renal Disease: Less than 15 mL/min/1.73 square meters Glucose [Mass/Vol] 120 mg/dL High 82 - 115 mg/dL ADM SS Hematocrit (Bld) [Volume fraction] 44.1 % Normal 40.0 - 52.0 % Workflow SS Hemoglobin (Bld) [Mass/Vol] 15.2 G/dL Normal 13.0 - 17.5 G/dL Workflow SS Lymphocytes (Bld) [#/Vol] 1.2 103/mcL Normal 0. 9 - 4.3 10^3/mcL Workflow SS Lymphocytes/100 WBC (Bld) 23.0 % Normal 20 .0 - 40.0 % Workflow SS MCH (RBC) [Entitic mass] 31.8 pg Normal 27. 0 - 33.0 pg Workflow SS MCHC 34.5 G/dL Normal 32.0 - 36.0 G/dL Workflow SS MCV (RBC) [Entitic vol] 92.2 fL Normal 81.0 - 100.0 fL AH Workflow SS Monocytes (Bld) [#/Vol] 0.6 103/mcL Normal 0.1 - 1.4 10^3/mcL AH Workflow SS Monocytes/100 WBC (Bld) 12.4 % Normal 2.0 - 13.0 % AH Workflow SS Neutrophils (Bld) [#/Vol] 3.2 103/mcL Normal 2. 3 - 8.1 10^3/mcL Workflow SS Neutrophils/100 WBC (Bld) 61.8 % Normal 50 .0 - 75.0 % Workflow SS Platelet mean volume (Bld) [Entitic vol] 7.4 fL Normal 6.4 - 10.5 fL Workflow SS Platelets (Bld) [#/Vol] 191 103/mcL Normal 150 - 450 10^3/mcL Workflow SS Potassium [Moles/Vol] 3.8 mmol/L Normal 3.5 - 5.0 mEq/L ADM SS RBC (Bld) [#/Vol] 4.78 106/mcL Normal 4.50 - 6.0 0 10^6/mcL Workflow SS Sodium [Moles/Vol] 137 mmol/L Normal 136 - 145 mEq/L ADM SS Urea nitrogen [Mass/Vol] 13.0 mg/dL Normal 8.0 - 22.0 mg/dL ADM SS Urea nitrogen/Creatinine [Mass ratio] 13.3 ratio Normal 10.0 - 22.0 ratio ADM SS WBC (Bld) [#/Vol] 5.2 103/mcL Normal 4.5 - 10.8 10^3/mcL Workflow SS LABORATORYOrdered By: Titi Brand on 02-09-2024 PT Coag (PPP) [Time] 11.7 s Normal 9.0 - 1 4.2 seconds [employer] SS Comment on above: Interpretive Data: E ffective 05/24/08, Protime results may be affected by some antibiotics (i.e. Ciprofloxacin, Azithromycin, Bactrim) which may potentiate the action of oral anticoagulants, with further increases in Protime/INR. PT International Ratio 1.0 ratio Invalid Interpretation Code [employer] SS Comment on above: Interpretive Data: T he [employer] (CHEST, 1991, 102:312S-25S) recommended therapeutic range for oral anticoagulant therapy is: LOW RISK: Prophylaxis of venous thrombosis INR: 2.0-3.0 Treatment of pulmonary embolism 2.0-3.0 Prevention of systemic embolism 2.0-3.0 HIGH RISK: Mechanical prosthetic valves 2.5-3.5 PROon 02-09-2024 INR Coag (PPP) [Relative time] 1.0 {INR} Normal [facility] ([place]) Comment on above: Result Comment: The [employer] (CHEST, 1991, 102:312S-25S) recommended therapeutic range for oral anticoagulant therapy is: LOW RISK: Prophylaxis of venous thrombosis INR: 2.0-3.0 Treatment of pulmonary embolism 2.0-3.0 Prevention of systemic embolism 2.0-3.0 HIGH RISK: Mechanical prosthetic valves 2.5-3.5 Performed By: #### P RO, GFR, ADIFF, ANEU, CBC, BMP #### [address] [address] PT Coag (PPP) [Time] 11.7 s Normal 9.0-14.2 [facility] ([place]) Comment on above: Result Comment: Effe ctive 05/24/08, Protime results may be affected by some antibiotics (i.e. Ciprofloxacin, Azithromycin, Bactrim) which may potentiate the action of oral anticoagulants, with further increases in Protime/INR. Performed By: #### P RO, GFR, ADIFF, ANEU, CBC, BMP #### [address] [address] XR CHEST 1 VIEWon 02-09-2024 XR CHEST 1 VIEW ORIGINAL EXAMINATION: ONE XRAY VIEW OF THE CHEST02/09/2024 10:40 am COMPARISON: None. HISTORY: ORDERING SYSTEM PROVIDED HISTORY: Reason for Exam: Evaluate for pneumothorax/lead position post pacer/ICD insertion FINDINGS: The heart size is normal. Pacer/defibrillato r device is noted from a left chest wall approach. There is a lead near the level of the right atrial appendage. 2 right ventricular leads suspected. There is a 4th lead traversing the coronary sinus. No lateral image was obtained.. Calcified left apical nodule is presumably a granuloma. Vascular structures appear within normal limits. There is no consolidation. No pleural fluid or pneumothorax. No aggressive osseous lesions identified. IMPRESSION: Pacer/defibrillato r device from a left chest wall approach. No visible pneumothorax. No lateral image was obtained Interpreted by: Tremaine Ziegler MD Preliminary Report By: Tremaine Ziegler MD Electronically signed By Tremaine Ziegler MD Dictated Date: 02/09/2024 10:43:04 AM Prelim Date: 02/09/2024 10:46:04 AM Sign Date: 02/09/2024 10:46:04 AM [facility]ing [facility] ([place]) Basophil percentageOrdered B y: Junior Hayes on 12-18-2023 Chloride [Moles/Vol] 105 mmol/L 98-107 [facility] Glucose [Mass/Vol] 169 mg/dL 74-106 [facility] Comment on above: Fasting Glucose resu lt greater than or equal to 126 mg/dL suggests DIABETES MELLITUS per A.D.A. criteria. Hemoglobin (Bld) [Mass/Vol] 13.7 g/dL 13.0-16.5 [facility] Potassium [Moles/Vol] 4.2 mmol/L 3.5-5.1 [facility] Sodium [Moles/Vol] 137 mmol/L 136-145 [facility] WBC (Bld) [#/Vol] 8.0 10*3/uL 4.4-11.0 [facility] Determination of erythrocyte mean corpuscular volume (MCV)Ordered By: Junior Hayes on 12-18-2023 MCV (RBC) [Entitic vol] 95.1 fL 80-94 [facility] Erythrocyte distribution wid th ratioOrdered By: Junior Hayes on 12-18-2023 Erythrocyte distribution width (RBC) [Ratio] 13.9 % 11.6-14.6 [facility] Erythrocyte distribution wid th standard deviationOrdered By: Junior Hayes on 12-18-2023 Erythrocyte distribution width (RBC) [Entitic vol] 49.1 fL 35.1-43.9 [facility] Hematocrit Auto (Bld) [Volum e fraction]Ordered By: Junior Hayes on 12-18-2023 Hematocrit (Bld) [Volume fraction] 42.6 % 40-54 [facility] - Chemistry and C hemistry - challengeOrdered By: Junior Hayes on 12-18-2023 CO2 [Moles/Vol] 28.0 mmol/L 21.0-32.0 [facility] Urea nitrogen/Creatinine [Mass ratio] 15.1 mg/mg 10-20 [facility] - Hematology and Cell countsOrdered By: Junior Hayes on 12-18-2023 MCH (RBC) [Entitic mass] 30.6 pg 27.0-32.0 [facility] MCHC (RBC) [Mass/Vol] 32.2 g/dL 32-36 [facility] Platelet mean volume (Bld) [Entitic vol] 9.5 fL 6.2-12.0 [facility] Platelets (Bld) [#/Vol] 214 10*3/uL 150-450 [facility] No Panel InformationOrdered By: Junior Hayes on 12-18-2023 Estimated Creatinine Clearance Calc 63.57 ml/min [facility] Estimated GFR (MDRD) Amer 103 mL/min >60 [facility] Comment on above: GFR Calc Estimated GFR (MDRD) Non-Af Amer 85 mL/min >60 [facility] Comment on above: Non- GFR Calc RBC Auto (Bld) [#/Vol]Ordere d By: Junior Hayes on 12-18-2023 RBC (Bld) [#/Vol] 4.48 10*6/uL 4.6-6.2 [facility] Serum or plasma calcium pavan urement (mass/volume)Ordered By: Junior Hayes on 12-18-2023 Calcium [Mass/Vol] 8.7 mg/dL 8.5-10.1 [facility] Serum or plasma creatinine m easurement (mass/volume)Ordered By: Junior Hayes on 12-18-2023 Creatinine [Mass/Vol] 0.92 mg/dL 0.70-1.30 [facility] Comment on above: The validity of the calculated GFR & GFRAA in patients over 70 years has not been determined. Clinical correlation is essential. Serum or plasma urea nitroge n measurement (mass/volume)Ordered By: Junior Hayes on 12-18-2023 Urea nitrogen [Mass/Vol] 14 mg/dL 7-18 [facility] Thin prep Papanicolaou smear with manual screeningOrdered By: Junior Hayes on 12-18-2023 Thin prep Papanicolaou smear with manual screening 4 5-15 [facility] Basophil percentageOrdered B y: Jeet Benavidez on 11-06-2023 Chloride [Moles/Vol] 102 mmol/L 98-107 [facility] Glucose [Mass/Vol] 125 mg/dL 74-106 [facility] Comment on above: Fasting Glucose resu lt from 100 to 125 mg/dL suggests IMPAIRED HOMEOSTASIS per A.D.A. criteria. Potassium [Moles/Vol] 3.7 mmol/L 3.5-5.1 [facility] Sodium [Moles/Vol] 137 mmol/L 136-145 [facility] Laboratory - Chemistry and C hemistry - challengeOrdered By: Jeet Benavidez on 11-06-2023 CO2 [Moles/Vol] 28.0 mmol/L 21.0-32.0 [facility] Urea nitrogen/Creatinine [Mass ratio] 18.3 mg/mg 10-20 [facility] No Panel InformationOrdered By: Jeet Benavidez on 11-06-2023 Estimated GFR (MDRD) Amer 95 mL/min >60 [facility] Comment on above: GFR Calc Estimated GFR (MDRD) Non-Af Amer 79 mL/min >60 [facility] Comment on above: Non- GFR Calc Serum or plasma calcium pavan urement (mass/volume)Ordered By: Jeet Benavidez on 11-06-2023 Calcium [Mass/Vol] 9.0 mg/dL 8.5-10.1 [facility] Serum or plasma creatinine m easurement (mass/volume)Ordered By: Jeet Benavidez on 11-06-2023 Creatinine [Mass/Vol] 0.98 mg/dL 0.70-1.30 [facility] Comment on above: The validity of the calculated GFR & GFRAA in patients over 70 years has not been determined. Clinical correlation is essential. Serum or plasma urea nitroge n measurement (mass/volume)Ordered By: Jeet Benavidez on 11-06-2023 Urea nitrogen [Mass/Vol] 18 mg/dL 7-18 [facility] Thin prep Papanicolaou smear with manual screeningOrdered By: Jeet Bneavidez on 11-06-2023 Thin prep Papanicolaou smear with manual screening 7 5-15 [facility] Absolute lymphocyte countOrd ered By: Gee Garza on 10-23-2023 Lymphocytes Auto (Unsp spec) [#/Vol] 1.46 10*3/uL 0.83-4.51 [facility] Basophil percentageOrdered B y: Gee Garza on 10-23-2023 Basophils/100 WBC (Bld) 0.5 % 0-1 [facility] Bilirubin [Mass/Vol] 0.60 mg/dL 0.20-1.00 [facility] Comment on above: For patients on eltr ombopag therapy, use of Dimension [place] TBIL is not recommended. Chloride [Moles/Vol] 102 mmol/L 98-107 [facility] Eosinophils/100 WBC (Bld) 1.0 % 0-5 [facility] Glucose [Mass/Vol] 94 mg/dL 74-106 [facility] Neutrophils (Bld) [#/Vol] 6.1 10*3/uL 2.0-7.7 [facility] Neutrophils/100 WBC (Bld) 71.0 % 47-70 [facility] Potassium [Moles/Vol] 4.3 mmol/L 3.5-5.1 [facility] Protein [Mass/Vol] 7.0 g/dL 6.4-8.2 [facility] Sodium [Moles/Vol] 138 mmol/L 136-145 [facility] WBC (Bld) [#/Vol] 8.6 10*3/uL 4.4-11.0 [facility] Blood erythrocytes count (nu mber/volume)Ordered By: Gee Garza on 10-23-2023 RBC (Bld) [#/Vol] 4.71 10*6/uL 4.6-6.2 [facility] Blood hemoglobin measurement (mass/volume)Ordered By: Gee Garza on 10-23-2023 Hemoglobin (Bld) [Mass/Vol] 14.3 g/dL 13.0-16.5 [facility] Blood lymphocytes/100 leukoc ytesOrdered By: [facility] on 10-23-2023 Lymphocytes/100 WBC (Bld) 16.9 % 19-41 [facility] Blood monocytes/100 leukocyt esOrdered By: [facility] on 10-23-2023 Monocytes/100 WBC (Bld) 10.4 % 0-10 [facility] Blood platelet mean volumeOr dered By: [facility] on 10-23-2023 Platelet mean volume (Bld) [Entitic vol] 9.0 fL 6.2-12.0 [facility] Determination of erythrocyte mean corpuscular volume (MCV)Ordered By: [facility] on 10-23-2023 MCV (RBC) [Entitic vol] 95.8 fL 80-94 [facility] Hematocrit Auto (Bld) [Volum e fraction]Ordered By: [facility] on 10-23-2023 Hematocrit (Bld) [Volume fraction] 45.1 % 40-54 [facility] Laboratory - Chemistry and C hemistry - challengeOrdered By: [facility] 10-23-2023 ALP [Catalytic activity/Vol] 102 U/L 45-117 [facility] ALT [Catalytic activity/Vol] 29 U/L 16-61 [facility] CO2 [Moles/Vol] 30.0 mmol/L 21.0-32.0 [facility] Globulin (S) [Mass/Vol] 3.3 g/dL 2.2-4.2 [facility] Urea nitrogen/Creatinine [Mass ratio] 23.2 mg/mg 10-20 [facility] Laboratory - Hematology and Cell countsOrdered By: [facility] 10-23-2023 Erythrocyte distribution width (RBC) [Entitic vol] 47.1 fL 35.1-43.9 [facility] Erythrocyte distribution width (RBC) [Ratio] 13.3 % 11.6-14.6 [facility] Immature granulocytes/100 WBC (Bld) 0.200 % 0.0-0.9 [facility] Comment on above: IG% - Immature Granu locytes (promyelocytes, myelocytes and metamyelocytes) > 1% indicates that a LEFT SHIFT is Present. MCH (RBC) [Entitic mass] 30.4 pg 27.0-32.0 [facility] Nucleated RBC/100 WBC (Bld) [Ratio] 0 % 0-5 [facility] MCHC Auto (RBC) [Mass/Vol]Or dered By: Gee Garza on 10-23-2023 MCHC (RBC) [Mass/Vol] 31.7 g/dL 32-36 [facility] No Panel InformationOrdered By: Gee Garza on 10-23-2023 Estimated GFR (MDRD) Amer 95 mL/min >60 [facility] Comment on above: GFR Calc Estimated GFR (MDRD) Non-Af Amer 78 mL/min >60 [facility] Comment on above: Non- GFR Calc Thyroid Stimulating Hormone (TSH) 0.68 uIU/mL 0.358-3.74 [facility] Vitamin D 25-Hydroxy 58.5 ng/mL [facility] Comment on above: Vitamin D 25(OH) Sta tus Range Deficiency <20 ng/mL (50nmol/L) Insufficiency 20 - 30 ng/mL (50 - 75 nmol/L) Sufficiency 30 - 100 ng/mL (75 - 250 nmol/L) Toxicity >100 ng/mL (>250 nmol/L) Platelets bldOrdered By: Gee Garza on 10-23-2023 Platelets (Bld) [#/Vol] 316 10*3/uL 150-450 [facility] Serum or plasma albumin pavan urement (mass/volume)Ordered By: Gee Garza on 10-23-2023 Albumin [Mass/Vol] 3.7 g/dL 3.2-5.0 [facility] Serum or plasma albumin/glob ulin mass ratioOrdered By: Gee Garza on 10-23-2023 Albumin/Globulin [Mass ratio] 1.1 {ratio} 0.9-2.4 [facility] Serum or plasma calcium pavan urement (mass/volume)Ordered By: Gee Gazra on 10-23-2023 Calcium [Mass/Vol] 9.4 mg/dL 8.5-10.1 [facility] Serum or plasma creatinine m easurement (mass/volume)Ordered By: Gee Garza on 10-23-2023 Creatinine [Mass/Vol] 0.99 mg/dL 0.70-1.30 [facility] Comment on above: The validity of the calculated GFR & GFRAA in patients over 70 years has not been determined. Clinical correlation is essential. Serum or plasma urea nitroge n measurement (mass/volume)Ordered By: Gee Garza on 10-23-2023 Urea nitrogen [Mass/Vol] 23 mg/dL 7-18 [facility] Thin prep Papanicolaou smear with manual screeningOrdered By: Gee Garza on 10-23-2023 Thin prep Papanicolaou smear with manual screening 20 U/L 15-37 [facility] Thin prep Papanicolaou smear with manual screening 6 5-15 [facility] Basophil percentageOrdered B y: Chicho Farnsworth on 10-08-2023 Basophil percentage 0 SEEN /hpf 0-5 [facility] Bilirubin Test strip Ql (U)O rdered By: Chicho Farnsworth on 10-08-2023 Bilirubin Ql (U) Negative Negative [facility] Ketones Test strip Ql (U)Ord ered By: Chicho Farnsworth on 10-08-2023 Ketones Ql (U) Negative Negative [facility] Mucus LM Ql (Urine sed)Order ed By: Chicho Farnsworth on 10-08-2023 Mucus Ql (Urine sed) 0 SEEN /hpf [facility] Nitrite Test strip Ql (U)Ord ered By: Chicho Farnsworth on 10-08-2023 Nitrite Ql (U) Negative Negative [facility] Protein Test strip Ql (U)Ord ered By: Chicho Farnsworth on 10-08-2023 Protein Ql (U) Negative Negative [facility] Squamous epithelial cells de tection in urine sediment by light microscopyOrdered By: Chicho Farnsworth on 10-08-2023 Epithelial cells.squamous LM Ql (Urine sed) 0 SEEN /hpf 0-5 [facility] Urine blood detectionOrdered By: Chicho Farnsworth on 10-08-2023 RBC Ql (U) 25 /ul Negative [facility] RBC Ql (U) 0-5 SEEN /hpf 0-5 [facility] Urine clarityOrdered By: Shavon Farnsworth on 10-08-2023 Clarity (U) Clear Clear [facility] Urine color determinationOrd ered By: Chicho Farnsworth on 10-08-2023 Color (U) Yellow Yellow [facility] Urine glucose detectionOrder ed By: Chicho Farnsworth on 10-08-2023 Glucose Ql (U) 1000 mg/dl Normal [facility] Urine leukocyte esterase det ection by dipstickOrdered By: Chicho Farnsworth on 10-08-2023 Leukocyte esterase Test strip Ql (U) Negative Negative [facility] Urine pHOrdered By: Chicho sawyer on 10-08-2023 pH (U) 6.5 [pH] 5.0 - 8.0 [facility] Urine sediment bacteria coun t by microscopy (number/high power field)Ordered By: Chicho Farnsworth on 10-08-2023 Bacteria LM.HPF (Urine sed) [#/Area] 0 /[HPF] None Seen [facility] Urine specific gravity measu rementOrdered By: Chicho Farnsworth on 10-08-2023 Specific gravity (U) [Rel density] 1.010 1.002-1.030 [facility] Urobilinogen Auto test strip Ql (U)Ordered By: Chicho Farnsworth on 10-08-2023 Urobilinogen Ql (U) Normal mg/dl Normal [facility] Absolute lymphocyte countOrd ered By: Krystyna Cortes on 09-25-2023 Lymphocytes Auto (Unsp spec) [#/Vol] 0.98 10*3/uL 0.83-4.51 [facility] Basophil percentageOrdered B y: Krystyna Cortes on 09-25-2023 Basophils/100 WBC (Bld) 0.3 % 0-1 [facility] Chloride [Moles/Vol] 102 mmol/L 98-107 [facility] Eosinophils/100 WBC (Bld) 1.1 % 0-5 [facility] Glucose [Mass/Vol] 90 mg/dL 74-106 [facility] Neutrophils (Bld) [#/Vol] 4.4 10*3/uL 2.0-7.7 [facility] Neutrophils/100 WBC (Bld) 71.4 % 47-70 [facility] Potassium [Moles/Vol] 3.8 mmol/L 3.5-5.1 [facility] Sodium [Moles/Vol] 134 mmol/L 136-145 [facility] WBC (Bld) [#/Vol] 6.2 10*3/uL 4.4-11.0 [facility] Blood erythrocytes count (nu mber/volume)Ordered By: Krystyna Cortes on 09-25-2023 RBC (Bld) [#/Vol] 4.05 10*6/uL 4.6-6.2 [facility] Blood hemoglobin measurement (mass/volume)Ordered By: Krystyna Cortes on 09-25-2023 Hemoglobin (Bld) [Mass/Vol] 12.4 g/dL 13.0-16.5 [facility] Blood lymphocytes/100 leukoc ytesOrdered By: Krystyna Cortes on 09-25-2023 Lymphocytes/100 WBC (Bld) 15.8 % 19-41 [facility] Blood monocytes/100 leukocyt esOrdered By: Krystyna Cortes on 09-25-2023 Monocytes/100 WBC (Bld) 11.1 % 0-10 [facility] Blood platelet mean volumeOr dered By: Krystyna Cortes on 09-25-2023 Platelet mean volume (Bld) [Entitic vol] 9.9 fL 6.2-12.0 [facility] Determination of erythrocyte mean corpuscular volume (MCV)Ordered By: Krystyna Cortes on 09-25-2023 MCV (RBC) [Entitic vol] 93.1 fL 80-94 [facility] Hematocrit Auto (Bld) [Volum e fraction]Ordered By: Krystyna Cortes on 09-25-2023 Hematocrit (Bld) [Volume fraction] 37.7 % 40-54 [facility] Laboratory - Chemistry and C hemistry - challengeOrdered By: Krystyna Cortes on 09-25-2023 CO2 [Moles/Vol] 24.0 mmol/L 21.0-32.0 [facility] Urea nitrogen/Creatinine [Mass ratio] 20.0 mg/mg 10-20 [facility] Laboratory - Hematology and Cell countsOrdered By: Krystyna Cortes on 09-25-2023 Erythrocyte distribution width (RBC) [Entitic vol] 45.3 fL 35.1-43.9 [facility] Erythrocyte distribution width (RBC) [Ratio] 13.2 % 11.6-14.6 [facility] Immature granulocytes/100 WBC (Bld) 0.300 % 0.0-0.9 [facility] Comment on above: IG% - Immature Granu locytes (promyelocytes, myelocytes and metamyelocytes) > 1% indicates that a LEFT SHIFT is Present. MCH (RBC) [Entitic mass] 30.6 pg 27.0-32.0 [facility] Nucleated RBC/100 WBC (Bld) [Ratio] 0 % 0-5 [facility] MCHC Auto (RBC) [Mass/Vol]Or dered By: Krystyna Cortes on 09-25-2023 MCHC (RBC) [Mass/Vol] 32.9 g/dL 32-36 [facility] No Panel InformationOrdered By: Krystyna Cortes on 09-25-2023 Estimated Creatinine Clearance Calc 75.51 ml/min [facility] Estimated GFR (MDRD) Amer 121 mL/min >60 [facility] Comment on above: GFR Calc Estimated GFR (MDRD) Non-Af Amer 100 mL/min >60 [facility] Comment on above: Non- GFR Calc Platelets bldOrdered By: Bárbara Cortes on 09-25-2023 Platelets (Bld) [#/Vol] 210 10*3/uL 150-450 [facility] Serum or plasma calcium pavan urement (mass/volume)Ordered By: Krystyna Cortes on 09-25-2023 Calcium [Mass/Vol] 8.2 mg/dL 8.5-10.1 [facility] Serum or plasma creatinine m easurement (mass/volume)Ordered By: Krystyna Cortes on 09-25-2023 Creatinine [Mass/Vol] 0.80 mg/dL 0.70-1.30 [facility] Comment on above: The validity of the calculated GFR & GFRAA in patients over 70 years has not been determined. Clinical correlation is essential. Serum or plasma urea nitroge n measurement (mass/volume)Ordered By: Krystyna Cortes on 09-25-2023 Urea nitrogen [Mass/Vol] 16 mg/dL 7-18 [facility] Thin prep Papanicolaou smear with manual screeningOrdered By: Krystyna Cortes on 09-25-2023 Thin prep Papanicolaou smear with manual screening 8 5-15 [facility] Basophil percentageOrdered B y: Orville Chan on 09-21-2023 Lactate [Moles/Vol] 2.8 mmol/L 0.4-2.0 [facility] Comment on above: Critical Result(s) C alled at: 13:13:53 09/21/2023 by: Inocente Jin to Brie FERRERA (PCU). Results read back by same. Bilirubin [Mass/Vol] 0.70 mg/dL 0.20-1.00 [facility] Comment on above: For patients on eltr ombopag therapy, use of Dimension [place] TBIL is not recommended. Protein [Mass/Vol] 7.2 g/dL 6.4-8.2 [facility] Direct bilirubinOrdered By: Orville Chan on 09-21-2023 Bilirubin.direct [Mass/Vol] 0.21 mg/dL 0.00-0.30 [facility] INR in Blood by Coagulation assayOrdered By: Orville Chan on 09-21-2023 INR Coag (Bld) [Relative time] 1.0 {INR} [facility] Laboratory - Chemistry and C hemistry - challengeOrdered By: Orville Chan on 09-21-2023 ALP [Catalytic activity/Vol] 123 U/L 45-117 [facility] ALT [Catalytic activity/Vol] 22 U/L 16-61 [facility] Globulin (S) [Mass/Vol] 3.3 g/dL 2.2-4.2 [facility] Laboratory - Chemistry and C hemistry - challengeOrdered By: Krystyna Cortes on 09-21-2023 Natriuretic peptide B (Bld) [Mass/Vol] 1665.4 pg/mL 0-100 [facility] Laboratory - CoagulationOrde red By: Orville Chan on 09-21-2023 aPTT Coag (Bld) [Time] 32.8 s 24.1-36.2 [facility] PT Coag (PPP) [Time] 13.6 s 11.7-14.9 [facility] Laboratory - Microbiology an d Antimicrobial susceptibilityOrdered By: Orville Chan on 09-21-2023 Bacteria identified Cx Nom (Bld) Positive [facility] Bacteria identified Cx Nom (Bld) No growth in 5 days. [facility] No Panel InformationOrdered By: Orville Chan on 09-21-2023 Troponin I High Sensitivity 106 pg/mL 3.0-78.0 [facility] Comment on above: Please Note: New Torsten t Units and Gender Specific Reference Ranges. For more information see Policy Stat Procedure [place] High Sensitivity Troponin (TNIH) and attachments. Respiratory pathogens detect ion panel by molecular detection methodOrdered By: Krystyna Cortes on 09-21-2023 Respiratory pathogens DNA and RNA panel MARVIN+probe (Resp) [facility] Serum or plasma albumin pavan urement (mass/volume)Ordered By: Orville Chan on 09-21-2023 Albumin [Mass/Vol] 3.9 g/dL 3.2-5.0 [facility] Thin prep Papanicolaou smear with manual screeningOrdered By: Orville Chan on 09-21-2023 Thin prep Papanicolaou smear with manual screening 21 U/L 15-37 [facility] Absolute lymphocyte countOrd ered By: Marija Lee on 06-28-2023 Lymphocytes Auto (Unsp spec) [#/Vol] 1.14 10*3/uL 0.83-4.51 [facility] Basophil percentageOrdered B y: Marija Lee on 06-28-2023 Basophils/100 WBC (Bld) 0.4 % 0-1 [facility] Chloride [Moles/Vol] 104 mmol/L 98-107 [facility] Eosinophils/100 WBC (Bld) 1.3 % 0-5 [facility] Glucose [Mass/Vol] 117 mg/dL 74-106 [facility] Comment on above: Fasting Glucose resu lt from 100 to 125 mg/dL suggests IMPAIRED HOMEOSTASIS per A.D.A. criteria. Neutrophils (Bld) [#/Vol] 2.9 10*3/uL 2.0-7.7 [facility] Neutrophils/100 WBC (Bld) 61.8 % 47-70 [facility] Potassium [Moles/Vol] 4.3 mmol/L 3.5-5.1 [facility] Sodium [Moles/Vol] 137 mmol/L 136-145 [facility] WBC (Bld) [#/Vol] 4.7 10*3/uL 4.4-11.0 [facility] Blood erythrocytes count (nu mber/volume)Ordered By: Marija Lee on 06-28-2023 RBC (Bld) [#/Vol] 4.44 10*6/uL 4.6-6.2 [facility] Blood hemoglobin measurement (mass/volume)Ordered By: Marija Lee on 06-28-2023 Hemoglobin (Bld) [Mass/Vol] 14.1 g/dL 13.0-16.5 [facility] Blood lymphocytes/100 leukoc ytesOrdered By: Marija Lee on 06-28-2023 Lymphocytes/100 WBC (Bld) 24.2 % 19-41 [facility] Blood monocytes/100 leukocyt esOrdered By: Marija Lee on 06-28-2023 Monocytes/100 WBC (Bld) 12.1 % 0-10 [facility] Blood platelet mean volumeOr dered By: Marija Lee on 06-28-2023 Platelet mean volume (Bld) [Entitic vol] 8.9 fL 6.2-12.0 [facility] Determination of erythrocyte mean corpuscular volume (MCV)Ordered By: Marija Lee on 06-28-2023 MCV (RBC) [Entitic vol] 96.6 fL 80-94 [facility] Hematocrit Auto (Bld) [Volum e fraction]Ordered By: Marija Lee on 06-28-2023 Hematocrit (Bld) [Volume fraction] 42.9 % 40-54 [facility] Laboratory - Chemistry and C hemistry - challengeOrdered By: Marija Lee on 06-28-2023 CO2 [Moles/Vol] 31.0 mmol/L 21.0-32.0 [facility] Urea nitrogen/Creatinine [Mass ratio] 6.8 mg/mg 10-20 [facility] Laboratory - Hematology and Cell countsOrdered By: Marija Lee on 06-28-2023 Erythrocyte distribution width (RBC) [Entitic vol] 44.3 fL 35.1-43.9 [facility] Erythrocyte distribution width (RBC) [Ratio] 12.4 % 11.6-14.6 [facility] Immature granulocytes/100 WBC (Bld) 0.200 % 0.0-0.9 [facility] Comment on above: IG% - Immature Granu locytes (promyelocytes, myelocytes and metamyelocytes) > 1% indicates that a LEFT SHIFT is Present. MCH (RBC) [Entitic mass] 31.8 pg 27.0-32.0 [facility] Nucleated RBC/100 WBC (Bld) [Ratio] 0 % 0-5 [facility] MCHC Auto (RBC) [Mass/Vol]Or dered By: Marija Lee on 06-28-2023 MCHC (RBC) [Mass/Vol] 32.9 g/dL 32-36 [facility] No Panel InformationOrdered By: Marija Lee on 06-28-2023 Estimated GFR (MDRD) Amer 91 mL/min >60 [facility] Comment on above: GFR Calc Estimated GFR (MDRD) Non-Af Amer 75 mL/min >60 [facility] Comment on above: Non- GFR Calc Platelets bldOrdered By: Denis Lee on 06-28-2023 Platelets (Bld) [#/Vol] 199 10*3/uL 150-450 [facility] Serum or plasma calcium pavan urement (mass/volume)Ordered By: Marija Lee on 06-28-2023 Calcium [Mass/Vol] 9.3 mg/dL 8.5-10.1 [facility] Serum or plasma creatinine m easurement (mass/volume)Ordered By: Marija Lee on 06-28-2023 Creatinine [Mass/Vol] 1.03 mg/dL 0.70-1.30 [facility] Comment on above: The validity of the calculated GFR & GFRAA in patients over 70 years has not been determined. Clinical correlation is essential. Serum or plasma urea nitroge n measurement (mass/volume)Ordered By: Marija Lee on 06-28-2023 Urea nitrogen [Mass/Vol] 7 mg/dL 7-18 [facility] Thin prep Papanicolaou smear with manual screeningOrdered By: Marija Lee on 06-28-2023 Thin prep Papanicolaou smear with manual screening 2 5-15 [facility] Absolute lymphocyte countOrd ered By: Gee Garza on 06-10-2023 Lymphocytes Auto (Unsp spec) [#/Vol] 1.34 10*3/uL 0.83-4.51 [facility] Basophil percentageOrdered B y: Gee Garza on 06-10-2023 Basophils/100 WBC (Bld) 0.6 % 0-1 [facility] Bilirubin [Mass/Vol] 0.70 mg/dL 0.20-1.00 [facility] Comment on above: For patients on eltr ombopag therapy, use of Dimension [place] TBIL is not recommended. Chloride [Moles/Vol] 106 mmol/L 98-107 [facility] Eosinophils/100 WBC (Bld) 0.9 % 0-5 [facility] Glucose [Mass/Vol] 102 mg/dL 74-106 [facility] Comment on above: Fasting Glucose resu lt from 100 to 125 mg/dL suggests IMPAIRED HOMEOSTASIS per A.D.A. criteria. Neutrophils (Bld) [#/Vol] 3.2 10*3/uL 2.0-7.7 [facility] Neutrophils/100 WBC (Bld) 59.3 % 47-70 [facility] Potassium [Moles/Vol] 3.9 mmol/L 3.5-5.1 [facility] Protein [Mass/Vol] 6.6 g/dL 6.4-8.2 [facility] Sodium [Moles/Vol] 137 mmol/L 136-145 [facility] [facility] (Bld) [#/Vol] 5.3 10*3/uL 4.4-11.0 [facility] Blood erythrocytes count (nu mber/volume)Ordered By: Gee Garza on 06-10-2023 RBC (Bld) [#/Vol] 4.64 10*6/uL 4.6-6.2 [facility] Blood hemoglobin measurement (mass/volume)Ordered By: Gee Garza on 06-10-2023 Hemoglobin (Bld) [Mass/Vol] 14.7 g/dL 13.0-16.5 [facility] Blood lymphocytes/100 leukoc ytesOrdered By: Gee Garza on 06-10-2023 Lymphocytes/100 WBC (Bld) 25.2 % 19-41 [facility] Blood monocytes/100 leukocyt esOrdered By: Gee Garza on 06-10-2023 Monocytes/100 WBC (Bld) 13.4 % 0-10 [facility] Blood platelet mean volumeOr dered By: Gee Garza on 06-10-2023 Platelet mean volume (Bld) [Entitic vol] 9.3 fL 6.2-12.0 [facility] Determination of erythrocyte mean corpuscular volume (MCV)Ordered By: Gee Garza on 06-10-2023 MCV (RBC) [Entitic vol] 97.2 fL 80-94 [facility] Hematocrit Auto (Bld) [Volum e fraction]Ordered By: Gee Garza on 06-10-2023 Hematocrit (Bld) [Volume fraction] 45.1 % 40-54 [facility] INR in Blood by Coagulation assayOrdered By: Gee Garza on 06-10-2023 INR Coag (Bld) [Relative time] 1.0 {INR} [facility] Laboratory - Chemistry and C hemistry - challengeOrdered By: Gee Garza on 06-10-2023 ALP [Catalytic activity/Vol] 93 U/L 45-117 [facility] ALT [Catalytic activity/Vol] 38 U/L 16-61 [facility] CO2 [Moles/Vol] 28.0 mmol/L 21.0-32.0 [facility] Globulin (S) [Mass/Vol] 2.9 g/dL 2.2-4.2 [facility] Urea nitrogen/Creatinine [Mass ratio] 12.1 mg/mg 10-20 [facility] Laboratory - CoagulationOrde red By: Gee Garza on 06-10-2023 aPTT Coag (Bld) [Time] 33.4 s 24.1-36.2 [facility] PT Coag (PPP) [Time] 13.4 s 11.7-14.9 [facility] Laboratory - Hematology and Cell countsOrdered By: Gee Garza on 06-10-2023 Erythrocyte distribution width (RBC) [Entitic vol] 44.7 fL 35.1-43.9 [facility] Erythrocyte distribution width (RBC) [Ratio] 12.5 % 11.6-14.6 [facility] Immature granulocytes/100 WBC (Bld) 0.600 % 0.0-0.9 [facility] Comment on above: IG% - Immature Granu locytes (promyelocytes, myelocytes and metamyelocytes) > 1% indicates that a LEFT SHIFT is Present. MCH (RBC) [Entitic mass] 31.7 pg 27.0-32.0 [facility] Nucleated RBC/100 W[facility] (Bld) [Ratio] 0 % [facility] [Mass/Vol]Or dered By: Gee Garza on 06-10-2023 MCHC (RBC) [Mass/Vol] 32.6 g/dL 32-36 [facility] No Panel InformationOrdered By: Gee Garza on 06-10-2023 Estimated GFR (MDRD) Amer 105 mL/min >60 [facility] Comment on above: GFR Calc Estimated GFR (MDRD) Non-Af Amer 87 mL/min >60 [facility] Comment on above: Non- GFR Calc Platelets bldOrdered By: Gee Garza on 06-10-2023 Platelets (Bld) [#/Vol] 221 10*3/uL 150-450 [facility] Serum or plasma albumin pavan urement (mass/volume)Ordered By: Gee Garza on 06-10-2023 Albumin [Mass/Vol] 3.7 g/dL 3.2-5.0 [facility] Serum or plasma albumin/glob ulin mass ratioOrdered By: Gee Garza on 06-10-2023 Albumin/Globulin [Mass ratio] 1.3 {ratio} 0.9-2.4 [facility] Serum or plasma calcium pavan urement (mass/volume)Ordered By: Gee Garza on 06-10-2023 Calcium [Mass/Vol] 9.0 mg/dL 8.5-10.1 [facility] Serum or plasma creatinine m easurement (mass/volume)Ordered By: Gee Garza on 06-10-2023 Creatinine [Mass/Vol] 0.91 mg/dL 0.70-1.30 [facility] Comment on above: The validity of the calculated GFR & GFRAA in patients over 70 years has not been determined. Clinical correlation is essential. Serum or plasma urea nitroge n measurement (mass/volume)Ordered By: Gee Garza on 06-10-2023 Urea nitrogen [Mass/Vol] 11 mg/dL 7-18 [facility] Thin prep Papanicolaou smear with manual screeningOrdered By: Gee Garza 06-10-2023 Thin prep Papanicolaou smear with manual screening 33 U/L 15-37 [facility] Thin prep Papanicolaou smear with manual screening 3 5-15 [facility] 24 hour urine albumin/total protein ratio by electrophoresis (mass fraction)Ordered By: Gee Garza on 05-07-2023 Albumin Elph (24H U) [Mass fraction] 31.6 % . [facility] 24 hour urine alpha 1 globul in/total protein ratio by electrophoresis (mass fraction)Ordered By: Gee Garza on 05-07-2023 Alpha 1 globulin Elph (24H U) [Mass fraction] 6.5 % . [facility] 24 hour urine alpha 2 globul in/total protein ratio by electrophoresis (mass fraction)Ordered By: Gee Garza on 05-07-2023 Alpha 2 globulin Elph (24H U) [Mass fraction] 18.1 % . [facility] Absolute lymphocyte countOrd ered By: [facility] Lymphocytes Auto (Unsp spec) [#/Vol] 1.58 10*3/uL 0.83-4.51 [facility] Basophil percentageOrdered B y: Gee Garza on 05-07-2023 Basophils/100 WBC (Bld) 0.4 % 0-1 [facility] Bilirubin [Mass/Vol] 0.90 mg/dL 0.20-1.00 [facility] Comment on above: For patients on eltr ombopag therapy, use of Dimension [place] TBIL is not recommended. Chloride [Moles/Vol] 103 mmol/L 98-107 [facility] Eosinophils/100 WBC (Bld) 0.9 % 0-5 [facility] Glucose [Mass/Vol] 94 mg/dL 74-106 [facility] Neutrophils (Bld) [#/Vol] 4.5 10*3/uL 2.0-7.7 [facility] Neutrophils/100 WBC (Bld) 64.4 % 47-70 [facility] Potassium [Moles/Vol] 4.1 mmol/L 3.5-5.1 [facility] Protein [Mass/Vol] 7.0 g/dL 6.4-8.2 [facility] Sodium [Moles/Vol] 136 mmol/L 136-145 [facility] WBC (Bld) [#/Vol] 7.0 10*3/uL 4.4-11.0 [facility] Blood erythrocytes count (nu mber/volume)Ordered By: Gee Garza on 05-07-2023 RBC (Bld) [#/Vol] 4.72 10*6/uL 4.6-6.2 [facility] Blood hemoglobin measurement (mass/volume)Ordered By: Gee Garza on 05-07-2023 Hemoglobin (Bld) [Mass/Vol] 15.9 g/dL 13.0-16.5 [facility] Blood lymphocytes/100 leukoc ytesOrdered By: [facility] on 05-07-2023 Lymphocytes/100 WBC (Bld) 22.4 % 19-41 [facility] Blood monocytes/100 leukocyt esOrdered By: [facility] on 05-07-[facility]23 Monocytes/100 WBC (Bld) 11.5 % 0-10 [facility] Blood platelet mean volumeOr dered By: Gee Garza on 05-07-2023 Platelet mean volume (Bld) [Entitic vol] 9.1 fL 6.2-12.0 [facility] Determination of erythrocyte mean corpuscular volume (MCV)Ordered By: Gee Garza on 05-07-2023 MCV (RBC) [Entitic vol] 98.3 fL 80-94 [facility] Hematocrit Auto (Bld) [Volum e fraction]Ordered By: [facility] on 05-07-2023 Hematocrit (Bld) [Volume fraction] 46.4 % 40-54 [facility] Interpretation of serum or p lasma protein pattern by immunofixation (narrative resultOrdered By: Gee Garza on 05-07-2023 Protein Fractions Immunofixation Ron [Interp] See comment [facility] Comment on above: Result: Not Observed Laboratory - Chemistry and C hemistry - challengeOrdered By: Gee Garza on 05-07-2023 ALP [Catalytic activity/Vol] 101 U/L 45-117 [facility] ALT [Catalytic activity/Vol] 37 U/L 16-61 [facility] CO2 [Moles/Vol] 30.0 mmol/L 21.0-32.0 [facility] Urea nitrogen/Creatinine [Mass ratio] 9.2 mg/mg 10-20 [facility] Laboratory - Hematology and Cell countsOrdered By: Gee Garza on 05-07-2023 Erythrocyte distribution width (RBC) [Entitic vol] 46.4 fL 35.1-43.9 [facility] Erythrocyte distribution width (RBC) [Ratio] 12.8 % 11.6-14.6 [facility] Immature granulocytes/100 WBC (Bld) 0.400 % 0.0-0.9 [facility] Comment on above: IG% - Immature Granu locytes (promyelocytes, myelocytes and metamyelocytes) > 1% indicates that a LEFT SHIFT is Present. MCH (RBC) [Entitic mass] 33.7 pg 27.0-32.0 [facility] Nucleated RBC/100 WBC (Bld) [Ratio] 0 % 0-5 [facility] MCHC Auto (RBC) [Mass/Vol]Or dered By: Gee Garza on 05-07-2023 MCHC (RBC) [Mass/Vol] 34.3 g/dL 32-36 [facility] No Panel InformationOrdered By: Gee Garza on 05-07-2023 Addendum Document Comment . [facility] Comment on above: Protein electrophore sis scan will follow via computer,mail, or powder worker tnt delivery. Estimated GFR (MDRD) Amer 97 mL/min >60 [facility] Comment on above: GFR Calc Estimated GFR (MDRD) Non-Af Amer 80 mL/min >60 [facility] Comment on above: Non- GFR Calc Thyroid Stimulating Hormone (TSH) 0.50 uIU/mL 0.358-3.74 [facility] Urine Immunofixation PEP Note Comment . [facility] Comment on above: Protein electrophore sis scan will follow via computer,mail, or powder worker tnt delivery.Performed at: - [address] [id number] Director: Laureano Evans PhD, Phone: [phone] Vitamin D 25-Hydroxy 74.9 ng/mL [facility] Comment on above: Vitamin D 25(OH) Sta tus Range Deficiency <20 ng/mL (50nmol/L) Insufficiency 20 - 30 ng/mL (50 - 75 nmol/L) Sufficiency 30 - 100 ng/mL (75 - 250 nmol/L) Toxicity >100 ng/mL (>250 nmol/L) Platelets bldOrdered By: Gee Garza on 05-07-2023 Platelets (Bld) [#/Vol] 240 10*3/uL 150-450 [facility] Serum eelfe-4-mgzxdlio measu rement by electrophoresisOrdered By: eGe Garza on 05-07-2023 Alpha 1 globulin Elph [Mass/Vol] 0.2 g/dL 0.0-0.4 [facility] Alpha 1 globulin Elph [Mass/Vol] 0.6 g/dL 0.4-1.0 [facility] Serum globulin measurement ( mass/volume)Ordered By: Gee Garza 05-07-2023 Globulin (S) [Mass/Vol] 2.4 g/dL 2.2-3.9 [facility] Serum or plasma IgA measurem ent (mass/volume)Ordered By: Gee Garza 05-07-2023 IgA [Mass/Vol] 115 mg/dL 61-437 [facility] Serum or plasma IgG measurem ent (mass/volume)Ordered By: Gee Garza 05-07-2023 IgG [Mass/Vol] 691 mg/dL 603-1613 [facility] Serum or plasma IgM measurem ent (mass/volume)Ordered By: Gee Garza 05-07-2023 IgM [Mass/Vol] 44 mg/dL 15-143 [facility] Serum or plasma albumin pavan urement (mass/volume)Ordered By: Gee Garza 05-07-2023 Albumin [Mass/Vol] 3.8 g/dL 2.9-4.4 [facility] Serum or plasma albumin/glob ulin mass ratioOrdered By: Gee Garza 05-07-2023 Albumin/Globulin [Mass ratio] 1.2 {ratio} 0.9-2.4 [facility] Serum or plasma beta globuli n measurement by electrophoresis (mass/volume)Ordered By: Gee Garza 05-07-2023 Beta globulin Elph [Mass/Vol] 0.9 g/dL 0.7-1.3 [facility] Serum or plasma calcium pavan urement (mass/volume)Ordered By: Gee Garza 05-07-2023 Calcium [Mass/Vol] 9.9 mg/dL 8.5-10.1 [facility] Serum or plasma creatinine m easurement (mass/volume)Ordered By: Gee Garza on 05-07-2023 Creatinine [Mass/Vol] 0.98 mg/dL 0.70-1.30 [facility] Comment on above: The validity of the calculated GFR & GFRAA in patients over 70 years has not been determined. Clinical correlation is essential. Serum or plasma gamma globul in measurement by electrophoresis (mass/volume)Ordered By: Gee Garza on 05-07-2023 Gamma globulin Elph [Mass/Vol] 0.7 g/dL 0.4-1.8 [facility] Serum or plasma immunoelectr ophoresis interpretation (nominal result)Ordered By: Gee Garza on 05-07-2023 Interpretation IEP [Interp] Comment . [facility] Comment on above: No monoclonality det ected. Serum or plasma urea nitroge n measurement (mass/volume)Ordered By: Gee Garza on 05-07-2023 Urea nitrogen [Mass/Vol] 9 mg/dL 7-18 [facility] Thin prep Papanicolaou smear with manual screeningOrdered By: Gee Garza on 05-07-2023 Thin prep Papanicolaou smear with manual screening 25 U/L 15-37 [facility] Thin prep Papanicolaou smear with manual screening 3 5-15 [facility] Thin prep Papanicolaou smear with manual screening 1.6 0.7-1.7 [facility] Thin prep Papanicolaou smear with manual screening Comment . [facility] Comment on above: No monoclonality det ected. Total protein bloodOrdered B y: Gee Garza on 05-07-2023 Protein [Mass/Vol] 6.2 g/dL 6.0-8.5 [facility] Urine beta globulin measurem ent by electrophoresis (mass/volume)Ordered By: Gee Garza on 05-07-2023 Beta globulin Elph (U) [Mass/Vol] 15.6 % . [facility] Urine gamma globulin measure ment by electrophoresis (mass/volume)Ordered By: Gee Garza on 05-07-2023 Gamma globulin Elph (U) [Mass/Vol] 28.2 % . [facility] Urine monoclonal protein/tot al protein mass ratio by electrophoresisOrdered By: Gee Garza on 05-07-2023 Protein.monoclonal Elph (U) [Mass fraction] Not Observed % Not Observed [facility] Urine protein measurement (m ass/volume)Ordered By: Gee Garza on 05-07-2023 Protein (U) [Mass/Vol] 4.7 mg/dL Not Estab. [facility] Absolute lymphocyte counton 10-30-2022 Lymphocytes Auto (Unsp spec) [#/Vol] 1.22 10*3/uL 0.83-4.51 [facility] Work Phone: [phone] Basophil percentageon 2021 Basophils/100 WBC (Bld) 0.6 % 0-1 [facility] Work Phone: [phone] Bilirubin [Mass/Vol] 0.70 mg/dL 0.20-1.00 [facility] Work Phone: [phone] Comment on above: For patients on eltr ombopag therapy, use of Dimension [place] TBIL is not recommended. Chloride [Moles/Vol] 103 mmol/L 98-107 [facility] Work Phone: [phone] Eosinophils/100 WBC (Bld) 1.1 % 0-5 [facility] Work Phone: [phone] Glucose [Mass/Vol] 141 mg/dL 74-106 [facility] Work Phone: [phone] Comment on above: Fasting Glucose resu lt greater than or equal to 126 mg/dL suggests DIABETES MELLITUS per A.D.A. criteria. Neutrophils (Bld) [#/Vol] 4.8 10*3/uL 2.0-7.7 [facility] Work Phone: [phone] Neutrophils/100 WBC (Bld) 68.5 % 47-70 [facility] Work Phone: [phone] Potassium [Moles/Vol] 4.2 mmol/L 3.5-5.1 [facility] Work Phone: [phone] Protein [Mass/Vol] 6.7 g/dL 6.4-8.2 [facility] Work Phone: Sodium [Moles/Vol] 138 mmol/L 136-145 [facility] Work Phone: WBC (Bld) [#/Vol] 7.0 10*3/uL 4.4-11.0 [facility] Work Phone: Blood erythrocytes count (nu mber/volume)on 10-30-2022 RBC (Bld) [#/Vol] 4.86 10*6/uL 4.6-6.2 [facility] Phone: Blood hemoglobin measurement (mass/volume)on 10-30-2022 Hemoglobin (Bld) [Mass/Vol] 15.5 g/dL 13.0-16.5 [facility] Work Phone: Blood lymphocytes/100 leukoc yteson 10-30-2022 Lymphocytes/100 WBC (Bld) 17.4 % 19-41 [facility] Work Phone: Blood monocytes/100 leukocyt eson 10-30-2022 Monocytes/100 WBC (Bld) 12.1 % 0-10 [facility] Work Phone: Blood platelet mean volumeon 10-30-2022 Platelet mean volume (Bld) [Entitic vol] 9.9 fL 6.2-12.0 [facility] Work Phone: Determination of erythrocyte mean corpuscular volume (MCV)on 10-30-2022 MCV (RBC) [Entitic vol] 98.6 fL 80-94 [facility] Work Phone: Hematocrit Auto (Bld) [Volum e fraction]on 10-30-2022 Hematocrit (Bld) [Volume fraction] 47.9 % 40-54 [facility] Work Phone: Laboratory - Chemistry and C hemistry - challengeon 10-30-2022 ALP [Catalytic activity/Vol] 85 U/L 45-117 [facility] Work Phone: ALT [Catalytic activity/Vol] 44 U/L 16-61 [facility] Work Phone: CO2 [Moles/Vol] 26.0 mmol/L 21.0-32.0 [facility] Work Phone: Globulin (S) [Mass/Vol] 3.2 g/dL 2.2-4.2 [facility] Work Phone: Urea nitrogen/Creatinine [Mass ratio] 9.8 mg/mg 10-20 [facility] Work Phone: Laboratory - Hematology and Cell countson 10-30-2022 Erythrocyte distribution width (RBC) [Entitic vol] 43.7 fL 35.1-43.9 [facility] Phone: Erythrocyte distribution width (RBC) [Ratio] 12.0 % 11.6-14.6 [facility] Work Phone: Immature granulocytes/100 WBC (Bld) 0.300 % 0.0-0.9 [facility] Work Phone: Comment on above: IG% - Immature Granu locytes (promyelocytes, myelocytes and metamyelocytes) > 1% indicates that a LEFT SHIFT is Present. MCH (RBC) [Entitic mass] 31.9 pg 27.0-32.0 [facility] Work Phone: Nucleated RBC/100 WBC (Bld) [Ratio] 0 % 0-5 [facility] Work Phone: MCHC Auto (RBC) [Mass/Vol]on 10-30-2022 MCHC (RBC) [Mass/Vol] 32.4 g/dL 32-36 [facility] Work Phone: No Panel Informationon 10-30 Estimated GFR (MDRD) Amer 74 mL/min >60 [facility] Work Phone: Comment on above: GFR Calc Estimated GFR (MDRD) Non-Af Amer 61 mL/min >60 [facility] Work Phone: Comment on above: Non- GFR Calc Thyroid Stimulating Hormone (TSH) 0.70 uIU/mL 0.358-3.74 [facility] Work Phone: Vitamin D 25-Hydroxy 44.7 ng/mL [facility] Work Phone: Comment on above: Vitamin D 25(OH) Sta tus Range Deficiency <20 ng/mL (50nmol/L) Insufficiency 20 - 30 ng/mL (50 - 75 nmol/L) Sufficiency 30 - 100 ng/mL (75 - 250 nmol/L) Toxicity >100 ng/mL (>250 nmol/L) Platelets bldon 10-30-2022 Platelets (Bld) [#/Vol] 213 10*3/uL 150-450 [facility] Work Phone: Serum or plasma albumin pavan urement (mass/volume)on 10-30-2022 Albumin [Mass/Vol] 3.5 g/dL 3.2-5.0 [facility] Work Phone: Serum or plasma albumin/glob ulin mass ratioon 10-30-2022 Albumin/Globulin [Mass ratio] 1.1 {ratio} 0.9-2.4 [facility] Work Phone: Serum or plasma calcium pavan urement (mass/volume)on 10-30-2022 Calcium [Mass/Vol] 8.9 mg/dL 8.5-10.1 [facility] Work Phone: Serum or plasma creatinine m easurement (mass/volume)on 10-30-2022 Creatinine [Mass/Vol] 1.23 mg/dL 0.70-1.30 [facility] Work Phone: Comment on above: The validity of the calculated GFR & GFRAA in patients over 70 years has not been determined. Clinical correlation is essential. Serum or plasma urea nitroge n measurement (mass/volume)on 10-30-2022 Urea nitrogen [Mass/Vol] 12 mg/dL 7-18 [facility] Work Phone: Thin prep Papanicolaou smear with manual screeningon 10-30-2022 Thin prep Papanicolaou smear with manual screening 24 U/L 15-37 [facility] Work Phone: Thin prep Papanicolaou smear with manual screening 9 5-15 [facility] Work Phone: Laboratory - Microbiology an d Antimicrobial susceptibilityon 10-17-2022 SARS-CoV-2 (COVID-19) RNA MARVIN+probe Ql (Unsp spec) Not detected Not Detect [facility] Work Phone: Comment on above: Normal Reference Ran ge: Not DetectedMethod:(RT-PCR) real-time reverse transcriptase PCRLuminex [facility] Instrument*The Food and Drug Administration (FDA) has issued an Emergency Use Authorization (EAU) for the [facility] SARS-CoV-2 Assay for the rapid detection of the virus that causes COVID-19. This test has been validated, but the FDAs independent review of this validation is pending.*Negative results do not preclude infection and should not be used as the sole basis for treatment or patient management. Optimum specimen types and timing for peak viral levels during infections caused by SARS-CoV-2 have not been determined. Collection of multiple specimens from the same patient may be necessary to detect the virus. The possibility of a false negative result should be considered if the patient has clinical presentation or has had recent exposure. 24 hour urine alpha 2 globul in/total protein ratio by electrophoresis (mass fraction)on 05-01-2022 Alpha 2 globulin Elph (24H U) [Mass fraction] 16.2 % . [facility] Work Phone: 24 hour urine beta globulin/ total protein ratio by electrophoresis (mass fraction)on 05-01-2022 Beta globulin Elph (24H U) [Mass fraction] 22.1 % . [facility] Work Phone: 24 hour urine gamma globulin /total protein ratio by electrophoresis (mass fraction)on 05-01-2022 Gamma globulin Elph (24H U) [Mass fraction] 11.5 % . [facility] Work Phone: Absolute lymphocyte counton 05-01-2022 Lymphocytes Auto (Unsp spec) [#/Vol] 1.06 10*3/uL 0.83-4.51 [facility] Work Phone: Albumin Elph [Mass/Vol]on Albumin [Mass/Vol] 3.8 g/dL 2.9-4.4 [facility] Work Phone: [phone] Basophil percentageon 2021 Basophils/100 WBC (Bld) 0.4 % 0-1 [facility] Work Phone: [phone] Bilirubin [Mass/Vol] 0.60 mg/dL 0.20-1.00 [facility] Work Phone: Comment on above: For patients on eltr ombopag therapy, use of Dimension [place] TBIL is not recommended. Chloride [Moles/Vol] 106 mmol/L 98-107 [facility] Work Phone: [phone] Eosinophils/100 WBC (Bld) 1.4 % 0-5 [facility] Work Phone: Glucose [Mass/Vol] 116 mg/dL 74-106 [facility] Work Phone: Comment on above: Fasting Glucose resu lt from 100 to 125 mg/dL suggests IMPAIRED HOMEOSTASIS per A.D.A. criteria. Neutrophils (Bld) [#/Vol] 3.3 10*3/uL 2.0-7.7 [facility] Work Phone: Neutrophils/100 WBC (Bld) 66.6 % 47-70 [facility] Work Phone: [phone] Potassium [Moles/Vol] 4.0 mmol/L 3.5-5.1 [facility] Work Phone: [phone] Protein [Mass/Vol] 6.4 g/dL 6.4-8.2 [facility] Work Phone: [phone] Sodium [Moles/Vol] 137 mmol/L 136-145 [facility] Work Phone: [phone] Testosterone [Mass/Vol] 496.45 ng/dL [facility] Work Phone: [phone] Comment on above: CENTRAL 90% REFERENC E RANGES MALE AGE <50 197.44 - 669.58 ng/dL MALE AGE > or = 50 187.72 - 684.19 ng/dL FEMALE AGE <50 8.38 - 35.01 ng/dL FEMALE AGE > or = 50 <7.00 - 35.92 ng/dL Effective as of 06/05/21 WBC (Bld) [#/Vol] 5.0 10*3/uL 4.4-11.0 [facility] Work Phone: Blood erythrocytes count (nu mber/volume)on 05-01-2022 RBC (Bld) [#/Vol] 4.34 10*6/uL 4.6-6.2 [facility] Work Phone: Blood hemoglobin measurement (mass/volume)on 05-01-2022 Hemoglobin (Bld) [Mass/Vol] 13.9 g/dL 13.0-16.5 [facility] Work Phone: Blood lymphocytes/100 leukoc yteson 05-01-2022 Lymphocytes/100 WBC (Bld) 21.2 % 19-41 [facility] Work Phone: Blood monocytes/100 leukocyt eson 05-01-2022 Monocytes/100 WBC (Bld) 10.0 % 0-10 [facility] Work Phone: Blood platelet mean volumeon 05-01-2022 Platelet mean volume (Bld) [Entitic vol] 9.7 fL 6.2-12.0 [facility] Work Phone: Determination of erythrocyte mean corpuscular volume (MCV)on 05-01-2022 MCV (RBC) [Entitic vol] 95.2 fL 80-94 [facility] Work Phone: Free thyroxine indexon 05-01 Free T4 index Calc [Mass/Vol] TNP [facility] Work Phone: Comment on above: Test not performed Hematocrit Auto (Bld) [Volum e fraction]on 05-01-2022 Hematocrit (Bld) [Volume fraction] 41.3 % 40-54 [facility] Work Phone: Interpretation of serum or p lasma protein pattern by immunofixation (narrative resulton 05-01-2022 Protein Fractions Immunofixation Ron [Interp] See comment [facility] Work Phone: Comment on above: NOT OBSERVED Laboratory - Chemistry and C hemistry - challengeon 05-01-2022 ALP [Catalytic activity/Vol] 93 U/L 45-117 [facility] Work Phone: ALT [Catalytic activity/Vol] 42 U/L 16-61 [facility] Work Phone: CO2 [Moles/Vol] 24.0 mmol/L 21.0-32.0 [facility] Work Phone: Free T4 [Mass/Vol] 1.09 ng/dL 0.76-1.46 [facility] Work Phone: Urea nitrogen/Creatinine [Mass ratio] 14.9 mg/mg 10-20 [facility] Work Phone: Laboratory - Hematology and Cell countson 05-01-2022 Erythrocyte distribution width (RBC) [Entitic vol] 42.1 fL 35.1-43.9 [facility] Work Phone: Erythrocyte distribution width (RBC) [Ratio] 12.0 % 11.6-14.6 [facility] Work Phone: Immature granulocytes/100 WBC (Bld) 0.400 % 0.0-0.9 [facility] Work Phone: Comment on above: IG% - Immature Granu locytes (promyelocytes, myelocytes and metamyelocytes) > 1% indicates that a LEFT SHIFT is Present. MCH (RBC) [Entitic mass] 32.0 pg 27.0-32.0 [facility] Work Phone: Nucleated RBC/100 WBC (Bld) [Ratio] 0 % 0-5 [facility] Work Phone: MCHC Auto (RBC) [Mass/Vol]on 06-22-2022 MCHC (RBC) [Mass/Vol] 33.7 g/dL 32-36 [facility] Work Phone: No Panel Informationon 05-01 Addendum Document Comment . [facility] Work Phone: Comment on above: Protein electrophore sis scan will follow via computer,mail, or powder worker tnt delivery. Estimated GFR (MDRD) Amer 93 mL/min >60 [facility] Work Phone: Comment on above: GFR Calc Estimated GFR (MDRD) Non-Af Amer 77 mL/min >60 [facility] Work Phone: Comment on above: Non- GFR Calc Thyroid Stimulating Hormone (TSH) 0.26 uIU/mL 0.358-3.74 [facility] Work Phone: Urine Immunofixation PEP Note Comment . [facility] Work Phone: Comment on above: Protein electrophore sis scan will follow via computer,mail, or powder worker tnt delivery.Performed at: - [address] [id number] Director: Laureano Evans PhD, Phone: [phone] Vitamin D 25-Hydroxy 60.0 ng/mL [facility] Work Phone: Comment on above: Vitamin D 25(OH) Sta tus Range Deficiency <20 ng/mL (50nmol/L) Insufficiency 20 - 30 ng/mL (50 - 75 nmol/L) Sufficiency 30 - 100 ng/mL (75 - 250 nmol/L) Toxicity >100 ng/mL (>250 nmol/L) Platelets bldon 05-01-2022 Platelets (Bld) [#/Vol] 227 10*3/uL 150-450 [facility] Work Phone: Serum meteh-5-wnnqcihi measu rement by electrophoresison 05-01-2022 Alpha 1 globulin Elph [Mass/Vol] 0.2 g/dL 0.0-0.4 [facility] Work Phone: Alpha 1 globulin Elph [Mass/Vol] 0.6 g/dL 0.4-1.0 [facility] Work Phone: Serum globulin measurement ( mass/volume)on 05-01-2022 Globulin (S) [Mass/Vol] 2.4 g/dL 2.2-3.9 [facility] Work Phone: Serum or plasma IgA measurem ent (mass/volume)on 05-01-2022 IgA [Mass/Vol] 136 mg/dL 61-437 [facility] Work Phone: Serum or plasma IgG measurem ent (mass/volume)on 05-01-2022 IgG [Mass/Vol] 790 mg/dL 603-1613 [facility] Work Phone: Serum or plasma IgM measurem ent (mass/volume)on 05-01-2022 IgM [Mass/Vol] 46 mg/dL 15-143 [facility] Work Phone: Serum or plasma albumin pavan urement (mass/volume)on 05-01-2022 Albumin [Mass/Vol] 3.6 g/dL 3.2-5.0 [facility] Work Phone: Serum or plasma albumin/glob ulin mass ratioon 05-01-2022 Albumin/Globulin [Mass ratio] 1.3 {ratio} 0.9-2.4 [facility] Work Phone: Serum or plasma beta globuli n measurement by electrophoresis (mass/volume)on 05-01-2022 Beta globulin Elph [Mass/Vol] 0.8 g/dL 0.7-1.3 [facility] Work Phone: Serum or plasma calcium pavan urement (mass/volume)on 05-01-2022 Calcium [Mass/Vol] 8.8 mg/dL 8.5-10.1 [facility] Work Phone: Serum or plasma creatinine m easurement (mass/volume)on 05-01-2022 Creatinine [Mass/Vol] 1.01 mg/dL 0.70-1.30 [facility] Work Phone: Comment on above: The validity of the calculated GFR & GFRAA in patients over 70 years has not been determined. Clinical correlation is essential. Serum or plasma gamma globul in measurement by electrophoresis (mass/volume)on 05-01-2022 Gamma globulin Elph [Mass/Vol] 0.8 g/dL 0.4-1.8 [facility] Work Phone: Serum or plasma immunoelectr ophoresis interpretation (nominal result)on 05-01-2022 Interpretation IEP [Interp] Comment . [facility] Work Phone: Comment on above: No monoclonality det ected. Serum or plasma urea nitroge n measurement (mass/volume)on 05-01-2022 Urea nitrogen [Mass/Vol] 15 mg/dL 7-18 [facility] Work Phone: T3 uptakeon 05-01-2022 T3RU 30 % 33-40 [facility] Work Phone: Thin prep Papanicolaou smear with manual screeningon 05-01-2022 Thin prep Papanicolaou smear with manual screening 38 U/L 15-37 [facility] Work Phone: Thin prep Papanicolaou smear with manual screening 7 5-15 [facility] Work Phone: Thin prep Papanicolaou smear with manual screening 1.6 0.7-1.7 [facility] Work Phone: Total protein bloodon 2021 Protein [Mass/Vol] 6.2 g/dL 6.0-8.5 [facility] Work Phone: Urine albumin/total protein mass ratio by electrophoresison 05-01-2022 Albumin Elph (U) [Mass fraction] 44.2 % . [facility] Work Phone: Urine alpha 1 globulin/total protein ratio by electrophoresis (mass fraction)on 05-01-2022 Alpha 1 globulin Elph (U) [Mass fraction] 6.0 % . [facility] Work Phone: Urine monoclonal protein/tot al protein mass ratio by electrophoresison 05-01-2022 Protein.monoclonal Elph (U) [Mass fraction] See comment [facility] Work Phone: Comment on above: NOT OBSERVED Urine protein measurement (m ass/volume)on 05-01-2022 Protein (U) [Mass/Vol] 11.8 mg/dL Not Estab. [facility] Work Phone: No Panel Information Influenza Types A,B Direct FA (DENIS) [facility] Work Phone: RSV Ag EIA RSV Ag Immune stain Ql (Tiss) [facility] Work Phone: Vital Signs Date Time Vital Sign Value Performing Clinician Facility 03-03-2025 14:09-0400 Body height 167.[address] Gee Garza MD Work Phone: [facility] 03-03-2025 14:09-0400 Body mass index (BMI) [Ratio] 24.2 kg/m2 Dr. Gee Garza MD Work Phone: [facility] 03-03-2025 14:09-0400 Body weight 68.[address] Gee Garza MD Work Phone: [facility] 03-03-2025 14:09-0400 Diastolic blood pressure 77 mm[Hg] Dr. Gee Garza MD Work Phone: [facility] 03-03-2025 14:09-0400 Heart rate 91 /min Dr. Gee Garza MD Work Phone: [facility] 03-03-2025 14:09-0400 Respiratory rate 16 /min Dr. Gee Garza MD Work Phone: [facility] 03-03-2025 14:09-0400 Systolic blood pressure 121 mm[Hg] Dr. Gee Garza MD Work Phone: [facility] 02-10-2024 08:22-0400 Body temperature 98.24 [degF] LUCIANA CARRIZALES MD [facility] 02-10-2024 08:22-0400 Diastolic Blood Pressure Non-Invasive 80 mm[Hg] LUCIANA CARRIZALES MD [address] [place] [address] 02-10-2024 08:22-0400 Heart rate 68 /min LUCIANA CARRIZALES MD [address] [place] [address] 02-10-2024 08:22-0400 Respiratory rate 18 /min LUCIANA CARRIZALES MD [address] [place] [address] 02-10-2024 08:22-0400 Systolic Blood Pressure Non-Invasive 140 mm[Hg] LUCIANA CARRIZALES MD [address] [place] [address] 02-10-2024 03:30-0400 Body temperature 97.88 [degF] LUCIANA CARRIZALES MD [address] [place] [address] 02-10-2024 03:30-0400 Diastolic Blood Pressure Non-Invasive 73 mm[Hg] LUCIANA CARRIZALES MD [address] [place] [address] 02-10-2024 03:30-0400 Heart rate 62 /min LUCIANA CARRIZALES MD [address] [place] [address] 02-10-2024 03:30-0400 Respiratory rate 16 /min LUCIANA CARRIZALES MD [address] [place] [address] 02-10-2024 03:30-0400 Systolic Blood Pressure Non-Invasive 134 mm[Hg] LUCIANA CARRIZALES MD [address] [place] [address] 02-10-2024 02:42-0400 Heart rate 72 /min LUCIANA CARRIZALES MD [address] [place] [address] 02-09-2024 23:48-0400 Heart rate 72 /min LUCIANA CARRIZALES MD [address] [place] [address] 02-09-2024 22:02-0400 Heart rate 67 /min LUCIANA CARRIZALES MD [address] [place] [address] 02-09-2024 20:29-0400 Body temperature 97.52 [degF] LUCIANA CARRIZALES MD [address] [place] [address] 02-09-2024 20:29-0400 Diastolic Blood Pressure Non-Invasive 81 mm[Hg] LUCIANA CARRIZALES MD [address] [place] [address] 02-09-2024 20:29-0400 Respiratory rate 18 /min LUCIANA CARRIZALES MD [address] [place] [address] 02-09-2024 20:29-0400 Systolic Blood Pressure Non-Invasive 141 mm[Hg] LUCIANA CARRIZALES MD [address] [place] [address] 02-09-2024 09:35-0400 Body temperature 96.8 [degF] LUCIANA CARRIZALES MD [address] [place] [address] 02-09-2024 09:30-0400 Respiratory Rate - Anes 0 br/min LUCIANA CARRIZALES MD [address] [place] [address] 02-09-2024 09:25-0400 Respiratory Rate - Anes 14 br/min LUCIANA CARRIZALES MD [address] [place] [address] 02-09-2024 09:20-0400 Respiratory Rate - Anes 20 br/min LUCIANA CARRIZALES MD [address] [place] [address] 02-09-2024 06:20-0400 Blood Pressure Location LUCIANA CARRIZALES MD [address] [place] [address] 02-09-2024 06:20-0400 Blood Pressure Method LUCIANA CARRIZALES MD [address] [place] [address] 02-09-2024 06:20-0400 Body height 167.6 cm LUCIANA CARRIZALES MD [address] [place] [address] 02-09-2024 06:20-0400 Body weight 67.9 kg LUCIANA CARRIZALES MD [address] [place] [address] 02-09-2024 06:20-0400 Heart rate 86 /min LUCIANA CARRIZALES MD [address] [place] [address] 12-23-2023 07:43-0500 Body height 167.[address] Gee Garza Work Phone: [facility] 12-23-2023 07:43-0500 Body mass index (BMI) [Ratio] 23.6 kg/m2 Dr. Gee Garza Work Phone: [facility] 12-23-2023 07:43-0500 Body temperature 97.3 [degF] Dr. Gee Garza Work Phone: [facility] 12-23-2023 07:43-0500 Body weight 66.[address] Gee Garza Work Phone: [facility] 12-23-2023 07:43-0500 Diastolic blood pressure 60 mm[Hg] Dr. Gee Garza Work Phone: [facility] 12-23-2023 07:43-0500 Heart rate 109 /min Dr. Gee Garza Work Phone: 2(751)895-542543 [place] [address] 12-23-2023 07:43-0500 Respiratory rate 18 /min Dr. Gee Garza Work Phone: [facility] 12-23-2023 07:43-0500 SaO2% (BldA) [Mass fraction] 98 % Dr. Gee Garza Work Phone: [facility] 12-23-2023 07:43-0500 Systolic blood pressure 89 mm[Hg] Dr. Gee Garza Work Phone: [facility] 12-18-2023 09:40-0500 Body temperature 97.7 [degF] Dr. Gee Garza Work Phone: [facility] 12-18-2023 09:40-0500 Diastolic blood pressure 67 mm[Hg] Dr. Gee Garza Work Phone: [facility] 12-18-2023 09:40-0500 Heart rate 72 /min Dr. Gee Garza Work Phone: [facility] 12-18-2023 09:40-0500 Respiratory rate 16 /min Dr. Gee Garza Work Phone: [facility] 12-18-2023 09:40-0500 SaO2% (BldA) [Mass fraction] 96 % Dr. Gee Garza Work Phone: [facility] 12-18-2023 09:40-0500 Systolic blood pressure 116 mm[Hg] Dr. Gee Garza Work Phone: [facility] 12-18-2023 05:55-0500 Body temperature 97.8 [degF] Dr. Gee Garza Work Phone: 7(929)795-862643 [place] [address] 12-18-2023 05:55-0500 Diastolic blood pressure 68 mm[Hg] Dr. Gee Garza Work Phone: 4(375)469-013643 [place] [address] 12-18-2023 05:55-0500 Heart rate 76 /min Dr. Gee Garza Work Phone: 5(189)682-267243 [place] [address] 12-18-2023 05:55-0500 Respiratory rate 16 /min Dr. Gee Garza Work Phone: [facility] 12-18-2023 05:55-0500 SaO2% (BldA) [Mass fraction] 96 % Dr. Gee Garza Work Phone: 9(828)490-140843 [place] [address] 12-18-2023 05:55-0500 Systolic blood pressure 117 mm[Hg] Dr. Gee Garza Work Phone: [facility] 12-17-2023 12:07-0500 Body height 167.[address] Gee Garza Work Phone: [facility] 12-17-2023 12:07-0500 Body mass index (BMI) [Ratio] 24.2 kg/m2 Dr. Gee Garza Work Phone: [facility] 12-17-2023 12:07-0500 Body weight [address] Gee Garza Work Phone: [facility] 11-19-2023 08:57-0500 Body mass index (BMI) [Ratio] 23.4 kg/m2 Dr. Gee Garza Work Phone: [facility] 11-19-2023 08:57-0500 Body temperature 97.4 [degF] Dr. Gee Garza Work Phone: 5(941)451-483743 [place] [address] 11-19-2023 08:57-0500 Body weight [address] Gee Garza Work Phone: 3(201)379-196043 [place] [address] 11-19-2023 08:57-0500 Diastolic blood pressure 60 mm[Hg] Dr. Gee Garza Work Phone: 1(255)121-884674 [place] [address] 11-19-2023 08:57-0500 Heart rate 81 /min Dr. Gee Garza Work Phone: 0(069)085-879774 [place] [address] 11-19-2023 08:57-0500 Respiratory rate 18 /min Dr. Gee aGrza Work Phone: 8(835)112-314474 [place] [address] 11-19-2023 08:57-0500 Systolic blood pressure 78 mm[Hg] Dr. Gee Garza Work Phone: 9(602)205-320574 [place] [address] 11-17-2023 12:45-0500 Body weight 66.[address] Gee Garza Work Phone: 8(747)895-909774 [place] [address] 11-17-2023 12:45-0500 Heart rate 96 /min Dr. Gee Garza Work Phone: 7(857)113-931774 [place] [address] 11-17-2023 12:45-0500 SaO2% (BldA) [Mass fraction] 100 % Dr. Gee Garza Work Phone: 0(574)360-807074 [place] [address] 11-11-2023 06:22-0500 Body height 170.[address] Gee Garza Work Phone: 9(043)120-152074 [place] [address] 11-11-2023 06:22-0500 Body mass index (BMI) [Ratio] 22.8 kg/m2 Dr. Gee Garza Work Phone: 1(450)007-674474 [place] [address] 11-11-2023 06:22-0500 Body temperature 93.1 [degF] Dr. Gee Garza Work Phone: 6(767)571-155343 [place] [address] 11-11-2023 06:22-0500 Body weight 66.[address] Gee Garza Work Phone: 3(624)722-985143 [place] [address] 11-11-2023 06:22-0500 Diastolic blood pressure 78 mm[Hg] Dr. Gee Garza Work Phone: [facility] 11-11-2023 06:22-0500 Heart rate 88 /min Dr. Gee Garza Work Phone: [facility] 11-11-2023 06:22-0500 Respiratory rate 20 /min Dr. Gee Garza Work Phone: 7(459)786-594343 [place] [address] 11-11-2023 06:22-0500 SaO2% (BldA) [Mass fraction] 88 % Dr. Gee Garza Work Phone: 3(151)922-898943 [place] [address] 11-11-2023 06:22-0500 Systolic blood pressure 110 mm[Hg] Dr. Gee Garza Work Phone: 6(434)152-988243 [place] [address] 10-23-2023 13:24-0500 Body height 170.[address] Gee Garza Work Phone: 2(467)204-009171 [address] 10-23-2023 13:24-0500 Body mass index (BMI) [Ratio] 23.3 kg/m2 Dr. Gee Garza Work Phone: 0(503)936-040743 [place] [address] 10-23-2023 13:24-0500 Body weight 67.[address] Gee Garza Work Phone: 5(621)249-518943 [place] [address] 10-23-2023 13:24-0500 Diastolic blood pressure 58 mm[Hg] Dr. Gee Garza Work Phone: 9(293)444-451443 [place] [address] 10-23-2023 13:24-0500 Heart rate 62 /min Dr. Gee Garza Work Phone: 8(482)533-274643 [place] [address] 10-23-2023 13:24-0500 Respiratory rate 16 /min Dr. Gee Garza Work Phone: 4(577)248-290643 [place] [address] 10-23-2023 13:24-0500 Systolic blood pressure 112 mm[Hg] Dr. Gee Garza Work Phone: [facility] 10-08-2023 12:35-0500 Body height 170.[address] Gee Garza Work Phone: [facility] 10-08-2023 12:35-0500 Body mass index (BMI) [Ratio] 24.1 kg/m2 Dr. Gee Garza Work Phone: [facility] 10-08-2023 12:35-0500 Body temperature 98 [degF] Dr. Gee Garza Work Phone: [facility] 10-08-2023 12:35-0500 Body weight 69.[address] Gee Garza Work Phone: [facility] 10-08-2023 12:35-0500 Diastolic blood pressure 128 mm[Hg] Dr. Gee Garza Work Phone: [facility] 10-08-2023 12:35-0500 Heart rate 61 /min Dr. Gee Garza Work Phone: 3(862)728-805843 [place] [address] 10-08-2023 12:35-0500 Respiratory rate 18 /min Dr. Gee Garza Work Phone: [facility] 10-08-2023 12:35-0500 SaO2% (BldA) [Mass fraction] 97 % Dr. Gee Garza Work Phone: [facility] 10-08-2023 12:35-0500 Systolic blood pressure 141 mm[Hg] Dr. Gee Garza Work Phone: [facility] 09-25-2023 13:50-0500 Body temperature 97.2 [degF] Dr. Gee Garza Work Phone: [facility] 09-25-2023 13:50-0500 Diastolic blood pressure 79 mm[Hg] Dr. Gee Garza Work Phone: [facility] 09-25-2023 13:50-0500 Heart rate 70 /min Dr. Gee Garza Work Phone: [facility] 09-25-2023 13:50-0500 Respiratory rate 16 /min Dr. Gee Garza Work Phone: [facility] 09-25-2023 13:50-0500 SaO2% (BldA) [Mass fraction] 96 % Dr. Gee aGrza Work Phone: [facility] 09-25-2023 13:50-0500 Systolic blood pressure 101 mm[Hg] Dr. Gee Garza Work Phone: [facility] 09-25-2023 02:15-0500 Body mass index (BMI) [Ratio] 22.7 kg/m2 Dr. Gee Garza Work Phone: [facility] 09-25-2023 02:15-0500 Body weight 65.[address] Gee Garza Work Phone: 9(134)611-127743 [place] [address] 09-24-2023 13:10-0500 Body height 170.[address] Gee Garza Work Phone: 6(046)989-474843 [place] [address] 09-22-2023 09:11-0500 Inhaled oxygen flow rate 2 L/min Dr. Gee Garza Work Phone: 2(615)275-885043 [place] [address] 09-21-2023 07:52-0500 Inhaled oxygen concentration 30 % Dr. Gee Garza Work Phone: 7(593)899-814743 [place] [address] 04-22-2023 09:32-0400 Body height 167.[address] Gee Garza Work Phone: [facility] 04-22-2023 09:32-0400 Body mass index (BMI) [Ratio] 24.4 kg/m2 Dr. Gee Garza Work Phone: 6(549)734-261843 [place] [address] 04-22-2023 09:32-0400 Body weight 68.[address] Gee Garza Work Phone: [facility] 04-22-2023 09:32-0400 Diastolic blood pressure 67 mm[Hg] Dr. Gee Garza Work Phone: [facility] 04-22-2023 09:32-0400 Heart rate 68 /min Dr. Gee Garza Work Phone: [facility] 04-22-2023 09:32-0400 Respiratory rate 16 /min Dr. Gee Garza Work Phone: [facility] 04-22-2023 09:32-0400 Systolic blood pressure 124 mm[Hg] Dr. Gee Garza Work Phone: [facility] 09-26-2022 08:58-0500 Body height 167.[address] Gee Garza Work Phone: [facility] Work Phone: 09-26-2022 08:58-0500 Body mass index (BMI) [Ratio] 25.9 kg/m2 Dr. Gee Garza Work Phone: [facility] Work Phone: 09-26-2022 08:58-0500 Body weight 73.[address] Gee Garza Work Phone: [facility] Work Phone: 09-26-2022 08:58-0500 Diastolic blood pressure 80 mm[Hg] Dr. Gee Garza Work Phone: [facility] Work Phone: 09-26-2022 08:58-0500 Heart rate 79 /min Dr. Gee Garza Work Phone: [facility] Work Phone: 09-26-2022 08:58-0500 Respiratory rate 18 /min Dr. Gee Garza Work Phone: [facility] Work Phone: 09-26-2022 08:58-0500 SaO2% (BldA) [Mass fraction] 100 % Dr. Gee Garza Work Phone: [facility] Work Phone: 09-26-2022 08:58-0500 Systolic blood pressure 131 mm[Hg] Dr. Gee Garza Work Phone: [facility] Work Phone: 05-23-2022 13:21-0400 Diastolic blood pressure 77 mm[Hg] Dr. Gee Garza Work Phone: [facility] Work Phone: 05-23-2022 13:21-0400 Heart rate 80 /min Dr. Gee Garza Work Phone: [facility] Work Phone: 05-23-2022 13:21-0400 SaO2% (BldA) [Mass fraction] 94 % Dr. Gee Garza Work Phone: [facility] Work Phone: 05-23-2022 13:21-0400 Systolic blood pressure 128 mm[Hg] Dr. Gee Garza Work Phone: [facility] Work Phone: 03-25-2022 09:25-0400 Body height 167.[address] Gee Garza Work Phone: [facility] Work Phone: 03-25-2022 09:25-0400 Body mass index (BMI) [Ratio] 26.4 kg/m2 Dr. Gee Garza Work Phone: [facility] Work Phone: 03-25-2022 09:25-0400 Body weight 74.[address] Gee Garza Work Phone: [facility] Work Phone: 03-25-2022 09:25-0400 Diastolic blood pressure 70 mm[Hg] Dr. Gee Garza Work Phone: [facility] Work Phone: 03-25-2022 09:25-0400 Heart rate 61 /min Dr. Gee Garza Work Phone: [facility] Work Phone: 03-25-2022 09:25-0400 Respiratory rate 18 /min Dr. Gee Garza Work Phone: [facility] Work Phone: 03-25-2022 09:25-0400 SaO2% (BldA) [Mass fraction] 98 % Dr. Gee Garza Work Phone: [facility] Work Phone: 03-25-2022 09:25-0400 Systolic blood pressure 127 mm[Hg] Dr. 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 Gee Garza MD Work Phone: [facility] Start: 08-10-2025 End: 08-10-[address] Cheo Walker MD -[facility] Work Phone: Start: 07-27-2025 End: 07-27-[address] Gee Garza MD Work Phone: [facility] Start: 07-27-2025 End: 07-27-[address] Cheo Walker MD -[facility] Work Phone: Start: 05-18-2025 End: 05-18-[address] Gee Garza MD Work Phone: -[facility]rd Flr Start: 05-18-2025 End: 05-18-[address] Gee Garza MD -Laboratory [facility]y [facility] 3rd Flr Start: 05-18-2025 End: 05-18-[address] Gee Garza MD Work Phone: [facility] Start: 05-18-2025 End: 05-18-[address] Cheo Walker MD -[facility] Work Phone: Start: 05-18-2025 End: 05-18-2025 ambulatory Gee Garza Facility:[facility] Start: 05-11-2025 End: 05-11-[address] Gee Garza MD Work Phone: [facility] Start: 05-11-2025 End: 05-11-[address] Cheo Walker MD -[facility] Work Phone: Start: 05-05-2025 End: 05-05-[address] Gee Garza MD Work Phone: -Laboratory Start: 05-05-2025 End: 05-05-2025 Patient encounter procedure Nikia Costa -Laboratory Work Phone: Start: 05-05-2025 End: 05-05-2025 ambulatory Nikia Costa Facility:[facility] Start: 04-20-2025 End: 04-20-[address] Gee Garza MD Work Phone: [facility] Work Phone: Start: 04-20-2025 End: 04-20-2025 Patient encounter procedure Jadlenore Macias PA -Laboratory Work Phone: Start: 04-20-2025 End: 04-20-2025 ambulatory Jad Colleen Facility:[facility] Start: 03-30-2025 Non-patient / Non-visit Dr. Juan SPAULDING -[facility] Start: 03-30-2025 End: 03-30-[address] Gee Garza MD Work Phone: [facility] Work Phone: Start: 03-30-2025 End: 03-30-[address] Cheo Walker MD -Cardiovascular Services Work Phone: Start: 03-30-2025 End: 03-30-2025 ambulatory Gee Chi Gage Facility:[facility] Start: 03-03-2025 End: 03-03-2025 ambulatory Gee Chi Gage Facility:[facility] Start: 03-03-2025 End: 03-03-[address] Cheo Walker MD -[facility] Work Phone: Start: 02-09-2025 End: 02-09-2025 ambulatory Gee Chi Gage Facility:[facility] Start: 02-09-2025 End: 02-09-[address] [facility] Work Phone: Start: 01-31-2025 End: 01-31-[address] Gee Garza MD Work Phone: [facility] Work Phone: Start: 01-31-2025 End: 01-31-[address] Gee Garza MD -Laboratory, y Office 3rd [facility] Start: 01-31-2025 End: 01-31-2025 ambulatory Gee Chi Gage Facility:[facility] Start: 01-07-2025 End: 01-07-2025 ambulatory Gee Chi Gage Facility:[facility] Start: 01-07-2025 End: 01-07-[address] [facility] Work Phone: Start: 12-31-2024 End: 12-31-2024 ambulatory Gee Chi Gage Facility:[facility] Start: 12-31-2024 End: 12-31-[address] [facility] Work Phone: Start: 12-24-2024 End: 12-24-2024 ambulatory Gee Chi Gage Facility:[facility] Start: 12-24-2024 End: 12-24-[address] [facility] Work Phone: Start: 12-17-2024 End: 12-17-2024 ambulatory Gee Chi Gage Facility:[facility] Start: 12-17-2024 End: 12-17-[address] [facility] Work Phone: Start: 12-10-2024 End: 12-10-2024 ambulatory Gee Chi Gage Facility:[facility] Start: 12-10-2024 End: 12-10-[address] [facility] Work Phone: Start: 12-03-2024 End: 12-03-2024 ambulatory Gee Chi Gage Facility:[facility] Start: 12-03-2024 End: 12-03-[address] Cheo Walker MD -[place] [facility] Work Phone: Start: 11-26-2024 End: 11-26-2024 ambulatory Gee Chi Gage Facility:[facility] Start: 11-26-2024 End: 11-26-[address] Cheo Walker MD -[facility] Work Phone: Start: 11-16-2024 End: 11-16-[address] Gee Garza MD -Laboratory, Phy Office 3rd Flr Start: 11-16-2024 End: 11-16-2024 ambulatory Gee Chi Gage Facility:[facility] Start: 11-10-2024 End: 11-10-2024 ambulatory Gee Chi Gage Facility:[facility] Start: 11-10-2024 End: 11-10-[address] Cheo Walker MD -[place] [facility] Work Phone: Start: 11-04-2024 End: 11-04-2024 ambulatory Gee Chi Gage Facility:[facility] Start: 11-04-2024 End: 11-04-[address] Cheo Walker MD -[place] [facility] Work Phone: Start: 10-25-2024 End: 10-25-[address] Gee Garza MD -Laboratory, Phy Office 3rd Flr Start: 10-25-2024 End: 10-25-2024 ambulatory Gee Chi Gage Facility:[facility] Start: 09-30-2024 End: 09-30-2024 ambulatory Gee Chi Gage Facility:[facility] Start: 02-09-2024 End: 02-10-2024 ambulatory LUCIANA CARRIZALES MD Facility:[facility] Start: 02-09-2024 End: 02-10-2024 Observation LUCIANA CARRIZALES MD [facility] Start: 12-30-2023 Non-patient / Non-visit Dr. Jens Garza Work Phone: [facility] Start: 12-30-2023 End: 12-30-[address] Gee Garza Work Phone: [facility] Work Phone: Start: 12-30-2023 End: 12-30-[address] Gee Garza Work Phone: [facility]-Cardiovascular Services Work Phone: Start: 12-23-2023 End: 12-23-[address] Gee Garza Work Phone: [facility] Work Phone: Start: 12-17-2023 End: 12-18-2023 Admission to same day surgery center Dr. Gee Garza Work Phone: [facility]-Surgical Day Care Start: 12-17-2023 End: 12-18-[address] Gee Garza Work Phone: [facility] Work Phone: Start: 11-19-2023 End: 11-19-[address] Gee Garza Work Phone: [facility] Work Phone: Start: 11-19-2023 End: 11-19-[address] Gee Garza Work Phone: [facility]-Pre-Admission Testing Work Phone: Start: 11-18-2023 Non-patient / Non-visit Dr. Jens Garza Work Phone: [facility] Start: 11-17-2023 End: 11-17-[address] Gee Gazra Work Phone: [facility] Work Phone: Start: 11-17-2023 End: 11-17-[address] [facility] Work [facility] Start: 11-17-2023 Non-patient / Non-visit Dr. Jens Garza Work Phone: [facility] Start: 11-14-2023 End: 11-14-[address] Gee Garza Work Phone: [facility] Work Phone: Start: 11-14-2023 End: 11-14-[address] [facility] Work [facility] Start: 11-12-2023 End: 11-12-[address] Gee Garza Work Phone: [facility] Work Phone: Start: 11-11-2023 End: 11-11-[address] Gee Garza Work Phone: [facility] Work Phone: Start: 11-06-2023 End: 11-06-[address] Gee Garza Work Phone: [facility] Work Phone: Start: 11-06-2023 End: 11-06-[address] [facility] Start: 10-23-2023 End: 10-23-[address] Gee Garza Work Phone: [facility] Work Phone: Start: 10-23-2023 End: 10-23-[address] [facility] [address] [place] [address] Start: 10-23-2023 End: 10-23-[address] Gee Garza Work Phone: [facility] Work Phone: Start: 10-22-2023 End: 10-22-[address] Gee Garza Work Phone: [facility] Work Phone: Start: 10-08-2023 End: 10-08-2023 Emergency department patient visit Dr. Gee Garza Work Phone: [facility]-Emergency Department Work Phone: Start: 09-25-2023 Non-patient / Non-visit Dr. Jens Garza Work Phone: [facility] Start: 09-24-2023 Non-patient / Non-visit Dr. Jens Garza Work Phone: [facility] Start: 09-24-2023 Non-patient / Non-visit Dr. Jens Garza Work Phone: [facility] Work Phone: Start: 09-23-2023 End: 09-25-2023 Evaluation and management of inpatient Dr. Gee aGrza Work Phone: [facility]-Progressive Care Unit Work Phone: Start: 09-23-2023 Non-patient / Non-visit Dr. Jens Garza Work Phone: [facility] Work Phone: Start: 09-23-2023 Non-patient / Non-visit Dr. Jens Garza Work Phone: [facility] Start: 09-23-2023 End: 09-23-2023 Non-patient / Non-visit Dr. Gee Garza Work Phone: [facility] Work Phone: Start: 09-22-2023 Non-patient / Non-visit Dr. Jens Garza Work Phone: [facility] Work Phone: Start: 09-22-2023 Non-patient / Non-visit Dr. Jens Garza Work Phone: [facility] Start: 09-21-2023 Non-patient / Non-visit Dr. Jens Garza Work Phone: [facility] Work Phone: Start: 08-14-2023 End: 08-14-[address] Gee Garza Work Phone: [facility]-Pulmonary Services/Neurology Work Phone: Start: 08-13-2023 End: 08-13-[address] Gee Garza Work Phone: [facility] Work Phone: Start: 07-18-2023 End: 07-18-[address] Gee Garza Work Phone: [facility] Work Phone: Start: 07-18-2023 End: 07-18-[address] Gee Garza Work Phone: [facility]-Laboratory, Specimen Work Phone: Start: 06-28-2023 End: 06-28-[address] Gee Garza Work Phone: [facility]-Cat Scan, [facility] Work Phone: Start: 06-10-2023 End: 06-10-[address] Gee Garza Work Phone: [facility] Work Phone: Start: 06-10-2023 End: 06-10-[address] [facility] Start: 05-21-2023 Non-patient / Non-visit Dr. Jens Garza Work Phone: [facility] Start: 05-21-2023 End: 05-21-[address] Gee Garza Work Phone: [facility] Work Phone: Start: 05-21-2023 End: 05-21-[address] [facility] Start: 05-07-2023 End: 05-07-[address] Gee Garza Work Phone: [facility] Work Phone: Start: 05-07-2023 End: 05-07-[address] Gee Garza Work Phone: [facility] Work Phone: Start: 05-05-2023 End: 05-05-[address] Gee Garza Work Phone: [facility] Work Phone: Start: 04-22-2023 End: 04-22-[address] Gee Garza Work Phone: [facility] Work Phone: Start: 02-19-2023 End: 02-19-[address] Gee Garza Work Phone: [facility] Work Phone: Start: 10-30-2022 End: 10-30-[address] Gee Garza Work Phone: [facility] Work Phone: Start: 10-30-2022 End: 10-30-[address] [facility] Start: 10-17-2022 End: 10-17-[address] Gee Garza Work Phone: [facility] Work Phone: Start: 10-17-2022 End: 10-17-[address] Gee Garza Work Phone: [facility]-Pulmonary Services/Neurology Start: 09-26-2022 End: 09-26-[address] Gee Garza Work Phone: [facility] Start: 08-07-2022 End: 08-07-[address] Gee Garza Work Phone: [facility] Start: 08-07-2022 End: 08-07-[address] Gee Garza Work Phone: [facility] Start: 05-23-2022 End: 05-23-[address] Gee Garza Work Phone: [facility] Start: 05-03-2022 End: 05-03-[address] Gee Garza Work Phone: [facility] Start: 05-01-2022 End: 05-01-[address] [facility] Start: 03-25-2022 End: 03-25-[address] Gee Garza Work Phone: [facility] Start: 01-28-2022 End: 01-28-[address] Gee Garza Work Phone: [facility] Procedures Date Procedure Procedure Detail Performing Clinician Start: 05-18-2025 Electrophoresis: [id number] Dr. Gee Garza MD Work Phone: Start: 05-18-2025 Electrophoresis: [id number] Dr. Gee Garza MD Work Phone: Start: 05-18-2025 Electrophoresis: aaron ma globulin Dr. Gee Garza MD Work Phone: Start: 05-18-2025 Vitamin D, 25-hydrox y measurement Dr. Gee Garza MD Work Phone: Comment on above: Vitamin D StatusDefi ciency: <20 ng/mL (50nmol/L)Insufficiency: 20-30 ng/mL (50-75 nmol/L)Sufficiency: 30-100 ng/mL (75-250 nmol/L)Toxicity: >100 ng/mL (>250 nmol/L) Start: 05-05-2025 Prostate specific an tigen measurement Dr. Gee Garza MD Work Phone: Comment on above: This test was perfor med using the [employer] tPSA method. Measured values of a patient sample can vary depending on the testing procedure used. PSA values determined on patient samples by different testing procedures cannot be used interchangeably. If there is a change in PSA assays while monitoring therapy, sequential testing should be performed to confirm baseline values. Start: 01-31-2025 SARS-CoV-2, Influenz a & RSV (PCR) Dr. Gee Garza MD Work Phone: Start: 10-25-2024 SARS-CoV-2, Influenz a & RSV (PCR) Dr. Gee Garza MD Work Phone: Start: 12-17-2023 Cysto,Transurethral Resection Prostate (Not Applicable) Dr. Gee Garza Work Phone: Start: 09-21-2023 Bacteria identified in Blood by Culture Dr. Gee Garza Work Phone: Start: 09-21-[address] Gee Garza Work Phone: Start: 09-21-2023 CT angiography of ch est with contrast Dr. Gee Garza Work Phone: Start: 09-21-2023 Plain chest X-ray Dr. Virginia Garza Work Phone: Start: 06-28-2023 MRI of lower extremity Dr. Gee Garza Work Phone: Start: 05-23-2022 MRI of lumbar spine Dr. Gee Garza Work Phone: Start: 12-21-2021 Implantation of card iac pacemaker LUCIANA CARRIZALES MD Comment on above: Dual Chamber Pacemak er Implanted [facility] 12/21/2021 Generator Sysomos L111 ESSENTIO MRI Serial [id number] 12/21/2021 RA Lead [employer] 7842 Ingevity + MRI Serial [id number] 12/21/2021 RV Lead [employer] 7841 Ingevity + MRI Serial [id number] 12/21/2021 02/09/2024- Dr. Carrizales - Upgrade to JEWEL HOLE GAUGER-D. RV lead capped. New device BS Vigilant, G247, SN: [id number]. NEW RV 0676, SN: [id number]. New LV lead- 4671, SN: [id number] Elbow region structu re (body structure) LUCIANA CARRIZALES MD Influenza Types A,B Direct FA (DENIS) Dr. Gee Garza Work Phone: Laminectomy approach to lumbar spine (qualifier value) LUCIANA CARRIZALES MD Respiratory syncytia l virus antigen assay Dr. Gee Garza Work Phone: Total knee replacement LUCIANA CARRIZALES MD Comment on above: right Plan of Treatment Date Care Activity Detail Author Start: 12-18-2023 Patient discharge [facility] Start: 12-18-2023 Removal of urinary catheter [facility] Start: 12-17-2023 Application of intermittent pneumatic compression device [facility] Start: 12-17-2023 Following clinical pathway protocol [facility] Start: 12-17-2023 Deep breathing and coughing exercises [facility] Start: 12-17-2023 Oxygen therapy [facility] Start: 12-17-2023 Provision of activity privileges [facility] Start: 12-17-2023 Irrigation of urinary bladder [facility] Start: 12-17-2023 Measuring intake and output [facility] Start: 12-17-2023 Patient education [facility] Start: 12-17-2023 Taking patient vital signs [facility] Start: 12-17-2023 Vital signs measurements [facility] Start: 12-17-2023 [facility] Start: 12-17-2023 Admission procedure [facility] Start: 12-17-2023 Anesthesia transurethral resection of prostate ANESTH REMOVAL OF PROSTATE [facility] Start: 12-17-2023 Trurl electrosurg rescj prostate bleed complete PROSTATECTOMY (TURP) [facility] Start: 12-17-2023 Inhalation therapy procedure [facility] Start: 12-17-2023 [facility] Start: 10-08-2023 [facility] Start: 09-29-2023 Blood chemistry [facility] Start: 09-28-2023 Blood chemistry [facility] Start: 09-27-2023 Blood chemistry [facility] Start: 09-26-2023 Blood chemistry [facility] Start: 09-25-2023 Patient discharge [facility] Start: 09-24-2023 Physiotherapy of chest [facility] Start: 09-23-2023 Introduction of urinary catheter [facility] Start: 09-23-2023 Admission procedure [facility] Start: 09-23-2023 Following clinical pathway protocol [facility] Start: 09-22-2023 [facility] Start: 09-22-2023 Referral to hand model [facility] Start: 09-21-2023 Bacteria identified in Blood by Culture Blood Culture [facility] Start: 09-21-2023 Following clinical pathway protocol [facility] Start: 09-21-2023 Assessment of risk of venous thromboembolism [facility] Start: 09-21-2023 Insertion of catheter into peripheral vein [facility] Start: 09-21-2023 Measuring intake and output [facility] Start: 09-21-2023 Providing care according to standard [facility] Start: 09-21-2023 Provision of activity privileges [facility] Start: 09-21-2023 [facility] Start: 09-21-2023 Admission procedure [facility] Start: 09-21-2023 Hospital admission, emergency, from emergency room, medical nature [facility] Start: 09-21-2023 [facility] Start: 09-21-2023 Dual pressure spontaneous ventilation support [facility] Start: 09-21-2023 End: 09-21-2023 Blood culture [facility] Start: 09-21-2023 Inhalation therapy procedure [facility] Blood chemistry [facility] Exercise tolerance test [facility] Measurement of respi ratory function [facility] Patient Education [facility] Work Phone: Patient referral [facility] Work Phone: [place] Heart limited [facility] Immunizations Immunization Date Immunization Notes Care Provider Fa cility 12-27-2023 SARS-CoV-2 (COVID-19 ) [id number] LUCIANA CARRIZALES MD [facility] 10-07-2023 RSV vaccine preF3, recombinant LUCIANA CARRIZALES MD [facility] 05-07-2023 SARS-CoV-2 (CV19)[id number] bivalent vac LUCIANA CARRIZALES MD [facility] 07-29-2022 influenza virus vaccine, unspecified formulation LUCIANA CARRIZALES MD [facility] 09-06-2021 SARS-CoV-2 mRNA (tozinameran) vaccine LUCIANA CARRIZALES MD [facility] Comment on above: Result Comment: 2023: TPV70 08-22-2021 influenza virus vaccine, unspecified formulation LUCIANA CARRIZALES MD [facility] 02-06-2021 Covid (Pfizer) Dr. Gee Garza Work Phone: [facility] 01-16-2021 Covid (Pfizer) Dr. Gee Garza Work Phone: [facility] Comment on above: Result Comment: 2023: TPV70 06-28-2020 influenza virus vaccine, unspecified formulation LUCIANA CARRIZALES MD [facility] 09-17-2019 influenza virus vaccine, unspecified formulation LUCIANA CARRIZALES MD [facility] 03-29-2019 zoster vaccine recombinant LUCIANA CARRIZALES MD [facility] 12-16-2018 zoster vaccine recombinant LUCIANA CARRIZALES MD [facility] 09-15-2018 influenza virus vaccine, unspecified formulation LUCIANA CARRIZALES MD [facility] 09-03-2017 influenza virus vaccine, unspecified formulation LUCIANA CARRIZALES MD [facility] 07-21-2015 influenza virus vaccine, unspecified formulation LUCIANA CARRIZALES MD [facility] Payers Date Payer Category Payer Self-pay [id number] 2024 Private Health Insurance [id number] 2016 Unknown [id number] 2014 Medicare [id number] 1950 Unknown [id number] 2.16.8 40.1.906965.3.579.2.627 Unknown [id number] 2.16.8 40.1.085721.3.579.2.462 Unknown [id number] 2.16.8 40.1.770503.3.579.2.462 Unknown [id number] 2.16.8 40.1.123686.3.579.2.462 Unknown [id number] 2.16.8 40.1.366832.3.579.2.462 Unknown [id number] 2.16.8 40.1.682224.3.579.2.462 Unknown [id number] 2.16.8 40.1.618098.3.579.2.462 Unknown [id number] 2.16.8 40.1.049007.3.579.2.462 Unknown [id number] 2.16.8 40.1.505029.3.579.2.462 Unknown [id number] 2.16.8 40.1.601816.3.579.2.462 Unknown [id number] 2.16.8 40.1.100681.3.579.2.462 Unknown [id number] 2.16.8 40.1.939201.3.579.2.462 Unknown [id number] 2.16.8 40.1.230571.3.579.2.462 Unknown [id number] 2.16.8 40.1.578594.3.579.2.462 Unknown [id number] 2.16.8 40.1.693997.3.579.2.462 Unknown [id number] 2.16.8 40.1.033351.3.579.2.462 Unknown [id number] 2.16.8 40.1.723506.3.579.2.462 Unknown [id number] 2.16.8 40.1.220557.3.579.2.462 Unknown [id number] 2.16.8 40.1.699587.3.579.2.462 Unknown [id number] 2.16.8 40.1.540298.3.579.2.462 Unknown [id number] 2.16.8 40.1.014976.3.579.2.462 Unknown [id number] 2.16.8 40.1.830985.3.579.2.462 Unknown [id number] 2.16.8 40.1.586608.3.579.2.462 Unknown [id number] 2.16.8 40.1.899041.3.579.2.462 Unknown [id number] 2.16.8 40.1.364091.3.579.2.462 Unknown [id number] 2.16.8 40.1.070767.3.579.2.462 Unknown [id number] 2.16.8 40.1.162880.3.579.2.462 Unknown [id number] 2.16.8 40.1.843083.3.579.2.462 Unknown [id number] 2.16.8 40.1.713739.3.579.2.462 Social History Date Type Detail Facility Start: 03-25-2022 End: 12-23-2023 Tobacco smoking status NHIS Unknown if ever smoked [facility] Start: 1950 Sex Assigned At Male [facility] Start: 01-07-2024 Tobacco smoking status Smokes tobacco daily (finding) [facility] [place] Sex Assigned At Sex [facility] Start: 04-16-2024 Tobacco smoking stat NHIS Current some day smoker [facility] Start: 02-07-2025 Sex Male (finding) [facility] Sex Male [facility] Medical Equipment Procedure Code Equipment Code Equipment Origin al Text Equipment Identifier Dates ([id number]) Dual-chamber implantable pacemaker, rate-responsive ()[id number] [id number] FDA Start: 12-21-2021 ([id number]) Endocardial paci ng lead ()[id number] FDA Start: 12-21-2021 ([id number]) Endocardial paci ng lead ()[id number] FDA Start: 12-21-2021 Goals Date Patient Goal Desired Activity /State Functional Status Date Assessment Result Facility 02-10-2024 Functional Status Up ad alden [facility] 02-10-2024 Functional Status Room located n ear nursing station, Room check performed [facility] 02-09-2024 Functional Status [facility] 02-09-2024 Functional Status Independent [facility] 02-09-2024 Functional Status [facility] 02-09-2024 Functional Status [facility] 02-09-2024 Functional Status Identification band, Verbal [facility] [facility] 02-09-2024 Functional Status Maintained [facility] 12-18-2023 Functional status Ambulates [facility] Work Phone: 09-25-2023 Functional status Ambulates [facility] Work Phone: Mental Status Date Assessment Result Facility 02-10-2024 Mental Status Oriented x 4 [facility] 02-10-[address] [facility] 02-09-2024 Mental Status Oriented x 4 [facility] 02-09-[address] [facility] 12-18-2023 Cognitive function Level Of Cons ciousness Awake;Alert;Appropriate;Follow s Commands [facility] Work Phone: 12-18-2023 Cognitive function Level Of Cons ciousness Awake;Alert;Appropriate;Follow s Commands [facility] Work Phone: 12-17-2023 Cognitive function Voice/Name [facility] Work Phone: 11-19-2023 Cognitive function Voice/Name [facility] Work Phone: 09-25-2023 Cognitive function Voice/Name [facility] Work Phone: Clinical Notes 12-21-2021 to 02-10-2024 Note Date & Type Note Facility 02-10-2024 Hospital Discharge instructions Patient Education 02/10/2024 07:51:01 3- Pacemaker/ICD New Device 12/2019 (CUSTOM) PACEMAKER / ICD INSERTION Discharge Instructions WOUND CARE DO NOT place any ointments, creams, powders or lotions on the incision. Call your pacemaker/ICD doctor s office immediately if you have: oIncreased redness oDrainage from the incision oOpening of the incision oIncreased pain, warmth or swelling on or around the site oTemperature elevation above 100.5 Call if you experience dizziness or palpitations or a fast or slow heart rate If an Aquacel Ag surgical dressing has been applied: oYou may take a shower as long as the dressing is sealed well to your skin. oYou may remove the bandage in 6 days: To do this, press down on your skin with one hand and carefully lift an edge of the bandage with your other hand. Stretch the dressing to break the adhesive seal and gently pull it off. oIf the bandage becomes loose or falls off in less than 5 days, you will not be able to take any showers or baths. You must keep the incision dry for the first 5 days after your procedure. DO NOT clean the incision with any soap, water, peroxide or alcohol. Leave it dry and uncovered for 5 days, then you may shower using soap and water. oWear loose fitting clothes over the incisional site to avoid irritation until it is healed. If you do not have a dressing: oDO NOT shower or get the incision wet for 5 days. oDO NOT clean the incision with any soap, water, peroxide or alcohol. oLeave it dry and uncovered for 5 days, then you may shower using soap and water. oWear loose fitting clothes over the incisional site to avoid irritation until it is healed. MEDICATIONS Take antibiotics before dental work as prescribed by your physician (if prescribed) Take medications as directed until prescription is finished Avoid alcohol while taking medications You may take Tylenol (acetaminophen) for incisional pain or discomfort. ACTIVITY RESTRICTIONS DO NOT lift anything heavier than 5 lbs with the arm on the side of the Pacemaker/ICD for one month. DO NOT raise the arm on the side of the Pacemaker/ICD above shoulder level for one month. You may resume normal driving unless otherwise restricted. Driving may cause soreness at the incision site. FOLLOW UP Follow up with the Pacemaker/ICD center for routine evaluation of your device. Your appointment to have your device checked and to see the doctor in 12-14 weeks has been scheduled and is listed above in the Follow Up section of these discharge instruction. Device Monitor Now that you have a permanent pacemaker, ICD, and/or loop recorder (all called a device ) it should be checked regularly. This is done with a monitor that sends information from the device to your hand model (heart doctor) office. How will I get my monitor? The monitor will be shipped to your home within 6 weeks after you are discharged. But, if you are given the monitor before discharge, please take it home. You may get other equipment (such as a blood pressure cuff and weight scale) shipped as well. There is no charge for this equipment. How does the monitor work? The monitor needs to be set up close to where you sleep. The monitor will automatically pick up and delivery driver heart signals and send the information to your doctor. Or you may be asked to push a button to send the information. What are the next steps? You will have an appointment with the nurse at the Device Clinic in about 2 weeks and the nurse will check your device (you will not see your doctor). The nurses will talk to you about the monitor at that time. When you get the monitor, there will be clear instructions with how to set it up. Please call the Device Clinic if you have questions. [facility]: [phone] Ask for the Device Clinic or luke-in extension [phone] when prompted. Device Clinic Location: [facility] (not the physician office building). Enter the [facility] and take the elevators to the 2nd floor. Take the ventura to the slight left labeled [facility] . If you are interested, you may find information about your device on the web, including videos that will help you understand and set up your monitor. The monitor you will get is based on the company that manufactured your device. Your device card will tell you the tail board worker. Using the search box: WiMi5 Scientific: [employer] Communicator quick start Patient Help: Medtronic: MyCareLink quick start Patient Help: [employer] ([place]): [email or web address] quick start Patient Help: Other important information about your device: Always carry your device card with you. Your device may set off a metal detector. Be sure you have your device card with you if you plan to go through any area, such as an airport that may have a metal detector. Before having any test or procedure, make sure you tell the healthcare professional that you have an implanted device. IMPLANTABLE CARDIOVERTER-DEFIBRILATOR (ICD) Instructions and Precautions ELECTRICAL CONCERNS Normal household appliances like TV, refrigerator, microwave oven/stove, and small electrically powered motor appliances WILL NOT interfere with your ICD. When talking on your cell phone, hold the phone with the arm that does not have your ICD. Do not carry your cell phone in your shirt pocket! ICD DISCHARGE If you receive one shock , sit down and wait a minute. Take some slow deep breaths. If you receive further immediate shocks, remain sitting or lying down. After receiving shocks, if you have a Home Monitoring system for your ICD, please do an automated transmission and call your ICD doctor to advise them of therapies. A family member, friend, etc., should call an ambulance if you become unresponsive at any time. You should call 911 if multiple shocks occur, or if you do not feel well after 1-2 minutes from your shock. MAGNETIC CONCERNS Avoid strong magnetic jimenez, i.e.: large speakers, TV towers, magnets in race car shops. Staying 6-12 feet away is okay. Do not touch the radio antenna or [facility] radio antenna that are in operation. Do not touch spark plugs or distributor wires of a running car or planishing hammer operator. Avoid the fenced enclosure areas of a radio or TV transmitting tower. Avoid machinery with magnets; industrial shops, arc welders, and race car repair areas. Avoid placing stereo speakers close to your device as they have magnets in them. MEDICAL IDENTIFICATION Carry your ICD card with you at all times. It is suggested that you provide a copy of your card to family members/significant others. PERSONAL CONTACT Should your ICD discharge while another person is touching you, that person may feel a slight muscular contraction that is not harmful. NOTIFICATION OF HEALTH PROFESSIONALS Notify your personal physician about your ICD. You must tell your surgeon or Priming Machine Operator before you undergo any procedure or surgery. This includes, but is not limited to: any surgery, colonoscopy and/or EGD s. Follow Up Care 01/07/2024 15:05:49 With:LUCIANA CARRIZALES MD Address: [address] [place] [address]- [phone] When:02/24/2024 11:00:00 Comments:This is your incision check in the Device Clinic. With:LUCIANA CARRIZALES MD Address: [address] [place] [address]- [phone] When:05/14/2024 10:30:00 Comments:This is your hospital follow up in the Device Clinic. [facility] 02-10-2024 Discharge summary Date of Service 02/10/2024 Discharge Diagnosis Congestive heart failure Hospital Course 01/2024 73-year-old male with past medical his significant for heart failure with dual-chamber pacemaker implantation and chronic right ventricular pacing on medical therapy with a persistently reduced ejection fraction. He underwent successful pacemaker upgrade to a JEWEL HOLE GAUGER-D ICD system tolerating the procedure well. He will be discharged home to follow as an outpatient. Allergies OxyCONTIN (disoriented) Procedures Pacemaker upgrade to a cardiac resynchronization ICD system. Consults No qualifying data available. Imaging Results and Diagnostics Chest x-ray shows adequate ICD and lead placement. Physical Exam Vitals and Measurements T: 36.6 C (Oral) TMIN: 36 C (Skin) TMAX: 36.6 C (Oral) HR: 62 RR: 16 BP: 134/73 SpO2: 96% Weight Dosing Weight: 67.9 kg (02/09/24) Physical Exam: General: well appearing, no acute distress Respiratory: normal chest wall expansion, CTA B, no r/r/w, no rubs Cardiovascular: RRR, no m/r/g, Normal S1 and S2 Abdomen: Soft, non-tender, non-distended, normal bowel sounds in all quadrants, no hepatosplenomegaly, no tympany Integumentary: warm, dry, and pink, with no rash, purpura, or petechia Neurological: 2+ patellar reflexes, Cranial Nerves II-XII grossly intact, no tics, normal sensation to pressure and light touch Code Status No qualifying data available. Admission Date 02/09/2024 Discharge Date 02/10/2024 Medications Unchanged aspirin (aspirin 81 mg oral delayed release tablet)1 tab(s) by mouth every day. atorvastatin (atorvastatin 10 mg oral tablet)1 tab(s) by mouth every day. calcium-vitamin D (Caltrate 600 + D oral tablet)1 tab(s) by mouth every day. carvedilol (carvedilol 25 mg oral tablet)0.5 tab(s) two (2) times a day. cholecalciferol (Vitamin D3 50 mcg (2000 intl units) oral capsule)1 cap by mouth every day. dapagliflozin (Farxiga 10 mg oral tablet)10 Milligram by mouth once a day (in the morning). furosemide (furosemide 20 mg oral tablet)1 tab(s) by mouth two (2) times a day. multivitamin with minerals (Centrum Silver oral tablet)1 tab(s) by mouth once a day. tamsulosin (tamsulosin 0.4 mg oral capsule)1 cap by mouth once a day after a meal. traMADol (traMADol 50 mg oral tablet)take 1 tablet by mouth every 6 hours NEEDED FOR PAIN. Follow Up Follow Up with LUCIANA CARRIZALES MD When 05/14/2024 10:30 AM EDT Why: This is your hospital follow up in the Device Clinic. Where: [address] [place] [address]- [phone] Follow Up with LUCIANA CARRIZALES MD When 02/24/2024 11:00 AM EDT Why: This is your incision check in the Device Clinic. Where: [address] [place] [address]- [phone] Follow Up Appointments No qualifying data available. Follow Up Labs/Studies Discharge Labs No Follow-up Labs Discharge Studies No Follow-up Studies Discharge Diet Discharge Diet - Ordered -- 02/09/24 9:55:00 EDT Discharge Activity Discharge Activity - Ordered -- Resume your pre-hospitalization activity, 02/10/24 9:54:00 EDT Condition on Discharge Good Discharge Disposition Home Digitally Signed by LUCIANA CARRIZALES MD on 02/10/2024 07:56 AM [facility] 02-10-2024 Summary of episode note Discharge Instructions Thank you for allowing [facility] to assist you with your healthcare needs. The following is important discharge information regarding your hospital visit. Your Care Team KELTON GARZA MD What to do next Scheduled Follow-Up Appointments Appointment Type When Where Contact InformationCV Incision Check 02/24/2024 11:00 AM EDT [facility] CV Office Procedure PPM 05/14/2024 10:30 AM EDT [facility] Follow Up Appointments Follow Up with LUCIANA CARRIZALES MD When 05/14/2024 10:30 AM EDT Why: This is your hospital follow up in the Device Clinic. Where: [address] [facility] [address] [place] [address]- [phone] Follow Up with LUCIANA CARRIZALES MD When 02/24/2024 11:00 AM EDT Why: This is your incision check in the Device Clinic. Where: [address] [facility] [address] [facility] [address] [place] [address]- [phone] The Following Activity and Diet Have Been Ordered for You Discharge Activity - Ordered -- Resume your pre-hospitalization activity, 02/10/24 9:54:00 EDT Discharge Diet - Ordered -- 02/09/24 9:55:00 EDT Allergies OxyCONTIN (disoriented) Medications Please ask your primary doctor or pharmacist before taking any other medication not listed, including over the counter drugs, herbal medications, vitamins and or supplements as they may interact with your home medications. What How Much When Instructions Last Dose Unchanged aspirin (aspirin 81 mg oral delayed release tablet) 1 tab(s) by mouth Every day Unchanged atorvastatin (atorvastatin 10 mg oral tablet) 1 tab(s) by mouth Every day Unchanged calcium-vitamin D (Caltrate 600 + D oral tablet) 1 tab(s) by mouth Every day Unchanged carvedilol (carvedilol 25 mg oral tablet) 0.5 tab(s) Two (2) times a day Unchanged cholecalciferol (Vitamin D3 50 mcg (2000 intl units) oral capsule) 1 cap by mouth Every day Unchanged dapagliflozin (Farxiga 10 mg oral tablet) 10 Milligram by mouth Once a day (in the morning) Unchanged furosemide (furosemide 20 mg oral tablet) 1 tab(s) by mouth Two (2) times a day Unchanged multivitamin with minerals (Centrum Silver oral tablet) 1 tab(s) by mouth Once a day Unchanged tamsulosin (tamsulosin 0.4 mg oral capsule) 1 cap by mouth Once a day after a meal Unchanged traMADol (traMADol 50 mg oral tablet) take 1 tablet by mouth every 6 hours NEEDED FOR PAIN Please take this list to your next doctor s visit. Bring all medications you take, including over the counter medications, herbals and other supplements with you to your doctor s visit. Patients and families are reminded to discard old lists and to update any records with all medication providers or retail pharmacies. Education Materials PACEMAKER / ICD INSERTION Discharge Instructions WOUND CARE DO NOT place any ointments, creams, powders or lotions on the incision. Call your pacemaker/ICD doctor s office immediately if you have: o Increased redness o Drainage from the incision o Opening of the incision o Increased pain, warmth or swelling on or around the site o Temperature elevation above 100.5 Call if you experience dizziness or palpitations or a fast or slow heart rate If an Aquacel Ag surgical dressing has been applied: o You may take a shower as long as the dressing is sealed well to your skin. o You may remove the bandage in 6 days: To do this, press down on your skin with one hand and carefully lift an edge of the bandage with your other hand. Stretch the dressing to break the adhesive seal and gently pull it off. o If the bandage becomes loose or falls off in less than 5 days, you will not be able to take any showers or baths. You must keep the incision dry for the first 5 days after your procedure. DO NOT clean the incision with any soap, water, peroxide or alcohol. Leave it dry and uncovered for 5 days, then you may shower using soap and water. o Wear loose fitting clothes over the incisional site to avoid irritation until it is healed. If you do not have a dressing: o DO NOT shower or get the incision wet for 5 days. o DO NOT clean the incision with any soap, water, peroxide or alcohol. o Leave it dry and uncovered for 5 days, then you may shower using soap and water. o Wear loose fitting clothes over the incisional site to avoid irritation until it is healed. MEDICATIONS Take antibiotics before dental work as prescribed by your physician (if prescribed) Take medications as directed until prescription is finished Avoid alcohol while taking medications You may take Tylenol (acetaminophen) for incisional pain or discomfort. ACTIVITY RESTRICTIONS DO NOT lift anything heavier than 5 lbs with the arm on the side of the Pacemaker/ICD for one month. DO NOT raise the arm on the side of the Pacemaker/ICD above shoulder level for one month. You may resume normal driving unless otherwise restricted. Driving may cause soreness at the incision site. FOLLOW UP Follow up with the Pacemaker/ICD center for routine evaluation of your device. Your appointment to have your device checked and to see the doctor in 12-14 weeks has been scheduled and is listed above in the Follow Up section of these discharge instruction. Device Monitor Now that you have a permanent pacemaker, ICD, and/or loop recorder (all called a device ) it should be checked regularly. This is done with a monitor that sends information from the device to your hand model (heart doctor) office. How will I get my monitor? The monitor will be shipped to your home within 6 weeks after you are discharged. But, if you are given the monitor before discharge, please take it home. You may get other equipment (such as a blood pressure cuff and weight scale) shipped as well. There is no charge for this equipment. How does the monitor work? The monitor needs to be set up close to where you sleep. The monitor will automatically pick up and delivery driver heart signals and send the information to your doctor. Or you may be asked to push a button to send the information. What are the next steps? You will have an appointment with the nurse at the Device Clinic in about 2 weeks and the nurse will check your device (you will not see your doctor). The nurses will talk to you about the monitor at that time. When you get the monitor, there will be clear instructions with how to set it up. Please call the Device Clinic if you have questions. [facility]: [phone] Ask for the Device Clinic or luke-in extension [phone] when prompted. Device Clinic Location: [facility] (not the physician office building). Enter the [facility] and take the elevators to the 2nd floor. Take the ventura to the slight left labeled [facility] . If you are interested, you may find information about your device on the web, including videos that will help you understand and set up your monitor. The monitor you will get is based on the company that manufactured your device. Your device card will tell you the tail board worker. Using the search box: WiMi5 Scientific: Lisa Christiansonator quick start Patient Help: Medtronic: MyCareLink quick start Patient Help: [employer] ([place]): [email or web address] quick start Patient Help: Other important information about your device: Always carry your device card with you. Your device may set off a metal detector. Be sure you have your device card with you if you plan to go through any area, such as an airport that may have a metal detector. Before having any test or procedure, make sure you tell the healthcare professional that you have an implanted device. IMPLANTABLE CARDIOVERTER-DEFIBRILATOR (ICD) Instructions and Precautions ELECTRICAL CONCERNS Normal household appliances like TV, refrigerator, microwave oven/stove, and small electrically powered motor appliances WILL NOT interfere with your ICD. When talking on your cell phone, hold the phone with the arm that does not have your ICD. Do not carry your cell phone in your shirt pocket! ICD DISCHARGE If you receive one shock , sit down and wait a minute. Take some slow deep breaths. If you receive further immediate shocks, remain sitting or lying down. After receiving shocks, if you have a Home Monitoring system for your ICD, please do an automated transmission and call your ICD doctor to advise them of therapies. A family member, friend, etc., should call an ambulance if you become unresponsive at any time. You should call 911 if multiple shocks occur, or if you do not feel well after 1-2 minutes from your shock. MAGNETIC CONCERNS Avoid strong magnetic jimenez, i.e.: large speakers, TV towers, magnets in race car shops. Staying 6-12 feet away is okay. Do not touch the CB radio antenna or [facility] radio antenna that are in operation. Do not touch spark plugs or distributor wires of a running car or planishing hammer operator. Avoid the fenced enclosure areas of a radio or TV transmitting tower. Avoid machinery with magnets; industrial shops, arc welders, and race car repair areas. Avoid placing stereo speakers close to your device as they have magnets in them. MEDICAL IDENTIFICATION Carry your ICD card with you at all times. It is suggested that you provide a copy of your card to family members/significant others. PERSONAL CONTACT Should your ICD discharge while another person is touching you, that person may feel a slight muscular contraction that is not harmful. NOTIFICATION OF HEALTH PROFESSIONALS Notify your personal physician about your ICD. You must tell your surgeon or Priming Machine Operator before you undergo any procedure or surgery. This includes, but is not limited to: any surgery, colonoscopy and/or EGD s. Additional Information VACCINATE! IT SAVES LIVES! Members of the community who have not yet received the COVID-19 vaccine and would like to receive it can visit one of [facility] vaccine clinics. There are many vaccine clinic locations within the [facility]. For locations and available times, please visit [email or web address].coronavirus.[place].gov/. It is important to note that some COVID mobile vaccine clinics are held outdoors and may be canceled in rainy or stormy conditions. To learn more about pediatric vaccinations (ages 5-11), we invite you to visit the [employer] [facility] webpage. https://[email or web address].org/pag [email or web address]-Jgifx-Ksqmtxbrqkm-[email or web address]-[email or web address]-Lgkogfyiq.html To learn more about the COVID-19 vaccine, we invite you to visit the CDC website for a list of frequently asked questions.https://www.cdc.gov/vick navirus/2019-ncov/vaccines/faq.htm l [facility] Access Instructions: Stay connected with your healthcare team and access your personal medical information anytime with the [facility] Patient Portal. Please follow the directions below to create your [facility] account: 1.Access the email account you provided upon registration to the hospital/physician office.2.Look for an invitation email from [facility].3.Open the email and access the invitation link: Accept Invitation to [facility].4.Fill in the required jimenez to create your account. To access your account, visit [facility] [facility]. Click the blue button labeled "Access Patient Portal" and then log in with the username and password that you created in the steps above. You will be able to view your test results, lab results, a summary of your visits, upcoming appointments and more. There is also a convenient messaging option where you can send secure messages to your provider. In addition, you will have the ability to download any documents or summaries to your computer and/or send the information securely to a physician. Remember that your healthcare information is confidential, so carefully consider who you will allow to register on the [facility] Patient Portal for access to your information. You can also access the [facility] Patient Portal on the [facility] michael. Simply click on "Patient Portal" and then log into your account. If you would like to receive a full copy of your medical records, please contact the [facility] Medical Records Department by calling [phone], Friday through Friday between 8 a.m. and 4:30 p.m. HOW TO SAFELY DISPOSE OF PRESCRIPTION MEDICATIONS Please use one of the following methods to safely dispose of your unused medications. 1.Use a drug disposal kit: the drug disposal pouch allows you to safely discard your old and unused drugs. Ask your nurse to give you one when you are discharged.2.Visit a local take-back location: Many local pharmacies and police departments have programs that collect old and unwanted prescription drugs. Call your local pharmacy or go to http://[employer].Kionix/9J7Bk2k to find one close to you.3.Make use of household items: Use cat litter or old coffee grounds to dispose medications if other options are not available. Mix your drugs with these household products, seal them in an airtight container and throw it into the garbage. Call [facility]: [phone] to be sure your drugs can be disposed of in this way. Some medicines may require a different approach.4.Never flush your medications down the toilet. IF YOU HAVE BEEN PRESCRIBED AN OPIOID FOR PAIN If you have been prescribed an opioid (such as hydrocodone, oxycodone or morphine), it is critical to understand the possible side effects and risks of opioid pain medications. Even when taken as directed, opioids can have several side effects including: Tolerance, meaning you might need to take more of a medication for the same pain relief. Nausea, vomiting and/or constipation. Sleepiness, dizziness, dry mouth, confusion, depression or itching. Physical dependence, meaning you have withdrawal symptoms when a medication is stopped, can develop within a few days. KNOW YOUR RESPONSIBILITIES It is important to know exactly how much and how often to take the opioid pain medications you are prescribed. Never take opioids in higher amounts or more often than prescribed. Do not combine opioids with alcohol or other drugs that cause drowsiness, such as benzodiazepines, also known as benzos, including diazepam and alprazolam, muscle relaxants or sleep aids. Never sell or share prescription opioids. This is illegal. Store opioids in a secure place and out of reach of others (including children, family, friends and visitors). The last page of this document has been signed and retained as a CHART COPY. Signatures Patient Education Materials 3- Pacemaker/ICD New Device 12/2019 (CUSTOM) Medication Leaflets My discharge plan and instructions have been reviewed and explained to me and I,TONG MORATAYA understand my current condition and have read and understand these discharge instructions. I have received a written copy of the plan/instructions. If I have questions, I am aware that I should contact my doctor. Patient/Certified Family Mediator Signature: Date/Time: Relationship to Patient: ___ Witness Name/Signature: Date/Time: [facility] 02-10-2024 Note ORIGINAL EXAMINATION: TWO XRAY VIEWS OF THE CHEST 02/10/2024 3:27 am COMPARISON: Chest x-ray on 02/09/2024 HISTORY: ORDERING SYSTEM PROVIDED HISTORY: Reason for Exam: Evaluate for pneumothorax/lead position post pacer/ICD insertion FINDINGS: Left subclavian cardiac conduction device is in place with tip of 1 lead in the right atrium, 2 lead tips in the right ventricle, and also a lead in the coronary sinus. The heart size is normal. The lungs are hyperexpanded. There is no lung infiltrate or edema. No pneumothorax or pleural fluid is present. The skeletal structures are unremarkable. IMPRESSION: Left subclavian cardiac conduction device is in place. No acute abnormality. 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 in situ February 09, 2024 acute March 03, 2025 1:50pm Left bundle branch block (LBBB) acute March 03, 2025 1:50pm Non-ischemic cardiomyopathy acute March 03, 2025 1:50pm Hyperlipidemia acute February 1:51pm Non-ischemic cardiomyopathy acute March 03, 2025 1:51pm Essential hypertension chronic March 03, 2025 1:51pm History of permanent cardiac pacemaker placement December 21, 2021 inactive March 03, 2025 1:51pm [facility] Work Phone: 1(285) 494-571504-01-2024 NoteA-V DUAL-PACED RHYTHM WITH SOME INHIBITION Electronic Signature: CARINE BLACKBURN MD [facility] Note ORIGINAL EXAMINATION: ONE XRAY VIEW OF THE CHEST02/09/2024 10:40 am COMPARISON: None. HISTORY: ORDERING SYSTEM PROVIDED HISTORY: Reason for Exam: Evaluate for pneumothorax/lead position post pacer/ICD insertion FINDINGS: The heart size is normal. Pacer/defibrillator device is noted from a left chest wall approach. There is a lead near the level of the right atrial appendage. 2 right ventricular leads suspected. There is a 4th lead traversing the coronary sinus. No lateral image was obtained.. Calcified left apical nodule is presumably a granuloma. Vascular structures appear within normal limits. There is no consolidation. No pleural fluid or pneumothorax. No aggressive osseous lesions identified. IMPRESSION: Pacer/defibrillator device from a left chest wall approach. No visible pneumothorax. No lateral image was obtained Interpreted by: Tremaine Ziegler MD Preliminary Report By: Tremaine Ziegler MD Electronically signed By Tremaine Ziegler MD Dictated Date: 02/09/2024 10:43:04 AM Prelim Date: 02/09/2024 10:46:04 AM Sign Date: 02/09/2024 10:46:04 AM Ordering Provider: [facility]04-01-2024 Note* Exam Date Time Procedure Performing Provider Status 02/09/24 7:44 AM Pacemaker Removal to JEWEL HOLE GAUGER-D - CV Auth (Verified) [facility] 04-01-2024 NoteATRIAL-SENSED VENTRICULAR-PACED RHYTHM Electronic Signature: CARINE BLACKBURN MD 02/10/2024 19:55:06[facility] 04-01-2024 Anesthesiology Consult note Patient: TONG MORATAYA Age: 73 years Sex: Male : 1950 Associated Diagnoses: None Author: MARIJA DEVINE MD Preoperative Information Procedure/ Case: upgrade to JEWEL HOLE GAUGER-D Time of last food or liquid consumption: 02/09/2024 00:00:00 Anesthesia history Patient's history: negative. Family's history: negative. Review of Systems Ear/Nose/Mouth/Throat: Negative except as documented in history of present illness. Respiratory: Cough. Cardiovascular: Negative except as documented in history of present illness. Gastrointestinal: Negative except as documented in history of present illness. Genitourinary: Negative except as documented in history of present illness. Endocrine: Negative except as documented in history of present illness. Musculoskeletal: Negative except as documented in history of present illness. Integumentary: Negative except as documented in history of present illness. Neurologic: Negative except as documented in history of present illness. Health Status Allergies: Allergic Reactions (Selected) Severity Not Documented OxyCONTIN- Disoriented., Allergies (1) ActiveReaction OxyCONTINdisoriented Current medications: (Selected) Inpatient Medications Ordered Kefzol: 2 gram(s), 20 mL, 240 mL/hr, IV Push (INT), PREOP pharm NS 1,000 mL: 20 mL/hr, Intravenous lidocaine 1% preservative-free injectable solution: 2.5 mg, 0.25 mL, Intradermal, prep pharm Documented Medications Documented Caltrate 600 + D oral tablet: 1 tab(s), Oral, BID, 60 tab(s), 0 Refill(s) Centrum Silver oral tablet: 1 tab(s), Oral, qDay, 30 tab(s), 0 Refill(s) Entresto 24 mg-26 mg oral tablet: take 1 tablet by mouth twice a day Farxiga 10 mg oral tablet: 10 mg, Oral, qAM, 0 Refill(s) aspirin 81 mg oral delayed release tablet: 81 mg, 1 tab(s), Oral, Daily, 0 Refill(s) atorvastatin 10 mg oral tablet: 10 mg, 1 tab(s), Oral, Daily, 0 Refill(s) carvedilol 25 mg oral tablet: 12.5 mg, 0.5 tab(s), BID, 0 Refill(s) furosemide 20 mg oral tablet: 20 mg, 1 tab(s), Oral, Daily, 0 Refill(s) tamsulosin 0.4 mg oral capsule: 0.4 mg, 1 cap(s), Oral, qDayPC, 0 Refill(s) traMADol 50 mg oral tablet: take 1 tablet by mouth every 6 hours NEEDED FOR PAIN, Medications (3) Active Scheduled: (2) ceFAZolin syringe 2 gram(s) 20 mL, IV Push (INT), PREOP pharm lidocaine 1% (MPF) 2 mL vial pf 2.5 mg 0.25 mL, Intradermal, prep pharm Continuous: (1) NS (0.9% nacl) 1,000 mL 1,000 mL, Intravenous, 20 mL/hr PRN: (0) Problem list: Medical Cardiac pacemaker in situ / SNOMED CT 1799603937 / Confirmed Nonischemic cardiomyopathy / SNOMED CT 054895934 / Confirmed Hyperlipidemia / SNOMED CT 06325269 / Confirmed Right bundle branch block / SNOMED CT 80380269 / Confirmed Sinus node dysfunction / SNOMED CT 712991808 / Confirmed Ventricular premature depolarization / SNOMED CT 564943435 / Confirmed, Active Problems (7) Cardiac pacemaker in situ Hyperlipidemia Nonischemic cardiomyopathy Right bundle branch block Sinus node dysfunction Tobacco use Ventricular premature depolarization Histories Past Medical History: No active or resolved past medical history items have been selected or recorded. Family History: Heart disease Mother Father Sister Brother Comments: 01/07/2024 13:49 Amita Arriaza LPN sep 2023 Procedure history: Implantation of cardiac pacemaker ([id number]) on 12/21/2021 at 71 Years. Comments: 01/06/2024 9:47 Kajal Avila RN Dual Chamber Pacemaker Implanted [facility] 12/21/2021 Generator [employer] L111 ESSENTIO MRI Serial [id number] 12/21/2021 RA Lead [employer] 7842 Ingevity + MRI Serial [id number] 12/21/2021 RV Lead [employer] 7841 Ingevity + MRI Serial [id number] 12/21/2021 Social History Social & Psychosocial Habits Alcohol 01/07/2024 Use: Current Frequency: 1-2 times per year Employment/School 01/07/2024 Status: Retired Substance Abuse 01/07/2024 Use: Never Tobacco 01/07/2024 Tobacco Use: Cigars or pipes daily wit Nutrition/Health 01/07/2024 Caffeine intake amount: 1 cups coffee, 1 gal sweet tea daily . Physical Examination No qualifying data available General: Alert and oriented. Airway: Normal temporomandibular joint mobility. Mallampati classification: II (soft palate, fauces, uvula visible). Head: Normocephalic. Dentition Evaluation: Dentures, lower, Dentures, upper. Neck: Supple. Respiratory: Lungs are clear to auscultation. Cardiovascular: Normal rate, Patient denies current chest pain, shortness of breath, light-headedness, palpitations and other symptoms suggestive for ischemia.. Heart Sounds: Normal. Gastrointestinal: Soft, Non-tender. Musculoskeletal Normal range of motion. Integumentary: Intact, Warm, Dry. Neurologic: Alert, Oriented. Review / Management Results review: No qualifying data available , Lab results: 02/09/2024 5:00 EDT Electrocardiogram - EKG - CV Ordered (In Progress). Assessment and Plan [employer] Anesthesiologists (ASA) physical status classification: Class III, Non-ischemiccardiomyopathy; afib; LBBB; HF. Anesthetic Preoperative Plan Anesthetic technique: MAC. Induction: intravenously. Maintenance airway: Mask, ETCO2 monitoring. Postoperative pain management: Per surgeon. Risks discussed: nausea, vomiting, headache, sore throat, dental injury, hypotension, allergic reaction, serious complications. Informed consent: signed by patient. Notes: Pr. Morataya was seen and examined by Marija saleem MD. The medical record was reviewed.Consultations, lab results , radiographic results and cardiovascular studies examined and noted. Anesthesia was explained in detail and questions were invited and answered. We will proceed as outlined in the plan above.. Digitally Signed by MARIJA DEVINE MD on 02/09/2024 06:08 AM Digitally Signed by SUREKHA EATON on 02/09/2024 07:37 AM Digitally Signed by MARIJA DEVINE MD on 02/09/2024 07:43 AM [id number] Progress note Author Junior Hayes [facility] December 18, 2023 7:36am Note Date/Time December 18, 2023 7 :36am [facility] Medical Records Department [address] [place] [address] Progress Note - Urology 12/18/23 0736 MR#: [id number] Acct: [id number] Name: TONG MORATAYA Rep #:[id number] : 1950 73 From: Junior Hayes MD PCP: Dr. Gee Garza MD Status:REG S DC Location: [facility] OY039-6 Subjective Subjective s/p turp d/c boles home today Objective Data Objective Data Vital Signs: Vital Signs Temp Pulse Resp BP Pulse Ox O2 Del Method 97.8 F 76 16 117/68 96 Room Air 12/18/23 05:55 12/18/23 05:55 12/18/23 05:55 12/18/23 05:55 12/18/23 05:55 12/18/23 05:55 Oxygen Delivery Method Room Air Weight: 68 kg Body Mass Index (BMI) 24.2 Intake & Output: Intake and Output for Last 24 Hours 12/16/23 12/17/23 12/18/23 23:59 23:59 23:59 Intake Total 1271.75 / 1271.75 200 / 200 Output Total 4950 / 4950 Balance 1271.75 / 1271.75 -4750 / -4750 Lab / Micro Data 12/18/23 06:38 12/18/23 06:38 Labs: Laboratory Results - last 24 hr 12/18/23 06:38: WBC 8.0, RBC 4.48 L, Hgb 13.7, Hct 42.6, MCV 95.1 H, MCH 30.6, MCHC 32.2, RDW Std Deviation 49.1 H, RDW Coeff of Vahid 13.9, Plt Count 214, MPV 9.5 12/18/23 0736 <Electronically signed by Junior Hayes MD> Cosigner Signature (if applicable): CC: ~ Signed [facility] Work Phone: 1(742) 854-664402-07-2024 Discharge summary Author Junior Hayes [facility] December 17, 2023 2:48pm Note Date/Time December 17, 2023 2 :48pm [facility] Medical Records Department [address] [place] [address] Instructions for Home/Discharge Instructions 12/17/23 1448 MR#: [id number] Acct: [id number] Name: TONG MORATAYA Rep #:[id number] : 1950 73 From: Junior Hayes MD PCP: Dr. Gee Garza MD Status:REG S DC Discharge Instructions Diet Discharge Diet: No restrictions Activity Discharge Activity: Return to Normal Activity and May Not Drive (while taking narcotic pain medications.) Dressing / Incision Call your doctor if you observe: Fever of 101 or Higher Follow Up Care Please Follow Up With: Junior Hayes MD When: Call [phone] for an appointment Test Results: Test results from this visit will be discussed in further detail at your follow- up appointment, if applicable. Discharge Plan Admission Primary Reason for Your Visit: turp Attending Provider: Junior Hayes Primary Care Provider: Gee Garza Chi Discharge Orders/Prescriptions Prescriptions: New ciprofloxacin HCl [Cipro] 500 mg tablet 500 mg PO BID Qty: 10 0RF Continued atorvastatin 10 mg tablet 10 mg PO QHS Farxiga 10 mg tablet 10 mg PO DAILY Qty: 90 3RF furosemide [Lasix] 20 mg tablet 20 mg PO DAILY Qty: 90 3RF Entresto 24-26 mg tablet 1 tab PO BID Patient Comments: take 1 tablet by mouth twice a day calcium carbonate [Calcium 600] 600 mg calcium (1,500 mg) tablet 600 mg PO DAILY Centrum Men 8 mg iron- 200 mcg-600 mcg tablet 1 tab PO DAILY ipratropium-albuterol 0.5 mg-3 mg(2.5 mg base)/3 mL Solution For Nebulization 3 ml inhalation Q4H PRN PRN (Reason: shortness of breath or wheezing) Qty: 180 0RF acetaminophen 325 mg Tablet 650 mg PO Q6H PRN PRN (Reason: Pain 1-10 Or Fever >100.7) Qty: 0 0RF tamsulosin 0.4 mg Capsule 0.4 mg PO DAILY@1730 60 Days Qty: 60 0RF tramadol 50 mg tablet 50 mg PO Q6H PRN (Reason: pain) Qty: 20 0RF carvedilol 12.5 mg tablet 6.25 mg PO BID Qty: 60 0RF Held aspirin [Adult Low Dose Aspirin] 81 mg tablet,delayed release (DR/EC) 81 mg PO DAILY Hold Instructions: Resume on 12/31/23. Referrals / Follow Up: Junior Hayes MD [Med Staff - Active Staff] - Gee Garza Chi, MD [Primary Care Provider] - Disposition Disposition (needs filled in before D/C Order can be placed): Home, Self Care 12/17/23 1448<Electronically signed by Junior Hayes MD>Junior Hayes MD CC: Dr. Gee Garza MD ~ Signed [facility] Work Phone: 1(628) 141-871502-07-2024 Procedure [facility] 12-17-2023 History and physical note Author Junior Hayes [facility] December 17, 2023 2:15pm Note Date/Time December 17, 2023 2 :15pm [facility] Medical Records Department [address] [place] [id number] History & Physical Exam 12/17/23 1415 MR#: [id number] Acct: [id number] Name: TONG MORATAYA Rep #:[id number] : 1950 73 From: Junior Hayes MD PCP: Dr. Gee Garza MD Status:REG S DC Location: [place] [address]-1 HPI - General General Date of Service: 12/17/23 Chief Complaint: BPH with retention of urine HPI Narrative TONG MORATAYA, is a 73 M who presents for a transurethral section of the prostate for retention of urine patient understands it is possible that we do the surgery and he still would not be able to urinate on his own he may need to learn self intermittent catheterization. [facility] Medical History (Updated 12/11/23 @ 10:10 by Vangie Lopez) Alcohol use Arthritis Back pain Broken heart syndrome Cardiology follow-up encounter Chest pain Cluster headache COPD (chronic obstructive pulmonary disease) Easy bruising Essential hypertension High cholesterol History of echocardiogram History of stress test Hyperlipidemia Multiple premature ventricular complexes Non-ischemic cardiomyopathy Prostate disease Right bundle branch block (RBBB) with left anterior fascicular block Second degree AV block, Mobitz type II (12/20/21) Smoker Syncope Uses LifeVest defibrillator Wears dentures Home Medications atorvastatin 10 mg tablet 10 mg PO QHS cholesterol 12/20/21 [History Last Taken 12/16/23] aspirin 81 mg tablet,delayed release (Adult Low Dose Aspirin) 81 mg PO DAILY 09/21/23 [History Last Taken 12/01/23] calcium carbonate 600 mg calcium (1,500 mg) tablet (Calcium) 600 mg PO DAILY 09/21/23 [History Last Taken 12/16/23] multivit,Ca,min-iron 8 mg-folic acid 200 mcg-lycopene 600 mcg tablet (Centrum Men) 1 tab PO DAILY 09/21/23 [History Last Taken 12/16/23] ipratropium 0.5 mg-albuterol 3 mg (2.5 mg base)/3 mL nebulization soln 3 ml inhalation Q4H PRN PRN shortness of breath or wheezing #180 mL 09/22/23 [Rx Last Taken Unknown] acetaminophen 325 mg tablet 650 mg (2 x 325 mg) PO Q6H PRN PRN Pain 1-10 Or Fever >100.7 #0 tabs 09/25/23 [Rx Last Taken Unknown] tamsulosin 0.4 mg capsule 0.4 mg PO DAILY@1730 60 days #60 caps 09/25/23 [Rx Last Taken 12/16/23] tramadol 50 mg tablet 50 mg PO Q6H PRN pain #20 tabs 09/25/23 [Rx Last Taken Unknown] dapagliflozin propanediol 10 mg tablet (Farxiga) 10 mg PO DAILY #90 tabs 10/23/23 [Rx Last Taken 12/16/23] furosemide 20 mg tablet (Lasix) 20 mg PO DAILY #90 tabs 10/23/23 [Rx Last Taken 12/16/23] sacubitril 24 mg-valsartan 26 mg tablet (Entresto) 1 tab PO BID 11/14/23 [History Last Taken 12/16/23] carvedilol 12.5 mg tablet 6.25 mg (1/2 x 12.5 mg) PO BID #60 tabs 11/20/23 [Rx Last Taken 12/16/23] Allergy/AdvReac Type Severity Reaction Status Date / Time No Known Allergies Allergy Verified 12/17/23 12:05 Family History Other Essential hypertension Multiple premature ventricular complexes Non-ischemic cardiomyopathy Right bundle branch block (RBBB) with left anterior fascicular block Second degree AV block, Mobitz type II Surgical History (Updated 12/11/23 @ 10:10 by Vangie Lopez) History of back surgery History of left heart catheterization (08/12/03) History of permanent cardiac pacemaker placement (12/21/21) Hx of colonoscopy Hx of elbow surgery Hx of left cataract extraction Hx of right cataract extraction Hx of total knee arthroplasty Social History (Updated 11/11/23 @ 06:42 by Lyndsay Ling) Smoking Status: Current some day smoker tobacco type: cigarettes and pipe Tobacco: How many years used: 50 Vital Signs Vital Signs Vital Signs: 12/17/23 12:07 12/17/23 12:07 Temperature 97.9 F Temperature Source Temporal Pulse Rate 82 Respiratory Rate 16 Respiratory Pattern Normal Blood Pressure 129/94 H Blood Pressure Mean 105 Blood Pressure Source Monitor Blood Pressure Position Semi-Fowlers Blood Pressure Location Right Arm Pulse Ox 99 Oxygen Delivery Method Room Air Weight Weight: 68 kg Body Mass Index (BMI) 24.2 12/17/23 1415 <Electronically signed by Junior Hayes MD> Cosigner Signature (if applicable): CC: Dr. Junior Hayes MD; Dr. Gee Garza MD~ Signed [facility] Work Phone: 1(559) 222-840201-09-2024 Procedure [facility] 11-17-2023 Procedure [facility]11-16-2023 Progress note Author Lurdes Higginbotham [facility] September 25, 2023 4:18pm Note Date/Time September 25, 2023 1:28pm [facility] Medical Records Department [address] [place] [address] Progress Note - Cardiology 09/25/23 1323 MR#: [id number] Acct: [id number] Name: TONG MORATAYA Rep #:[id number] : 1950 73 From: Lurdes Higginbotham MD PCP: Dr. Gee Garza MD Status:ADM I N Location: [place] [address] <Statement entered by Lurdes Higginbotham MD - 09/25/23 16:03> Pt seen & evaluated w/MICHAEL. I personally interviewed & exam the pt. I was involved in all aspects of pt's orders, interpretation of results & treatment Subjective Subjective Pt seen and examined today. He denies CP/SOB. No events last night. Objective Data Vital Signs: Vital Signs Temp Pulse Resp BP Pulse Ox O2 Del Method O2 Flow Rate 97.7 F L 72 16 105/73 95 Room Air 2 09/25/23 07:56 09/25/23 13:18 09/25/23 13:18 09/25/23 07:56 09/25/23 07:56 09/25/23 07:56 09/22/23 09:11 FiO2 30 09/21/23 07:52 Oxygen Flow Rate (L/min) 2 Oxygen Delivery Method Room Air Weight: 145 lb 4.554 oz Body Mass Index (BMI) 22.7 Intake & Output: Intake and Output for Last 24 Hours 09/23/23 09/24/23 09/25/23 23:59 23:59 23:59 Intake Total 950 / 950 Output Total 3150 / 3150 650 / 650 Balance -2200 / -2200 -650 / -650 Lab / Micro Data 09/25/23 04:39 09/25/23 04:39 Labs: Laboratory Results - last 24 hr 09/25/23 04:39: WBC 6.2, RBC 4.05 L, Hgb 12.4 L, Hct 37.7 L, MCV 93.1, MCH 30.6,MCHC 32.9, RDW Std Deviation 45.3 H, RDW Coeff of Vahid 13.2, Plt Count 210, MPV 9.9, Immature Gran % (Auto) 0.300, Neut % (Auto) 71.4 H, Lymph % (Auto) 15.8 L, Slope % (Auto) 11.1 H, Eos % (Auto) 1.1, Baso % (Auto) 0.3, Absolute Neuts (auto)4.4, Absolute Lymphs (auto) 0.98, Nucleated RBC % 0, Sodium 134 L, Potassium 3.8, Chloride 102, Carbon Dioxide 24.0, Anion Gap 8, BUN 16, Creatinine 0.80, Estim Creat Clear Calc 75.51, Est GFR (MDRD) Af Amer 121, Est GFR (MDRD) Non-Af 100, BUN/Creatinine Ratio 20.0, Glucose 90, Calcium 8.2 L Micro: Microbiology 09/21/23 07:20 Blood Culture (Wb) - Anticubital Right Blood Culture - Preliminary Gram positive mustapha Cardiology Labs/Tests 09/25/23 04:39: WBC 6.2, RBC 4.05 L, Hgb 12.4 L, Hct 37.7 L, MCV 93.1, MCH 30.6,MCHC 32.9, Plt Count 210, MPV 9.9, Immature Gran % (Auto) 0.300, Neut % (Auto) 71.4 H, Lymph % (Auto) 15.8 L, Slope % (Auto) 11.1 H, Eos % (Auto) 1.1, Baso % (Auto) 0.3, Absolute Neuts (auto) 4.4, Nucleated RBC % 0, Sodium 134 L, Potassium 3.8, Chloride 102, Carbon Dioxide 24.0, Anion Gap 8, BUN 16, Creatinine 0.80, Est GFR (MDRD) Af Amer 121, Est GFR (MDRD) Non-Af 100, BUN/Creatinine Ratio 20.0, Glucose 90, Calcium 8.2 L Physical Exam Const alert, oriented x3, no apparent distress and healthy appearing HEENT normocephalic, head/scalp atraumatic, hearing grossly normal bilaterally, external ears normal, external nose normal and moist oral mucous membranes Eyes PERRL, EOMs intact bilaterally, conjunctivae normal and no scleral icterus Neck no lymphadenopathy, supple and no JVD Resp clear to auscultation bilaterally Cardio regular rate, regular rhythm, S1 normal heart sound, S2 normal heart sound, no murmurs, no rub, no gallops, no clicks, no JVD and peripheral pulses 2+ throughout GI normal to inspection, nondistended, normoactive bowel sounds, soft to palpation,non-tender and non-distended Extremity normal to inspection, normal capillary refill, no clubbing, cyanosis or edema and no pedal edema Neuro oriented x3, CN's II-XII intact bilaterally, moves all extremities and no focal motor deficits Psych cooperative and affect normal Assessment & Plan Assessment/Plan (1) Elevated troponin: (2) Non-ischemic cardiomyopathy: (3) Essential hypertension: (4) History of permanent cardiac pacemaker placement: PLAN: Plan * His troponins trended 46/106. He was noted to have a decrease in his EF. In May EF was 55%. Currently 30%. He did undergo a heart cath which demonstrated normal coronary arteries. Will maximize medications by stopping lisinopril and switching to entresto. He will continue with is Coreg. In the future may consider adding an SGLT2 and spirolactone. with his low BP may need to start this on an OP basis. * Will start him on a Life vest * Will plan on repeating echo in 3 months, if not improved may need PPM upgraded to J[employer] ICD. Did discuss with pt. At his next OV he will let us know where he would like referred to. * His decrease in EF could be related to him pacing 99%. * Will plan on f/u with pt after d/c in the office. Charges/Coding Visit Charges Inpatient E&M: 53019 Subs Hosp L3 09/25/23 1618 <Electronically signed by Lurdes Higginbotham MD> Cosigner Signature (if applicable): 09/25/23 1334 <Electronically signed by Kerry CARDOSO> CC: ~ Signed [facility] Work Phone: 1(641) 265-867311-16-2023 Consult note Author Opal Pop [facility] September 25, 2023 12:50pm Note Date/Time September 25, 2023 12:50pm [facility] Medical Records Department [address] [place] [address] Counseling Note - Pharmacy 09/25/23 1248 MR#: [id number] Acct: [id number] Name: TONG MORATAYA Rep #:[id number] : 1950 73 From: Opal Pop PCP: Dr. Gee Garza MD Status:ADM I N Y Location: [place] [address] Pharmacy [facility] has performed discharge medication reconciliation and counseling for this patient. The patient was counseled on the following discharge medications and changes in medications for homegoing were reviewed. 1. ENTRESTO --> LISINOPRIL STOPPED 2. FARXIGA 3. COREG --> DOSE CHANGE 4. DUONEB 5. FLOMAX 6. TRAMADOL 7. FUROSEMIDE The Reason for Use, instructions for use, and potential side effects were reviewed for all new medications. The patient's questions regarding all of their medications were answered. The patient was able to verbally demonstrate an understanding of their dischargemedications. The patient's discharge medication list was reviewed for discrepancies and discrepancies were resolved. Patient Was counselled by Victorino Lakhani PharmD Candidate Medications at Discharge Home Medications atorvastatin 10 mg tablet 10 mg PO QHS cholesterol 12/20/21 aspirin 81 mg tablet,delayed release (Adult Low Dose Aspirin) 81 mg PO DAILY 09/21/23 calcium carbonate 600 mg calcium (1,500 mg) tablet (Calcium) 600 mg PO DAILY 09/21/23 multivit,Ca,min-iron 8 mg-folic acid 200 mcg-lycopene 600 mcg tablet (Centrum Men) 1 tab PO DAILY 09/21/23 ipratropium 0.5 mg-albuterol 3 mg (2.5 mg base)/3 mL nebulization soln 3 ml inhalation Q4H PRN PRN shortness of breath or wheezing #180 mL 09/22/23 acetaminophen 325 mg tablet 650 mg (2 x 325 mg) PO Q6H PRN PRN Pain 1-10 Or Fever >100.7 #0 tabs 09/25/23 carvedilol 12.5 mg tablet 12.5 mg PO BID 60 days #120 tabs 09/25/23 dapagliflozin propanediol 10 mg tablet (Farxiga) 10 mg PO DAILY #60 tabs 09/25/23 furosemide 20 mg tablet (Lasix) 20 mg PO DAILY #60 tabs 09/25/23 sacubitril 24 mg-valsartan 26 mg tablet (Entresto) 1 tab PO BID 60 days #120 tabs 09/25/23 tamsulosin 0.4 mg capsule 0.4 mg PO DAILY@1730 60 days #60 caps 09/25/23 tramadol 50 mg tablet 50 mg PO Q6H PRN PRN Pain Score 4-10 #20 tabs 09/25/23 09/25/23 1250 <Electronically signed by Opal Pop > Date _ Opal Pop Cosigner Signature (if applicable): Date CC: ~ Signed [facility] Work Phone: 1(113) 362-923711-16-2023 Discharge summary Author Peterson Daily [facility] September 25, 2023 11:47am Note Date/Time September 25, 2023 11:40am [facility] Medical Records Department [address] [place], [place] [address]tuyet [place] [address] Discharge Summary 09/25/23 1139 MR#: [id number] Acct: [id number] Name: TONG MORATAYA Rep #:[id number] : 1950 73 From: Peterson Daily MD PCP: Dr. Gee Garza MD Status:ADM I N Location: [place] [address] Providers Date of Admission: 09/23/23 Date of Discharge: 09/25/23 Primary Care Physician: Dr. Gee Garza MD Consultations 09/22/23 17:02 Consult: Cardiology Routine Consulting Provider: Lurdes Higginbotham Reason for Consult: newly reduced EF, ?cardiac cath EMERGENT Consult: No MD Notified: Yes Date Notified: 09/22/23 Time Notified: 17:02 Method of Notification: Verbal Reason For Visit: RESPIRATORY DISTRESS Diagnosis Discharge Diagnosis (1) Acute respiratory distress: Status: Acute Code(s): R06.03 - Acute respiratory distress (2) COPD (chronic obstructive pulmonary disease): Status: Chronic Code(s): J44.9 - Chronic obstructive pulmonary disease, unspecified (3) Elevated troponin: Status: Acute Code(s): R79.89 - Other specified abnormal findings of blood chemistry Plan Patient is a 73-year-old gentleman admitted with progressive shortness of breathdiagnosed with COPD acute exacerbation. Hospital stay complicated by elevated troponin as well as significant reduction in his EF consult placed to cardiologysubsequently 1. Acute hypoxic respiratory distress ? Secondary to COPD exacerbation with mucous plugging. Patient was managed withsystemic steroid and antibiotic therapy as well as chest vest therapy. Patient is improving clinically. Plan is for patient to follow-up with pulmonary medicine as outpatient 2. Elevated troponin ? Suspected secondary to myocardial injury 2D echo obtained during his current hospitalization demonstrated a significant reduction in his EF from 55% on 05/21/2023 to 20 to 25% this current admission. Consult placed to cardiology plans for patient to undergo left heart catheterization with intervention if warranted ? 09/25/2023atient underwent left heart catheterization the day prior which didnot demonstrate any hemodynamically significant coronary artery disease. Plans for patient to be assessed for possible discharg 3. Acute congestive heart failure with reduced ejection fraction ? EF 20 to 25% managed with diuretics. Plan is for patient to undergo left heart catheterization ? 09/25/2023 patient was discharged home on recommended medications 4. 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 Patient to undergo pacemaker interrogation 5. Cluster headaches ? Patient was on triptans discontinued plan is for patient to be managed with prednisone 6. Hypertension ? Blood pressure controlled, home medications continued with dose adjustment as needed 7. Tobacco dependence ? Counseled on cessation, offered nicotine patch for tobacco cravings, patient declined nicotine patch 8. DVT prophylaxis ? On enoxaparin Time spent in the patient's overall evaluation,decision-making process, review of diagnostic data, adjustment of management, discussion with other providers, nursing nursing and ancillary staff involved in patient's care documentation,40 minutes Medications at Discharge Home Medications atorvastatin 10 mg tablet 10 mg PO QHS cholesterol 12/20/21 aspirin 81 mg tablet,delayed release (Adult Low Dose Aspirin) 81 mg PO DAILY 09/21/23 calcium carbonate 600 mg calcium (1,500 mg) tablet (Calcium) 600 mg PO DAILY 09/21/23 multivit,Ca,min-iron 8 mg-folic acid 200 mcg-lycopene 600 mcg tablet (Centrum Men) 1 tab PO DAILY 09/21/23 ipratropium 0.5 mg-albuterol 3 mg (2.5 mg base)/3 mL nebulization soln 3 ml inhalation Q4H PRN PRN shortness of breath or wheezing #180 mL 09/22/23 acetaminophen 325 mg tablet 650 mg (2 x 325 mg) PO Q6H PRN PRN Pain 1-10 Or Fever >100.7 #0 tabs 09/25/23 carvedilol 12.5 mg tablet 12.5 mg PO BID 60 days #120 tabs 09/25/23 dapagliflozin propanediol 10 mg tablet (Farxiga) 10 mg PO DAILY #60 tabs 09/25/23 furosemide 20 mg tablet (Lasix) 20 mg PO DAILY #60 tabs 09/25/23 sacubitril 24 mg-valsartan 26 mg tablet (Entresto) 1 tab PO BID 60 days #120 tabs 09/25/23 tamsulosin 0.4 mg capsule 0.4 mg PO DAILY@1730 60 days #60 caps 09/25/23 tramadol 50 mg tablet 50 mg PO Q6H PRN PRN Pain Score 4-10 #20 tabs 09/25/23 Hospital Course Summary of Care Provided Minutes Spent on Discharge: 40 Weight / BMI Weight Weight: 65.9 kg Body Mass Index (BMI) 22.7 ABG / Lab / Microbiology Data 09/25/23 04:39 09/25/23 04:39 Laboratory: Laboratory Results - last 24 hr 09/25/23 04:39: WBC 6.2, RBC 4.05 L, Hgb 12.4 L, Hct 37.7 L, MCV 93.1, MCH 30.6,MCHC 32.9, RDW Std Deviation 45.3 H, RDW Coeff of Vahid 13.2, Plt Count 210, MPV 9.9, Immature Gran % (Auto) 0.300, Neut % (Auto) 71.4 H, Lymph % (Auto) 15.8 L, Slope % (Auto) 11.1 H, Eos % (Auto) 1.1, Baso % (Auto) 0.3, Absolute Neuts (auto)4.4, Absolute Lymphs (auto) 0.98, Nucleated RBC % 0, Sodium 134 L, Potassium 3.8, Chloride 102, Carbon Dioxide 24.0, Anion Gap 8, BUN 16, Creatinine 0.80, Estim Creat Clear Calc 75.51, Est GFR (MDRD) Af Amer 121, Est GFR (MDRD) Non-Af 100, BUN/Creatinine Ratio 20.0, Glucose 90, Calcium 8.2 L Microbiology: Microbiology 09/21/23 07:20 Blood Culture (Wb) - Anticubital Right Blood Culture - Preliminary Gram positive mustapha 09/21/23 08:16 Blood Culture (Wb) - Anticubital Left Blood Culture - Preliminary No growth in 48 hours. 09/21/23 13:40 Mucosa - Nasopharyngeal Respiratory Panel (PCR) - Final 09/21/23 11:09 Nasal Secretion SARS-CoV-2 Antigen (Rapid) - Final Meaningful Use Info Meaningful Use Diagnoses (Choose all that apply): CHF CHF LEONIDES/ARB ordered at discharge?: Yes Documented LVEF (%): 30 Discharge Plan Admission Admit Date/Time: 09/23/23 17:12 Primary Reason for Your Visit: Respiratory distress Attending Provider: Peterson Daily Primary Care Provider: Gee Garza Chi Consulting Providers: Lurdes Higginbotham; Krystyna Cortes Instructions Patient Instructions: Asthma and COPD, Asthma COPD Trigger Control Additional Instructions / Restrictions: DISCHARGE INSTRUCTIONS PLEASE READ *Please take this with you to your next doctors appointment* -Please follow with your primary care physician for further management of your cluster headaches -Please follow-up with pulmonology upon discharge, please call the office to schedule a follow-up as you will need further work-up with pulmonary function testing -You will be sent home with a rescue inhaler while awaiting pulmonary follow-up and work-up -Continue Mucinex for 3 days and then you can use as needed thereafter -Please call your primary care provider's office upon discharge to schedule a hospital follow up within 1 week. -For any concerning signs or symptoms please call 911 or proceed to the nearest emergency department Discharge Orders/Prescriptions Prescriptions: New ipratropium-albuterol 0.5 mg-3 mg(2.5 mg base)/3 mL Solution For Nebulization 3 ml inhalation Q4H PRN PRN (Reason: shortness of breath or wheezing) Qty: 180 0RF carvedilol 12.5 mg Tablet 12.5 mg PO BID 60 Days Qty: 120 0RF Entresto 24-26 mg Tablet 1 tab PO BID 60 Days Qty: 120 0RF acetaminophen 325 mg Tablet 650 mg PO Q6H PRN PRN (Reason: Pain 1-10 Or Fever >100.7) Qty: 0 0RF tramadol 50 mg Tablet 50 mg PO Q6H PRN PRN (Reason: Pain Score 4-10) Qty: 20 0RF tamsulosin 0.4 mg Capsule 0.4 mg PO DAILY@1730 60 Days Qty: 60 0RF Farxiga 10 mg tablet 10 mg PO DAILY Qty: 60 0RF furosemide [Lasix] 20 mg tablet 20 mg PO DAILY Qty: 60 0RF Continued atorvastatin 10 mg tablet 10 mg PO QHS aspirin [Adult Low Dose Aspirin] 81 mg tablet,delayed release (DR/EC) 81 mg PO DAILY calcium carbonate [Calcium 600] 600 mg calcium (1,500 mg) tablet 600 mg PO DAILY Centrum Men 8 mg iron- 200 mcg-600 mcg tablet 1 tab PO DAILY Discontinued carvedilol 25 mg tablet 25 mg PO DAILY 90 Days Qty: 90 lisinopril 5 mg tablet 5 mg PO DAILY 90 Days Qty: 90 meloxicam 15 mg tablet 15 mg PO DAILY sumatriptan succinate 100 mg tablet 100 mg PO DAILY PRN (Reason: CLUSTER HEADACHES) Referrals / Follow Up: [facility] [Provider Group] (Please call upon discharge to schedule an establish care appointment) Junior Hayes MD [Med Staff - Active Staff] - 10/07/23 3:30 pm Gee Garza Chi, MD [Primary Care Provider] - Within 1 Week Jeet Benavidez NP, BLACKING MACHINE OPERATOR-C [Med Staff - Adv Practice Prof] - 10/23/23 1:30 pm Disposition Disposition (needs filled in before D/C Order can be placed): Home, Self Care Charges/Coding Visit Charges Inpatient E&M: 46997 Disch Hosp >30min 09/25/23 1147 <Electronically signed by Peterson Daily MD> Cosigner Signature (if applicable): CC: Dr. Peterson Daily MD; Dr. Gee Garza MD~ Signed [facility] Work Phone: 1([phone]) 991-718611-16-2023 Progress note Author Peterson Daily [facility] September 25, 2023 11:39am Note Date/Time September 25, 2023 8:00am [facility] Medical Records Department [address] [place] [address] Progress Note - Hospitalist 09/25/23 0800 MR#: [id number] Acct: [id number] Name: SUSHILTONG LEE Rep #:[id number] : 1950 73 From: Peterson Daily MD PCP: Dr. Gee Garza MD Status:ADM I N Location: [place] [address] Reason for Visit Reason for Visit: Diagnoses Hyperlipidemia, unspecified (09/23/23) Essential (primary) hypertension (09/23/23) Cardiomyopathy, unspecified (09/23/23) Atrioventricular block, second degree (09/23/23) Chronic obstructive pulmonary disease, unspecified (09/23/23) Acute respiratory distress (09/23/23) Other specified abnormal findings of blood chemistry (09/23/23) Presence of cardiac pacemaker (09/23/23) Subjective Subjective Patient underwent left heart catheterization the day prior which did not demonstrate any hemodynamically significant coronary artery disease. Plans for patient to be assessed for possible discharge Objective Data Objective Data Vital Signs: Vital Signs Temp Pulse Resp BP Pulse Ox O2 Del Method O2 Flow Rate 97.7 F L 109 H 16 105/73 95 Room Air 2 09/25/23 07:56 09/25/23 07:56 09/25/23 07:56 09/25/23 07:56 09/25/23 07:56 09/25/23 07:56 09/22/23 09:11 FiO2 30 09/21/23 07:52 Oxygen Flow Rate (L/min) 2 Oxygen Delivery Method Room Air Weight: 65.9 kg Body Mass Index (BMI) 22.7 Intake & Output: Intake and Output for Last 24 Hours 09/23/23 09/24/23 09/25/23 23:59 23:59 23:59 Intake Total 950 / 950 Output Total 3150 / 3150 650 / 650 Balance -2200 / -2200 -650 / -650 Lab / Micro Data 09/25/23 04:39 09/25/23 04:39 Labs: Laboratory Results - last 24 hr 09/25/23 04:39: WBC 6.2, RBC 4.05 L, Hgb 12.4 L, Hct 37.7 L, MCV 93.1, MCH 30.6,MCHC 32.9, RDW Std Deviation 45.3 H, RDW Coeff of Vahid 13.2, Plt Count 210, MPV 9.9, Immature Gran % (Auto) 0.300, Neut % (Auto) 71.4 H, Lymph % (Auto) 15.8 L, Slope % (Auto) 11.1 H, Eos % (Auto) 1.1, Baso % (Auto) 0.3, Absolute Neuts (auto)4.4, Absolute Lymphs (auto) 0.98, Nucleated RBC % 0, Sodium 134 L, Potassium 3.8, Chloride 102, Carbon Dioxide 24.0, Anion Gap 8, BUN 16, Creatinine 0.80, Estim Creat Clear Calc 75.51, Est GFR (MDRD) Af Amer 121, Est GFR (MDRD) Non-Af 100, BUN/Creatinine Ratio 20.0, Glucose 90, Calcium 8.2 L Micro: Microbiology 09/21/23 07:20 Blood Culture (Wb) - Anticubital Right Blood Culture - Preliminary Gram positive mustapha 09/21/23 08:16 Blood Culture (Wb) - Anticubital Left Blood Culture - Preliminary No growth in 48 hours. 09/21/23 13:40 Mucosa - Nasopharyngeal Respiratory Panel (PCR) - Final 09/21/23 11:09 Nasal Secretion SARS-CoV-2 Antigen (Rapid) - Final Physical Exam Narrative GENERAL: cooperative HEENT: Atraumatic; normocephalic EYES; Anicteric, Normal Conjunctiva NECK; supple, normal thyroid, RESPIRATORY: Diminished to auscultation CARDIOVASCULAR: Regular S1 S2, GI: soft, normoactive bowel sounds, : No Renal angle tenderness; EXTREMITIES: No edema, no clubbing, MUSCULOSKELETAL: no muscle wasting NEURO: Awake; no lateralizing signs. SKIN: No Rash PSYCH; Flat affect Assessment & Plan Assessment/Plan (1) Acute respiratory distress: (2) COPD (chronic obstructive pulmonary disease): (3) Elevated troponin: PLAN: Plan Patient is a 73-year-old gentleman admitted with progressive shortness of breathdiagnosed with COPD acute exacerbation. Hospital stay complicated by elevated troponin as well as significant reduction in his EF consult placed to cardiologysubsequently 1. Acute hypoxic respiratory distress ? Secondary to COPD exacerbation with mucous plugging. Patient was managed withsystemic steroid and antibiotic therapy as well as chest vest therapy. Patient is improving clinically. Plan is for patient to follow-up with pulmonary medicine as outpatient 2. Elevated troponin ? Suspected secondary to myocardial injury 2D echo obtained during his current hospitalization demonstrated a significant reduction in his EF from 55% on 05/21/2023 to 20 to 25% this current admission. Consult placed to cardiology plans for patient to undergo left heart catheterization with intervention if warranted ? 3Patient underwent left heart catheterization the day prior which didnot demonstrate any hemodynamically significant coronary artery disease. Plans for patient to be assessed for possible discharg 3. Acute congestive heart failure with reduced ejection fraction ? EF 20 to 25% managed with diuretics. Plan is for patient to undergo left heart catheterization ? 09/25/2023 patient was discharged home on recommended medications 4. 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 Patient to undergo pacemaker interrogation 5. Cluster headaches ? Patient was on triptans discontinued plan is for patient to be managed with prednisone 6. Hypertension ? Blood pressure controlled, home medications continued with dose adjustment as needed 7. Tobacco dependence ? Counseled on cessation, offered nicotine patch for tobacco cravings, patient declined nicotine patch 8. DVT prophylaxis ? On enoxaparin Time spent in the patient's overall evaluation,decision-making process, review of diagnostic data, adjustment of management, discussion with other providers, nursing nursing and ancillary staff involved in patient's care documentation,40 minutes Charges/Coding Visit Charges Inpatient E&M: 88818 Subs Hosp L2 09/25/23 1139 <Electronically signed by Peterson Daily MD> Cosigner Signature (if applicable): CC: ~ Signed [facility] Work Phone: 1(578) 169-289411-15-2023 Progress note Author [facility] Higginbotham [facility] September 24, 2023 5:20pm Note Date/Time September 24, 2023 11:07am [facility] Medical Records Department [address] [place] [address] Progress Note - Cardiology 09/24/23 1106 MR#: [id number] Acct: [id number] Name: TONG MORATAYA Rep #:[id number] : 1950 73 From: Lurdes Higginbotham MD PCP: Dr. Gee Garza MD Status:ADM I N Location: [place] [address] <Statement entered by Lurdes Higginbotham MD - 09/24/23 17:19> Pt seen & evaluated w/MICHAEL. I personally interviewed & exam the pt. I was involved in all aspects of pt's orders, interpretation of results & treatment Subjective Subjective Pt seen and examined today. He will be undergoing heart cath today. Objective Data Vital Signs: Vital Signs Temp Pulse Resp BP Pulse Ox O2 Del Method O2 Flow Rate 97.8 F 102 H 16 92/67 94 Room Air 2 09/24/23 08:00 09/24/23 08:00 09/24/23 08:00 09/24/23 08:00 09/24/23 08:00 09/24/23 08:00 09/22/23 09:11 FiO2 30 09/21/23 07:52 Oxygen Flow Rate (L/min) 2 Oxygen Delivery Method Room Air Weight: 146 lb 9.718 oz Body Mass Index (BMI) 22.9 Intake & Output: Intake and Output for Last 24 Hours 09/22/23 09/23/23 09/24/23 23:59 23:59 23:59 Intake Total 200 / 200 Output Total 1650 / 1650 Balance 200 / 200 -1650 / -1650 Lab / Micro Data 09/24/23 05:55 09/24/23 05:55 Labs: Laboratory Results - last 24 hr 09/24/23 05:55: WBC 5.9, RBC 4.15 L, Hgb 12.8 L, Hct 38.8 L, MCV 93.5, MCH 30.8,MCHC 33.0, RDW Std Deviation 46.5 H, RDW Coeff of Vahid 13.6, Plt Count 218, MPV 9.8, Immature Gran % (Auto) 0.300, Neut % (Auto) 64.6, Lymph % (Auto) 21.0, Slope% (Auto) 12.7 H, Eos % (Auto) 0.7, Baso % (Auto) 0.7, Absolute Neuts (auto) 3.8,Absolute Lymphs (auto) 1.24, Nucleated RBC % 0, Sodium 134 L, Potassium 3.7, Chloride 103, Carbon Dioxide 25.0, Anion Gap 6, BUN 19 H, Creatinine 0.79, EstimCreat Clear Calc 60.59, Est GFR (MDRD) Af Amer 123, Est GFR (MDRD) Non-Af 101, BUN/Creatinine Ratio 24.0 H, Glucose 110 H, Calcium 8.5 Micro: Microbiology 09/21/23 08:16 Blood Culture (Wb) - Anticubital Left Blood Culture - Preliminary No growth in 48 hours. 09/21/23 07:20 Blood Culture (Wb) - Anticubital Right Blood Culture - Preliminary Cardiology Labs/Tests 09/24/23 05:55: WBC 5.9, RBC 4.15 L, Hgb 12.8 L, Hct 38.8 L, MCV 93.5, MCH 30.8,MCHC 33.0, Plt Count 218, MPV 9.8, Immature Gran % (Auto) 0.300, Neut % (Auto) 64.6, Lymph % (Auto) 21.0, Slope % (Auto) 12.7 H, Eos % (Auto) 0.7, Baso % (Auto)0.7, Absolute Neuts (auto) 3.8, Nucleated RBC % 0, Sodium 134 L, Potassium 3.7, Chloride 103, Carbon Dioxide 25.0, Anion Gap 6, BUN 19 H, Creatinine 0.79, Est GFR (MDRD) Af Amer 123, Est GFR (MDRD) Non-Af 101, BUN/Creatinine Ratio 24.0 H, Glucose 110 H, Calcium 8.5 Rhythm: A/V paced Physical Exam Const alert, oriented x3, no apparent distress and healthy appearing HEENT normocephalic, head/scalp atraumatic, hearing grossly normal bilaterally, external ears normal, external nose normal and moist oral mucous membranes Eyes PERRL, EOMs intact bilaterally, conjunctivae normal and no scleral icterus Neck no lymphadenopathy, supple and no JVD Resp clear to auscultation bilaterally Cardio regular rate, regular rhythm, S1 normal heart sound, S2 normal heart sound, no murmurs, no rub, no gallops, no clicks, no JVD and peripheral pulses 2+ throughout GI normal to inspection, nondistended, normoactive bowel sounds, soft to palpation,non-tender and non-distended Extremity normal to inspection, normal capillary refill, no clubbing, cyanosis or edema and no pedal edema Neuro oriented x3, CN's II-XII intact bilaterally, moves all extremities and no focal motor deficits Psych cooperative and affect normal Assessment & Plan Assessment/Plan (1) Elevated troponin: (2) Cardiomyopathy: (3) Essential hypertension: (4) Hyperlipidemia: (5) History of permanent cardiac pacemaker placement: PLAN: Plan * With pts decrease in EF, will maximize medications by stopping lisinopril and switching to entresto. He will start this tomorrow. He will continue with is Coreg. In the future may consider adding an SGLT2 and spirolactone. with his low BP may need to start this on an OP basis. * With elevated troponins and decrease in EF, he will undergo a heart cath today. Will continue with ASA and atorvastatin * With his newly noted decreased EF, will consider a life vest on d/c. Will plan on repeating echo in a few months after hospital stay. If his EF does not improve may need to consider an ICD. * Will plan on f/u with pt after d/c in the office. Charges/Coding Visit Charges Inpatient E&M: 31467 Subs Hosp L3 09/24/23 1720 <Electronically signed by Lurdes Higginbotham MD> Cosigner Signature (if applicable): 09/24/23 1112 <Electronically signed by Kerry CARDOSO> CC: ~ Signed [facility] Work Phone: 1(982) 935-532011-15-2023 Progress note Author Peterson Daily [facility] September 24, 2023 12:24pm Note Date/Time September 24, 2023 12:11pm [facility] Medical Records Department [address] [place] [id number] Progress Note - Hospitalist 09/24/23 1209 MR#: [id number] Acct: [id number] Name: TONG MORATAYA Rep #:[id number] : 1950 73 From: Peterson Daily MD PCP: Dr. Gee Garza MD Status:ADM I N Location: [place] [address] Reason for Visit Reason for Visit: Diagnoses Hyperlipidemia, unspecified (09/23/23) Essential (primary) hypertension (09/23/23) Cardiomyopathy, unspecified (09/23/23) Atrioventricular block, second degree (09/23/23) Chronic obstructive pulmonary disease, unspecified (09/23/23) Acute respiratory distress (09/23/23) Other specified abnormal findings of blood chemistry (09/23/23) Presence of cardiac pacemaker (09/23/23) Subjective Subjective Patient is a 73-year-old gentleman admitted with progressive shortness of breathdiagnosed with COPD acute exacerbation. Hospital stay complicated by elevated troponin as well as significant reduction in his EF consult placed to cardiologysubsequently Objective Data Objective Data Vital Signs: Vital Signs Temp Pulse Resp BP Pulse Ox O2 Del Method O2 Flow Rate 97.8 F 102 H 16 92/67 94 Room Air 2 09/24/23 08:00 09/24/23 08:00 09/24/23 08:00 09/24/23 08:00 09/24/23 08:00 09/24/23 08:00 09/22/23 09:11 FiO2 30 09/21/23 07:52 Oxygen Flow Rate (L/min) 2 Oxygen Delivery Method Room Air Weight: 66.5 kg Body Mass Index (BMI) 22.9 Intake & Output: Intake and Output for Last 24 Hours 09/22/23 09/23/23 09/24/23 23:59 23:59 23:59 Intake Total 200 / 200 0 / 0 Output Total 1650 / 1650 Balance 200 / 200 -1650 / -1650 Lab / Micro Data 09/24/23 05:55 09/24/23 05:55 Labs: Laboratory Results - last 24 hr 09/24/23 05:55: WBC 5.9, RBC 4.15 L, Hgb 12.8 L, Hct 38.8 L, MCV 93.5, MCH 30.8,MCHC 33.0, RDW Std Deviation 46.5 H, RDW Coeff of Vahid 13.6, Plt Count 218, MPV 9.8, Immature Gran % (Auto) 0.300, Neut % (Auto) 64.6, Lymph % (Auto) 21.0, Slope% (Auto) 12.7 H, Eos % (Auto) 0.7, Baso % (Auto) 0.7, Absolute Neuts (auto) 3.8,Absolute Lymphs (auto) 1.24, Nucleated RBC % 0, Sodium 134 L, Potassium 3.7, Chloride 103, Carbon Dioxide 25.0, Anion Gap 6, BUN 19 H, Creatinine 0.79, EstimCreat Clear Calc 60.59, Est GFR (MDRD) Af Amer 123, Est GFR (MDRD) Non-Af 101, BUN/Creatinine Ratio 24.0 H, Glucose 110 H, Calcium 8.5 Micro: Microbiology 09/21/23 07:20 Blood Culture (Wb) - Anticubital Right Blood Culture - Preliminary Gram positive mustapha 09/21/23 08:16 Blood Culture (Wb) - Anticubital Left Blood Culture - Preliminary No growth in 48 hours. 09/21/23 13:40 Mucosa - Nasopharyngeal Respiratory Panel (PCR) - Final 09/21/23 11:09 Nasal Secretion SARS-CoV-2 Antigen (Rapid) - Final Physical Exam Narrative GENERAL: cooperative HEENT: Atraumatic; normocephalic EYES; Anicteric, Normal Conjunctiva NECK; supple, normal thyroid, RESPIRATORY: Diminished to auscultation CARDIOVASCULAR: Regular S1 S2, GI: soft, normoactive bowel sounds, : No Renal angle tenderness; EXTREMITIES: No edema, no clubbing, MUSCULOSKELETAL: no muscle wasting NEURO: Awake; no lateralizing signs. SKIN: No Rash PSYCH; Flat affect Assessment & Plan Assessment/Plan (1) Acute respiratory distress: (2) COPD (chronic obstructive pulmonary disease): (3) Elevated troponin: PLAN: Plan Patient is a 73-year-old gentleman admitted with progressive shortness of breathdiagnosed with COPD acute exacerbation. Hospital stay complicated by elevated troponin as well as significant reduction in his EF consult placed to cardiologysubsequently Acute hypoxic respiratory distress ? Secondary to COPD exacerbation with mucous plugging. Patient was managed withsystemic steroid and antibiotic therapy as well as chest vest therapy. Patient is improving clinically. Plan is for patient to follow-up with pulmonary medicine as outpatient 2. Elevated troponin ? Suspected secondary to myocardial injury 2D echo obtained during his current hospitalization demonstrated a significant reduction in his EF from 55% on 05/21/2023 to 20 to 25% this current admission. Consult placed to cardiology plans for patient to undergo left heart catheterization with intervention if warranted 3. Acute congestive heart failure with reduced ejection fraction ? EF 20 to 25% managed with diuretics. Plan is for patient to undergo left heart catheterization 4. 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 Patient to undergo pacemaker interrogation 5. Cluster headaches ? Patient was on triptans discontinued plan is for patient to be managed with prednisone 6. Hypertension ? Blood pressure controlled, home medications continued with dose adjustment as needed 7. Tobacco dependence ? Counseled on cessation, offered nicotine patch for tobacco cravings, patient declined nicotine patch 8. DVT prophylaxis ? On enoxaparin Time spent in the patient's overall evaluation,decision-making process, review of diagnostic data, adjustment of management, discussion with other providers, nursing nursing and ancillary staff involved in patient's care documentation,40 minutes Charges/Coding Visit Charges Inpatient E&M: 23873 Subs Hosp L2 09/24/23 1224 <Electronically signed by Peterson Daily MD> Cosigner Signature (if applicable): CC: ~ Signed [facility] Work Phone: 1(769) 847-402811-15-2023 Procedure [facility] 09-23-2023 Consult note Author Lurdes Higginbotham [facility] September 23, 2023 5:19pm Note Date/Time September 23, 2023 12:58pm [facility] Medical Records Department [address] [place] [address] Consultation - Cardiology 09/23/23 1111 MR#: [id number] Acct: [id number] Name: TONG MORATAYA Rep #:[id number] : 1950 73 From: Lurdes Higginbotham MD PCP: Dr. Gee Garza MD Status:ADM I NO Location: [place] [id number] <Statement entered by Lurdes Higginbotham MD - 09/23/23 17:18> Pt seen & evaluated w/MICHAEL. I personally interviewed & exam the pt. I was involved in all aspects of pt's orders, interpretation of results & treatment Assessment & Plan Assessment/Plan (1) Elevated troponin: (2) Cardiomyopathy: (3) Essential hypertension: (4) Hyperlipidemia: (5) History of permanent cardiac pacemaker placement: PLAN: Plan * With pts decrease in EF, will maximize medications by stopping lisinopril and switching to entresto. He will continue with is Coreg. In the future may consider adding an SGLT2 and spirolactone. This may possibly be added after heart cath * Will plan on a heart cath tomorrow. Will continue with ASA and atorvastatin * With his newly noted decreased EF, will consider a life vest on d/c. Will plan on repeating echo in a few months after hospital stay. If his EF does not improve may need to consider an ICD. * Will plan on f/u with pt after d/c in the office. HPI Consult Data Date of Consult: 09/23/23 HPI Narrative HPI Narrative: TONG MORATAYA, is a 73 M who presented to [facility] on 09/21/23 with being SOB. Thiswas a sudden onset. He does note that over the last month he has been stressed and has been dealing with cluster LU. He has been taking his sumatripan 3-4 times a day for the last month. His Troponin trended 46/106. He did require Bipap in the ER. He was admitted to PCU for observation. He did undergo an echocardiogram, this demonstrated a decrease in his EF to 20-25%. Previous echofrom 05/2023 demonstrated an EF of 55%. He does have a history of 2-1 heart block in December 2020 and underwent placement of a permanent pacemaker. [facility] Medical History Arthritis Essential hypertension Hyperlipidemia Multiple premature ventricular complexes Non-ischemic cardiomyopathy Right bundle branch block (RBBB) with left anterior fascicular block Second degree AV block, Mobitz type II (12/20/21) Home Medications atorvastatin 10 mg tablet 10 mg PO QHS cholesterol 12/20/21 [History Last Taken 09/20/23] carvedilol 25 mg tablet 25 mg PO DAILY blood pressure 90 days #90 tabs 12/20/21 [History Last Taken 09/20/23] lisinopril 5 mg tablet 5 mg PO DAILY blood pressure 90 days #90 tabs 12/20/21 [History Last Taken 09/20/23] aspirin 81 mg tablet,delayed release (Adult Low Dose Aspirin) 81 mg PO DAILY 09/21/23 [History Last Taken 09/20/23] calcium carbonate 600 mg calcium (1,500 mg) tablet (Calcium) 600 mg PO DAILY 09/21/23 [History Last Taken 09/20/23] meloxicam 15 mg tablet 15 mg PO DAILY 09/21/23 [History Last Taken 09/20/23] multivit,Ca,min-iron 8 mg-folic acid 200 mcg-lycopene 600 mcg tablet (Centrum Men) 1 tab PO DAILY 09/21/23 [History Last Taken 09/20/23] sumatriptan succinate 100 mg tablet 100 mg PO DAILY PRN CLUSTER HEADACHES 09/21/23 [History Last Taken 09/21/23] ipratropium 0.5 mg-albuterol 3 mg (2.5 mg base)/3 mL nebulization soln 3 ml inhalation Q4H PRN PRN shortness of breath or wheezing #180 mL 09/22/23 [Rx Last Taken Unknown] Allergy/AdvReac Type Severity Reaction Status Date / Time No Known Allergies Allergy Verified 09/21/23 07:14 Family History Other Essential hypertension Multiple premature ventricular complexes Non-ischemic cardiomyopathy Right bundle branch block (RBBB) with left anterior fascicular block Second degree AV block, Mobitz type II Surgical History History of back surgery History of left heart catheterization (08/12/03) History of permanent cardiac pacemaker placement (12/21/21) Social History Smoking Status: Current every day smoker tobacco type: pipe Tobacco: How many years used: 50 ROS ROS Narrative General: Denies fever/chills HENT: Has been having cluster headaches, denies stuffy nose, denies sore throat EYES: Denies changes in vision Resp: See HPI. Cardiac: Denies chest pain at present, had brief stabbing pain in center of chest when he could not breathe GI: Denies abdominal pain, denies changes in bowel, denies nausea/vomiting : Does urinate frequently but denies problems with emptying or burning Extremity: Denies swelling MSK: Denies weakness Neuro: Denies any numbness/tingling Heme: Denies any bleeding or bruising Skin: Denies rashes Psychiatric: No complaints voiced Physical Exam Const alert, oriented x3, no apparent distress and healthy appearing HEENT normocephalic, head/scalp atraumatic, hearing grossly normal bilaterally, external ears normal, external nose normal and moist oral mucous membranes Eyes PERRL, EOMs intact bilaterally, conjunctivae normal and no scleral icterus Neck no lymphadenopathy, supple and no JVD Resp clear to auscultation bilaterally Cardio regular rate, regular rhythm, S1 normal heart sound, S2 normal heart sound, no murmurs, no rub, no gallops, no clicks, no JVD and peripheral pulses 2+ throughout GI normal to inspection, nondistended, normoactive bowel sounds, soft to palpation,non-tender and non-distended Extremity normal to inspection, normal capillary refill, no clubbing, cyanosis or edema and no pedal edema Neuro oriented x3, CN's II-XII intact bilaterally, moves all extremities and no focal motor deficits Psych cooperative and affect normal Risk Stratification Risk Stratification Applicable: Yes Age >/= 65: Yes >/= 3 CAD Risk Factors (HTN, HLD, DM, family hx of CAD, or current smoker): Yes Aspirin Use in the Past 7 Days: Yes Severe Angina (>/= episodes in 24 hours): No EKG ST Changes >/= 0.5mm: No Positive Cardiac Marker: Yes WOODROW Risk Stratification Score: 4 WOODROW % Risk: 20% Risk Charges/Coding Visit Charges Office Visits / Consults: 65194 IP Consult L4 Objective Data Vital Signs: Vital Signs Temp Pulse Resp BP Pulse Ox O2 Del Method O2 Flow Rate 97.7 F L 70 17 151/91 H 99 Room Air 2 09/23/23 08:07 09/23/23 08:07 09/23/23 08:07 09/23/23 08:07 09/23/23 08:21 09/23/23 08:21 09/22/23 09:11 FiO2 30 09/21/23 07:52 Oxygen Flow Rate (L/min) 2 Oxygen Delivery Method Room Air Weight: 147 lb 14.883 oz Body Mass Index (BMI) 23.1 Intake & Output: Intake and Output for Last 24 Hours 09/21/23 09/22/23 09/23/23 23:59 23:59 23:59 Intake Total 2545 / 2745 200 / 200 Balance 2545 / 2745 200 / 200 Lab / Micro Data 09/23/23 05:53 09/23/23 05:53 Labs: Laboratory Results - last 24 hr 09/23/23 05:53: WBC 10.6, RBC 4.55 L, Hgb 14.0, Hct 43.5, MCV 95.6 H, MCH 30.8, MCHC 32.2, RDW Std Deviation 48.6 H, RDW Coeff of Vahid 13.9, Plt Count 303, MPV 10.0, Immature Gran % (Auto) 0.600, Neut % (Auto) 72.7 H, Lymph % (Auto) 15.4 L,Slope % (Auto) 10.7 H, Eos % (Auto) 0.2, Baso % (Auto) 0.4, Absolute Neuts (auto)7.7, Absolute Lymphs (auto) 1.63, Nucleated RBC % 0, Sodium 135 L, Potassium 3.9, Chloride 104, Carbon Dioxide 24.0, Anion Gap 7, BUN 22 H, Creatinine 0.89, Estim Creat Clear Calc 68.08, Est GFR (MDRD) Af Amer 107, Est GFR (MDRD) Non-Af 89, BUN/Creatinine Ratio 24.7 H, Glucose 120 H, Calcium 8.8 Micro: Microbiology 09/21/23 07:20 Blood Culture (Wb) - Anticubital Right Blood Culture - Preliminary Cardiology Labs/Tests 09/23/23 05:53: WBC 10.6, RBC 4.55 L, Hgb 14.0, Hct 43.5, MCV 95.6 H, MCH 30.8, MCHC 32.2, Plt Count 303, MPV 10.0, Immature Gran % (Auto) 0.600, Neut % (Auto) 72.7 H, Lymph % (Auto) 15.4 L, Slope % (Auto) 10.7 H, Eos % (Auto) 0.2, Baso % (Auto) 0.4, Absolute Neuts (auto) 7.7, Nucleated RBC % 0, Sodium 135 L, Potassium 3.9, Chloride 104, Carbon Dioxide 24.0, Anion Gap 7, BUN 22 H, Creatinine 0.89, Est GFR (MDRD) Af Amer 107, Est GFR (MDRD) Non-Af 89, BUN/Creatinine Ratio 24.7 H, Glucose 120 H, Calcium 8.8 Rhythm: A sensed Vpaced Radiography Diagnostic Testing: Radiology Impression Echocardiogram 09/21/23 13:30 Interpretation Summary The estimated ejection fraction is 20-25 %. Severely reduced LV systolic function With global LV hypokinesia Pacemaker lead noted on the right side Remarkable difference in comparison to previous echo/EF was normal in May 2023. Recommendations; consider to evaluate with left heart cath to assess for ischemic cardiomyopathy versus NICM Contrast echo used using Definity To delineate the endocardial borders and better assessment of the ejection fraction Ordering Physician: Krystyna Cortes Referring Physician: Gee Garza Chi Performed By: Viraj Swenson RCS 09/23/23 1719 <Electronically signed by Lurdes Higginbotham MD> Cosigner Signature (if applicable): 09/23/23 1310 <Electronically signed by Kerry CARDOSO PA> CC: Dr. Lurdes Higginbotham MD; Dr. Gee Garza MD~ Signed [facility] Work Phone: 1(751) 182-941411-14-2023 Progress note Author Krystyna Cortes [facility] September 23, 2023 2:57pm Note Date/Time September 23, 2023 2:50pm [facility] Medical Records Department [address] [place] [address] Progress Note - Hospitalist 09/23/23 1448 MR#: [id number] Acct: [id number] Name: TONG MORATAYA Rep #:[id number] : 1950 73 From: Krystyna Cortes MD PCP: Dr. Gee Garza MD Status:ADM I NO Location: [place] [address] Reason for Visit Reason for Visit: Diagnoses Essential (primary) hypertension (09/21/23) Atrioventricular block, second degree (09/21/23) Chronic obstructive pulmonary disease, unspecified (09/21/23) Acute respiratory distress (09/21/23) Other specified abnormal findings of blood chemistry (09/21/23) Presence of cardiac pacemaker (09/21/23) Subjective Subjective Not presently having chest pain, does have headache and is frustrated that none triptan medications are not working Objective Data Objective Data Vital Signs: Vital Signs Temp Pulse Resp BP Pulse Ox O2 Del Method O2 Flow Rate 97.8 F 75 17 140/78 H 100 Room Air 2 09/23/23 14:05 09/23/23 14:05 09/23/23 14:05 09/23/23 14:05 09/23/23 14:05 09/23/23 14:05 09/22/23 09:11 FiO2 30 09/21/23 07:52 Oxygen Flow Rate (L/min) 2 Oxygen Delivery Method Room Air Weight: 67.1 kg Body Mass Index (BMI) 23.1 Intake & Output: Intake and Output for Last 24 Hours 09/21/23 09/22/23 09/23/23 23:59 23:59 23:59 Intake Total 2545 / 2745 200 / 200 Balance 2545 / 2745 200 / 200 Lab / Micro Data 09/23/23 05:53 09/23/23 05:53 Labs: Laboratory Results - last 24 hr 09/23/23 05:53: WBC 10.6, RBC 4.55 L, Hgb 14.0, Hct 43.5, MCV 95.6 H, MCH 30.8, MCHC 32.2, RDW Std Deviation 48.6 H, RDW Coeff of Vahid 13.9, Plt Count 303, MPV 10.0, Immature Gran % (Auto) 0.600, Neut % (Auto) 72.7 H, Lymph % (Auto) 15.4 L,Slope % (Auto) 10.7 H, Eos % (Auto) 0.2, Baso % (Auto) 0.4, Absolute Neuts (auto)7.7, Absolute Lymphs (auto) 1.63, Nucleated RBC % 0, Sodium 135 L, Potassium 3.9, Chloride 104, Carbon Dioxide 24.0, Anion Gap 7, BUN 22 H, Creatinine 0.89, Estim Creat Clear Calc 68.08, Est GFR (MDRD) Af Amer 107, Est GFR (MDRD) Non-Af 89, BUN/Creatinine Ratio 24.7 H, Glucose 120 H, Calcium 8.8 Micro: Microbiology 09/21/23 08:16 Blood Culture (Wb) - Anticubital Left Blood Culture - Preliminary No growth in 48 hours. 09/21/23 07:20 Blood Culture (Wb) - Anticubital Right Blood Culture - Preliminary 09/21/23 13:40 Mucosa - Nasopharyngeal Respiratory Panel (PCR) - Final 09/21/23 11:09 Nasal Secretion SARS-CoV-2 Antigen (Rapid) - Final Radiography Diagnostic Testing: Radiology Impression Echocardiogram 09/21/23 13:30 Interpretation Summary The estimated ejection fraction is 20-25 %. Severely reduced LV systolic function With global LV hypokinesia Pacemaker lead noted on the right side Remarkable difference in comparison to previous echo/EF was normal in May 2023. Recommendations; consider to evaluate with left heart cath to assess for ischemic cardiomyopathy versus NICM Contrast echo used using Definity To delineate the endocardial borders and better assessment of the ejection fraction Ordering Physician: Krystyna Cortes Referring Physician: Gee Garza Chi Performed By: Viraj Swenson RCS Physical Exam Narrative General: Alert, oriented, no apparent distress HEENT: Atraumatic, normocephalic Eyes: Anicteric, normal conjunctiva, extraocular movements grossly intact Neck: Supple Respiratory: No significant rhonchi or wheezes, normal respiratory effort Cardiovascular: Intermittently paced GI: Soft, nontender, nondistended Extremities: No edema Musculoskeletal: Moving all extremities Neuro: No overt focal neurological deficits Skin: No rashes appreciated Psych: Cooperative Assessment & Plan Assessment/Plan (1) Acute respiratory distress: (2) COPD (chronic obstructive pulmonary disease): (3) Second degree AV block, Mobitz type II: (4) History of permanent cardiac pacemaker placement: (5) Elevated troponin: (6) Essential hypertension: PLAN: Plan #Acute respiratory distress/?hx COPD -When patient presented he was in acute respiratory distress and was tachycardic, hypertensive, and tachypneic -He had coughed up a chunk of mucus shortly before arriving in the ER and felt that he improved primarily with BiPAP but he also received nebs and antibiotics -Reviewed the CT do not think he has pneumonia so we will hold antibiotics however will continue nebs -He is not wheezing and do not think he has COPD exacerbation (additionally unclear where COPD diagnosis came from as I do not see any pulm notes or PFTs inour system and he is not presently on any treatment, it is possible he does not have this formal diagnosis. Can always have outpatient PFTs) -Sounds as though he had mucous plugging that has resolved however given extent of his distress do feel observation is reasonable -We will give Mucinex -Had small effusions on CT scan, will check BNP -Most recent echo 05/21/2023 with EF of 55% and stage I diastolic dysfunction -Incentive spirometry, daily weights, I's and O's -09/22: Discussed with pulmonology who recommended outpatient pulm follow-up andpatient to be discharged home with DuoNebs as needed, presently receiving DuoNebs here -09/23: Continue nebs #Newly diagnosed heart failure with reduced ejection fraction -Echocardiogram in May with normal EF and repeat echo with EF of 20 to 25% -Unclear ischemic versus nonischemic -We will have pacemaker interrogated and cardiology is consulted -Patient n.p.o. at midnight for possible heart cath tomorrow -Not hypoxic and does not appear floridly fluid overloaded, did receive Lasix [id number] as he was given 2 L of IV fluid in the ED and he responded well to this. -09/23: Patient for heart cath tomorrow, lisinopril stopped and patient to startEntresto. Continue Coreg. #Elevated troponin -Initial troponin 46 and repeat was 106 -Had a brief stabbing pain in center of his chest when he had his severe respiratory distress and could not breathe -Suspect this is all demand and it completely resolved when his breathing improved -Do not think he needs acute ACS work-up at this time -He can follow with his hand model on discharge -09/22: As above, patient likely for left heart cath tomorrow given newly reduced EF -09/23: Left heart cath tomorrow #History of Mobitz type II status post permanent pacemaker -This sounded purely pulmonary in nature given feeling of thick sputum and throat with rattling when he inhaled through his mouth and difficulty expelling sputum with improvement in all aspects once that improved so do not think that this was pacemaker related -09/22: Given echo findings will interrogate pacemaker #Cluster headaches -Has been having them multiple times a day almost every day for the past month, follows with PCP for this -Takes sumatriptan as needed -If these continue he will need to follow-up with PCP to discuss alternative treatment options and possibly consider glucocorticoid taper -09/22: Given echo finding and awaiting cath will avoid rizatriptan if at all possible and try alternative agents. Discussed with patient's RN and patient will be informed of this as well -09/23: Tramadol and Tylenol as needed, rizatriptan on hold. If these do not control headaches may need 100 and prednisone for 3 days followed by taper #Elevated lactic acid -Suspect this was due to his respiratory distress and he was likely hypoxic, this morning did require 4 L of O2 to maintain sats at 90% and then was placed on BiPAP with improvement -09/22: Improved with improvement of underlying etiology. #Hypertension -Continue home meds #Tobacco use -Advise cessation -Patient declines nicotine replacement #DVT ppx: Lovenox subcu Krystyna Cortes MD Time spent in the patient's overall evaluation,decision-making process, review of diagnostic data, adjustment of management, discussion with other providers, nursing nursing and ancillary staff involved in patient's care documentation, 35minutes Charges/Coding Visit Charges Inpatient E&M: 39731 Subs Hosp L2 09/23/23 1457 <Electronically signed by Krystyna Cortes MD> Cosigner Signature (if applicable): CC: ~ Signed [facility] Work Phone: 1(428) 157-888111-13-2023 Progress note Author Adamaris Ramirez [facility] September 22, 2023 9:08pm Note Date/Time September 22, 2023 9:08pm [facility] Medical Records Department [address] [place] [id number] Progress Note - Hospitalist 09/22/232106 MR#: [id number] Acct: [id number] Name: TONG MORATAYA Rep #:[id number] : 1950 73 From: Adamaris Ramirez DO PCP: Dr. Gee Garza MD Status:ADM I NO Location: [place] [address] Hospitalist Note Called by floor with gram-positive rods in 1 of 2 blood cultures. Suspect this is contaminant. Patient clinically appears to be improving. We will continue to follow and trend however hold with antibiotics for now. 09/22/232107 <Electronically signed by Adamaris Ramirez DO> Cosigner Signature (if applicable): CC: ~ Signed [facility] Work Phone: 1(738) 600-168911-13-2023 Progress note Author Krystyna Cortes [facility] September 22, 2023 5:35pm Note Date/Time September 22, 2023 5:04pm [facility] Medical Records Department [address] [place] [address] Progress Note - Hospitalist 09/22/23 1701 MR#: [id number] Acct: [id number] Name: TONG MORATAYA Rep #:[id number] : 1950 73 From: Krystyna Cortes MD PCP: Dr. Gee Garza MD Status:ADM I NO Location: [place] [address] Reason for Visit Reason for Visit: Diagnoses Essential (primary) hypertension (09/21/23) Atrioventricular block, second degree (09/21/23) Chronic obstructive pulmonary disease, unspecified (09/21/23) Acute respiratory distress (09/21/23) Other specified abnormal findings of blood chemistry (09/21/23) Presence of cardiac pacemaker (09/21/23) Subjective Subjective Pt feeling better today than he was yesterday, hasn't had recurrence of severe SOB Objective Data Objective Data Vital Signs: Vital Signs Temp Pulse Resp BP Pulse Ox O2 Del Method O2 Flow Rate 97.8 F 83 16 126/81 H 97 Room Air 2 09/22/23 14:44 09/22/23 14:44 09/22/23 14:44 09/22/23 14:44 09/22/23 14:44 09/22/23 14:44 09/22/23 09:11 FiO2 30 09/21/23 07:52 Oxygen Flow Rate (L/min) 2 Oxygen Delivery Method Room Air Weight: 68.4 kg Body Mass Index (BMI) 23.6 Intake & Output: Intake and Output for Last 24 Hours 09/20/23 09/21/23 09/22/23 23:59 23:59 23:59 Intake Total 2545 / 2745 200 / 200 Balance 2545 / 2745 200 / 200 Lab / Micro Data 09/22/23 06:05 09/22/23 06:05 Labs: Laboratory Results - last 24 hr 09/22/23 06:05: WBC 10.7, RBC 4.43 L, Hgb 13.5, Hct 41.8, MCV 94.4 H, MCH 30.5, MCHC 32.3, RDW Std Deviation 47.2 H, RDW Coeff of Vahid 13.6, Plt Count 285, MPV 9.9, Immature Gran % (Auto) 0.500, Neut % (Auto) 80.0 H, Lymph % (Auto) 9.3 L, Slope % (Auto) 10.0, Eos % (Auto) 0.0, Baso % (Auto) 0.2, Absolute Neuts (auto) 8.5 H, Absolute Lymphs (auto) 0.99, Nucleated RBC % 0, Sodium 136, Potassium 4.0, Chloride 105, Carbon Dioxide 24.0, Anion Gap 7, BUN 21 H, Creatinine 0.88, Estim Creat Clear Calc 68.85, Est GFR (MDRD) Af Amer 108, Est GFR (MDRD) Non-Af 90, BUN/Creatinine Ratio 23.8 H, Glucose 137 H, Calcium 8.9 Micro: Microbiology 09/21/23 13:40 Mucosa - Nasopharyngeal Respiratory Panel (PCR) - Final 09/21/23 11:09 Nasal Secretion SARS-CoV-2 Antigen (Rapid) - Final Physical Exam Narrative General: Alert, oriented, no apparent distress HEENT: Atraumatic, normocephalic Eyes: Anicteric, normal conjunctiva, extraocular movements grossly intact Neck: Supple Respiratory: Aeration improved from yesterday, normal respiratory effort Cardiovascular: Intermittently paced GI: Soft, nontender, nondistended Extremities: No edema Musculoskeletal: Moving all extremities Neuro: No overt focal neurological deficits Skin: No rashes appreciated Psych: Cooperative Assessment & Plan Assessment/Plan (1) Acute respiratory distress: (2) COPD (chronic obstructive pulmonary disease): (3) Second degree AV block, Mobitz type II: (4) History of permanent cardiac pacemaker placement: (5) Elevated troponin: (6) Essential hypertension: PLAN: Plan #Acute respiratory distress/?hx COPD -When patient presented he was in acute respiratory distress and was tachycardic, hypertensive, and tachypneic -He had coughed up a chunk of mucus shortly before arriving in the ER and felt that he improved primarily with BiPAP but he also received nebs and antibiotics -Reviewed the CT do not think he has pneumonia so we will hold antibiotics however will continue nebs -He is not wheezing and do not think he has COPD exacerbation (additionally unclear where COPD diagnosis came from as I do not see any pulm notes or PFTs inour system and he is not presently on any treatment, it is possible he does not have this formal diagnosis. Can always have outpatient PFTs) -Sounds as though he had mucous plugging that has resolved however given extent of his distress do feel observation is reasonable -We will give Mucinex -Had small effusions on CT scan, will check BNP -Most recent echo 05/21/2023 with EF of 55% and stage I diastolic dysfunction -Incentive spirometry, daily weights, I's and O's -09/22: Discussed with pulmonology who recommended outpatient pulm follow-up andpatient to be discharged home with DuoNebs as needed, presently receiving DuoNebs here #Newly diagnosed heart failure with reduced ejection fraction -Echocardiogram in May with normal EF and repeat echo with EF of 20 to 25% -Unclear ischemic versus nonischemic -We will have pacemaker interrogated and cardiology is consulted -Patient n.p.o. at midnight for possible heart cath tomorrow -Not hypoxic and does not appear floridly fluid overloaded, did receive Lasix [id number] as he was given 2 L of IV fluid in the ED and he responded well to this. #Elevated troponin -Initial troponin 46 and repeat was 106 -Had a brief stabbing pain in center of his chest when he had his severe respiratory distress and could not breathe -Suspect this is all demand and it completely resolved when his breathing improved -Do not think he needs acute ACS work-up at this time -He can follow with his hand model on discharge -09/22: As above, patient likely for left heart cath tomorrow given newly reduced EF #History of Mobitz type II status post permanent pacemaker -This sounded purely pulmonary in nature given feeling of thick sputum and throat with rattling when he inhaled through his mouth and difficulty expelling sputum with improvement in all aspects once that improved so do not think that this was pacemaker related -09/22: Given echo findings will interrogate pacemaker #Cluster headaches -Has been having them multiple times a day almost every day for the past month, follows with PCP for this -Takes sumatriptan as needed -If these continue he will need to follow-up with PCP to discuss alternative treatment options and possibly consider glucocorticoid taper -09/22: Given echo finding and awaiting cath will avoid rizatriptan if at all possible and try alternative agents. Discussed with patient's RN and patient will be informed of this as well #Elevated lactic acid -Suspect this was due to his respiratory distress and he was likely hypoxic, this morning did require 4 L of O2 to maintain sats at 90% and then was placed on BiPAP with improvement -09/22: Improved with improvement of underlying etiology. #Hypertension -Continue home meds #Tobacco use -Advise cessation -Patient declines nicotine replacement #DVT ppx: Lovenox subcu Krystyna Cortes MD Time spent in the patient's overall evaluation,decision-making process, review of diagnostic data, adjustment of management, discussion with other providers, nursing nursing and ancillary staff involved in patient's care documentation, 51minutes Charges/Coding Visit Charges Inpatient E&M: [id number] [facility] 09/22/23 1735 <Electronically signed by Krystyna Cortes MD> Cosigner Signature (if applicable): CC: ~ Signed [facility] Work Phone: 1(674) 599-467611-12-2023 Discharge summary Author Orville Morenoehne [facility] September 21, 2023 4:21pm Note Date/Time September 21, 2023 10:24am [facility] Medical Records Department [address] [place] [address] Emergency Department Summary 09/21/23 MR#: [id number] Acct: [id number] Name: TONG MORATAYA Rep #:[id number] : 1950 73 From: Orville Woodson PCP: Dr. Gee Garza MD Status:ADM I NO Location: [place] [address] HPI History of Present Illness Chief Complaint: Chest Pain Informant: patient Narrative Narrative: 73-year-old male presenting to the emergency room chief complaint of dyspnea. Symptoms began abruptly about 3 hours prior to arrival. States he does not feelthat he can take a deep breath. He does not wear oxygen at home. He states he carries a diagnosis of COPD but does not take any treatment for it. He has a cardiac pacemaker due to second-degree AV block Mobitz type II. He follows locally with cardiology. He reports that about a month and a half ago he had a knee replacement surgery with [facility]. He is not on any current blood thinners. He notes a slight cough no significant sputum production. He denies chest pain. [facility] Medical History Arthritis Essential hypertension Hyperlipidemia Multiple premature ventricular complexes Non-ischemic cardiomyopathy Right bundle branch block (RBBB) with left anterior fascicular block Second degree AV block, Mobitz type II (12/20/21) Home Medications atorvastatin 10 mg tablet 10 mg PO QHS cholesterol 12/20/21 [History Last Taken 09/20/23] carvedilol 25 mg tablet 25 mg PO DAILY blood pressure 90 days #90 tabs 12/20/21 [History Last Taken 09/20/23] lisinopril 5 mg tablet 5 mg PO DAILY blood pressure 90 days #90 tabs 12/20/21 [History Last Taken 09/20/23] aspirin 81 mg tablet,delayed release (Adult Low Dose Aspirin) 81 mg PO DAILY 09/21/23 [History Last Taken 09/20/23] calcium carbonate 600 mg calcium (1,500 mg) tablet (Calcium) 600 mg PO DAILY 09/21/23 [History Last Taken 09/20/23] meloxicam 15 mg tablet 15 mg PO DAILY 09/21/23 [History Last Taken 09/20/23] multivit,Ca,min-iron 8 mg-folic acid 200 mcg-lycopene 600 mcg tablet (Centrum Men) 1 tab PO DAILY 09/21/23 [History Last Taken 09/20/23] sumatriptan succinate 100 mg tablet 100 mg PO DAILY PRN CLUSTER HEADACHES 09/21/23 [History Last Taken 09/21/23] Allergy/AdvReac Type Severity Reaction Status Date / Time No Known Allergies Allergy Verified 09/21/23 07:14 Family History Other Essential hypertension Multiple premature ventricular complexes Non-ischemic cardiomyopathy Right bundle branch block (RBBB) with left anterior fascicular block Second degree AV block, Mobitz type II Surgical History History of back surgery History of left heart catheterization (08/12/03) History of permanent cardiac pacemaker placement (12/21/21) Social History Smoking Status: Current every day smoker tobacco type: pipe Tobacco: How many years used: 50 ROS ROS ED Constitutional Constitutional ED: Denies chills, fever(s) or weight loss Eyes Eyes: Denies change in vision or diplopia ENT ENT ED: Denies ear pain, rhinorrhea or sore throat Cardiovascular Cardiovascular: Denies chest pain, orthopnea, palpitations or racing heartbeat Respiratory/Chest Respiratory/Chest: Reports cough, dyspnea and dyspnea on exertion; Denies orthopnea Gastrointestinal Gastrointestinal: Denies abdominal pain, diarrhea, nausea or vomiting Genitourinary Genitourinary ED: Denies dysuria, hematuria or urinary frequency Musculoskeletal Musculoskeletal: Denies arthralgias or myalgias Integumentary Denies abscess or rash Neurologic Neurologic: Denies headache(s) or weakness Psychiatric Psychiatric: Denies anxiety, depression, suicidal ideation or suicidal thoughts Endocrine Endocrinology: Denies polydipsia, polyphagia or polyuria Allergic/Immunologic Allergic/Immunologic ED: Denies mouth swelling, tongue swelling or urticaria EXAM Physical Exam Narrative Exam Narrative: Patient appears in moderate distress (respiratory) Const Vital Signs: 09/21/23 07:14 09/21/23 07:18 09/21/23 07:18 Temperature 97.6 F L Temperature Source Temporal Pulse Rate 123 H Respiratory Rate 28 H Respiratory Effort Short of Breath Respiratory Pattern Tachypnea Blood Pressure 172/123 H Blood Pressure Mean 139 Pulse Ox 92 Oxygen Delivery Method Room Air Oxygen Flow Rate (L/min) Fraction of Inspired Oxygen (FIO2) 09/21/23 07:27 09/21/23 07:28 09/21/23 07:48 Temperature Temperature Source Pulse Rate 104 H Respiratory Rate 18 Respiratory Effort Respiratory Pattern Normal Blood Pressure Blood Pressure Mean Pulse Ox 90 Oxygen Delivery Method Nasal Cannula Nasal Cannula Oxygen Flow Rate (L/min) 4 4 Fraction of Inspired Oxygen (FIO2) 09/21/23 07:48 09/21/23 07:52 09/21/23 08:14 Temperature Temperature Source Pulse Rate 101 H 64 Respiratory Rate 18 14 Respiratory Effort Respiratory Pattern Normal Blood Pressure 104/72 Blood Pressure Mean 82 Pulse Ox 99 98 Oxygen Delivery Method Room Air Oxygen Flow Rate (L/min) Fraction of Inspired Oxygen (FIO2) 30 30 09/21/23 09:06 09/21/23 09:53 09/21/23 09:07 Temperature 97.6 F L 97.6 F L Temperature Source Temporal Pulse Rate 92 94 Respiratory Rate 18 18 Respiratory Effort Respiratory Pattern Blood Pressure 130/64 H 108/78 Blood Pressure Mean 86 88 Pulse Ox 98 97 98 Oxygen Delivery Method Nasal Cannula Bi-pap Oxygen Flow Rate (L/min) 2 Fraction of Inspired Oxygen (FIO2) 09/21/23 10:00 09/21/23 11:00 Temperature Temperature Source Pulse Rate 90 89 Respiratory Rate 18 16 Respiratory Effort Respiratory Pattern Blood Pressure 108/79 115/78 Blood Pressure Mean 88 90 Pulse Ox 97 97 Oxygen Delivery Method Room Air Nasal Cannula Oxygen Flow Rate (L/min) 2 2 Fraction of Inspired Oxygen (FIO2) Positive well nourished and well developed General Appearance ED: well developed HEENT Reports normocephalic, head/scalp atraumatic and moist mucous membranes Eyes PERRL and EOMs intact bilaterally Neck no lymphadenopathy, supple and no JVD Resp Resp Narrative: Patient has rhonchorous breath sounds bilaterally slight wheezing. Increased work of breathing moderate distress Cardio regular rate, regular rhythm and no murmurs Rate: tachycardic GI normal to inspection, nondistended, normoactive bowel sounds and non-tender Palpation: soft Back/Spine no CVA tenderness and normal ROM Extremity normal to inspection General Extremety ED: Negative for edema General Extremity: Negative for edema Neuro oriented x3 and CN's II-XII intact bilaterally Sensorium / Orientation: alert Motor Exam: strength 5/5 throughout Psych mental status grossly normal Mood & Affect: Negative for depressed or tearful Skin no rashes or lesions noted and no wounds MDM MDM MDM Narrative Medical decision making narrative: White count is elevated at 4.5 lactic acid of 3.5 glucose of 197 troponin 46 delta 106 normal coagulation and liver panel. My independent interpretation of the chest x-ray is right lower lobe infiltrate. Because of the respiratory complaint and recent surgery a CTA of the chest was obtained. This demonstrates small pleural effusions with bibasilar atelectasis. Initially the patient was placed on supplemental oxygen and then BiPAP and givenbreathing treatments. Rocephin and azithromycin obtained after blood cultures. He received a dose of aspirin. Patient improved was taken off of BiPAP and is doing well on 2 L. States his air hunger is improved. He now notes that just prior to coming into the emergency room he coughed a large amount of phlegm up. I wonder if he was having mucous plugging. And give him a dose of Solu-Medrol. His delta troponinis up slightly which I suspect is type II due to the demand. He does not have currently or did then chest pain. The patient's heart rate steadily declined with the addition of the BiPAP from 130 gradually into the 190s. This makes a dysrhythmia very unlikely. History & Record Review Discussion w/independent historian: Patient and Family Additional record(s) reviewed:: Prior outpatient record, Prior ED visit and Prior labs Lab Data Attestation: I reviewed the patient's lab results. Labs: Laboratory Results - last 24 hr 09/21/23 09/21/23 09/21/23 07:20 08:16 09:46 WBC 14.5 H RBC 5.11 Hgb 15.7 Hct 49.7 MCV 97.3 H MCH 30.7 MCHC 31.6 L RDW Std Deviation 48.9 H RDW Coeff of Vahid 13.6 Plt Count 359 MPV 9.8 Immature Gran % (Auto) 0.500 Neut % (Auto) 64.7 Lymph % (Auto) 23.4 Slope % (Auto) 9.5 Eos % (Auto) 1.4 Baso % (Auto) 0.5 Absolute Neuts (auto) 9.4 H Absolute Lymphs (auto) 3.40 Nucleated RBC % 0 PT 13.6 INR 1.0 APTT 32.8 Sodium 135 L Potassium 4.2 Chloride 102 Carbon Dioxide 28.0 Anion Gap 5 BUN 16 Creatinine 1.17 Estim Creat Clear Calc 51.79 Est GFR (MDRD) Af Amer 78 Est GFR (MDRD) Non-Af 65 BUN/Creatinine Ratio 13.7 Glucose 197 H Lactic Acid 3.5 H* Calcium 9.4 Total Bilirubin 0.70 Direct Bilirubin 0.21 AST 21 ALT 22 Alkaline Phosphatase 123 H Troponin I High Sens 46 106 H Total Protein 7.2 Albumin 3.9 Globulin 3.3 Radiography Diagnostic Testing: Clinical Impression(s) from Imaging Studies Chest X-Ray 09/21/23 07:21 IMPRESSION: Right lower lobe pneumonia. CT may be useful. Electronically Signed: Emery Fisher MD at 8:11 EST , Chest CTA 09/21/23 08:05 IMPRESSION: 1. No CT evidence of pulmonary embolism. 2. Small bilateral pleural effusions with bibasilar atelectasis. Electronically Signed: Emery Fisher MD at 9:02 EST , EKG Initial EKG: Attestation: I personally reviewed and interpreted this EKG as follows: Comments: Ventricularly paced rhythm at a rate of 127 bpm. Follow-up EKG: Attestation: I personally reviewed and interpreted this EKG as follows: Comments: Atrial sensed ventricular paced rhythm at a rate of 90 bpm. PVCs noted. Management Discussion w/another healthcare provider: Hospitalist Discharge Plan Triage Chief Complaint: Chest Pain ED Provider: Orville Chan Dx/Rx/DC Orders Clinical Impression: Mucus plugging of bronchi, Elevated troponin, COPD (chronic obstructive pulmonary disease), Acute respiratory distress Prescriptions: No Action carvedilol 25 mg tablet 25 mg PO DAILY 90 Days Qty: 90 lisinopril 5 mg tablet 5 mg PO DAILY 90 Days Qty: 90 atorvastatin 10 mg tablet 10 mg PO QHS meloxicam 15 mg tablet 15 mg PO DAILY sumatriptan succinate 100 mg tablet 100 mg PO DAILY PRN (Reason: CLUSTER HEADACHES) aspirin [Adult Low Dose Aspirin] 81 mg tablet,delayed release (DR/EC) 81 mg PO DAILY calcium carbonate [Calcium 600] 600 mg calcium (1,500 mg) tablet 600 mg PO DAILY Centrum Men 8 mg iron- 200 mcg-600 mcg tablet 1 tab PO DAILY Primary Care Provider: Gee Garza Chi Referrals: Gee Garza Chi, MD [Primary Care Provider] - What to do if you have Problems For any increased pain, shortness of breath, bleeding, nausea or vomiting, chestpain, or any unexpected problems, contact your Primary Care Provider. Call [facility] ([phone]) or report to the closest Emergency Room. Call 911 if necessary. 09/21/23 1621 <Electronically signed by Orville Wimer DO> Cosigner Signature (if applicable): CC: Dr. Gee Garza MD ~ Signed [facility] Work Phone: 1(963) 953-921411-12-2023 History and physical note Author Krystyna Cortes [facility] September 21, 2023 12:52pm Note Date/Time September 21, 2023 12:03pm [facility] Medical Records Department [address] [place] [address] H&P Exam - Hospitalist 09/21/23 1157 MR#: [id number] Acct: [id number] Name: TONG MORATAYA Rep #:[id number] : 1950 73 From: Krystyna Cortes MD PCP: Dr. Gee Garza MD Status:ADM I NO Location: [place] [address] HPI - General General Date of Admission: 09/21/23 Date of Service: 09/21/23 Chief Complaint: Shortness of breath HPI Narrative TONG MORATAYA, is a 73 M with a past medical history of permanent pacemaker due to Mobitz type II, tobacco use, ?COPD, recent knee replacement 1 month ago, hypertension, and cluster headaches who presented to [facility] 09/21/2023 with shortness of breath for several hours. Patient reports he has been under a lot of stress recently with his sister having a massive stroke, he just had knee replacement surgery a month ago, and had had multiple teeth pulledand a plate placed and has been having cluster headaches 3-4 times a day for which he takes sumatriptan. Last exacerbation of his cluster headaches was 4 years ago and he follows with his PCP for this. Earlier today he felt like he had something stuck in his throat he kept trying to cough to get it out but it was stuck and he became acutely distressed from a respiratory status and his brought him to the hospital, shortly before he got to the hospital he did cough up a chunk of mucus however was still distressed enough when he presented that he required BiPAP and was given nebs. Initially chest x-ray looked as though it had infiltrate however a CTA was obtained which showed no clots in showed small bilateral pleural effusions with bibasilar atelectasis and no suggestion of pneumonia. In the ED white blood cell count was 14.5, lactic acidwas 3.5 and initial troponin was 46 and up trended to 106. Patient's shortness of breath resolved after BiPAP and breathing treatments however given his significant distress necessitating BiPAP and increased troponin and lactic hospitalist contacted for admission for observation. Patient evaluated at bedside and he denies any recent fevers or chills, denied coughing more than usual recently however reported that he was coughing most of the morning but was unable to get anything up. He did not feel more short of breath until he had the sticking sensation like something was in his throat and he feels muchbetter. When he could not breathe at home and was in respiratory distress he had stabbing pain in the center of his chest that went away as soon as his breathing improved. He has been doing physical therapy for his knee and denies being on any antibiotics for his recent tooth extraction aside from a prophylactic dose taken 1 hour before they were pulled. Denies any other acute complaints. [facility] Medical History Arthritis Essential hypertension Hyperlipidemia Multiple premature ventricular complexes Non-ischemic cardiomyopathy Right bundle branch block (RBBB) with left anterior fascicular block Second degree AV block, Mobitz type II (12/20/21) Home Medications atorvastatin 10 mg tablet 10 mg PO QHS cholesterol 12/20/21 [History Last Taken 09/20/23] carvedilol 25 mg tablet 25 mg PO DAILY blood pressure 90 days #90 tabs 12/20/21 [History Last Taken 09/20/23] lisinopril 5 mg tablet 5 mg PO DAILY blood pressure 90 days #90 tabs 12/20/21 [History Last Taken 09/20/23] aspirin 81 mg tablet,delayed release (Adult Low Dose Aspirin) 81 mg PO DAILY 09/21/23 [History Last Taken 09/20/23] calcium carbonate 600 mg calcium (1,500 mg) tablet (Calcium) 600 mg PO DAILY 09/21/23 [History Last Taken 09/20/23] meloxicam 15 mg tablet 15 mg PO DAILY 09/21/23 [History Last Taken 09/20/23] multivit,Ca,min-iron 8 mg-folic acid 200 mcg-lycopene 600 mcg tablet (Centrum Men) 1 tab PO DAILY 09/21/23 [History Last Taken 09/20/23] sumatriptan succinate 100 mg tablet 100 mg PO DAILY PRN CLUSTER HEADACHES 09/21/23 [History Last Taken 09/21/23] Allergy/AdvReac Type Severity Reaction Status Date / Time No Known Allergies Allergy Verified 09/21/23 07:14 Family History Other Essential hypertension Multiple premature ventricular complexes Non-ischemic cardiomyopathy Right bundle branch block (RBBB) with left anterior fascicular block Second degree AV block, Mobitz type II Surgical History History of back surgery History of left heart catheterization (08/12/03) History of permanent cardiac pacemaker placement (12/21/21) Social History Smoking Status: Current every day smoker tobacco type: pipe Tobacco: How many years used: 50 ROS ROS Narrative General: Denies fever/chills HENT: Has been having cluster headaches, denies stuffy nose, denies sore throat EYES: Denies changes in vision Resp: Was coughing earlier and felt every time he was breathing through his mouth there was rattling earlier and had been feeling short of breath but this is since resolved Cardiac: Denies chest pain at present, had brief stabbing pain in center of chest when he could not breathe GI: Denies abdominal pain, denies changes in bowel, denies nausea/vomiting : Does urinate frequently but denies problems with emptying or burning Extremity: Denies swelling MSK: Denies weakness Neuro: Denies any numbness/tingling Heme: Denies any bleeding or bruising Skin: Denies rashes Psychiatric: No complaints voiced Vital Signs Vital Signs Vital Signs: 09/21/23 07:14 09/21/23 07:18 09/21/23 07:18 Temperature 97.6 F L Temperature Source Temporal Pulse Rate 123 H Respiratory Rate 28 H Respiratory Effort Short of Breath Respiratory Pattern Tachypnea Blood Pressure 172/123 H Blood Pressure Mean 139 Pulse Ox 92 Oxygen Delivery Method Room Air Oxygen Flow Rate (L/min) Fraction of Inspired Oxygen (FIO2) 09/21/23 07:27 09/21/23 07:28 09/21/23 07:48 Temperature Temperature Source Pulse Rate 104 H Respiratory Rate 18 Respiratory Effort Respiratory Pattern Normal Blood Pressure Blood Pressure Mean Pulse Ox 90 Oxygen Delivery Method Nasal Cannula Nasal Cannula Oxygen Flow Rate (L/min) 4 4 Fraction of Inspired Oxygen (FIO2) 09/21/23 07:48 09/21/23 07:52 09/21/23 08:14 Temperature Temperature Source Pulse Rate 101 H 64 Respiratory Rate 18 14 Respiratory Effort Respiratory Pattern Normal Blood Pressure 104/72 Blood Pressure Mean 82 Pulse Ox 99 98 Oxygen Delivery Method Room Air Oxygen Flow Rate (L/min) Fraction of Inspired Oxygen (FIO2) 30 30 09/21/23 09:06 09/21/23 09:53 09/21/23 09:07 Temperature 97.6 F L 97.6 F L Temperature Source Temporal Pulse Rate 92 94 Respiratory Rate 18 18 Respiratory Effort Respiratory Pattern Blood Pressure 130/64 H 108/78 Blood Pressure Mean 86 88 Pulse Ox 98 97 98 Oxygen Delivery Method Nasal Cannula Bi-pap Oxygen Flow Rate (L/min) 2 Fraction of Inspired Oxygen (FIO2) 09/21/23 10:00 09/21/23 11:00 Temperature Temperature Source Pulse Rate 90 89 Respiratory Rate 18 16 Respiratory Effort Respiratory Pattern Blood Pressure 108/79 115/78 Blood Pressure Mean 88 90 Pulse Ox 97 97 Oxygen Delivery Method Room Air Nasal Cannula Oxygen Flow Rate (L/min) 2 2 Fraction of Inspired Oxygen (FIO2) Weight Weight: 69.3 kg Body Mass Index (BMI) 23.9 Physical Exam Narrative General: Alert, oriented, no apparent distress HEENT: Atraumatic, normocephalic Eyes: Anicteric, normal conjunctiva, extraocular movements grossly intact Neck: Supple Respiratory: Slight crackles at the bases and slightly dull at the very bases, normal respiratory effort Cardiovascular: Intermittently paced GI: Soft, nontender, nondistended Extremities: No edema Musculoskeletal: Moving all extremities Neuro: No overt focal neurological deficits Skin: No rashes appreciated Psych: Cooperative Results Lab / Micro Data 09/21/23 07:20 09/21/23 07:20 Labs: Laboratory Results - last 24 hr 09/21/23 07:20: WBC 14.5 H, RBC 5.11, Hgb 15.7, Hct 49.7, MCV 97.3 H, MCH 30.7, MCHC 31.6 L, RDW Std Deviation 48.9 H, RDW Coeff of Vahid 13.6, Plt Count 359, MPV9.8, Immature Gran % (Auto) 0.500, Neut % (Auto) 64.7, Lymph % (Auto) 23.4, Slope% (Auto) 9.5, Eos % (Auto) 1.4, Baso % (Auto) 0.5, Absolute Neuts (auto) 9.4 H, Absolute Lymphs (auto) 3.40, Nucleated RBC % 0, PT 13.6, INR 1.0, APTT 32.8, Sodium 135 L, Potassium 4.2, Chloride 102, Carbon Dioxide 28.0, Anion Gap 5, BUN16, Creatinine 1.17, Estim Creat Clear Calc 51.79, Est GFR (MDRD) Af Amer 78, Est GFR (MDRD) Non-Af 65, BUN/Creatinine Ratio 13.7, Glucose 197 H, Calcium 9.4,Total Bilirubin 0.70, Direct Bilirubin 0.21, AST 21, ALT 22, Alkaline Phosphatase 123 H, Troponin I High Sens 46, Total Protein 7.2, Albumin 3.9, Globulin 3.3 09/21/23 08:16: Lactic Acid 3.5 H* 09/21/23 09:46: Troponin I High Sens 106 H Micro: Microbiology 09/21/23 11:09 Nasal Secretion SARS-CoV-2 Antigen (Rapid) - Final Radiology Impression Chest X-Ray 09/21/23 07:21 IMPRESSION: Right lower lobe pneumonia. CT may be useful. Electronically Signed: Emery Fisher MD at 8:11 EST Reading Location ID and State: [employer] / [employer] , Service support , Chest CTA 09/21/23 08:[address]: 1[address] evidence of pulmonary embolism. 2. Small bilateral pleural effusions with bibasilar atelectasis. Electronically Signed: Emery Fisher MD at 9:02 EST Reading Location ID and State: [id number] / [employer] , Service support , Assessment & Plan Assessment/Plan (1) Acute respiratory distress: (2) COPD (chronic obstructive pulmonary disease): (3) Second degree AV block, Mobitz type II: (4) History of permanent cardiac pacemaker placement: (5) Elevated troponin: (6) Essential hypertension: PLAN: Plan #Acute respiratory distress/?hx COPD -When patient presented he was in acute respiratory distress and was tachycardic, hypertensive, and tachypneic -He had coughed up a chunk of mucus shortly before arriving in the ER and felt that he improved primarily with BiPAP but he also received nebs and antibiotics -Reviewed the CT do not think he has pneumonia so we will hold antibiotics however will continue nebs -He is not wheezing and do not think he has COPD exacerbation (additionally unclear where COPD diagnosis came from as I do not see any pulm notes or PFTs inour system and he is not presently on any treatment, it is possible he does not have this formal diagnosis. Can always have outpatient PFTs) -Sounds as though he had mucous plugging that has resolved however given extent of his distress do feel observation is reasonable -We will give Mucinex -Had small effusions on CT scan, will check BNP -Most recent echo 05/21/2023 with EF of 55% and stage I diastolic dysfunction -Incentive spirometry, daily weights, I's and O's #Elevated troponin -Initial troponin 46 and repeat was 106 -Had a brief stabbing pain in center of his chest when he had his severe respiratory distress and could not breathe -Suspect this is all demand and it completely resolved when his breathing improved -Do not think he needs acute ACS work-up at this time -He can follow with his hand model on discharge #History of Mobitz type II status post permanent pacemaker -This sounded purely pulmonary in nature given feeling of thick sputum and throat with rattling when he inhaled through his mouth and difficulty expelling sputum with improvement in all aspects once that improved so do not think that this was pacemaker related #Cluster headaches -Has been having them multiple times a day almost every day for the past month, follows with PCP for this -Takes sumatriptan as needed -If these continue he will need to follow-up with PCP to discuss alternative treatment options and possibly consider glucocorticoid taper #Elevated lactic acid -Suspect this was due to his respiratory distress and he was likely hypoxic, this morning did require 4 L of O2 to maintain sats at 90% and then was placed on BiPAP with improvement #Hypertension -Continue home meds #Tobacco use -Advise cessation -Patient declines nicotine replacement #DVT ppx: Lovenox subcu Krystyna Cortes MD Time spent in the patient's overall evaluation,decision-making process, review of diagnostic data, adjustment of management, discussion with other providers, nursing nursing and ancillary staff involved in patient's care documentation, 60minutes Charges/Coding Visit Charges Inpatient E&M: 01951 Init Hosp L2 09/21/23 1252 <Electronically signed by Krystyna Cortes MD> Cosigner Signature (if applicable): CC: Dr. Krystyna Cortes MD; Dr. Gee Garza MD~ Signed [facility] Work Phone: [phone]) [phone] Evaluation note* Diagnosis Onset Date Resolution Status History of permanent cardiac pacemaker placement December 21, 2021 acute Second degree AV block, Mobitz type II December 20, 2021 acute History of permanent cardiac pacemaker placement December 21, 2021 acute Second degree AV block, Mobitz type II December 20, 2021 acute Syncope resolved History of permanent cardiac pacemaker placement December 21, 2021 acute Second degree AV block, Mobitz type II December 20, 2021 acute [facility] Work Phone: 1([phone]) 141-143002-11-2022 Evaluation note* Diagnosis Onset Date Resolution Status History of permanent cardiac pacemaker placement December 21, 2021 acute Second degree AV block, Mobitz type II December 20, 2021 acute History of permanent cardiac pacemaker placement December 21, 2021 acute Second degree AV block, Mobitz type II December 20, 2021 acute History of permanent cardiac pacemaker placement December 21, 2021 acute Second degree AV block, Mobitz type II December 20, 2021 acute Syncope resolved [facility] Work Phone: [phone]) 416-877502-11-2022 Evaluation note* Diagnosis Onset Date Resolution Status History of permanent cardiac pacemaker placement December 21, 2021 acute Second degree AV block, Mobitz type II December 20, 2021 acute History of permanent cardiac pacemaker placement December 21, 2021 acute History of permanent cardiac pacemaker placement December 21, 2021 acute Second degree AV block, Mobitz type II December 20, 2021 acute [facility] Work Phone: [phone] Evaluation note* Diagnosis Onset Date Resolution Status History of permanent cardiac pacemaker placement December 21, 2021 acute History of permanent cardiac pacemaker placement December 21, 2021 acute Second degree AV block, Mobitz type II December 20, 2021 acute [facility] Work Phone: [phone] Evaluation note* Diagnosis Onset Date Resolution Status Acute respiratory distress a cute Cardiomyopathy acute Elevated troponin acute Essential hypertension acute History of permanent cardiac pacemaker placement December 21, 2021 acute Hyperlipidemia acute Mucus plugging of bronchi ac radha Non-ischemic cardiomyopathy acute Second degree AV block, Mobitz type II December 20, 2021 acute COPD (chronic obstructive pulmonary disease) [facility] Work Phone: [phone]) 623-518502-11-2022 Evaluation note* Diagnosis Onset Date Resolution Status Cardiomyopathy acute Essential hypertension acute History of permanent cardiac pacemaker placement December 21, 2021 acute Hyperlipidemia acute Non-ischemic cardiomyopathy acute COPD (chronic obstructive pulmonary disease) chronic Acute respiratory distress r esolved Elevated troponin resolved Mucus plugging of bronchi re solved Second degree AV block, Mobitz type II December 20, 2021 resolved [facility] Work Phone: [phone] Evaluation note* Diagnosis Onset Date Resolution Status Cardiomyopathy acute History of permanent cardiac pacemaker placement December 21, 2021 acute Hyperlipidemia acute Non-ischemic cardiomyopathy acute COPD (chronic obstructive pulmonary disease) chronic Essential hypertension chron ic Acute respiratory distress r esolved Elevated troponin resolved Mucus plugging of bronchi re solved Second degree AV block, Mobitz type II December 20, 2021 resolved History of permanent cardiac pacemaker placement December 21, 2021 acute Hyperlipidemia acute Non-ischemic cardiomyopathy acute Essential hypertension chron ic [facility] Work Phone: [phone] 680-563902-11-2022 Evaluation note* Diagnosis Onset Date Resolution Status Cardiomyopathy acute History of permanent cardiac pacemaker placement December 21, 2021 acute Hyperlipidemia acute Non-ischemic cardiomyopathy acute COPD (chronic obstructive pulmonary disease) chronic Essential hypertension chron ic Acute respiratory distress r esolved Elevated troponin resolved Mucus plugging of bronchi re solved Second degree AV block, Mobitz type II December 20, 2021 resolved History of permanent cardiac pacemaker placement December 21, 2021 acute Hyperlipidemia acute Non-ischemic cardiomyopathy acute Essential hypertension chron ic Nicotine dependence, cigaret torsten, uncomplicated chronic [facility] Work Phone: [phone] Evaluation note* Diagnosis Onset Date Resolution Status Cardiomyopathy acute History of permanent cardiac pacemaker placement December 21, 2021 acute Hyperlipidemia acute Non-ischemic cardiomyopathy acute COPD (chronic obstructive pulmonary disease) chronic Essential hypertension chron ic Acute respiratory distress r esolved Elevated troponin resolved Mucus plugging of bronchi re solved Second degree AV block, Mobitz type II December 20, 2021 resolved History of permanent cardiac pacemaker placement December 21, 2021 acute Hyperlipidemia acute Non-ischemic cardiomyopathy acute Essential hypertension chron ic Nicotine dependence, cigaret torsten, uncomplicated chronic COPD (chronic obstructive pulmonary disease) chronic Nicotine dependence, cigaret torsten, uncomplicated chronic [facility] Work Phone: Evaluation + Plan note Future Appointments Appointment Date:02/24/2024 11:00:00 AM Scheduled Provider: Location:[facility] Appointment Type:CV Incision Check Appointment Date:05/14/2024 10:30:00 AM Scheduled Provider: Location:[facility] Appointment Type:CV Office Procedure PPM [facility] Evaluation noteNo assessment information available [facility] Work Phone: Hospital course Narrative No data available for this section [facility] Hospital Discharge instructions Additional Instructions Continue taking your tamsulosin, follow-up with the urologist. [facility]: Hospital Discharge instructions Additional Instructions Implant Used?: [facility] Work Phone: Reason for referral (narrative)No reason for referral information [facility] Work Phone: Chief Complaint and Reason for Visit Chief Complaint 6 wk post PPM implan t check 3 M FU LABWORK 3 mos remote PPM f/u Reason for Visit History of permanent cardiac pacemaker placement Second degree AV block, Mobitz type II History of permanent cardiac pacemaker placement Second degree AV block, Mobitz type II Syncope History of permanent cardiac pacemaker placement Second degree AV block, Mobitz type II Chief Complaint 6 wk post PPM implan t check 3 M FU LABWORK 3 mos remote PPM f/u LUMBAR SPINAL STENOSIS, POSTLAMINECTOMY SYNDROME Reason for Visit History of permanent cardiac pacemaker placement Second degree AV block, Mobitz type II History of permanent cardiac pacemaker placement Second degree AV block, Mobitz type II Syncope History of permanent cardiac pacemaker placement Second degree AV block, Mobitz type II Chief Complaint 3 mos remote PPM f/u 3 mos remote PPM f/u 6 M FU SCREENING Reason for Visit History of permanent cardiac pacemaker placement Second degree AV block, Mobitz type II History of permanent cardiac pacemaker placement Second degree AV block, Mobitz type II History of permanent cardiac pacemaker placement Second degree AV block, Mobitz type II Syncope Chief Complaint 3 mos remote PPM f/u 1 Y FU ANNUAL IN PERSON DEVICE CHECK PER TIP TESTER Hypo-osmolality and hyponatremia Reason for Visit History of permanent cardiac pacemaker placement Second degree AV block, Mobitz type II History of permanent cardiac pacemaker placement History of permanent cardiac pacemaker placement Second degree AV block, Mobitz type II Chief Complaint 3 mos remote PPM f/u 1 Y FU ANNUAL IN PERSON DEVICE CHECK PER TIP TESTER Hypo-osmolality and hyponatremia cardiomyopathy Reason for Visit History of permanent cardiac pacemaker placement Second degree AV block, Mobitz type II History of permanent cardiac pacemaker placement History of permanent cardiac pacemaker placement Second degree AV block, Mobitz type II Chief Complaint 1 Y FU ANNUAL IN PERSON DEVICE CHECK PER TIP TESTER Hypo-osmolality and hyponatremia cardiomyopathy Unilateral primary osteoarthritis, right knee TOTAL KNEE ARTHROPLASTY Reason for Visit History of permanent cardiac pacemaker placement History of permanent cardiac pacemaker placement Second degree AV block, Mobitz type II Chief Complaint Unilateral primary o steoarthritis, right knee TOTAL KNEE ARTHROPLASTY Bifascicular block CARDIAC DISTRESS CARDIAC DISTRESS RESPIRATORY DISTRESS RESPIRATORY DISTRESS RESPIRATORY DISTRESS RESPIRATORY DISTRESS RESPIRATORY DISTRESS RESPIRATORY DISTRESS RESPIRATORY DISTRESS Reason for Visit Acute respiratory di stress Cardiomyopathy Elevated troponin Essential hypertension History of permanent cardiac pacemaker placement Hyperlipidemia Mucus plugging of bronchi Non-ischemic cardiomyopathy Second degree AV block, Mobitz type II COPD (chronic obstructive pulmonary disease) Chief Complaint Unilateral primary o steoarthritis, right knee TOTAL KNEE ARTHROPLASTY Bifascicular block CARDIAC DISTRESS CARDIAC DISTRESS AM EKG RESPIRATORY DISTRESS RESPIRATORY DISTRESS RESPIRATORY DISTRESS RESPIRATORY DISTRESS RESPIRATORY DISTRESS RESPIRATORY DISTRESS RESPIRATORY DISTRESS COMPLAINT Reason for Visit Cardiomyopathy Essential hypertension History of permanent cardiac pacemaker placement Hyperlipidemia Non-ischemic cardiomyopathy COPD (chronic obstructive pulmonary disease) Acute respiratory distress Elevated troponin Mucus plugging of bronchi Second degree AV block, Mobitz type II Chief Complaint TOTAL KNEE ARTHROPLA STY Pacer Check Remote Bifascicular block CARDIAC DISTRESS CARDIAC DISTRESS AM EKG RESPIRATORY DISTRESS RESPIRATORY DISTRESS RESPIRATORY DISTRESS RESPIRATORY DISTRESS RESPIRATORY DISTRESS RESPIRATORY DISTRESS RESPIRATORY DISTRESS COMPLAINT S/P [facility] 09/23 Reason for Visit Cardiomyopathy History of permanent cardiac pacemaker placement Hyperlipidemia Non-ischemic cardiomyopathy COPD (chronic obstructive pulmonary disease) Essential hypertension Acute respiratory distress Elevated troponin Mucus plugging of bronchi Second degree AV block, Mobitz type II History of permanent cardiac pacemaker placement Hyperlipidemia Non-ischemic cardiomyopathy Essential hypertension Chief Complaint TOTAL KNEE ARTHROPLA STY Pacer Check Remote Bifascicular block CARDIAC DISTRESS CARDIAC DISTRESS AM EKG RESPIRATORY DISTRESS RESPIRATORY DISTRESS RESPIRATORY DISTRESS RESPIRATORY DISTRESS RESPIRATORY DISTRESS RESPIRATORY DISTRESS RESPIRATORY DISTRESS COMPLAINT Pacer Check Remote S/P [facility] 09/23 [facility] FU Reason for Visit Cardiomyopathy History of permanent cardiac pacemaker placement Hyperlipidemia Non-ischemic cardiomyopathy COPD (chronic obstructive pulmonary disease) Essential hypertension Acute respiratory distress Elevated troponin Mucus plugging of bronchi Second degree AV block, Mobitz type II History of permanent cardiac pacemaker placement Hyperlipidemia Non-ischemic cardiomyopathy Essential hypertension Nicotine dependence, cigarettes, uncomplicated Chief Complaint Pacer Check Remote Bifascicular block CARDIAC DISTRESS CARDIAC DISTRESS AM EKG RESPIRATORY DISTRESS RESPIRATORY DISTRESS RESPIRATORY DISTRESS RESPIRATORY DISTRESS RESPIRATORY DISTRESS RESPIRATORY DISTRESS RESPIRATORY DISTRESS COMPLAINT Pacer Check Remote S/P [facility] 09/23 [facility] FU NICOTINE DEPENDENCE NICOTINE DEPENDENCE NICOTINE DEPENDENCE NICOTINE DEPENDENCE Reason for Visit Cardiomyopathy History of permanent cardiac pacemaker placement Hyperlipidemia Non-ischemic cardiomyopathy COPD (chronic obstructive pulmonary disease) Essential hypertension Acute respiratory distress Elevated troponin Mucus plugging of bronchi Second degree AV block, Mobitz type II History of permanent cardiac pacemaker placement Hyperlipidemia Non-ischemic cardiomyopathy Essential hypertension Nicotine dependence, cigarettes, uncomplicated Chief Complaint CARDIAC DISTRESS CARDIAC DISTRESS AM EKG RESPIRATORY DISTRESS RESPIRATORY DISTRESS RESPIRATORY DISTRESS RESPIRATORY DISTRESS RESPIRATORY DISTRESS RESPIRATORY DISTRESS RESPIRATORY DISTRESS COMPLAINT Pacer Check Remote S/P [facility] 09/23 [facility] Pacer Check Remote NICOTINE DEPENDENCE NICOTINE DEPENDENCE NICOTINE DEPENDENCE NICOTINE DEPENDENCE TURP Reason for Visit Cardiomyopathy History of permanent cardiac pacemaker placement Hyperlipidemia Non-ischemic cardiomyopathy COPD (chronic obstructive pulmonary disease) Essential hypertension Acute respiratory distress Elevated troponin Mucus plugging of bronchi Second degree AV block, Mobitz type II History of permanent cardiac pacemaker placement Hyperlipidemia Non-ischemic cardiomyopathy Essential hypertension Nicotine dependence, cigarettes, uncomplicated Chief Complaint CARDIAC DISTRESS CARDIAC DISTRESS AM EKG RESPIRATORY DISTRESS RESPIRATORY DISTRESS RESPIRATORY DISTRESS RESPIRATORY DISTRESS RESPIRATORY DISTRESS RESPIRATORY DISTRESS RESPIRATORY DISTRESS COMPLAINT Pacer Check Remote S/P [facility] 09/23 [facility] FU Pacer Check Remote NICOTINE DEPENDENCE NICOTINE DEPENDENCE NICOTINE DEPENDENCE NICOTINE DEPENDENCE TURP 6 wk FU CHF Reason for Visit Cardiomyopathy History of permanent cardiac pacemaker placement Hyperlipidemia Non-ischemic cardiomyopathy COPD (chronic obstructive pulmonary disease) Essential hypertension Acute respiratory distress Elevated troponin Mucus plugging of bronchi Second degree AV block, Mobitz type II History of permanent cardiac pacemaker placement Hyperlipidemia Non-ischemic cardiomyopathy Essential hypertension Nicotine dependence, cigarettes, uncomplicated COPD (chronic obstructive pulmonary disease) Nicotine dependence, cigarettes, uncomplicated Chief Complaint CARDIAC DISTRESS CARDIAC DISTRESS AM EKG RESPIRATORY DISTRESS RESPIRATORY DISTRESS RESPIRATORY DISTRESS RESPIRATORY DISTRESS RESPIRATORY DISTRESS RESPIRATORY DISTRESS RESPIRATORY DISTRESS COMPLAINT Pacer Check Remote S/P [facility] 09/23 [facility] Pacer Check Remote NICOTINE DEPENDENCE NICOTINE DEPENDENCE NICOTINE DEPENDENCE NICOTINE DEPENDENCE Cysto,Transurethral Resection Prost TURP 6 wk FU CHF Reason for Visit Cardiomyopathy History of permanent cardiac pacemaker placement Hyperlipidemia Non-ischemic cardiomyopathy COPD (chronic obstructive pulmonary disease) Essential hypertension Acute respiratory distress Elevated troponin Mucus plugging of bronchi Second degree AV block, Mobitz type II History of permanent cardiac pacemaker placement Hyperlipidemia Non-ischemic cardiomyopathy Essential hypertension Nicotine dependence, cigarettes, uncomplicated COPD (chronic obstructive pulmonary disease) Nicotine dependence, cigarettes, uncomplicated Chief Complaint Admit Date Pacer Check Remote November 04, 2024 4:53am Pacer Check Remote November 10, 2024 4: 01am Pacer Check Remote November 26, 2024 4 :01am Pacer Check Remote December 03, 2024 4 :01am Pacer Check Remote December 10, 2024 4 :02am Pacer Check Remote December 17, 2024 4 :15am Pacer Check Remote December 24, 2024 4:01am Pacer Check Remote December 31, 2024 4:01am Pacer Check Remote January 07, 2025 4:00am Chief Complaint Admit Date Pacer Check Remote December 10, 2024 4 :02am Pacer Check Remote December 17, 2024 4 :15am Pacer Check Remote December 24, 2024 4:01am Pacer Check Remote December 31, 2024 4:01am Pacer Check Remote January 07, 2025 4:00am Pacer Check Remote February 09, 2025 4:02 am Pacer Check Remote March 03, 2025 9:0 0am Annual [employer]-D F/U/TIP TESTER @ 2:45 March 03, 2025 1:50pm 1 Y FU/DELILAH @ 2 March 03, 2025 1:5 1pm Other cardiomyopathies March 30, 2025 1: 54pm Reason for Visit Admit Date 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 March 03, 2025 1:50pm Left bundle branch block (LBBB) March 032024 1:50pm Non-ischemic cardiomyopathy March 03, 2025 1:50pm Hyperlipidemia March 03, 2025 1:5 1pm Non-ischemic cardiomyopathy March 03, 2025 1:51pm Essential hypertension March 03, 2025 1:51pm History of permanent cardiac pacemaker p lacement March 03, 2025 1:51pm Chief Complaint Admit Date Pacer Check Remote December 31, 2024 4:01am Pacer Check Remote January 07, 2025 4:00am Pacer Check Remote February 09, 2025 4:02 am Pacer Check Remote March 03, 2025 9:0 0am Annual [employer] GAUGER-D F/U/TIP TESTER @ 2:45 March 03, 2025 1:50pm 1 Y FU/DELILAH @ March 03, 2025 1:5 1pm Other cardiomyopathies March 30, 2025 1: 54pm Chief Complaint Admit Date Pacer Check Remote February 09, 2025 4:02 am Pacer Check Remote March 03, 2025 9:0 0am Annual [employer] GAUGER-D F/U/TIP TESTER @ 2:45 March 03, 2025 1:50pm 1 Y FU/DELILAH @ 2 March 03, 2025 1:5 1pm Other cardiomyopathies March 30, 2025 1: 54pm Chief Complaint Admit Date Pacer Check Remote February 09, 2025 4:02 am Pacer Check Remote March 03, 2025 9:0 0am Annual [employer] G[employer]GER-D F/U/TIP TESTER @ 2:45 March 03, 2025 1:50pm 1 Y FU/DELILAH @ March 03, 2025 1:5 1pm Other cardiomyopathies March 30, 2025 1: 54pm Pacer Check Remote May 11, 2025 4:02a m Chief Complaint Admit Date Pacer Check Remote February 09, 2025 4:02 am Pacer Check Remote March 03, 2025 9:0 0am Annual [employer] GAUGER-D F/U/TIP TESTER @ 2:45 March 03, 2025 1:50pm 1 Y FU/DELILAH @ 2 March 03, 2025 1:5 1pm Other cardiomyopathies March 30, 2025 1: 54pm Pacer Check Remote May 11, 2025 4:02a m Pacer Check Remote May 18, 2025 4:01a m Chief Complaint Admit Date Other cardiomyopathies March 30, 2025 1: 54pm Pacer Check Remote May 11, 2025 4:02a m Pacer Check Remote May 18, 2025 4:01a m Pacer Check Remote July 27, 2025 4:02am Chief Complaint Admit Date Pacer Check Remote May 11, 2025 4:02a m Pacer Check Remote May 18, 2025 4:01a m Pacer Check Remote July 27, 2025 4:02am Pacer Check Remote August 10, 2025 4: 01am Advance Directives No Advanced Directives Records Found Advance Directive Response Recorded Date/ Time Advance Directives Yes December 7:43am Living Will Yes December 21 9:56am Power of Manager Contact Yes December 21, 2021 9:56am Advance Directive Response Recorded Date/ Time Advance Directives Yes December 6:43am Living Will Yes December 21 8:56am Power of Manager Contact Yes December 21, 2021 8:56am Advance Directive Response Recorded Date/ Time Name of Medical Power of Manager Contact [facility] September 21, 2023 12:23pm Advance Directives Yes December 6:43am Living Will Yes September 21 12:23pm Power of Manager Contact Yes September 21, 2023 12:23pm Advance Directive Response Recorded Date/ Time Advance Directives Yes December 6:43am Living Will No October 08, 023 1:16pm Power of Manager Contact No October 08, 2023 1:16pm Name of Medical Power of Manager Contact [facility] September 21, 2023 12:23pm Advance Directive Response Recorded Date/ Time Name of Medical Power of Manager [facility] [facility] September 21, 2023 12:23pm Advance Directives Yes December 6:43am Living Will Yes October 24 023 9:20am Power of Manager Contact Yes October 24, 2023 9:20am Advance Directive Response Recorded Date/ Time Name of Medical Power of Manager Contact [facility] September 21, 2023 12:23pm Advance Directives Yes December 6:43am Living Will Yes November 14 11:06am Power of Manager Contact Yes November 14 2 024 11:06am Advance Directive Response Recorded Date/ Time Name of Medical Power of Manager Contact Griselda Morataya September 21, 2023 12:23pm Name of Medical Power of Manager Contact Griselda Morataya - December 17, 2023 5:40pm Advance Directives Yes December 6:43am Living Will Yes December 17 5:40pm Power of Manager Contact Yes December 17, 2023 5:40pm Advance Directive Response Recorded Date/ Time Name of Medical Power of Manager Contact [facility] November 14, 2023 11:06am Name of Medical Power of Manager Contact Griselda Morataya September 21, 2023 12:23pm Name of Medical Power of Manager Contact Griselda Morataya - December 17, 2023 5:40pm Advance Directives Yes December 6:43am Living Will Yes December 17 5:40pm Power of Manager Contact Yes December 17, 2023 5:40pm Advance Directive Response Recorded Date/ Time Advance Directives Yes December 7:43am Advance Directive Response Recorded Date/ Time Living Will No October 08, 2 023 2:16pm Do you have a Healthcare Power of Manager Contact? No October 08, 2023 2:16pm Living Will Yes December 17 6:40pm Do you have a Healthcare Power of Manager Contact? Yes December 17, 2023 6:40pm Advance Directives Yes December 7:43am Family History No Family History Records Found Relationship Condition Age at Onset Recorded Date/T eladio Not Specified Multiple premature v entricular complexes Unknown Mobitz type II atrioventricular block Unk nown Nonischemic cardiomyopathy Unknown Primary hypertension Unknown Right bundle branch block (RBBB) with left anterior fascicular block Unknown Summary Purpose Additional Source Comments Goals (unrecognized section and content) Goals may be documented in a n alternate sectionGoals may be documented in an alternate sectionGoals may be documented in an alternate sectionGoals may be documented in an alternate sectionGoals may be documented in an alternate sectionGoals may be documented in an alternate sectionGoals may be documented in an alternate sectionGoals may be documented in an alternate section No data available for this sectionGoals may be documented in an alternate sectionGoals may be documented in an alternate sectionGoals may be documented in an alternate sectionGoals may be documented in an alternate sectionGoals may be documented in an alternate sectionGoals may be documented in an alternate sectionGoals may be documented in an alternate sectionGoals may be documented in an alternate sectionGoals may be documented in an alternate section Care Teams (unrecognized sec tion and content) Team Status: Active Member Role Status Dates Dr. Gee Garza MD Family Provider Active Dr. Gee Garza MD Primary Care Provider Active Team Status: Inactive Member Role Status Dates Dr. Gee Garza MD Primary Care Provider, Referring Provider Active Dr. Cheo Walker MD Attending Provider Active Team Status: Inactive Member Role Status Dates Dr. Gee Garza MD Primary Care Provider, Referring Provider Active Karol Miranda Active Dr. Cheo Walker MD Attending Provider Active Team Status: Inactive Member Role Status Dates Dr. Gee Garza MD Primary Care Provider, Referring Provider Active Karol Miranda Attending Provider Active Team Status: Inactive Member Role Status Dates Dr. Gee Garza MD Primary Care Provi dick, Attending Provider, Referring Provider Active Team Status: Active Member Role Status Dates Dr. Gee Garza MD Primary Care Provider Active Dr. Cheo Walker MD Attending Provider Active Team Status: Inactive Member Role Status Dates Dr. Gee Garza MD Primary Care Provider Active Dr. Cheo Walker MD Attending Provider, Referring Pro vider Active Team Status: Inactive Member Role Status Dates Dr. Gee Garza MD Primary Care Provider, Attending Provider Active Team Status: Inactive Member Role Status Dates Dr. Gee Garza MD Primary Care Provider Active Dr. Marija Lee DO Attending Provider, Referring Provider Active WALKER Hodges Other Provider Active Team Status: Inactive Member Role Status Dates Dr. Gee Garza MD Primary Care Provider Active Dr. Marija Lee DO Attending Provider, Referring Provider Active Team Status: Active Member Role Status Dates Dr. Gee Garza MD Primary Care Provider Active Dr. Orville Chan DO Emergency Provider Active Dr. Krystyna Cortes MD Admit Provider, At tending Provider, Other Provider Active Team Status: Active Member Role Status Dates Dr. Gee Garza MD Primary Care Provider Active Dr. Lurdes Higginbotham MD Attending Provider Active Team Status: Active Member Role Status Dates Dr. Gee Garza MD Primary Care Provider Active Dr. Orville Chan DO Emergency Provider Active Dr. Krystyna Cortes MD Admit Provider, At tending Provider, Other Provider Active Dr. Lurdes Higginbotham MD Other Provider Active Team Status: Active Member Role Status Dates Dr. Gee Garza MD Primary Care Provider Active Dr. Orville Chan DO Emergency Provider Active Dr. Krystyna Cortes MD Admit Provider, Other Provider A ctive Dr. Lurdes Higginbotham MD Attending Provider, Other Provid er Active Team Status: Active Member Role Status Dates Dr. Gee Garza MD Primary Care Provider Active Dr. Orville Chan DO Emergency Provider Active Dr. Krystyna Cortes MD Admit Provider, Other Provider A ctive Dr. Lurdes Higginbotham MD Other Provider Active Dr. Peterson Daily MD Attending Provider, Other Provid er Active Team Status: Active Member Role Status Dates Dr. Gee Garza MD Primary Care Provider Active Dr. Orville Chan DO Emergency Provider Active Dr. Krystyna Cortes MD Admit Provider, Other Provider A ctive Dr. Lurdes Higginbotham MD Attending Provider, Other Provid er Active Dr. Peterson Daily MD Other Provider Active Team Status: Inactive Member Role Status Dates Dr. Gee Garza MD Primary Care Provider Active Kerry CARDOSO, PA Attending Provider, Referr ing Provider Active Team Status: Inactive Member Role Status Dates Dr. Gee Garza MD Primary Care Provider Active Dr. Orville Chan DO Emergency Provider Active Dr. Krystyna Cortes MD Admit Provider, Other Provider A ctive Dr. Lurdes Higginbotham MD Other Provider Active Dr. Peterson Daily MD Attending Provider Active Team Status: Active Member Role Status Dates Dr. Gee Garza MD Primary Care Provider Active Dr. Cheo Walker MD Attending Provider, Referring Pro vider Active Team Status: Inactive Member Role Status Dates Dr. Gee Garza MD Primary Care Provider Active Dr. Bhupendra Dial DO Emergency Provider Active Team Status: Inactive Member Role Status Dates Dr. Gee Garza MD Primary Care Provider, Referring Provider Active Jeet Benavidez BLACKING MACHINE OPERATOR, BLACKING MACHINE OPERATOR-C Attending Provider Active Team Status: Inactive Member Role Status Dates Dr. Gee Garza MD Primary Care Provider Active Dr. Cheo Walker MD Attending Provider Active Team Status: Inactive Member Role Status Dates Dr. Gee Garza MD Primary Care Provider Active Dr. Bhupendra Dial DO Attending Provider, Emergency Provide r Active Team Status: Inactive Member Role Status Dates Dr. Gee Garza MD Primary Care Provider, Referring Provider Active Dr. Oj Santiago DO Attending Provider Active Team Status: Inactive Member Role Status Dates Dr. Gee Garza MD Primary Care Provider Active Jeet Benavidez BLACKING MACHINE OPERATOR, BLACKING MACHINE OPERATOR-C Attending Provider, Referring Pro vider Active Team Status: Active Member Role Status Dates Dr. Gee Garza MD Primary Care Provider Active Dr. Oj Santiago DO Attending Provider, Referring Provider, Other Provider Active Team Status: Active Member Role Status Dates Dr. Gee Garza MD Primary Care Provider Active Dr. Oj Santiago DO Attending Provider, Referring Pro vider Active Team Status: Inactive Member Role Status Dates Dr. Gee Garza MD Primary Care Provider Active Dr. Oj Santiago DO Attending Provider, Referring Pro vider Active Team Status: Inactive Member Role Status Dates Dr. Gee Garza MD Primary Care Provider Active Dr. Junior Hayes MD Attending Provider, Referr ing Provider Active Team Status: Inactive Member Role Status Dates Dr. Gee Garza MD Primary Care Provider, Referring Provider Active Nicki Browne BLACKING MACHINE OPERATOR, BLACKING MACHINE OPERATOR-C Attending Provider Active Team Status: Inactive Member Role Status Dates Dr. Gee Garza MD Primary Care Provider Active Start: October 25, 2024 End: October 25, 2024 Dr. Gee Garza MD Attending Provider Active Start: October 25, 2024 End: October 25, 2024 Team Status: Inactive Member Role Status Dates Dr. Gee Garza MD Primary Care Provider Active Start: November 04, 2024 End: November 04, 2024 Dr. Cheo Walker MD Attending Provider Active S tart: November 04, 2024 End: November 04, 2024 Team Status: Inactive Member Role Status Dates Dr. Gee Garza MD Primary Care Provider Active Start: November 10, 2024 End: November 10, 2024 Dr. Cheo Walker MD Attending Provider Active S tart: November 10, 2024 End: November 10, 2024 Team Status: Inactive Member Role Status Dates Dr. Gee Garza MD Primary Care Provider Active Start: November 16, 2024 End: November 16, 2024 Dr. Gee Garza MD Attending Provider Active Start: November 16, 2024 End: November 16, 2024 Team Status: Inactive Member Role Status Dates Dr. Gee Garza MD Primary Care Provider Active Start: November 26, 2024 End: November 26, 2024 Dr. Cheo Walker MD Attending Provider Active S tart: November 26, 2024 End: November 26, 2024 Team Status: Inactive Member Role Status Dates Dr. Gee Garza MD Primary Care Provider Active Start: December 03, 2024 End: December 03, 2024 Dr. Cheo Walker MD Attending Provider Active S tart: December 03, 2024 End: December 03, 2024 Team Status: Inactive Member Role Status Dates Dr. Gee Garza MD Primary Care Provider Active Start: December 10, 2024 End: December 10, 2024 Dr. Cheo Walker MD Attending Provider Active S tart: December 10, 2024 End: December 10, 2024 Team Status: Inactive Member Role Status Dates Dr. Gee Garza MD Primary Care Provider Active Start: December 17, 2024 End: December 17, 2024 Dr. Cheo Walker MD Attending Provider Active S tart: December 17, 2024 End: December 17, 2024 Team Status: Inactive Member Role Status Dates Dr. Gee Garza MD Primary Care Provider Active Start: December 24, 2024 End: December 24, 2024 Dr. Cheo Walker MD Attending Provider Active S tart: December 24, 2024 End: December 24, 2024 Team Status: Inactive Member Role Status Dates Dr. Gee Garza MD Primary Care Provider Active Start: December 31, 2024 End: December 31, 2024 Dr. Cheo Walker MD Attending Provider Active S tart: December 31, 2024 End: December 31, 2024 Team Status: Inactive Member Role Status Dates Dr. Gee Garza MD Primary Care Provider Active Start: January 07, 2025 End: January 07, 2025 Dr. Cheo Walker MD Attending Provider Active S tart: January 07, 2025 End: January 07, 2025 Team Status: Inactive Member Role Status Dates Dr. Gee Garza MD Primary Care Provider Active Start: January 31, 2025 End: January 31, 2025 Dr. Gee Garza MD Attending Provider Active Start: January 31, 2025 End: January 31, 2025 Team Status: Active Member Role Status Dates Dr. Gee Garza MD Primary Care Provider Active Team Status: Inactive Member Role Status Dates Dr. Gee Garza MD Primary Care Provider Active Start: February 09, 2025 End: February 09, 2025 Dr. Cheo Walker MD Attending Provider Active S tart: February 09, 2025 End: February 09, 2025 Team Status: Inactive Member Role Status Dates Dr. Gee Garza MD Primary Care Provider Active Start: March 03, 2025 End: March 03, 2025 Dr. Cheo Walker MD Attending Provider Active S tart: March 03, 2025 End: March 03, 2025 Team Status: Inactive Member Role Status Dates Dr. Gee Garza MD Primary Care Provider Active Start: March 03, 2025 End: March 03, 2025 Dr. Gee Garza MD Referring Provider Active Start: March 03, 2025 End: March 03, 2025 Dr. Cheo Walker MD Attending Provider Active S tart: March 03, 2025 End: March 03, 2025 Team Status: Inactive Member Role Status Dates Dr. Gee Garza MD Primary Care Provider Active Start: March 30, 2025 End: March 30, 2025 Dr. Cheo Walker MD Attending Provider Active S tart: March 30, 2025 End: March 30, 2025 Dr. Cheo Walker MD Referring Provider Active S tart: March 30, 2025 End: March 30, 2025 Team Status: Active Member Role Status Dates Dr. Gee Garza MD Primary Care Provider Active Start: March 30, 2025 Dr. Cheo Walker MD Attending Provider Active S tart: March 30, 2025 Team Status: Inactive Member Role Status Dates Dr. Gee Garza MD Primary Care Provider Active Start: April 20, 2025 End: April 20, 2025 WALKER Daley Attending Provider Active St art: April 20, 2025 End: April 20, 2025 WALKER Daley Referring Provider Active St art: April 20, 2025 End: April 20, 2025 Team Status: Active Member Role/Relationship Status Dates Dr. Gee Garza MD Primary Care Provider Active Team Status: Inactive Member Role/Relationship Status Dates Dr. Gee Garza MD Primary Care Provider Active Start: January 31, 2025 End: January 31, 2025 Dr. Gee Garza MD Attending Provider Active Start: January 31, 2025 End: January 31, 2025 Team Status: Inactive Member Role/Relationship Status Dates Dr. Gee Garza MD Primary Care Provider Active Start: February 09, 2025 End: February 09, 2025 Dr. Cheo Walker MD Attending Provider Active S tart: February 09, 2025 End: February 09, 2025 Team Status: Inactive Member Role/Relationship Status Dates Dr. Gee Garza MD Primary Care Provider Active Start: March 03, 2025 End: March 03, 2025 Dr. Cheo Walker MD Attending Provider Active S tart: March 03, 2025 End: March 03, 2025 Team Status: Inactive Member Role/Relationship Status Dates Dr. Gee Garza MD Primary Care Provider Active Start: March 03, 2025 End: March 03, 2025 Dr. Gee Garza MD Referring Provider Active Start: March 03, 2025 End: March 03, 2025 Dr. Cheo Walker MD Attending Provider Active S tart: March 03, 2025 End: March 03, 2025 Team Status: Inactive Member Role/Relationship Status Dates Dr. Gee Garza MD Primary Care Provider Active Start: March 03, 2025 End: March 03, 2025 Dr. Gee Garza MD Referring Provider Active Start: March 03, 2025 End: March 03, 2025 Dr. Cheo Walker MD Attending Provider Active S tart: March 03, 2025 End: March 03, 2025 Team Status: Inactive Member Role/Relationship Status Dates Dr. Gee Garza MD Primary Care Provider Active Start: March 30, 2025 End: March 30, 2025 Dr. Cheo Walker MD Attending Provider Active S tart: March 30, 2025 End: March 30, 2025 Dr. Cheo Walker MD Referring Provider Active S tart: March 30, 2025 End: March 30, 2025 Team Status: Active Member Role/Relationship Status Dates Dr. Gee Garza MD Primary Care Provider Active Start: March 30, 2025 Dr. Cheo Walker MD Attending Provider Active S tart: March 30, 2025 Team Status: Inactive Member Role/Relationship Status Dates Dr. Gee Garza MD Primary Care Provider Active Start: April 20, 2025 End: April 20, 2025 WALKER Daley Attending Provider Active St art: April 20, 2025 End: April 20, 2025 WALKER Daley Referring Provider Active St art: April 20, 2025 End: April 20, 2025 Team Status: Inactive Member Role/Relationship Status Dates Dr. Gee Garza MD Primary Care Provider Active Start: May 05, 2025 End: May 05, 2025 Nikia Costa Attending Provider Active Start : May 05, 2025 End: May 05, 2025 Nikia Costa Referring Provider Active Start : May 05, 2025 End: May 05, 2025 Team Status: Inactive Member Role/Relationship Status Dates Dr. Gee Garza MD Primary Care Provider Active Start: May 11, 2025 End: May 11, 2025 Dr. Cheo Walker MD Attending Provider Active S tart: May 11, 2025 End: May 11, 2025 Team Status: Inactive Member Role/Relationship Status Dates Dr. Gee Garza MD Primary Care Provider Active Start: May 18, 2025 End: May 18, 2025 Dr. Gee Garza MD Attending Provider Active Start: May 18, 2025 End: May 18, 2025 Team Status: Inactive Member Role/Relationship Status Dates Dr. Gee Garza MD Primary Care Provider Active Start: May 18, 2025 End: May 18, 2025 Dr. Cheo Walker MD Attending Provider Active S tart: May 18, 2025 End: May 18, 2025 Team Status: Inactive Member Role/Relationship Status Dates Dr. Gee Garza MD Primary Care Provider Active Start: May 18, 2025 End: May 18, 2025 Dr. Gee Garza MD Attending Provider Active Start: May 18, 2025 End: May 18, 2025 Team Status: Active Member Role/Relationship Status Dates Dr. Gee Garza MD Primary care physician Active Team Status: Inactive Member Role/Relationship Status Dates Dr. Gee Garza MD Primary care physician Active Start: March 30, 2025 End: March 30, 2025 Dr. Cheo Walker MD Attending physician Active Start: March 30, 2025 End: March 30, 2025 Dr. Cheo Walker MD Referring Provider Active S tart: March 30, 2025 End: March 30, 2025 Team Status: Active Member Role/Relationship Status Dates Dr. Gee Garza MD Primary care physician Active Start: March 30, 2025 Dr. Cheo Walker MD Attending physician Active Start: March 30, 2025 Team Status: Inactive Member Role/Relationship Status Dates Dr. Gee Garza MD Primary care physician Active Start: April 20, 2025 End: April 20, 2025 WALKER Daley Attending physician Active S tart: April 20, 2025 End: April 20, 2025 WALKER Daley Referring Provider Active St art: April 20, 2025 End: April 20, 2025 Team Status: Inactive Member Role/Relationship Status Dates Dr. Gee Garza MD Primary care physician Active Start: May 05, 2025 End: May 05, 2025 Nikia Amaro Attending physician Active Star t: May 05, 2025 End: May 05, 2025 Nikia Grahaming Referring Provider Active Start : May 05, 2025 End: May 05, 2025 Team Status: Inactive Member Role/Relationship Status Dates Dr. Gee Garza MD Primary care physician Active Start: May 11, 2025 End: May 11, 2025 Dr. Cheo Walker MD Attending physician Active Start: May 11, 2025 End: May 11, 2025 Team Status: Inactive Member Role/Relationship Status Dates Dr. Gee Garza MD Primary care physician Active Start: May 18, 2025 End: May 18, 2025 Dr. Cheo Walker MD Attending physician Active Start: May 18, 2025 End: May 18, 2025 Team Status: Inactive Member Role/Relationship Status Dates Dr. Gee Garza MD Primary care physician Active Start: May 18, 2025 End: May 18, 2025 Dr. Gee Garza MD Attending physician Active Start: May 18, 2025 End: May 18, 2025 Team Status: Inactive Member Role/Relationship Status Dates Dr. Gee Garza MD Primary care physician Active Start: July 27, 2025 End: July 27, 2025 Dr. Cheo Walker MD Attending physician Active Start: July 27, 2025 End: July 27, 2025 Team Status: Inactive Member Role/Relationship Status Dates Dr. Gee Garza MD Primary care physician Active Start: April 20, 2025 End: April 20, 2025 WALKER Daley Attending physician Active S tart: April 20, 2025 End: April 20, 2025 WALKER Daley Referring Provider Active St art: April 20, 2025 End: April 20, 2025 Team Status: Inactive Member Role/Relationship Status Dates Dr. Gee Garza MD Primary care physician Active Start: May 05, 2025 End: May 05, 2025 Nikia Costa Attending physician Active Star t: May 05, 2025 End: May 05, 2025 Nikia Costa Referring Provider Active Start : May 05, 2025 End: May 05, 2025 Team Status: Inactive Member Role/Relationship Status Dates Dr. Gee Garza MD Primary care physician Active Start: May 11, 2025 End: May 11, 2025 Dr. Cheo Walker MD Attending physician Active Start: May 11, 2025 End: May 11, 2025 Team Status: Inactive Member Role/Relationship Status Dates Dr. Gee Garza MD Primary care physician Active Start: May 18, 2025 End: May 18, 2025 Dr. Cheo Walker MD Attending physician Active Start: May 18, 2025 End: May 18, 2025 Team Status: Inactive Member Role/Relationship Status Dates Dr. Gee Garza MD Primary care physician Active Start: May 18, 2025 End: May 18, 2025 Dr. Gee Garza MD Attending physician Active Start: May 18, 2025 End: May 18, 2025 Team Status: Inactive Member Role/Relationship Status Dates Dr. Gee Garza MD Primary care physician Active Start: July 27, 2025 End: July 27, 2025 Dr. Cheo Walker MD Attending physician Active Start: July 27, 2025 End: July 27, 2025 Team Status: Inactive Member Role/Relationship Status Dates Dr. Gee Garza MD Primary care physician Active Start: August 10, 2025 End: August 10, 2025 Dr. Cheo Walker MD Attending physician Active Start: August 10, 2025 End: August 10, 2025 (unrecognized sect ion and content) No Status Records FoundNo Status Records Found INFORMATION SOURCE (unrecogn ized section and content) DATE CREATED AUTHOR 02/20/2024 Formerly [facility], [facility] ([place]) DATE CREATED AUTHOR AUTHOR'S ORGANIZ ATION 09/14/2025 [facility] FOR RECORDS PERTAINING TO PATIENTS WHO ARE OR HAVE BEEN ENROLLED IN A CHEMICAL DEPENDENCY/SUBSTANCEABUSE PROGRAM, SOME INFORMATION MAY BE OMITTED. This clinical summary was aggregated from multiple sources. Caution should be exercised in using it in the provision of clinical care. This summary normalizes information from multiple sources, and as a consequence, information in this document may materially change the coding, format and clinical context of patient data. In addition, data may be omitted in some cases. CLINICAL DECISIONS SHOULD BE BASED ON THE PRIMARY CLINICAL RECORDS. [email or web address] [facility]. provides no warranty or guarantee of the accuracy or completeness of information in this document.
== END | disposition home or self-care (01) ==
LOC: CT 16:02
PROVIDERS: PCP Family Medicine Geriatric Medicine; Referring Provider Nurse Practitioner Acute Care; Visit Provider Nurse Practitioner Acute Care
DX: Z12.2 Encounter for screening for malignant neoplasm of respiratory organs (principal); F17.210 Nicotine dependence, cigarettes, uncomplicated
CPT/HCPCS: 71271